=== PATIENT | male | born 2000 | race Caucasian/White ===

== ENCOUNTER 2024-02-28 15:11 | Emergency (ER) | payer MEDICAID, SELFPAY ==
[2024-02-28 15:30] VITALS: RESP 20; O2SAT 100
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
== END 2024-02-28 15:51 | disposition home or self-care (01) ==
PROVIDERS: Emergency Provider Emergency Medicine
DX: F42.9 Obsessive-compulsive disorder, unspecified (principal); F41.9 Anxiety disorder, unspecified
CPT/HCPCS: 99281

== ENCOUNTER 2024-03-02 01:56 | Emergency (ER) | payer MEDICAID, SELFPAY ==
[2024-03-02 02:00] VITALS: BP 136/89; PULSE 85; RESP 16; TEMP 36.4; O2SAT 100
--- NOTE | 2024-03-02 02:01 | ED.UPPEXIN ---
HPI - Extremity Injury (Upper) General Chief Complaint: Extremity Injury, Upper Stated Complaint: unspecified Time Seen by Provider: 03/02/24 02:01 Source: patient Mode of arrival: ambulatory Limitations: no limitations History of Present Illness HPI narrative: 24-year-old male with a history of anxiety done yesterday morning. Blood was drawn from right cubital fossa. He presents to the ED with a bruise on his right cubital fossa. Normal range of motion of the right elbow. Patient stated that he was asleep and was woken up with pain in the right cubital fossa. up-to-date on tetanus MD complaint: injury to: right Severity: mild Relieving factors: none Exacerbating factors: none Related Data Home Medications Medication Instructions Recorded Confirmed No Home Medications 03/02/24 03/02/24 Allergies Allergy/AdvReac Type Severity Reaction Status Date / Time No Known Allergies Allergy Verified 03/02/24 02:01 Review of Systems Review of Systems: All systems reviewed & are unremarkable except as noted in HPI and below Exam Narrative: Blood pressure is stable. Afebrile. Oxygen saturation of 100% on room Const: General: healthy appearing Nutritional Appearance: well nourished Orientation/consciousness: patient oriented x3 Limitations: no limitations HENMT: Head: normal to inspection Ears: external ears normal Face/Nose/Sinus: Normal external nose present Face and sinus: normal facial exam Mouth: Yes Normal oral and palatal mucosa present Throat: posterior oropharynx normal Eyes: Conjunctivae: conjunctivae normal Pupils: Equal, round and reactive pupils present EOM: EOMs intact bilaterally Direct Ophthalmoscopy: no photophobia Neck: Neck: normal visual inspection, no lymphadenopathy and no meningeal signs Chest: Chest palpation & inspection: normal inspection of the chest Resp: Effort & Inspection: normal respiratory effort Auscultation: clear to auscultation bilaterally Cardio: Rate: regular rate Rhythm: regular rhythm GI: GI Palp: Yes Soft to palpation Auscultation: normal bowel sounds Other: no tenderness /rigidity / rebound. : General: Yes no CVA tenderness Back/Spine/Pelvis: Back: no CVA tenderness Skin: General skin exam: normal color Rashes: no rashes Other: Right cubital fossa has the 3 cm linear bruise Neuro: General: patient oriented x3, moves all extremities, no meningeal signs and no focal motor deficits Cranial nerves: Yes Nystagmus not present Speech: normal speech Gait exam (Neuro): Normal gait present Extrem: General: normal to inspection and no clubbing, cyanosis or edema Psych: Mental Status: mental status grossly normal Affect: normal affect Attitude: cooperative Course Course Emergency Course: right arm bruising Vital Signs Vital signs: Vital Signs Temperature 36.4 C L 03/02/24 02:00 Pulse Rate 85 03/02/24 02:00 Respiratory Rate 16 03/02/24 02:00 Blood Pressure 136/89 03/02/24 02:00 Pulse Oximetry 100 03/02/24 02:00 Oxygen Delivery Room Air 03/02/24 02:00 Temperature 36.4 C L 03/02/24 02:00 Pulse Rate 85 03/02/24 02:00 Respiratory Rate 16 03/02/24 02:00 Blood Pressure 136/89 03/02/24 02:00 Pulse Oximetry 100 03/02/24 02:00 Oxygen Delivery Room Air 03/02/24 02:00 MDM - Extremity Injury (Upper) MDM Narrative Medical decision making narrative: right arm bruising Discharge Plan Discharge Clinical Impression: Bruise Patient Disposition: Home, Self-Care Condition: Stable Instructions: Antibiotic Form, Contusion in Adults (ED) Patient Language: Vietnamese Prescriptions: No Action No Home Medications Follow-up/Referrals: UNKNOWN,DOCTOR [Primary Care Provider] - Time of Disposition: 02:10
== END 2024-03-02 02:15 | disposition home or self-care (01) ==
PROVIDERS: Emergency Provider Internal Medicine Critical Care Medicine
DX: S50.01XA Contusion of right elbow, initial encounter (principal); X58.XXXA Exposure to other specified factors, initial encounter
CPT/HCPCS: 99281

== ENCOUNTER 2024-03-04 01:31 | Emergency (ER) | payer MEDICAID, SELFPAY ==
[2024-03-04 01:42] VITALS: BP 131/80; PULSE 92; RESP 18; TEMP 36.9; O2SAT 100
--- NOTE | 2024-03-04 02:08 | ED_ITS ---
HPI - Skin/Abscess/Foreign Bdy General Chief complaint: Extremity Injury, Upper Stated complaint: LEFT ARM PROBLEM Time Seen by Provider: 03/04/24 01:47 Source: patient Mode of arrival: ambulatory Limitations: no limitations History of Present Illness HPI narrative: patient is a 24-year-old male with a right upper extremity post IV insertion site for drawing blood pain. He has ecchymosis and pain of the site where IV insertion was done 4 days ago. He is having increasing pain of the AC curvature of the right upper extremity with some bruising. He is also having a cord-like sensation up the right inner arm. no fever or chills. tetanus up-to-date in the past year. MD complaint: other ( Right upper extremity pain at the AC fossa) Onset (ago): day(s) (4) Location: RUE Severity: moderate Severity scale (1-10): 4 Quality: sharp Pain Consistency: constant Relieving factors: cold therapy Exacerbating factors: palpation Context: other ( Patient had blood drawn 4 days ago) Associated symptoms: denies other symptoms Treatments prior to arrival: other ( cold compress and NSAIDs) Related Data Allergies Allergy/AdvReac Type Severity Reaction Status Date / Time No Known Allergies Allergy Verified 03/04/24 01:48 Review of Systems Review of Systems: All systems reviewed & are unremarkable except as noted in HPI and below Constitutional: Constitutional: Reports no additional constitutional complaints Eyes: Eyes: Reports no additional eye complaints ENT: Reports system reviewed and no additional complaints, except as documented Cardiovascular: Cardiovascular: Reports no additional cardiovascular complaints Respiratory: Respiratory: Reports no additional respiratory complaints Gastrointestinal: Gastrointestinal: Reports no additional gastrointestinal complaints Genitourinary: Genitourinary: Reports no additional male genitourinary complaints Musculoskeletal: Musculoskeletal: Reports no additional musculoskeletal complaints Integumentary/Breasts: Skin/Breast: Reports system reviewed and no additional complaints, except as docu Neurologic: Reports system reviewed and no additional complaints, except as documented Psychiatric: Psychiatric: Reports no additional psychiatric complaints Endocrine: Endocrine: Reports no additional endocrine complaints Hematologic/Lymphatic: Hematologic/Lymphatic: Reports no additional hematologic/lymphatic complaints Allergic/Immunologic: Allergic/Immunologic: Reports no additional allergic/immunologic complaints Exam Const: General: healthy appearing Nutritional Appearance: well nourished Orientation/consciousness: patient oriented x3 Limitations: no limitations HENMT: Head: normal to inspection Ears: external ears normal Face/Nose/Sinus: Normal external nose present Eyes: Conjunctivae: conjunctivae normal Pupils: Equal, round and reactive pupils present EOM: EOMs intact bilaterally Neck: Neck: normal visual inspection Chest: Chest palpation & inspection: normal inspection of the chest Resp: Effort & Inspection: normal respiratory effort and not labored Auscultation: clear to auscultation bilaterally and no crackles Cardio: Rate: regular rate Rhythm: regular rhythm Heart sounds: no murmurs GI: Inspection: non-distended GI Palp: Yes Soft to palpation and No Tenderness to palpation present (GI) Auscultation: normal bowel sounds : General: Yes bladder normal to palpation Back/Spine/Pelvis: Back: no CVA tenderness Skin: General skin exam: No normal color Rashes: no rashes Wounds: no wounds Other: right AC fossa has the area of insertion of the IV for blood draw and locally ecchymosis and tenderness; there appears to be a hardening of the vessel up the right upper arm; no definite signs of infection Neuro: General: patient oriented x3 Cranial nerves: Yes Nystagmus not present Speech: normal speech Gait exam (Neuro): Normal gait present Extrem: General: normal to inspection Psych: Mental Status: mental status grossly normal Affect: normal affect Attitude: cooperative Course Vital Signs Vital signs: Vital Signs Temperature 36.9 C 03/04/24 01:42 Pulse Rate 92 03/04/24 01:42 Respiratory Rate 18 03/04/24 01:42 Blood Pressure 131/80 03/04/24 01:42 Pulse Oximetry 100 03/04/24 01:42 Oxygen Delivery Room Air 03/04/24 01:42 Temperature 36.9 C 03/04/24 01:42 Pulse Rate 92 03/04/24 01:42 Respiratory Rate 18 03/04/24 01:42 Blood Pressure 131/80 03/04/24 01:42 Pulse Oximetry 100 03/04/24 01:42 Oxygen Delivery Room Air 03/04/24 01:42 MDM - Skin/Abscess/Foreign Bdy MDM Narrative Medical decision making narrative: patient is a 24-year-old male with right upper extremity post IV blood draw site of inflammation and phlebitis with questionable suppurative phlebitis. We will get an ultrasound of the right upper extremity tomorrow to rule out DVT. We will do Keflex for antibiotic treatment. We will continue NSAID treatment and ice compression. Discharge Plan Discharge Clinical Impression: Phlebitis Patient Disposition: Home, Self-Care Condition: Stable Instructions: Antibiotic Form, Phlebitis (ED) Additional Instructions: Please see the primary doctor in the next week. I have ordered ultrasound free to get done in the morning on Wednesday and if there is a positive finding you should proceed back to the emergency room. if it gets worse over the weekend please proceed to [facility] where you can get an ultrasound done on the weekends. please start using ibuprofen 600 mg at a time up to 3 times a day. Continue using cold compress. Prescriptions: New cephalexin 500 mg tablet 500 mg PO BID 10 Days Qty: 20 0RF Other Ambulatory Orders: US venous doppler UE RT (Routine) Timeframe: 3 Days Location: Determined by Patient Ordered By: Bandar Pyle Follow-up/Referrals: UNKNOWN,DOCTOR [Primary Care Provider] - Time of Disposition: 02:19
[2024-03-04] MEDS: IBUPROFEN 600 MG TABLET PO (02:30)
[2024-03-04] MEDS: CEPHALEXIN 500 MG CAPSULE PO (02:31)
--- NOTE | 2024-03-04 02:33 | PC.NURSE ---
patient medicated per order, see MAR. patient requesting to speak with ERP Dr. Broderick again, Dr. Broderick answered all patient inquiries at this time, including detailed information regarding follow up.
== END 2024-03-04 02:50 | disposition home or self-care (01) ==
LOC: CHSED 02:31
PROVIDERS: Emergency Provider Emergency Medicine
DX: T81.72XA Complication of vein following a procedure, not elsewhere classified, initial encounter (principal); I80.8 Phlebitis and thrombophlebitis of other sites
CPT/HCPCS: 99283; A9270

== ENCOUNTER 2024-03-06 13:21 | Outpatient (CLI) | payer MEDICAID, SELFPAY ==
--- NOTE | ~2024-03-06 | US_ITS ---
EXAMINATION: US venous doppler UE RT DATE: 03/06/2024 14:00 INDICATION: Phlebitis and thrombophlebitis of unspecified deep vein . TECHNIQUE: Grayscale ultrasound images without and with compression and Doppler ultrasound images of the right upper extremity veins were obtained. COMPARISON: None. FINDINGS: The visualized portions of the right internal jugular vein, subclavian vein, axillary vein, brachial veins, cephalic vein, radial vein, and ulnar vein are patent. There is wall thickening of the right b asilic vein. IMPRESSION: 1. No deep venous thrombosis. 2. Wall thickening of the right basilic vein, consistent with chronic superficial vein thrombosis. Reviewed, dictated and finalized at location A. ING INSTRUCTOR IMPRESSION: 1. No deep venous thrombosis. 2. Wall thickening of the right basilic vein, consistent with chronic superfici al vein thrombosis.
== END 2024-03-06 13:22 | disposition home or self-care (01) ==
LOC: CHSIMG 13:23
PROVIDERS: Visit Provider Emergency Medicine
DX: I80.9 Phlebitis and thrombophlebitis of unspecified site (principal)
CPT/HCPCS: 93971

== ENCOUNTER 2024-03-24 22:44 | Emergency (ER) | payer MEDICAID, SELFPAY ==
[2024-03-24 22:50] VITALS: BP 117/85; PULSE 99; RESP 16; TEMP 37.6; O2SAT 98
--- NOTE | 2024-03-24 22:56 | ED_ITS ---
HPI - Extremity Problem General Chief complaint: Extremity Problem,Nontraumatic Stated complaint: LEG PAIN Time Seen by Provider: 03/24/24 22:56 Source: patient Mode of arrival: ambulatory Limitations: no limitations History of Present Illness HPI Narrative: 24-year-old male a history anxiety presents to the ED with a 2 week history of -- right thigh pain. No history of trauma. No leg swelling. Patient is am bulatory without any difficulty. The patient has a family history of CVD and is concerned that this could be PVD. MD Complaint: extremity pain Onset (ago): week(s) ( Two weeks) Pain Consistency: intermittent Location: right and lower extremity Quality: aching Relieving factors: nothing Exacerbating factors: nothing Associated symptoms: denies other symptoms Related Data Home Medications ?Medication ?Instructions ?Recorded ?Confirmed ?Last Taken ?Type fluvoxamine 25 mg tablet mg 03/24/24 Unknown History Allergies Allergy/AdvReac Type Severity Reaction Status Date / Time No Known Allergies Allergy Verified 03/24/24 23:01 Review of Systems Review of Systems: All systems reviewed & are unremarkable except as noted in HPI and below Exam Narrative: patient is afebrile. Vitals stable. Const: General: healthy appearing Nutritional Appearance: thin Orientation/consciousness: patient oriented x3 Limitations: no limitations HENMT: Head: normal to inspection Ears: external ears normal Face/Nose/Sinus: Normal external nose present Face and sinus: normal facial exam Mouth: Yes Normal oral and palatal mucosa present Throat: posterior oropharynx normal Eyes: Conjunctivae: conjunctivae normal Pupils: Equal, round and reactive pupils present EOM: EOMs intact bilaterally Direct Ophthalmoscopy: no photophobia Neck: Neck: normal visual inspection, no lymphadenopathy and no meningeal signs Chest: Chest palpation & inspection: normal inspection of the chest Resp: Effort & Inspection: normal respiratory effort Auscultation: clear to auscultation bilaterally Cardio: Rate: regular rate Rhythm: regular rhythm GI: GI Palp: Yes Soft to palpation Other: No tenderness/ rigidity / rebound. : General: Yes no CVA tenderness Back/Spine/Pelvis: Back: no CVA tenderness Skin: General skin exam: normal color Rashes: no rashes Wounds: no wounds Neuro: General: patient oriented x3, moves all extremities, no meningeal signs, no focal motor deficits and CN's II-XI intact bilaterally Cranial nerves: Yes Nystagmus not present Speech: normal speech Gait exam (Neuro): Normal gait present Extrem: General: normal to inspection Other: Right thigh pain. No tenderness on palpation. Normal strength. Distal neurovascular bundle is intact. Palpable dorsalis pedis and posterior tibial pulses. No swelling of the right lower extremity compared to the left. Psych: Mental Status: mental status grossly normal Affect: normal affect Attitude: cooperative Course Course Emergency Course: Thigh pain anxiety Vital Signs Vital signs: Vital Signs Temperature 37.6 C 03/24/24 22:50 Pulse Rate 99 03/24/24 22:50 Respiratory Rate 16 03/24/24 22:50 Blood Pressure 117/85 03/24/24 22:50 Pulse Oximetry 98 03/24/24 22:50 Oxygen Delivery Room Air 03/24/24 22:50 Temperature 37.6 C 03/24/24 22:50 Pulse Rate 99 03/24/24 22:50 Respiratory Rate 16 03/24/24 22:50 Blood Pressure 117/85 03/24/24 22:50 Pulse Oximetry 98 03/24/24 22:50 Oxygen Delivery Room Air 03/24/24 22:50 MDM - Extremity (Nontraumatic) MDM Narrative Medical decision making narrative: myalgia anxiety Differential Diagnosis Differential diagnosis: Likely deep venous thrombosis of upper extremity Discharge Plan Discharge Clinical Impression: Myalgia, Anxiety Patient Disposition: Home, Self-Care Condition: Stable Instructions: Antibiotic Form, Musculoskeletal Pain (ED) Patient Language: Kinyarwanda Prescriptions: No Action fluvoxamine 25 mg tablet cephalexin 500 mg tablet 500 mg PO BID 10 Days Qty: 20 0RF Follow-up/Referrals: UNKNOWN,DOCTOR [Primary Care Provider] - Time of Disposition: 23:02
== END 2024-03-24 23:14 | disposition home or self-care (01) ==
PROVIDERS: Emergency Provider Internal Medicine Critical Care Medicine
DX: M79.10 Myalgia, unspecified site (principal); F41.9 Anxiety disorder, unspecified
CPT/HCPCS: 99281

== ENCOUNTER 2024-03-27 10:52 | Outpatient (CLI) | payer MEDICAID, SELFPAY ==
--- NOTE | ~2024-03-27 | XR_ITS ---
3 VIEWS LUMBAR SPINE Ordering provider: Jak Whaley, History: . right leg pain chronic pain in the rt hip NKI . Comparison: None. FINDINGS: VERTEBRAL BODIES: No visible fracture or subluxation. DISK SPACES: Normal. SOFT TISSUES: Normal. IMPRESSION: No acute osseous abnormality lumbar spine. Reviewed, dictated and finalized at location A. RITY DOOR INSTALLER
--- NOTE | ~2024-03-27 | XR_ITS ---
XR hip RT min 2V Ordering provider: Jak Whaley, History: . right leg pain chronic rt hip pain NKI . Comparison: None. FINDINGS: BONES: No acute fracture or dislocation. HIP JOINT SPACES: Normal. PUBIC SYMPHYSIS: Normal. SOFT TISSUES: Normal. IMPRESSION: No acute osseous abnormality pelvis and right hip. Reviewed, dictated and finalized at location A. AGE SMASHER
== END 2024-03-27 10:53 | disposition home or self-care (01) ==
LOC: CHSIMG 10:54
PROVIDERS: PCP Family Medicine; Visit Provider Family Medicine
DX: M79.604 Pain in right leg (principal)
CPT/HCPCS: 72100; 73502

== ENCOUNTER 2024-03-28 12:28 | Outpatient (CLI) | payer MEDICAID, SELFPAY ==
--- NOTE | ~2024-03-28 | US_ITS ---
EXAMINATION: US venous doppler LE RT DATE: 03/28/2024 12:58 INDICATION: Right lower limb pain. TECHNIQUE: Grayscale ultrasound images without and with compression and Doppler ultrasound images of the right lower extremity veins were obtained. COMPARISON: None. FINDINGS: The visualized portions of right common femoral vein, profunda (deep) femoral vein, femoral vein, pop liteal vein, peroneal veins, posterior tibial veins, and greater saphenous vein outflow are patent. IMPRESSION: 1. No deep venous thrombosis. Reviewed, dictated and finalized at location A. UCTION CLERKS SUPERVISOR
== END 2024-03-28 12:29 | disposition home or self-care (01) ==
PROVIDERS: PCP Family Medicine; Visit Provider Family Medicine
DX: M79.604 Pain in right leg (principal)
CPT/HCPCS: 93971

== ENCOUNTER 2024-03-31 14:50 | Emergency (ER) | payer MEDICAID, SELFPAY ==
[2024-03-31 14:52] VITALS: BP 118/69; PULSE 88; RESP 18; TEMP 36.8; O2SAT 99
--- NOTE | 2024-03-31 15:00 | ED.GENADULT ---
HPI - General Adult General Chief complaint: Wound/Laceration Stated complaint: ear pain Time Seen by Provider: 03/31/24 15:00 Source: patient Mode of arrival: ambulatory Limitations: no limitations History of Present Illness HPI narrative: 26-year-old white male complains of a cyst behind his right ear he is waiting for the last 2 weeks for his doctor to call him to make a rage was to have it removed. Last couple days is turned red and sore without any drainage. He is hearing fine denies any other complaints. He is eating drinking voiding and stooling fine walking talking seen hearing fine without any cough fever sore throat runny nose lumps or bumps other than what he has got behind his ear. Denies any dizziness or lightheadedness bleeding or bruising or any other complaints. Related Data Home Medications ?Medication ?Instructions ?Recorded ?Confirmed ?Last Taken ?Type fluvoxamine 25 mg tablet 25 mg PO DAILY 03/24/24 03/31/24 Unknown History Allergies Allergy/AdvReac Type Severity Reaction Status Date / Time No Known Allergies Allergy Verified 03/31/24 14:54 Review of Systems Review of Systems: All systems reviewed & are unremarkable except as noted in HPI and below Exam Const: General: healthy appearing and no acute distress Nutritional Appearance: well nourished Orientation/consciousness: patient oriented x3 Limitations: no limitations HENMT: Ears: external ears normal and TM's normal bilaterally Face/Nose/Sinus: Normal external nose present Face and sinus: normal facial exam Mouth: Yes Normal oral and palatal mucosa present Other: He has a 1 cm round cyst behind his right earlobe mildly tender with some mild erythema surrounding the area. There is no mastoid bone tenderness TMs normal Eyes: Conjunctivae: conjunctivae normal EOM: EOMs intact bilaterally Direct Ophthalmoscopy: no photophobia Neck: Neck: normal visual inspection and no lymphadenopathy Chest: Chest palpation & inspection: normal inspection of the chest Resp: Effort & Inspection: normal respiratory effort Auscultation: clear to auscultation bilaterally Cardio: Rate: regular rate Rhythm: regular rhythm Heart sounds: Murmur heart sound present Skin: General skin exam: normal color Rashes: no rashes Wounds: no wounds Neuro: General: patient oriented x3 and moves all extremities Speech: normal speech Gait exam (Neuro): Normal gait present Extrem: General: normal to inspection Psych: Attitude: cooperative Course Vital Signs Vital signs: Vital Signs Temperature 36.8 C 03/31/24 14:52 Pulse Rate 88 03/31/24 14:52 Respiratory Rate 18 03/31/24 14:52 Blood Pressure 118/69 03/31/24 14:52 Pulse Oximetry 99 03/31/24 14:52 Oxygen Delivery Room Air 03/31/24 14:52 Temperature 36.8 C 03/31/24 14:52 Pulse Rate 88 03/31/24 14:52 Respiratory Rate 18 03/31/24 14:52 Blood Pressure 118/69 03/31/24 14:52 Pulse Oximetry 99 03/31/24 14:52 Oxygen Delivery Room Air 03/31/24 14:52 Medical Decision Making MDM Narrative Medical decision making narrative: Patient placed in room: to ? History and physical was performed. Independent Historian: patient External Source Review: Differential Dx includes but not limited to: sebaceous cyst Medications were Reviewed: Medications given: 1% lidocaine I&D abscess /the sebaceous cyst: Area was prepped by his right ear with Betadine and 1% lidocaine was used his till in the lesion. #10. Blade stab incision was made and pus and cerumen was expelled and a culture was taken. The cyst was drained and a bandage was applied patient tolerated procedure well. Independently Interpreted by me: Shared decision Making: Evaluation is discussed with the patient all questions were asked and answered patient agreed with the plan. Social Situation Impacting Patients Care: Discussed with Dr. ARIAS DIAGNOSIS: Sebaceous cyst infected DISPOSITION : discharge home CONDITION AT DISCHARGE: stable Vital Signs Vital Signs: Vital Signs Temperature 36.8 C 03/31/24 14:52 Pulse Rate 88 03/31/24 14:52 Respiratory Rate 18 03/31/24 14:52 Blood Pressure 118/69 03/31/24 14:52 Pulse Oximetry 99 03/31/24 14:52 Oxygen Delivery Room Air 03/31/24 14:52 Temperature 36.8 C 03/31/24 14:52 Pulse Rate 88 03/31/24 14:52 Respiratory Rate 18 03/31/24 14:52 Blood Pressure 118/69 03/31/24 14:52 Pulse Oximetry 99 03/31/24 14:52 Oxygen Delivery Room Air 03/31/24 14:52 Discharge Plan Discharge Clinical Impression: Scalp cyst Patient Disposition: Home, Self-Care Condition: Stable Instructions: Antibiotic Form, Puncture Wound (ED), Cyst (ED) Additional Instructions: Augmentin 875 twice a day for 5 days. Tylenol and or ibuprofen as needed for pain. Probiotic over the counter Florastor once daily while on antibiotic. change dressing daily and as needed Patient Language: American Prescriptions: New amoxicillin-pot clavulanate 875-125 mg tablet 1 tablet PO BID 5 Days Qty: 10 0RF No Action fluvoxamine 25 mg tablet 25 mg PO DAILY Follow-up/Referrals: Judd,MD Jak [Primary Care Provider] - Time of Disposition: 15:27
[2024-03-31 15:37] VITALS: BP 118/59; PULSE 88; RESP 18; TEMP 36.8; O2SAT 99
--- NOTE | 2024-04-01 01:12 | ED_ITS ---
HPI - General Adult General Chief complaint: Wound/Laceration Stated complaint: allergic reaction Time Seen by Provider: 03/31/24 15:00 Source: patient Mode of arrival: ambulatory Limitations: no limitations Related Data Home Medications ?Medication ?Instructions ?Recorded ?Confirmed ?Last Taken ?Type fluvoxamine 25 mg tablet 25 mg PO DAILY 03/24/24 03/31/24 Unknown History Allergies Allergy/AdvReac Type Severity Reaction Status Date / Time amoxicillin (From Augmentin) Allergy Redness of Verified 04/01/24 00:59 Skin clavulanic acid (From Allergy Redness of Verified 04/01/24 00:59 Augmentin) Skin Course Vital Signs Vital signs: Vital Signs Temperature 36.8 C 03/31/24 14:52 Pulse Rate 88 03/31/24 14:52 Respiratory Rate 18 03/31/24 14:52 Blood Pressure 118/69 03/31/24 14:52 Pulse Oximetry 99 03/31/24 14:52 Oxygen Delivery Room Air 03/31/24 14:52 Temperature 36.8 C 03/31/24 15:37 Pulse Rate 88 03/31/24 15:37 Respiratory Rate 18 03/31/24 15:37 Blood Pressure 118/59 L 03/31/24 15:37 Pulse Oximetry 99 03/31/24 15:37 Oxygen Delivery Room Air 03/31/24 15:37 Medical Decision Making Vital Signs Vital Signs: Vital Signs Temperature 36.8 C 03/31/24 14:52 Pulse Rate 88 03/31/24 14:52 Respiratory Rate 18 03/31/24 14:52 Blood Pressure 118/69 03/31/24 14:52 Pulse Oximetry 99 03/31/24 14:52 Oxygen Delivery Room Air 03/31/24 14:52 Temperature 36.8 C 03/31/24 15:37 Pulse Rate 88 03/31/24 15:37 Respiratory Rate 18 03/31/24 15:37 Blood Pressure 118/59 L 03/31/24 15:37 Pulse Oximetry 99 03/31/24 15:37 Oxygen Delivery Room Air 03/31/24 15:37 Discharge Plan Discharge Clinical Impression: Scalp cyst Patient Disposition: Home, Self-Care Condition: Stable Instructions: Antibiotic Form, Puncture Wound (ED), Cyst (ED) Additional Instructions: Augmentin 875 twice a day for 5 days. Tylenol and or ibuprofen as needed for pain. Probiotic over the counter Florastor once daily while on antibiotic. change dressing daily and as needed Patient Language: Cambodian Prescriptions: New amoxicillin-pot clavulanate 875-125 mg tablet 1 tablet PO BID 5 Days Qty: 10 0RF No Action fluvoxamine 25 mg tablet 25 mg PO DAILY Follow-up/Referrals: Judd,MD Jak [Primary Care Provider] - Time of Disposition: 15:27
--- NOTE | 2024-04-01 01:14 | ED_ITS ---
<Statement entered by Thad Corral MD - 04/01/24 01:48> patient was seen twice in the emergency department early in the day on 03/31 2024 he had incision of sebaceous cyst behind his right ear and was given Augmentin. Patient was then seen again a 2nd time just after midnight on 04/01/2024 with acute allergic reaction to Augmentin discharge diagnosis on 04/01 was acute allergic reaction plan on 04/01/2024 was take it EpiPen as needed if he had another allergic reaction to return to the emergency room. That he was good to take prednisone 40 mg daily for 5 days. He is to return to emergency room if he has any allergic symptoms. His condition at discharge was stable disposition was discharged home HPI - General Adult General Chief complaint: Wound/Laceration Stated complaint: allergic reaction Time Seen by Provider: 03/31/24 15:00 Source: patient Mode of arrival: ambulatory Limitations: no limitations History of Present Illness HPI narrative: 24-year-old white male seen in the emergency room earlier today given prescription for Augmentin 875 he took around 10:00 p.m. about 2 hours later he started breaking on her diffuse rash red erythematous associated with itching without any shortness of breath swelling or decreased difficulty breathing. Did have nausea vomiting felt better after he vomited. He called EMS they gave him 50 mg IV Benadryl. He had to 100 cc of normal saline per EMS he was little tachycardic 110 others vital signs were normal. Denies any other symptoms he was much better but then got here his itching was markedly improved. Denies any other complaints Related Data Home Medications ?Medication ?Instructions ?Recorded ?Confirmed ?Last Taken ?Type fluvoxamine 25 mg tablet 25 mg PO DAILY 03/24/24 03/31/24 Unknown History Allergies Allergy/AdvReac Type Severity Reaction Status Date / Time amoxicillin (From Augmentin) Allergy Redness of Verified 04/01/24 00:59 Skin clavulanic acid (From Allergy Redness of Verified 04/01/24 00:59 Augmentin) Skin Review of Systems Review of Systems: All systems reviewed & are unremarkable except as noted in HPI and below PMFSH Comments incision and drainage of sebaceous cyst behind the right ear 03/31/2024. Exam Narrative: White male patient with Mild distress.? Head normocephalic, atraumatic.? Eyes conjunctiva pink sclera nonicteric.? Extraocular movements are intact.? Ears externally normal.? Oropharynx is clear with moist mucous membranes without exudates.? no tongue or oral swelling. Neck is supple nontender no lymphadenopathy.? Back is nontender.? Lungs are clear.? Heart is regular rate and rhythm without murmurs gallops or rubs.? Chest wall nontender. Abdomen is soft and nontender no hepatosplenomegaly or masses no CVA tenderness no abdominal bruits.? Extremities no cyanosis clubbing or edema.? Skin is warm and dry with diffuse erythema whose face trunk extremities blanchable.? Neurological patient is alert and oriented x4.? Motor and sensory grossly intact.? Gait is normal. Course Vital Signs Vital signs: Vital Signs Temperature 36.8 C 03/31/24 14:52 Pulse Rate 88 03/31/24 14:52 Respiratory Rate 18 03/31/24 14:52 Blood Pressure 118/69 03/31/24 14:52 Pulse Oximetry 99 03/31/24 14:52 Oxygen Delivery Room Air 03/31/24 14:52 Temperature 36.8 C 03/31/24 15:37 Pulse Rate 88 03/31/24 15:37 Respiratory Rate 18 03/31/24 15:37 Blood Pressure 118/59 L 03/31/24 15:37 Pulse Oximetry 99 03/31/24 15:37 Oxygen Delivery Room Air 03/31/24 15:37 Medical Decision Making MDM Narrative Medical decision making narrative: Patient placed in room: Room 2 by EMS ? History and physical was performed. Independent Historian: EMS External Source Review: Differential Dx includes but not limited to: acute allergic reaction to Augm entin Medications were Reviewed: Home meds reviewed Medications given: patient refused epinephrine was given Solu-Medrol 125 mg IV patient completed a L of normal saline. Independently Interpreted by me: Shared decision Making: evaluation was discussed and all questions were asked and answered patient agreed with plan. He would take Benadryl 25 mg every 4 hours as needed for allergic symptoms return if you get worse or develops any new symptoms. Patient was prescribed EpiPen. he was given instructions on how to use it. He is to return if you get worse or develops any new symptoms . At discharge is he had no nausea vomiting no swelling no difficulty breathing his itching was pretty much gone his rash and faded considerably. Social Situation Impacting Patients Care: Discussed with Dr. ARIAS DIAGNOSIS: acute allergic reaction to Augmentin DISPOSITION : discharge home CONDITION AT DISCHARGE: stable Vital Signs Vital Signs: Vital Signs Temperature 36.8 C 03/31/24 14:52 Pulse Rate 88 03/31/24 14:52 Respiratory Rate 18 03/31/24 14:52 Blood Pressure 118/69 03/31/24 14:52 Pulse Oximetry 99 03/31/24 14:52 Oxygen Delivery Room Air 03/31/24 14:52 Temperature 36.8 C 03/31/24 15:37 Pulse Rate 88 03/31/24 15:37 Respiratory Rate 18 03/31/24 15:37 Blood Pressure 118/59 L 03/31/24 15:37 Pulse Oximetry 99 03/31/24 15:37 Oxygen Delivery Room Air 03/31/24 15:37 Discharge Plan Discharge Clinical Impression: Scalp cyst Patient Disposition: Home, Self-Care Condition: Stable Instructions: Antibiotic Form, Puncture Wound (ED), Cyst (ED) Additional Instructions: Augmentin 875 twice a day for 5 days. Tylenol and or ibuprofen as needed for pain. Probiotic over the counter Florastor once daily while on antibiotic. change dressing daily and as needed Patient Language: Greenlandic Prescriptions: New amoxicillin-pot clavulanate 875-125 mg tablet 1 tablet PO BID 5 Days Qty: 10 0RF No Action fluvoxamine 25 mg tablet 25 mg PO DAILY Follow-up/Referrals: Judd,MD Jak [Primary Care Provider] - Time of Disposition: 15:27
--- NOTE | 2024-04-01 12:55 | PC.NURSE ---
preliminary right ear culture report reviewed. few wbc's seen, no organisms seen. awaiting final report
--- NOTE | 2024-04-02 13:43 | PC.NURSE ---
PRELIMINARY RIGHT EAR CULTURE. NO GROWTH
--- NOTE | 2024-04-03 13:57 | PC.NURSE ---
final right ear wound culture reviewed. no organisms seen
--- NOTE | 2024-04-07 15:29 | PC.NURSE ---
ATTEMPT TO CALL FOR CHECK IN REGARDING RIGHT EAR ABSCESS. NO ANSWER. UNABLE TO LEAVE MESSAGE.
--- NOTE | 2024-04-10 13:37 | PC.NURSE ---
spoke with aline , no signs of infection behind right ear. no need for antibiotics in regard to final right ear culture.
== END 2024-03-31 15:37 | disposition home or self-care (01) ==
PROVIDERS: Emergency Provider Emergency Medicine; PCP Family Medicine
DX: L72.3 Sebaceous cyst (principal); L08.9 Local infection of the skin and subcutaneous tissue, unspecified
CPT/HCPCS: 10060; 87070; 87075; 87205; 99283

== ENCOUNTER 2024-04-01 00:46 | Emergency (ER) | payer MEDICAID, SELFPAY ==
[2024-04-01 00:54] VITALS: BP 123/71; PULSE 124; RESP 17; TEMP 37.2; O2SAT 98
[2024-04-01] MEDS: methylPREDNISolone SOD SUCC 125 MG VIAL IV PUSH (01:23)
--- NOTE | 2024-04-01 01:27 | PC.NURSE ---
patient medicated per order, see MAR. patient awake and alert, red rash greatly improved since patient arrival. ERP Dr. Corral at bedside. call light within reach.
--- NOTE | 2024-04-01 01:58 | PC.NURSE ---
Dr. Corral at patient bedside. patient update provided and patient encouraged to stop taking the Augmentin as previously ordered.
[2024-04-01 02:22] VITALS: BP 113/69; PULSE 90; RESP 18; TEMP 36.9; O2SAT 97
--- OUTSIDE RECORDS SUMMARY | 2024-04-08 00:38 | XMS_ITS | Encounter Summary ---
Author Organization [facility] Address [address] [place] [address]. [place], [place] [address] [place] [address] Care Team Providers Care Plastic Frame Inserter Name Role Phone None, Provider MD Primary Care Provider Unavaila ble Reason for Visit * Reason Onset Date Comments Appointment Reminder 08/29/2020 Encounter Details Date Type Department Care Team (Late st Contact Info) Description 08/29/2020 Telephone [facility] Internal Medicine - [place] [address] [place] [address] Jose Yip MD [address] [place] [address] Appointment Reminder Social History Tobacco Use Types Packs/Day Years Used Date Smoking Tobacco: Every Day Cigarettes Smokeless Tobacco: Never Alcohol Use Standard Drinks/Week Comments Yes 0 (1 standard drink = 0.6 oz pur e alcohol) AUDIT-C Answer Date Recorded Q1: How often do you have a drink containing alc ohol? 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 * Lissa Hanson MA - 08/29/2020 8:12 AM CDT Please call patient and set up for annual in February - has been seen for accute issues but last wellness was 12/2019 documented in this encounter Plan of Treatment Not on file documented as of this encounter Visit Diagnoses Not on filedocumented in this encounter Care Teams Plastic Frame Inserter Relationship Specialty Start Date End Date None, Provider, PCP - General 08/29/20 documented as of this encounter
--- OUTSIDE RECORDS SUMMARY | 2024-04-08 00:38 | XMS_ITS | Encounter Summary ---
Author Organization [facility] Address [address] [place] [address]. 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 No / Unsure 03/06/2020 12:54 PM COVERING MACHINE OPERATOR documented as of this encounter Plan of Treatment Not on file documented as of this encounter Visit Diagnoses Not on filedocumented in this encounter Care Teams Automobile Mechanic Radiator Relationship Specialty Start Date End Date Jose Yip MD [facility] [place] [address] PCP - General INTERNAL MEDICINE 12/27/19 08/28/20 documented as of this encounter
--- OUTSIDE RECORDS SUMMARY | 2024-04-08 00:38 | XMS_ITS | Encounter Summary ---
Author Organization [facility] Address [address] [place] [address]. [place], [place] [address] [place] [address] Care Team Providers Care Laborer Driver Name Role Phone Jose Yip MD Primary Care Provider +1- [phone] Reason for Visit * Reason Onset Date Comments UTI 03/05/2020 Urinary frequenc y, urgency, pain, burning when voids, pain when seated. Thinks he is having a prostate problem. Encounter Details Date Type Department Care Team (Late st Contact Info) Description 03/05/2020 Telephone [facility] Internal Medicine - [address] [address] Jose Yip MD [address] [place] [address] UTI (Urinary frequency, urgency, pain, burning when voids, pain when seated. 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 No / Unsure 03/06/2020 12:54 PM GEOLOGY TECHNICIAN documented as of this encounter Progress Notes * Jacquelyn Rock MA - 03/05/2020 11:22 AM CST noted OGY TECHNICIAN * Carl Brooks RN - 03/05/2020 11:15 AM CST Urinary frequency, urgency, pain, burning when voids, pain when seated. Thinks he is having a prostate problem. Denies urine cloudiness or odor. Did go to a [employer] gathering, states wears a mask. Appt 03/06/20 Evonne Anglin 1:00 Instructed to arrive 10 minutes early and wear a mask to clinic and sanitize hands. OGY TECHNICIAN documented in this encounter Plan of Treatment Not on file documented as of this encounter Visit Diagnoses Not on filedocumented in this encounter Care Teams Laborer Driver Relationship Specialty Start Date End Date Jose Yip MD [address] [place] [address] PCP - General INTERNAL MEDICINE 12/27/19 08/28/20 documented as of this encounter
--- OUTSIDE RECORDS SUMMARY | 2024-04-08 00:38 | XMS_ITS | Encounter Summary ---
Author Organization [facility] Address [address] [place] [address]. [id number] [place] [address] Care Team Providers Care Boat Cleaner Name Role Phone Jose Yip MD Primary Care Provider +1- [phone] Reason for Visit * Reason Onset Date Comments Follow Up Call 02/12/2020 Encounter Details Date Type Department Care Team (Late st Contact Info) Description 02/12/2020 Telephone [facility] Internal Medicine - [address] [address] Jose Yip MD [address] [place] [address] Follow Up Call Social History Tobacco Use Types Packs/Day Years [...] on file Legal Sex Male 10:43 PM TECHNICAL CUSTOMER SUPPORT SPECIALIST Gender Identity Not on file Sexual Orientation Not on file COVID-19 Exposure Response Date Recorded In the last month, have you been in contact with someone who was confirmed or suspected to have Coronavirus / COVID-19? No / Unsure 02/12/2020 1:56 PM TECHNICAL CUSTOMER SUPPORT SPECIALIST documented as of this encounter Progress Notes * Charmaine Parry RN - 02/13/2020 12:26 PM CSTAddended by: CHARMAINE PARRY on: 02/13/2020 12:26 PM Modules accepted: Orders NICAL CUSTOMER SUPPORT SPECIALIST * Charmaine Parry RN - 02/13/2020 12:25 PM CST Message to pt agrees to picking machine operator helper NICAL CUSTOMER SUPPORT SPECIALIST * Jose Yip MD - 02/12/2020 8:12 PM CST I forgot to have yandel take a stool fit home. We discussed it. Due to intermittent abd pain, diarrhea NICAL CUSTOMER SUPPORT SPECIALIST documented in this encounter Plan of Treatment Not on file documented as of this encounter Visit Diagnoses Diagnosis Right upper quadrant abdominal pain- Primary Abdominal pain, right upper quadrant documented in this encounter Care Teams Boat Cleaner Relationship Specialty Start Date End Date Jose Yip MD [address] [place] [address] PCP - General INTERNAL MEDICINE 12/27/19 08/28/20 documented as of this encounter
--- OUTSIDE RECORDS SUMMARY | 2024-04-08 00:38 | XMS_ITS | Encounter Summary ---
Author Organization [facility] Address [address] [place] [address]. [place], [place] [id number] [place] [address] Care Team Providers Care Pastry Decorator Name Role Phone Jose Yip MD Primary Care Provider +1- [phone] Encounter Details Date Type Department Care Team (Latest Contact Info) Description 02/12/2020 Scan HEALTH INFO [facility] Scanned, Documents Social History Tobacco Use Types Packs/Day Years [...] on file Legal Sex Male 10:43 PM LAB MANAGER Gender Identity Not on file Sexual Orientation Not on file COVID-19 Exposure Response Date Recorded In the last month, have you been in contact with someone who was confirmed or suspected to have Coronavirus / COVID-19? No / Unsure 03/06/2020 12:54 PM LAB MANAGER documented as of this encounter Plan of Treatment Not on file documented as of this encounter Visit Diagnoses Not on filedocumented in this encounter Care Teams Pastry Decorator Relationship Specialty Start Date End Date Jose Yip MD [address] [place] [address] PCP - General INTERNAL MEDICINE 12/27/19 08/28/20 documented as of this encounter
--- OUTSIDE RECORDS SUMMARY | 2024-04-08 00:38 | XMS_ITS | Encounter Summary ---
Author Organization [facility] Address [address] [place] [address]. [place] [address] [place] [address] Care Team Providers Care Bar Helper Name Role Phone Jose Yip MD Primary Care Provider +1- [phone] Reason for Visit * Reason Comments Prostate Problem not feeling well Encounter Details Date Type Department Care Team (Late st Contact Info) Description 03/06/2020 1:00 PM JAVASCRIPT WEB DEVELOPER Office Visit [facility] Internal Medicine - [address] [address] Christina Pedro NP [address] [place] [address] Prostate Problem (not feeling well) Social History Tobacco Use Types Packs/Day Years [...] on file Legal Sex Male 10:43 PM JAVASCRIPT WEB DEVELOPER Gender Identity Not on file Sexual Orientation Not on file COVID-19 Exposure Response Date Recorded In the last month, have you been in contact with someone who was confirmed or suspected to have Coronavirus / COVID-19? No / Unsure 03/06/2020 12:54 PM JAVASCRIPT WEB DEVELOPER documented as of this encounter Last Filed Vital Signs Vital Sign Reading Time Taken Comments Blood Pressure 121/71 03/06/2020 1:02 PM JAVASCRIPT WEB DEVELOPER Pulse 80 03/06/2020 1:02 PM JAVASCRIPT WEB DEVELOPER Temperature 37.1 ??C (98.7 ??F) 03/06/2020 1:02 PM CS T Respiratory Rate 18 03/06/2020 1:02 PM JAVASCRIPT WEB DEVELOPER Oxygen Saturation 97% 03/06/2020 1:02 PM JAVASCRIPT WEB DEVELOPER Inhaled Oxygen Concentration - - Weight 55.1 kg (121 lb 6.4 oz) 03/06/2020 1:02 P M JAVASCRIPT WEB DEVELOPER Height 175.3 cm (5' 9 ) 03/06/2020 1:02 PM JAVASCRIPT WEB DEVELOPER Body Mass Index 17.93 03/06/2020 1:02 PM JAVASCRIPT WEB DEVELOPER documented in this encounter Progress Notes * Christina Pedro NP - 03/06/2020 1:00 PM CST Images from the original note were not included. Reason for Visit: Prostate Problem (not feeling well) History of Present Illness: Yandel Medina is a 20-year-old male who is being seen today for what he thinks is epidydimitis or a UTI. He has been diagnoses with spermatocele (6 of right) through extensive work up in probably June of this year . He had testicular exam ,Ultrasound and a STD work up more than once which was negative. He has not been sexually active for 18 months so is not concerned about a STD. He denies fever, abd pain, penile discharge but does admit to urinary pain starting and ending stream and perineal pain (especially sitting in a hard chair). ROS: Review of Systems Constitutional: Negative. Negative for chills, fever and malaise/fatigue. HENT: Negative for congestion, ear discharge, ear pain and sinus pain. Eyes: Negative. Respiratory: Negative for cough and shortness of breath. Cardiovascular: Negative. Negative for chest pain, palpitations, claudication and leg swelling. Gastrointestinal: Negative. Negative for abdominal pain, blood in stool, nausea and vomiting. Genitourinary: Positive for dysuria and frequency. Negative for flank pain ( I have fibro so back pain is an everyday thing .) and hematuria. Musculoskeletal: Positive for back pain. Negative for joint pain, myalgias and neck pain. Skin: Negative. Neurological: Negative. Negative for dizziness, focal weakness, weakness and headaches. Endo/Heme/Allergies: Negative. Does not bruise/bleed easily. Psychiatric/Behavioral: Negative. Negative for depression, hallucinations and suicidal ideas. The patient is not nervous/anxious and does not have insomnia. He states that he is taking depakote as ordered since written by Dr Yip. Medications: Current Outpatient Medications: ??? sulfamethoxazole-trimethoprim 400-80 MG tablet, Take 2 tablets by mouth 2 (two) times daily for14 days., Disp: 56 tablet, Rfl: 0 ??? divalproex EC 250 MG tablet, Take 1 tablet (250 mg total) by mouth 2 (two) times daily., Disp: 60 tablet, Rfl: 1 ??? omeprazole 40 MG capsule, Take 1 capsule (40 mg total) by mouth daily., Disp: 90 capsule, Rfl: 3 ??? ondansetron (ZOFRAN) 4 MG tablet, Take 1 tablet (4 mg total) by mouth every 8 (eight) hours as needed for Nausea., Disp: 20 tablet, Rfl: 0 ??? sertraline 50 MG tablet, Take 50 mg by mouth daily., Disp: , Rfl: Allergies Allergen Reactions ??? Amitriptyline Tachycardia Past Medical History: Diagnosis Date ??? Allergy ??? Depression ??? Migraine Past Surgical History: Procedure Laterality Date ??? CIRCUMCISION Social History Socioeconomic History ??? Marital status: Single Spouse name: Not on file ??? Number of children: Not on file ??? Years of education: Not on file ??? Highest education level: Not on file Occupational History ??? Not on file Social Needs ??? Financial resource strain: Not on file ??? Food insecurity Worry: Not on file Inability: Not on file ??? Transportation needs Medical: Not on file Non-medical: Not on file Tobacco Use ??? Smoking status: Current Every Day Smoker Types: Cigarettes ??? Smokeless tobacco: Never Used Substance and Sexual Activity ??? Alcohol use: Yes Frequency: 2-4 times a month ??? Drug use: Yes Types: Marijuana ??? Sexual activity: Not on file Lifestyle ??? Physical activity Days per week: Not on file Minutes per session: Not on file ??? Stress: Not on file Relationships ??? Social connections Talks on phone: Not on file Gets together: Not on file Attends synagogue service: Not on file Active member of club or organization: Not on file Attends meetings of clubs or organizations: Not on file Relationship status: Not on file ??? Intimate partner violence Fear of current or ex partner: Not on file Emotionally abused: Not on file Physically abused: Not on file Forced sexual activity: Not on file Other Topics Concern ??? Not on file Social History Narrative ??? Not on file Family History Problem Relation Name Age of Onset ??? Asthma Mother ??? Depression Mother ??? Hypertension Mother ??? Migraines/Headaches Mother ??? Other (MENNIERE'S DISEASE) Mother ??? Alcohol Abuse Father ??? Depression Father ??? Other (PCOS) Sister ??? Dementia Maternal Grandmother ??? Diabetes Maternal Grandfather ??? Other (ADHD) Sister ??? Other (TOURETTE'S) Maternal Uncle Family Status Relation Name Status ??? Mother (Not Specified) ??? Father (Not Specified) ??? Sister Alive ??? MGM ??? MGF ??? Sister Alive ??? MUncle (Not Specified) Physical Exam Vitals signs and nursing note reviewed. Sales & Service Associate present: he declined a nurse orthopedic mechanic for genital exam. Constitutional: General: He is not in acute distress. Appearance: Normal appearance. He is well-developed. He is not ill-appearing. HENT: Head: Normocephalic. Eyes: General: Right eye: No discharge. Left eye: No discharge. Extraocular Movements: Extraocular movements intact. Neck: Musculoskeletal: Normal range of motion and neck supple. Cardiovascular: Rate and Rhythm: Normal rate and regular rhythm. Heart sounds: Normal heart sounds. No murmur. Pulmonary: Effort: Pulmonary effort is normal. No respiratory distress. Breath sounds: Normal breath sounds. Abdominal: General: Abdomen is flat. Bowel sounds are normal. Palpations: Abdomen is soft. Tenderness: There is no abdominal tenderness. There is no right CVA tenderness, left CVA tendernessor guarding. Hernia: No hernia is present. There is no hernia in the left inguinal area. Genitourinary: Penis: Normal and circumcised. No erythema, tenderness, discharge or lesions. Scrotum/Testes: Right: Mass, tenderness or testicular hydrocele not present. Left: Tenderness (as indicated on back of testicle here. no tenderness on perineum but he indicatesthat he has pain there.) present. Mass, swelling or testicular hydrocele not present. Epididymis: Left: Not enlarged. Tenderness present. No mass. Musculoskeletal: Normal range of motion. Lymphadenopathy: Cervical: No cervical adenopathy. Skin: General: Skin is warm and dry. Capillary Refill: Capillary refill takes 2 to 3 seconds. Neurological: Mental Status: He is alert and oriented to person, place, and time. Psychiatric: Mood and Affect: Mood normal. Behavior: Behavior normal. Comments: He was friendly and mature. Good eye contact, good mood. Filed Vitals: 03/06/20 1302 BP: 121/71 Pulse: 80 Resp: 18 Temp: 98.7 ??F (37.1 ??C) TempSrc: Temporal SpO2: 97% Weight: 55.1 kg (121 lb 6.4 oz) Height: 5' 9 (1.753 m) @[facility] [place]@ Diagnoses/Impression: Encounter Diagnose(s) ICD-10-CM ICD-9-CM 1. Dysuria R30.0 788.1 sulfamethoxazole-trimethoprim 400-80 MG tablet 2. Epididymitis, left N45.1 604.90 Recommendations and Plan: He has not been sexually active in 18 months and states that he has had STD testing a few times since last encounter and they were negative. His exam is indicative of epididymitis but I explained that this is unusual in his age. In case he has a UTI, septra DS will cover it as well. If these symptoms aren't improving and if they are not totally resolved in 2 weeks, I want him to call us and we will get him into urology tucker. CHRISTINA PEDRO NP Cosigned by Jose Yip MD at 03/06/2020 7:17 PM JAVASCRIPT WEB DEVELOPER SCRIPT WEB DEVELOPER SCRIPT WEB DEVELOPER documented in this encounter Plan of Treatment Not on file documented as of this encounter Visit Diagnoses Diagnosis Dysuria- Primary Epididymitis, left Orchitis and epididymitis, unspecified documented in this encounter Care Teams Bar Helper Relationship Specialty Start Date End Date Jose Yip MD [address] [place] [address] PCP - General INTERNAL MEDICINE 12/27/19 08/28/20 documented as of this encounter
--- OUTSIDE RECORDS SUMMARY | 2024-04-08 00:38 | XMS_ITS | Encounter Summary ---
Author Organization [facility] Address [address] [place] [address]. [place], [place] [address] [place] [address] Care Team Providers Care Triple Drum Operator Name Role Phone Olivier Yip MD Primary Care Provider +1- [phone] Reason for Visit * Reason Comments Follow Up puncture wound left foot has healed Encounter Details Date Type Department Care Team (Late st Contact Info) Description 02/12/2020 2:00 PM ELECTRIC WELDER Office Visit [facility] Medical [facility] Internal Medicine - [address] [place] [address] Olivier Yip MD [address] [place] [address] Follow Up (puncture wound left foot has healed) Social History Tobacco Use Types Packs/Day Years Used Date Smoking Tobacco: Every Day Cigarettes Smokeless Tobacco: Never Tobacco Cessation:Counseling Given: Yes Alcohol Use Standard Drinks/Week Comments Yes 0 [...] on file Legal Sex Male 10:43 PM ELECTRIC WELDER Gender Identity Not on file Sexual Orientation Not on file COVID-19 Exposure Response Date Recorded In the last month, have you been in contact with someone who was confirmed or suspected to have Coronavirus / COVID-19? No / Unsure 02/12/2020 1:56 PM ELECTRIC WELDER documented as of this encounter Last Filed Vital Signs Vital Sign Reading Time Taken Comments Blood Pressure 116/60 02/12/2020 2:02 PM ELECTRIC WELDER Pulse 72 02/12/2020 2:02 PM ELECTRIC WELDER Temperature 36.6 ??C (97.8 ??F) 02/12/2020 2:02 PM CS T Respiratory Rate - - Oxygen Saturation 98% 02/12/2020 2:02 PM ELECTRIC WELDER Inhaled Oxygen Concentration - - Weight 52.6 kg (116 lb) 02/12/2020 2:02 PM ELECTRIC WELDER Height 175.3 cm (5' 9 ) 02/12/2020 2:02 PM ELECTRIC WELDER Body Mass Index 17.13 02/12/2020 2:02 PM ELECTRIC WELDER documented in this encounter Progress Notes * Olivier Yip MD - 02/12/2020 2:00 PM CST Reason for visit Follow Up (puncture wound left foot has healed) FIONA Medina is a 20-year-old male who is here today for follow up of his general health. He is having issues with his teeth. He finally got one pulled and now he has another one planned and he is using amoxicillin for that. He says that he took the Depakote for a couple of weeks and really felt good on it. He was sure it was helping but then he stopped it because he was afraid of taking so many medications at once since he is on 800 of ibuprofen up to 3 times a day plus the sertraline and thenomeprazole. He plans to restart it as soon as he gets the other 212 which apparently is scheduled within the next week. He stopped smoking cigarettes 3 weeks ago which is awesome but he is still using marijuana periodically for his anxiety. 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 I shared with him that I had obtained his old records from Dr. Cheek and there was a vitamin Dlevel that was really low at 15. They put him on 50,000 units weekly for a couple of months and he is supposed to be on [id number] vitamin D now but it sounds like he has been a little bit remiss with that. Past Medical History: Diagnosis Date ??? Allergy ??? Depression ??? Migraine Past Surgical History: Procedure Laterality Date ??? CIRCUMCISION Family History Problem Relation Name Age of Onset ??? Asthma Mother ??? Depression Mother ??? Hypertension Mother ??? Migraines/Headaches Mother ??? Other (MENNIERE'S DISEASE) Mother ??? Alcohol Abuse Father ??? Depression Father ??? Other (PCOS) Sister ??? Dementia Maternal Grandmother ??? Diabetes Maternal Grandfather ??? Other (ADHD) Sister ??? Other (TOURETTE'S) Maternal Uncle Social History Tobacco Use ??? Smoking status: Current Every Day Smoker Types: Cigarettes ??? Smokeless tobacco: Never Used Substance Use Topics ??? Alcohol use: Yes Frequency: 2-4 times a month ??? Drug use: Yes Types: Marijuana Current Outpatient Medications on File Prior to Visit Medication Sig ??? divalproex EC 250 MG tablet Take 1 tablet (250 mg total) by mouth 2 (two) times daily. ??? ketoconazole 2 % cream APPLY SPARINGLY TO AFFECTED AREA(S) TWICE DAILY ??? omeprazole 40 MG capsule Take 1 capsule (40 mg total) by mouth daily. ??? ondansetron (ZOFRAN) 4 MG tablet Take 1 tablet (4 mg total) by mouth every 8 (eight) hours as needed for Nausea. ??? sertraline 50 MG tablet Take 50 mg by mouth daily. No current facility-administered medications on file prior to visit. Allergies Allergen Reactions ??? Amitriptyline Tachycardia Review of Systems Constitutional: Negative for chills, fever and weight loss. Respiratory: Negative. Cardiovascular: Negative. Gastrointestinal: Positive for abdominal pain, diarrhea (he states this is intermittent and he sayshe knows he has IBS) and vomiting (occassionally). Neurological: Weakness: but doing better Psychiatric/Behavioral: Positive for depression. The patient is not nervous/anxious. Physical Exam Filed Vitals: 02/12/20 1402 BP: 116/60 Pulse: 72 Temp: 97.8 ??F (36.6 ??C) TempSrc: Temporal SpO2: 98% Weight: 52.6 kg (116 lb) Height: 5' 9 (1.753 m) Physical Exam Vitals signs and nursing note reviewed. Constitutional: Comments: Remains very thin but he has gained a few pounds. We really did not do a formal physical examination today as I did not feel today that it was necessary Psychiatric: Comments: He definitely seems more at ease today in talking with me and we were able to converse well. Eye contact was very good Assessment Diagnoses and all orders for this visit: Mood disorder (CMS/HCC) - COMPREHENSIVE METABOLIC PANEL; Future - VALPROIC ACID; Future Vitamin D deficiency - VITAMIN D, 25 OH; Future Marijuana smoker Need for immunization against influenza - [01616] FLU VACC QUAD 6 MONTHS+ 0.5 ML (SINGLE DOSE SYRINGE FLUZONE, FLUARIX, FLULAVAL OR SINGLE DOSE VIAL FLUZONE) Tobacco use - CBC W/DIFF AUTOMATED; Future Irritable bowel syndrome with diarrhea Plan 1. Mood disorder-I really am happy that he feels like the Depakote helped him. I would like him to get started on it again as soon as he feels comfortable doing so and then mid March we will checksome lab work. I have asked him to sit down with me again in about 3 to 4 months 2. Vitamin D deficiency he will start taking 2000 international units vitamin D daily we will checka level with the upcoming lab work 3. Intermittent diarrhea and abdominal pain-we will check stool FIT. He had a EGD less than a year ago. He is gaining some weight now. For right now I do not think a colonoscopy would be needed unless he loses more weight or if the FIT of course is positive. He would like to get a flu shot today I commended him on stopping the cigarettes and have encouraged him to try to curtail the marijuana use OLIVIER YIP MD TRIC WELDER documented in this encounter Plan of Treatment Not on file documented as of this encounter Visit Diagnoses Diagnosis Mood disorder (CMS/HCC)- Primary Unspecified episodic mood disorder Vitamin D deficiency Unspecified vitamin D deficiency Marijuana smoker Cannabis abuse, unspecified Need for immunization against influenza Need for prophylactic vaccination and inoculation against influenza Tobacco use Tobacco use disorder Irritable bowel syndrome with diarrhea Irritable bowel syndrome documented in this encounter Care Teams Triple Drum Operator Relationship Specialty Start Date End Date Olivier Yip MD [facility] [place] [address] PCP - General INTERNAL MEDICINE 12/27/19 08/28/20 documented as of this encounter
--- OUTSIDE RECORDS SUMMARY | 2024-04-08 00:38 | XMS_ITS | Encounter Summary ---
Author Organization [facility] Address [address] [place] [address]. [place], [place] [address] [place] [address] Care Team Providers Care Deposit Refund Clerk Name Role Phone Jose Yip MD Primary Care Provider +1- [phone] Reason for Visit * Reason Onset Date Comments Follow Up Call 02/05/2020 Encounter Details Date Type Department Care Team (Late st Contact Info) Description 02/05/2020 Telephone [facility] Medical Group Internal Medicine - [address] [address] Jose Yip MD [address] [place] [address] Follow Up Call Social History [...] on file Legal Sex Male 10:43 PM CONCRETE POLISHER Gender Identity Not on file Sexual Orientation Not on file COVID-19 Exposure Response Date Recorded In the last month, have you been in contact with someone who was confirmed or suspected to have Coronavirus / COVID-19? No / Unsure 01/23/2020 1:20 PM CDT documented as of this encounter Progress Notes * Charmaine Parry RN - 02/06/2020 9:55 AM CST Message to pt Pt voiced understanding. RETE POLISHER * Harrison Castellanos - 02/06/2020 9:51 AM CST Patient returning call tried nurse line but no answer please call back when available RETE POLISHER * Charmaine Parry RN - 02/06/2020 9:49 AM CST No answer or voicemail RETE POLISHER * Jose Yip MD - 02/06/2020 9:43 AM CST Should be ok, but sometimes diarrhea might develop, so let us know if it does. RETE POLISHER * Charmaine Parry RN - 02/06/2020 9:26 AM CST Pt reports started abx amoxicillin 875 01-25-20 pt had tooth pulled 02-01-20 pt another tooth extraction scheduled for 02-15-20 pt on amoxicillin 500mg now. Pt wants to make sure it is ok to be on abx this long RETE POLISHER * Carolyne Arambula - 02/05/2020 2:02 PM CST Patient has a question as his dentist is wanting him to be on antibiotic for about a month to get aTooth pulled Has a question for the nurse RETE POLISHER documented in this encounter Plan of Treatment Not on file documented as of this encounter Visit Diagnoses Not on filedocumented in this encounter Care Teams Deposit Refund Clerk Relationship Specialty Start Date End Date Jose Yip MD [address] [place] [id number] PCP - General INTERNAL MEDICINE 12/27/19 08/28/20 documented as of this encounter
--- OUTSIDE RECORDS SUMMARY | 2024-04-08 00:38 | XMS_ITS | Encounter Summary ---
Author Organization [facility] Address [address] [place] [address]. [place], [place] [address] [place] [address] Care Team Providers Care Automotive Internet Sales Consultant Name Role Phone Jose Yip MD Primary Care Provider +1- [phone] Encounter Details Date Type Department Care Team (Latest Contact Info) Description 02/12/2020 Travel Social History Tobacco Use Types Packs/Day [...] on file Legal Sex Male 10:43 PM BOTTOM TURNING LATHE TURNER Gender Identity Not on file Sexual Orientation Not on file COVID-19 Exposure Response Date Recorded In the last month, have you been in contact with someone who was confirmed or suspected to have Coronavirus / COVID-19? No / Unsure 02/12/2020 1:56 PM BOTTOM TURNING LATHE TURNER documented as of this encounter Plan of Treatment Not on file documented as of this encounter Visit Diagnoses Not on filedocumented in this encounter Care Teams Automotive Internet Sales Consultant Relationship Specialty Start Date End Date Jose Yip MD [facility] [place] [address] PCP - General INTERNAL MEDICINE 12/27/19 08/28/20 documented as of this encounter
--- OUTSIDE RECORDS SUMMARY | 2024-04-08 00:38 | XMS_ITS | Encounter Summary ---
Author Organization [facility] Address [address] [place] [address]. [place], [place] [address] [place] [address] Care Team Providers Care Health Science Specialist Name Role Phone Jose Yip MD Primary Care Provider +1- [phone] Encounter Details Date Type Department Care Team (Latest Contact Info) Description 02/13/2020 Scan HEALTH INFO SRVCS Scanned, Documents Social [...] on file Legal Sex Male 10:43 PM STOCK COUNTER Gender Identity Not on file Sexual Orientation Not on file COVID-19 Exposure Response Date Recorded In the last month, have you been in contact with someone who was confirmed or suspected to have Coronavirus / COVID-19? No / Unsure 03/06/2020 12:54 PM STOCK COUNTER documented as of this encounter Plan of Treatment Not on file documented as of this encounter Visit Diagnoses Not on filedocumented in this encounter Care Teams Health Science Specialist Relationship Specialty Start Date End Date Jose Yip MD [address] [place] [address] PCP - General INTERNAL MEDICINE 12/27/19 08/28/20 documented as of this encounter
--- OUTSIDE RECORDS SUMMARY | 2024-04-08 00:38 | XMS_ITS | Encounter Summary ---
Author Organization [facility] Address [address] [place] [address]. 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 No / Unsure 01/23/2020 1:20 PM CDT documented as of this encounter Progress Notes * Charmaine Parry RN - 01/24/2020 4:29 PM CDT Message to pt * Jose Yip MD - 01/24/2020 4:22 PM CDT It should calm down in next 24 hrs with the meds he is on. * Charmaine Parry RN - 01/24/2020 3:19 PM CDT Pt reports he had 3 doses of abx pt taking 1000mg of tylenol alternating 400mg ibuprofen * Jose Yip MD - 01/24/2020 2:09 PM CDT We gave him the abx , did he get started on it ?? Has to use ibuprofen for pain. I never do narcotics for something like this. * Charmaine Parry RN - 01/24/2020 2:06 PM CDT Pt called back swelling worse pt has pus coming out of tooth top of mouth very painful and swollen hurts like an sob * Lissa Hanson MA - 01/24/2020 11:38 AM CDT Spoke to patient, the dentist did not want to see him until he could get the infection calmed down so they made him an appointment for two weeks. He will be going . * Charmaine Parry RN - 01/24/2020 8:52 AM CDT No answer or voicemail * Jacki Rodas RN - 01/23/2020 4:48 PM CDT No answer or voicemail * Jose Yip MD - 01/23/2020 4:40 PM CDT We can order him some amoxicillin 875 mg twice daily for 10 days but that will only temporarily treat a dental abscess so he really has to get into a dentist soon. * Jacki Rodas RN - 01/23/2020 4:35 PM CDT Requests antibiotic for a rotten tooth , swollen gums and pain from wisdom tooth trying to come in. Has not had time to make dentist appointment documented in this encounter Plan of Treatment Not on file documented as of this encounter Visit Diagnoses Diagnosis Tooth abscess- Primary Periapical abscess without sinus documented in this encounter Care Teams Paper Machine Back Tender Relationship Specialty Start Date End Date Jose Yip MD [address] [place] [address] PCP - General INTERNAL MEDICINE 12/27/19 08/28/20 documented as of this encounter
--- OUTSIDE RECORDS SUMMARY | 2024-04-08 00:38 | XMS_ITS | Encounter Summary ---
Author Organization [facility] Address [address] [place] [address]. [place], [place] [address] [place] [address] Care Team Providers Care Transportation Engineer Name Role Phone None, Provider MD Primary Care Provider Unavaila ble Reason for Visit * Reason Onset Date Comments Documents 10/22/2021 Encounter Details Date Type Department Care Team (Late st Contact Info) Description 10/22/2021 Telephone [facility] Medical Group Internal Medicine - [address] [address] [place] [address] [place] [id number] Documents Social History Tobacco Use Types Packs/Day [...] on file Legal Sex Male 10:43 PM GROUP LEADER Gender Identity Not on file Sexual Orientation Not on file documented as of this encounter Progress Notes * Charmaine Parry RN - 10/22/2021 10:21 AM CDT Message to pt jan 2020 I will fax to dr shore * Agustina Alvarado CMA - 10/22/2021 9:52 AM CDT Patient calling in stating he use to be a patient of [facility] But will like to know if his vaccinations and dates of them be sent to the [facility] in [place] Patient will like a call from the nurse He states he needs a tetanus shot and was wondering when his last shot was Callback # [phone] Thanks documented in this encounter Plan of Treatment Not on file documented as of this encounter Visit Diagnoses Not on filedocumented in this encounter Care Teams Transportation Engineer Relationship Specialty Start Date End Date None, Provider, PCP - General 08/29/20 documented as of this encounter
--- OUTSIDE RECORDS SUMMARY | 2024-04-08 00:38 | XMS_ITS | Encounter Summary ---
Author Organization [facility] Address [address] [place] [address]. [place], [place] [address] [place] [address] Care Team Providers Care Outsole Compressor Name Role Phone Jose Yip MD Primary Care Provider +1- [phone] Encounter Details Date Type Department Care Team (Latest Contact Info) Description 02/21/2020 Scan HEALTH INFO SRVCS Scanned, Documents Social [...] on file Legal Sex Male 10:43 PM COATING MANAGER Gender Identity Not on file Sexual Orientation Not on file COVID-19 Exposure Response Date Recorded In the last month, have you been in contact with someone who was confirmed or suspected to have Coronavirus / COVID-19? No / Unsure 03/06/2020 12:54 PM COATING MANAGER documented as of this encounter Plan of Treatment Not on file documented as of this encounter Visit Diagnoses Not on filedocumented in this encounter Care Teams Outsole Compressor Relationship Specialty Start Date End Date Jose Yip MD [address] [place] [address] PCP - General INTERNAL MEDICINE 12/27/19 08/28/20 documented as of this encounter
--- OUTSIDE RECORDS SUMMARY | 2024-04-08 00:38 | XMS_ITS | Encounter Summary ---
Author Organization [facility] Address [address] [place] [address]. [place], [place] [address] [place] [address] Care Team Providers Care Supervisor Food Checkers And Cashiers Name Role Phone Jose Yip MD Primary Care Provider +1- [phone] Encounter Details Date Type Department Care Team (Latest Contact Info) Description 01/23/2020 Scan HEALTH INFO SRVCS Scanned, Documents Social [...] on file Legal Sex Male 10:43 PM PASTE MIXER LIQUID Gender Identity Not on file Sexual Orientation Not on file COVID-19 Exposure Response Date Recorded In the last month, have you been in contact with someone who was confirmed or suspected to have Coronavirus / COVID-19? No / Unsure 03/06/2020 12:54 PM PASTE MIXER LIQUID documented as of this encounter Plan of Treatment Not on file documented as of this encounter Visit Diagnoses Not on filedocumented in this encounter Care Teams Supervisor Food Checkers And Cashiers Relationship Specialty Start Date End Date Jose Yip MD [address] [place] [address] PCP - General INTERNAL MEDICINE 12/27/19 08/28/20 documented as of this encounter
--- OUTSIDE RECORDS SUMMARY | 2024-04-08 00:38 | XMS_ITS | Clinical Summary ---
Author Organization [facility] Address [facility]. [place], [place] [address] [place] [address] Care Team Providers Care Energy Technician Name Role Phone None, Provider MD Primary Care Provider Unavaila ble Allergies Active Allergy Reactions Criticality Noted Date Comments Amitriptyline Tachycardia 12/27/2019 Medications ondansetron (ZOFRAN) 4 MG tabletIndication s:Right upper quadrant abdominal pain Take 1 tablet (4 mg total) by mouth every 8 (eight) hours as needed for Nausea. 20 tablet 0 Active omeprazole 40 MG capsuleIndicatio ns:Gastroesophag eal reflux disease, esophagitis presence not specified Take 1 capsule (40 mg total) by mouth daily. 90 capsule 3 0 Active DIVALPROEX EC 250 MG tabletIndication s:Mood disorder (CMS/HCC) TAKE 1 TABLET BY MOUTH TWICE A DAY 60 tablet 1 0 Active sertraline 50 MG tabletIndication s:Other specified anxiety disorders Take 1 tablet (50 mg total) by mouth daily. Please call office to schedule appointment 90 tablet 1 Active Active Problems Problem Noted Date Diagnosed Date Vitamin D deficiency 02/12/2020 Mood disorder 02/12/2020 Irritable bowel syndrome with diarrhea 0 Sinus tachycardia 04/28/2019 Gastroesophageal reflux dise ase, esophagitis presence not specified 04/28/2019 Right upper quadrant abdominal pain 04/28/2019 Epigastric abdominal pain 04/28/2019 Primary insomnia 04/28/2019 Depression with anxiety 04/28/2019 Tobacco use 04/28/2019 Marijuana smoker 04/28/2019 Cyclic vomiting syndrome 04/28/2019 Resolved Problems Problem Noted Date Diagnosed Date Resolved Date Blood tests for routine gene ral physical examination 04/28/2019 12/15/2019 Need for Tdap vaccination 04/28/2019 Need for influenza vaccination 04/28/2019 12/15/2019 Immunizations Name Administration Dates Next Due Dtap (Generic) 01/04/2006, 3,02/13/2002,08/09,2001 Fluzone 6 Months+ Quad (0.5 mL Prefilled Syringe) 02/12/2020 HPV GARDASIL 9-VALENT 12/17/2016,04/02/2015 HPV4 (Gardasil) 04/02/2015 Hepatitis A (Generic) 04/21/2010,06/04/2009 Hepatitis B (Generic Peds) 02/13/2002,2001 ,2001 Hib (Generic) 01/04/2006, 2,2001,04/14 Influenza Adult (Generic) 01/18/2012 MMR (Generic) 01/04/2006,02/13/2002 Meningococcal (Menactra) 10/27/2018,05/02/2014 Pneumococcal (Prevnar 7) 11/27/2002,2001 Polio Ipv (Generic) 01/04/2006, 3,2001,04/14 Tdap (Generic) 01/18/2012 Tdap (Historical Only-select from magnify glass) 01/23/2020 Varicella (Generic) 01/04/2006,04/10/2002 Family History Medical History Relation Comments Alcohol Abuse Father Depression Father Diabetes Maternal Grandfather Dementia Maternal Grandmother TOURETTE'S Maternal Uncle Asthma Mother Depression Mother Hypertension Mother MENNIERE'S DISEASE Mother Migraines/Headaches Mother PCOS Sister 1 ADHD Sister 2 Relation Status Comments Father Maternal Grandfather Maternal Grandmother Maternal Uncle Mother Sister 1 Alive Sister 2 Alive Social History Tobacco Use Types Packs/Day Years [...] on file Legal Sex Male 10:43 PM RECREATIONAL VEHICLE RESORT MANAGER Gender Identity Not on file Sexual Orientation Not on file Last Filed Vital Signs Vital Sign Reading Time Taken Comments Blood Pressure 121/71 03/06/2020 1:02 PM RECREATIONAL VEHICLE RESORT MANAGER Pulse 80 03/06/2020 1:02 PM RECREATIONAL VEHICLE RESORT MANAGER Temperature 37.1 ??C (98.7 ??F) 03/06/2020 1:02 PM CS T Respiratory Rate 18 03/06/2020 1:02 PM RECREATIONAL VEHICLE RESORT MANAGER Oxygen Saturation 97% 03/06/2020 1:02 PM RECREATIONAL VEHICLE RESORT MANAGER Inhaled Oxygen Concentration - - Weight 55.1 kg (121 lb 6.4 oz) 03/06/2020 1:02 P M RECREATIONAL VEHICLE RESORT MANAGER Height 175.3 cm (5' 9 ) 03/06/2020 1:02 PM RECREATIONAL VEHICLE RESORT MANAGER Body Mass Index 17.93 03/06/2020 1:02 PM RECREATIONAL VEHICLE RESORT MANAGER Plan of Treatment Health Maintenance Due Date Last Done Comments Annual Physical 01/14/2004 Pneumococcal Vaccine: Pediatrics (0 to 5 Years) and At-Risk Patients (6 to 64 Years) (1 of 2 - PCV) 2007 11/27/2002, 2001 Hepatitis C 2019 COVID-19 Vaccine ( - season) 2023 Influenza Adult (#1) 2024 02/12/2020, 01/18/20 12 DTaP, Tdap and Td Vaccines (8 - Td or Tdap) 01/22/2030 01/23/2020, 01/18/2012, 01/04/2006, Additional history exists Hepatitis B Vaccines Completed 02/13/2002, 2001, 2001 HPV Vaccines Completed 12/17/2016, 03/06, 04/02/2015 Meningococcal Vaccine Completed 10/27/2018, 015 RSV Immunizations Under 20 Months Aged Out No longer eligible based on patient's age to complete this topic Care Teams Energy Technician Relationship Specialty Start Date End Date None, Provider, PCP - General 08/29/20
--- OUTSIDE RECORDS SUMMARY | 2024-04-08 00:39 | XMS_ITS | Encounter Summary ---
Author Organization [facility] Address [address] [place] [address]. 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 No / Unsure 03/06/2020 12:54 PM REPLENISHMENT ANALYST documented as of this encounter Plan of Treatment Not on file documented as of this encounter Visit Diagnoses Not on filedocumented in this encounter Care Teams Access Rn Relationship Specialty Start Date End Date Igor Castano DO PCP - General INTERNAL MEDICINE 04/28/19 12/26/19 Jose Yip MD [address] [id number] PCP - General INTERNAL MEDICINE 12/27/19 08/28/20 documented as of this encounter
--- OUTSIDE RECORDS SUMMARY | 2024-04-08 00:39 | XMS_ITS | Encounter Summary ---
Author Organization [facility] Address [address] [place] [address]. 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 No / Unsure 03/06/2020 12:54 PM DRAFTER AUTOMOTIVE DESIGN documented as of this encounter Plan of Treatment Not on file documented as of this encounter Visit Diagnoses Not on filedocumented in this encounter Care Teams Smocking Machine Operator Relationship Specialty Start Date End Date Igor Castano DO PCP - General INTERNAL MEDICINE 04/28/19 12/26/19 Jose Yip MD [address] [id number] PCP - General INTERNAL MEDICINE 12/27/19 08/28/20 documented as of this encounter
--- OUTSIDE RECORDS SUMMARY | 2024-04-08 00:39 | XMS_ITS | Encounter Summary ---
Author Organization [facility] Address [address] [place] [address]. 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 No / Unsure 03/06/2020 12:54 PM ART TRACER documented as of this encounter Plan of Treatment Not on file documented as of this encounter Procedures Procedure Name Priority Date/Time Associated Diagnosis Comments CT GENERIC 05/30/2019 OUTSIDE LAB (SCAN ORDER) 05/30/2019 documented in this encounter Results * OUTSIDE LAB (SCAN) (05/30/2019) 05/30/2019 Narrative 05/30/2019 Ordered by an unspecified provider. us Documents Scanned SCANNING Final Result * CT GENERIC (05/30/2019) Anatomical Region Laterality Modality Other 05/30/2019 Narrative 05/30/2019 Ordered by an unspecified provider. us Documents Scanned SCANNING Final Result documented in this encounter Visit Diagnoses Not on filedocumented in this encounter Care Teams Latin American Studies Professor Relationship Specialty Start Date End Date Igor Castano DO PCP - General INTERNAL MEDICINE 04/28/19 12/26/19 Jose Yip MD [address] [place] [address] PCP - General INTERNAL MEDICINE 12/27/19 08/28/20 documented as of this encounter
--- OUTSIDE RECORDS SUMMARY | 2024-04-08 00:39 | XMS_ITS | Encounter Summary ---
Author Organization [facility] Address [address] [place] [address]. 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 No / Unsure 12/27/2019 2:07 PM CDT documented as of this encounter Plan of Treatment Not on file documented as of this encounter Visit Diagnoses Not on filedocumented in this encounter Care Teams Header Setup Operator Relationship Specialty Start Date End Date Jose Yip MD [facility] [place] [address] PCP - General INTERNAL MEDICINE 12/27/19 08/28/20 documented as of this encounter
--- OUTSIDE RECORDS SUMMARY | 2024-04-08 00:39 | XMS_ITS | Encounter Summary ---
Author Organization [facility] Address [address] [place] [address]. [place], [place] [address] [place] [address] Care Team Providers Care Technical Illustrations Map Inker Name Role Phone Jose Yip MD Primary Care Provider +1- [phone] Reason for Visit * Reason Onset Date Comments Wound 01/23/2020 Pt reports that around 1am this morning he was latching a wooden gate and one of the screws were loose and cut him on the back of his foot. 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 No / Unsure 12/27/2019 2:07 PM CDT documented as of this encounter Progress Notes * Charmaine Parry RN - 01/23/2020 11:55 AM CDT appt given * Jose Yip MD - 01/23/2020 11:49 AM CDT I could see him this afternoon and then we can update tetanus here I think ? * Charmaine Parry RN - 01/23/2020 11:43 AM CDT Pt had 2012 do you want to offer walk in? * Lesvia Barry LPN - 01/23/2020 11:30 AM CDT Pt reports that around 1am this morning he was latching a wooden gate and one of the screws were loose and cut him on the back of his foot. States he cleaned the area with alcohol wipes, peroxide and applied neosporin and a bandage to it. States when he woke up this morning it still looked fresh and was still bleeding. States he cleaned it again and reapplied a bandage. Pt states he believes he needs a tetanus shot as he cannot remember when he had his last one. Please call the pt back at [phone]. documented in this encounter Plan of Treatment Not on file documented as of this encounter Visit Diagnoses Not on filedocumented in this encounter Care Teams Technical Illustrations Map Inker Relationship Specialty Start Date End Date Jose Yip MD [address] [place] [address] PCP - General INTERNAL MEDICINE 12/27/19 08/28/20 documented as of this encounter
--- OUTSIDE RECORDS SUMMARY | 2024-04-08 00:39 | XMS_ITS | Encounter Summary ---
Author Organization [facility] Address [address] [place] [address]. [place], [place] [address] [place] [address] Care Team Providers Care Cnc Service Engineer Name Role Phone Igor Castano DO Primary Care Provider Un available Reason for Visit * Reason Onset Date Comments Advice 05/05/2019 symptom Encounter Details Date Type Department Care Team (Late st Contact Info) Description 05/05/2019 Telephone [facility] Family & Internal Medicine - [address] [phone] Igor Castano DO Advice (symptom) Social History Tobacco Use Types Packs/Day Years Used Date Smoking Tobacco: Every Day Smokeless Tobacco: Never Alcohol Use Standard Drinks/Week Comments Yes 0 (1 standard drink = 0.6 oz pur e alcohol) PHQ-2 Answer Date Recorded PHQ-2 Score 4 04/28/2019 Sex and Gender Information Value Date Recorded Sex Assigned at Not on file 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 He has negative abdominal US. He has GI appt coming up which he will discuss issues. If symptoms worsen he is to go to ER CAR SALES MANAGER * Victorino Gastelum MA - 05/05/2019 1:22 PM CST Please advise CAR SALES MANAGER * Terra Tello - 05/05/2019 1:09 PM CST Patient called and said he has severe pain in right side abdomen. Said he did not want same day appt. N/A at nurse # Please call back to advise [phone] CAR SALES MANAGER documented in this encounter Plan of Treatment Not on file documented as of this encounter Visit Diagnoses Not on filedocumented in this encounter Care Teams Cnc Service Engineer Relationship Specialty Start Date End Date Igor Castano DO PCP - General INTERNAL MEDICINE 04/28/19 12/26/19 documented as of this encounter
--- OUTSIDE RECORDS SUMMARY | 2024-04-08 00:39 | XMS_ITS | Encounter Summary ---
Author Organization [facility] Address [facility]. [place], [place] [address] [place] [address] Care Team Providers Care Propulsion Systems Engineer Name Role Phone Rose Balderas MD Primary Care Provider +1- [phone] None, Provider Primary Care Provider Igor Wong DO Primary Care Provider Un available Jose Yip MD Primary Care Provider +1- [phone] Encounter Details Date Type Department Care Team (Latest Contact Info) Description 12/26/2018 Scan HEALTH INFO SRVCS Scanned, Documents Social History Tobacco Use Types Packs/Day Years Used Date Smoking Tobacco: Never Assessed AUDIT-C Answer Date Recorded Q1: How often do you have a drink containing alc ohol? 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 No / Unsure 03/06/2020 12:54 PM HEM MARKER documented as of this encounter Plan of Treatment Not on file documented as of this encounter Visit Diagnoses Not on filedocumented in this encounter Care Teams Propulsion Systems Engineer Relationship Specialty Start Date End Date Rose Balderas MD PCP - General FAMILY PRACTICE 10/21/18 04/25/19 None, Sarah, PCP - General 04/26/19 04/27/19 Igor Castano DO PCP - General INTERNAL MEDICINE 04/28/19 12/26/19 Jose Yip MD [address] [place], [place] [phone] PCP - General INTERNAL MEDICINE 12/27/19 08/28/20 documented as of this encounter
--- OUTSIDE RECORDS SUMMARY | 2024-04-08 00:39 | XMS_ITS | Encounter Summary ---
Author Organization [facility] Address [address] [place] [address]. 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
--- OUTSIDE RECORDS SUMMARY | 2024-04-08 00:39 | XMS_ITS | Encounter Summary ---
Author Organization [facility] Address [address] [place] [address]. 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 No / Unsure 03/06/2020 12:54 PM BEAUTY CONSULTANT documented as of this encounter Plan of Treatment Not on file documented as of this encounter Visit Diagnoses Not on filedocumented in this encounter Care Teams Project Development Director Relationship Specialty Start Date End Date Igor Castano DO PCP - General INTERNAL MEDICINE 04/28/19 12/26/19 Jose Yip MD [address] [id number] PCP - General INTERNAL MEDICINE 12/27/19 08/28/20 documented as of this encounter
--- OUTSIDE RECORDS SUMMARY | 2024-04-08 00:39 | XMS_ITS | Encounter Summary ---
Author Organization [facility] Address [address] [place] [address]. 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 No / Unsure 03/06/2020 12:54 PM BRIDAL SALES CONSULTANT documented as of this encounter Plan of Treatment Not on file documented as of this encounter Procedures Procedure Name Priority Date/Time Associated Diagnosis Comments OUTSIDE LAB (SCAN ORDER) 06/15/2019 documented in this encounter Results * OUTSIDE LAB (SCAN) (06/15/2019) 06/15/2019 Narrative 06/15/2019 Ordered by an unspecified provider. us Documents Scanned SCANNING Final Result documented in this encounter Visit Diagnoses Not on filedocumented in this encounter Care Teams Jewel Lathe Operator Relationship Specialty Start Date End Date Igor Castano DO PCP - General INTERNAL MEDICINE 04/28/19 12/26/19 Jose Yip MD [address] [place] [address] PCP - General INTERNAL MEDICINE 12/27/19 08/28/20 documented as of this encounter
--- OUTSIDE RECORDS SUMMARY | 2024-04-08 00:39 | XMS_ITS | Encounter Summary ---
Author Organization [facility] Address [address] [place] [address]. 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
--- OUTSIDE RECORDS SUMMARY | 2024-04-08 00:39 | XMS_ITS | Encounter Summary ---
Author Organization [facility] Address [address] [place] [address]. [place] [address] [place] [address] Care Team Providers Care Mineral Economist Name Role Phone Igor Castano DO Primary Care Provider Un available Reason for Visit * Reason Onset Date Comments Appointment Request 11/01/2019 Encounter Details Date Type Department Care Team (Late st Contact Info) Description 11/01/2019 Telephone [facility] Family & Internal Medicine - [address] [phone] Igor Castano DO Appointment Request Social History Tobacco Use Types Packs/Day Years Used Date Smoking Tobacco: Every Day Smokeless Tobacco: Never Alcohol Use Standard Drinks/Week Comments Yes 0 (1 standard drink = 0.6 oz pur e alcohol) PHQ-2 Answer Date Recorded PHQ-2 Score 4 04/28/2019 Sex and Gender Information Value Date Recorded Sex Assigned at Not on file 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 She voiced understanding. * Elizabeth Pena MA - 11/01/2019 4:20 PM CDT Dicussed with Charmaine Pt;s mother, Veronika notified of being unable to move up appt and to keep new pt appt scheduled 9-23-2020. * Elizabeth Pena MA - 11/01/2019 4:08 PM CDT Yandel's mother is calling to see if Yandel can be seen sooner. He has an appt scheduled as a new pt for 12-27-2019. She states he has a lot of pain from fibromyalgia. He is currently being treated by Dr. Cheek's LEAD APPLICATION ARCHITECT Cherie. documented in this encounter Plan of Treatment Not on file documented as of this encounter Visit Diagnoses Not on filedocumented in this encounter Care Teams Mineral Economist Relationship Specialty Start Date End Date Igor Castano DO PCP - General INTERNAL MEDICINE 04/28/19 12/26/19 documented as of this encounter
--- OUTSIDE RECORDS SUMMARY | 2024-04-08 00:39 | XMS_ITS | Encounter Summary ---
Author Organization [facility] Address [facility]. 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 No / Unsure 03/06/2020 12:54 PM CHIEF CREW SCHEDULER documented as of this encounter Plan of Treatment Not on file documented as of this encounter Visit Diagnoses Not on filedocumented in this encounter Care Teams Vp Product Management Relationship Specialty Start Date End Date Rose Balderas MD PCP - General FAMILY PRACTICE 10/21/18 04/25/19 None, Sarah, PCP - General 04/26/19 04/27/19 Igor Castano DO PCP - General INTERNAL MEDICINE 04/28/19 12/26/19 Jose Yip MD [address] [place], [place] [id number] PCP - General INTERNAL MEDICINE 12/27/19 08/28/20 documented as of this encounter
--- OUTSIDE RECORDS SUMMARY | 2024-04-08 00:39 | XMS_ITS | Encounter Summary ---
Author Organization [facility] Address [facility] 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 No / Unsure 03/06/2020 12:54 PM GAMB CUTTER documented as of this encounter Plan of Treatment Not on file documented as of this encounter Visit Diagnoses Not on filedocumented in this encounter Care Teams Manager Machine Relationship Specialty Start Date End Date Rose Balderas MD PCP - General FAMILY PRACTICE 10/21/18 04/25/19 None, Sarah, PCP - General 04/26/19 04/27/19 Igor Castano DO PCP - General INTERNAL MEDICINE 04/28/19 12/26/19 Jose Yip MD [address] [place], [place] [phone] PCP - General INTERNAL MEDICINE 12/27/19 08/28/20 documented as of this encounter
--- OUTSIDE RECORDS SUMMARY | 2024-04-08 00:39 | XMS_ITS | Encounter Summary ---
Author Organization [facility] Address [address] [place] [address]. [place], [place] [id number] [place] [id number] Care Team Providers Care Supervisor Poultry Processing Name Role Phone Igor Castano DO Primary Care Provider Un available Jose Yip MD Primary Care Provider [phone] Reason for Visit * Reason Comments Lab (SCAN) Encounter Details Date Type Department Care Team (Latest Contact Info) Description 05/15/2019 Scan HEALTH INFO [facility] Scanned, Documents Lab [...] on file Legal Sex Male 10:43 PM [employer] Gender Identity Not on file Sexual Orientation Not on file COVID-19 Exposure Response Date Recorded In the last month, have you been in contact with someone who was confirmed or suspected to have Coronavirus / COVID-19? No / Unsure 03/06/2020 12:54 PM [employer] documented as of this encounter Plan of Treatment Not on file documented as of this encounter Procedures Procedure Name Priority Date/Time Associated Diagnosis Comments OUTSIDE LAB (SCAN ORDER) 05/15/2019 documented in this encounter Results * OUTSIDE LAB (SCAN) (05/15/2019) 05/15/2019 Narrative 05/15/2019 Ordered by an unspecified provider. us Documents Scanned SCANNING Final Result documented in this encounter Visit Diagnoses Not on filedocumented in this encounter Care Teams Supervisor Poultry Processing Relationship Specialty Start Date End Date Igor Castano DO PCP - General INTERNAL MEDICINE 04/28/19 12/26/19 Jose Yip MD [address] [place] [address] PCP - General INTERNAL MEDICINE 12/27/19 08/28/20 documented as of this encounter
--- OUTSIDE RECORDS SUMMARY | 2024-04-08 00:39 | XMS_ITS | Encounter Summary ---
Author Organization [facility] Address [facility]. [place], [place] [id number] [place] [id number] Care Team Providers Care Top Distribution Executive Name Role Phone Stan Castano DO Primary Care Provider Un available Reason for Referral * Consultation/Treatment (Routine) - Closed Specialty Diagnoses / Procedures Referred By Magda flood Referred To Contact Psychiatry Diagnoses Depression with anxiety Stan Castano DO [address] [address] Phone: tel: Referral ID Status Reason Start Date Expiration Date V isits Requested Visits Authorized [id number] Closed Specialty Services 04/28/2019 05/29/2020 99 99 WAITER/WAITRESS BANQUET Reason for Visit * Reason Comments Meet and Greet Provider Patient in offic e with mother to establish care. Abdominal Pain Abdominal pain on ri ght side. Encounter Details Date Type Department Care Team (Late st Contact Info) Description 04/28/2019 11:00 AM HEAD WAITER/WAITRESS BANQUET Office Visit [facility] [place] [address] [place] [address] Stan Castano DO Meet and Greet Provider (Patient in office with mother to establish care.); Abdominal Pain (Abdominal pain on right side.) Social History Tobacco Use Types Packs/Day Years Used Date Smoking Tobacco: Every Day Smokeless Tobacco: Never Alcohol Use Standard Drinks/Week Comments Yes 0 (1 standard drink = 0.6 oz pur e alcohol) PHQ-2 Answer Date Recorded PHQ-2 Score 4 04/28/2019 Sex and Gender Information Value Date Recorded Sex Assigned at Not on file Legal Sex Male 10:43 PM HEAD WAITER/WAITRESS BANQUET Gender Identity Not on file Sexual Orientation Not on file documented as of this encounter Last Filed Vital Signs Vital Sign Reading Time Taken Comments Blood Pressure 118/82 04/28/2019 11:02 AM HEAD WAITER/WAITRESS BANQUET Pulse 126 04/28/2019 11:02 AM HEAD WAITER/WAITRESS BANQUET Temperature 36.7 ??C (98 ??F) 04/28/2019 11:02 AM HEAD WAITER/WAITRESS BANQUET Respiratory Rate 20 04/28/2019 11:02 AM HEAD WAITER/WAITRESS BANQUET Oxygen Saturation 98% 04/28/2019 11:02 AM HEAD WAITER/WAITRESS BANQUET Inhaled Oxygen Concentration - - Weight 49 kg (108 lb) 04/28/2019 11:02 AM HEAD WAITER/WAITRESS BANQUET Height - - Body Mass Index - - documented in this encounter Patient Instructions * Patient Instructions* Stan Castano DO - 04/28/2019 11:00 AM HEAD WAITER/WAITRESS BANQUET Patient Education Patient Education Marijuana Use and Addiction Discharge Instructions About this topic Marijuana is a plant and the leaves and krueger are used to make a drug. Some people smoke marijuana. Others mix it in food or brew it as a tea. Some people feel marijuana can do good things for their health. They may use it to help ease pain or signs of other health problems like cancer or multiple sclerosis. Some people use marijuana to relax and make them feel good. Others use it to help them feel calm. Marijuana use is illegal in many places. Marijuana can also cause bad things for your body. It can affect your: ?? Brain and thinking: ? Make it hard for you to think clearly ? Make it hard to remember things ? Raises your chances of making poor choices ?? Actions: ? Cause you to act slowly ? Make you tired ? Make it hard to keep your balance and to do things ?? Heart and lungs: ? Give you a fast heartbeat ? Make you breathe faster ? Raise your blood pressure ? Raise your chance of a heart attack ? Raise problems with your lungs ?? Emotions and feelings: ? Make you feel worried and afraid ? Make you hungry ? Cause you to become addicted ? Cause low mood when you are not using marijuana ? Cause psychotic thinking where you don't know what is real or other mental problems ?? Whole body: ? Cause sleep problems ? Lower sperm counts in men ? Cause a change in a woman's menstrual period ? Cause dry mouth and red eyes What care is needed at home? ?? Ask your doctor what you need to do when you go home. Make sure you ask questions if you do not understand what the doctor says. This way you will know what you need to do. ?? Tell family and friends about your health problem and how they can help. Try to ask other peoplefor help. It is important to have someone who will help you in your recovery. ?? Make a goal. Plan good things to do. Have something to look forward to. Do something new in yourown life, job, health, or other things that are important to you. ?? Learn how to live better with stress, anxiety, anger, and feeling alone in healthier ways. Your doctor, support group, and sponsor can help with this. ?? Get involved in your town. Join social activities. Try orthodoxy activities or do things with others. Be a volunteer. ?? Try exercising regularly. Exercise makes natural chemicals in your body that make you feel better. ?? Learn how to cope with stress without the use of drugs. Some people enjoy exercise and meditation. Others like to play with pets. Try listening to music or having a massage. Go for a walk or a drive. Find out what works best for you. ?? Avoid places, people, or times that would trigger your cravings. Do not spend time with people who are still abusing drugs. Instead, spend time with people who can help you in your recovery. ?? Find ways to lower cravings: ? Talk with family or friends. This often helps to lower the feeling of cravings. They may also help you do things to keep you from thinking about drugs. ? Keep yourself busy with some activities. Get yourself interested in something to make your urges go away. Read a book, watch a movie, ride a bike, or take a walk. ? Take time to relax. When you are relaxed you feel much better and are able to think about good things. It may also help you not go back to using drugs again. ? Work to change the way you think. When cravings happen, you may remember the good feelings only and forget the bad things about using drugs. Remember that you will not really feel good if you go back to using drugs. What follow-up care is needed? Your doctor may ask you to make visits to the office to check on your progress. Be sure to keep these visits. What drugs may be needed? The doctor may order drugs to: ?? Help ease signs of withdrawing ?? Keep you from going back to using drugs ?? Help stop cravings for the drug you were using Will physical activity be limited? You may be able to do all activities. Doing certain physical activities may help to keep you from going back to abusing drugs. What problems could happen? ?? Drug withdrawal. These are the signs that happen when you quickly stop taking drugs that you have used for a long time. Get the help of your doctor and counselor to check you and help with drug withdrawal. ?? Mood problems ?? Feeling worried ?? Upset stomach and throwing up ?? Sleep problems ?? Trouble with school or work ?? women may have baby early, baby may be small or have other problems if she uses marijuana while ?? Being hurt or dying because of making poor choices ?? Problems with things you do every day When do I need to call the doctor? ?? You feel you might hurt yourself or someone else. ?? You feel you are going to start using drugs again. Helpful tips Consider joining a support group to get to know other people who have coped with the condition. Youmay feel better being with others who have your same problems. You may also learn a lot from otherswho are going through the same thing as you. Teach Back: Helping You Understand The Teach Back Method helps you understand the information we are giving you. The idea is simple. After talking with the staff, tell them in your own words what you were just told. This helps to makesure the staff has covered each thing clearly. It also helps to explain things that may have been abit confusing. Before going home, make sure you are able to do these: ?? I can tell you about my condition. ?? I can tell you how to manage my cravings. ?? I can tell you what I would do if I felt like I was going to hurt myself or someone else or start using drugs again. Where can I learn more? National [employer] [place] on Drug Abuse http://www.drugabuse.gov/publications/drugfacts/marijuana National [employer] [place] on Drug Abuse https://www.drugabuse.gov/drugs-abuse/hsrfzsbh-fquxmx-qgenv-charts#marijuana-can nabis- Last Reviewed Date 2017-11-24 Consumer Information Use and Disclaimer This information is not specific medical advice and does not replace information you receive from your health care provider. This is only a brief summary of general information. It does NOT include all information about conditions, illnesses, injuries, tests, procedures, treatments, therapies, discharge instructions or life-style choices that may apply to you. You must talk with your health care provider for complete information about your health and treatment options. This information should not be used to decide whether or not to accept your health care provider???s advice, instructions or recommendations. Only your health care provider has the knowledge and training to provide advice that is right for you. Copyright Copyright ?? 2019 [employer]. and its affiliates and/or licensors. All rights reserved. WAITER/WAITRESS BANQUET documented in this encounter Progress Notes * Victorino Gastelum MA - 04/28/2019 11:00 AM CSTAddended by: VICTORINO GASTELUM on: 05/02/2019 07:52 AM Modules accepted: Orders WAITER/WAITRESS BANQUET * Stan Castano DO - 04/28/2019 11:00 AM CST Reason for Visit: Meet and Greet Provider (Patient in office with mother to establish care.) and Abdominal Pain (Abdominal pain on right side.) History of Present Illness: This is a 19-year-old male who comes in today to establish care as a new patient. Patient reports that for about 1-1/2 weeks he has been having a right upper quadrant/epigastric region abdominal pain. Describes the pain as feeling like something is swollen in that area. He describes the pain as constant with occasional waxing and waning of intensity. There is no radiation of the pain. Occasional association with nausea. He does not have vomiting associated with this abdominal pain however patient does have a history of cyclic vomiting syndrome associated with marijuana use. Patient states that he smokes marijuana pretty frequently however during the last week and a half he has cut down a lot. He also admits to having green color stool small in intensity in the last 3 days. He also has occasional constipation. He also admits associated feeling gassy-like symptoms. In addition to marijuana patient also during the last few months did tobacco use. However he has stopped doing this in the last 1 week or so. He also admits to ongoing anxiety for a long time however does not want any medication regarding anxiety because he states previous medication he used for anxiety caused multiple side effects. He is okay with having a psychiatric referral. Review of Systems Constitutional: Negative for current chills, fever HENT: Negative for ear discharge, ear pain and nosebleeds. Eyes: Negative for blurred vision and double vision. Respiratory: Negative for cough, hemoptysis and shortness of breath. Cardiovascular: Negative for chest pain, palpitations Gastrointestinal: Positive for abdominal pain, negative blood in stool, diarrhea, negative current nausea and vomiting. Others as HPI Genitourinary: Negative for dysuria and hematuria. Skin: Negative for itching. Neurological: Negative for seizures, loss of consciousness Psychiatric/Behavioral: Negative for hallucinations. The patient is anxious Other review of systems per HPI. Medications: Current Outpatient Medications Medication Sig ??? diphenhydrAMINE 25 MG capsule Take 25 mg by mouth every 6 (six) hours as needed for Itching. ??? ibuprofen 200 MG tablet Take 200 mg by mouth every 6 (six) hours as needed for Pain. ??? ketoconazole 2 % cream APPLY SPARINGLY TO AFFECTED AREA(S) TWICE DAILY ??? omeprazole 40 MG capsule Take 1 capsule (40 mg total) by mouth daily. ??? ondansetron (ZOFRAN) 4 MG tablet Take 1 tablet (4 mg total) by mouth every 8 (eight) hours as needed for Nausea. ??? trazodone 50 MG tablet Take 1 tablet (50 mg total) by mouth nightly at bedtime. No Known Allergies Past Medical History: Diagnosis Date ??? Allergy [...] resource strain: Not on file ??? Food insecurity: Worry: Not on file Inability: Not on file ??? Transportation needs: Medical: Not on file Non-medical: Not on file Tobacco Use ??? Smoking status: Current Every Day Smoker ??? Smokeless tobacco: Never Used Substance and Sexual Activity ??? Alcohol use: Yes ??? Drug use: Yes ??? Sexual activity: Not on file Lifestyle ??? Physical activity: Days per week: Not on file Minutes per session: Not on file ??? Stress: Not on file Relationships ??? Social connections: Talks on phone: Not on file Gets together: Not on file Attends restorationism service: Not on file Active member of club or organization: Not on file Attends meetings of clubs or organizations: Not on file Relationship status: Not on file ??? Intimate partner violence: Fear of current or ex partner: Not on file Emotionally abused: Not on file Physically abused: Not on file Forced sexual activity: Not on file Other Topics Concern ??? Not on file Social History Narrative ??? Not on file E-Cigarettes Questions Responses E-Cigarette Use Never User Family History Problem Relation Name Age of Onset ??? Asthma Mother ??? Depression Mother ??? Hypertension Mother ??? Migraines/Headaches Mother ??? Alcohol Abuse Father ??? Depression Father Family Status Relation Name Status ??? Mother (Not Specified) ??? Father (Not Specified) Physical Exam Constitutional: Oriented to person, place, and time. Head: Normocephalic and atraumatic. Eyes: EOM are normal. Pupils are equal, round, and reactive to light. Ears: No discharge, No erythema, Mild impacted cerumen right ear Nose: no mucosal edema, no rhinorrhea Neck: Neck supple. No JVD present. Cardiovascular: Sinus tachycardia, regular rhythm and intact distal pulses. Pulmonary: Effort normal and breath sounds normal. No wheezes. Abdominal: Soft. Bowel sounds are normal.Exhibits no distension . Tenderness to palpation in right upper quadrant and epigastric region.. There is no guarding. Musculoskeletal/extremities: Exhibits no edema. Neurology: Alert and oriented to person, place, and time. No cranial nerve deficits. Skin: Capillary refill takes less than 2 seconds. Psychiatric: Exhibits anxiety, denies any suicidal or homicidal thoughts. Filed Vitals: 04/28/19 1102 BP: 118/82 Pulse: 126 Resp: 20 Temp: 98 ??F (36.7 ??C) TempSrc: Oral SpO2: 98% Weight: 49 kg (108 lb) Impression/Plan: Yandel was seen today for meet and greet provider and abdominal pain. Diagnoses and all orders for this visit: Right upper quadrant abdominal pain - US ABD LIMITED; Future - CBC, AUTO, NO DIFF; Future - COMPREHENSIVE METABOLIC PANEL; Future - ondansetron (ZOFRAN) 4 MG tablet; Take 1 tablet (4 mg total) by mouth every 8 (eight) hours as needed for Nausea. Epigastric abdominal pain - LIPASE; Future Sinus tachycardia - EKG INTERPRET & REPORT PREVE - MAGNESIUM; Future - TSH W/REFLEX; Future - Patient has been advised to increase water hydration. The elevation of heart rate is likely from withdrawal from marijuana and also right upper quadrant pain and also from anxiety. Gastroesophageal reflux disease, esophagitis presence not specified - omeprazole 40 MG capsule; Take 1 capsule (40 mg total) by mouth daily. Primary insomnia - trazodone 50 MG tablet; Take 1 tablet (50 mg total) by mouth nightly at bedtime. Depression with anxiety - trazodone 50 MG tablet; Take 1 tablet (50 mg total) by mouth nightly at bedtime. - AMB REFERRAL TO PSYCHIATRY -- Apart from starting the trazodone for insomnia patient does not want to be started on any anxiety medications during this visit. He would like a referral to psychiatry. Marijuana smoker - PAIN MANAGEMENT 5 PROFILE WITHOUT CONFIRMATION, URINE; Future - PAIN MANAGEMENT 5 PROFILE WITHOUT CONFIRMATION, URINE -Strongly advised cessation of marijuana. Cyclic vomiting syndrome -When patient has nausea symptoms I did prescribe some Zofran PRN. Tobacco use -Strongly advised cessation. Offered different methods/options/guidance to help quit. Patient states that he has already started to quit, and will continue to quit by himself. We will see patient back in 1 month for reevaluation. STAN CASTANO DO WAITER/WAITRESS BANQUET * Stan Castano DO - 04/28/2019 11:00 AM CST TSH,mg,cbc,lipase with no significant abnormalities. Calcium slightly low. Increase dietary calcium intake.(please order check of vitamin D- diagnosis -hypocalcemia) Total bilirubin slightly elevated. We will continue to monitor. ( Order recheck on hepatic functionpanel in 3 months) WAITER/WAITRESS BANQUET * Victorino Gastelum MA - 04/28/2019 11:00 AM CST Mailed letter. WAITER/WAITRESS BANQUET * Stan Castano DO - 04/28/2019 11:00 AM CST Positive to marijuana which we are aware and already discussed during visit. WAITER/WAITRESS BANQUET documented in this encounter Plan of Treatment Pending Results Name Type Priority Associated Diagnoses Date /Time EKG INTERPRET & REPORT PREVE EKG-NonRad Routine Sinus tachycardia 04/28/2019 12:08 PM HEAD WAITER/WAITRESS BANQUET Scheduled Referrals Name Type Priority Associated Diagnoses Orde r Schedule Ambulatory Referral to Psychiatry Referral Routine Depression with anxiety Ordered: 04/28/2019 documented as of this encounter Procedures Procedure Name Priority Date/Time Associated Diagnosis Comments DRUG MONITORING, PANEL 5, SCREEN (U) Routine 04/28/2019 12:10 PM HEAD WAITER/WAITRESS BANQUET Marijuana smoker Tobacco use TSH W/REFLEX Routine 04/28/2019 12:10 PM HEAD WAITER/WAITRESS BANQUET Sinus tachycardia COMPREHENSIVE METABOLIC PANEL Routine 04/28/2019 12:10 PM HEAD WAITER/WAITRESS BANQUET Right upper quadrant abdominal pain CBC, AUTO, NO DIFF Routine 04/28/2019 12 :10 PM HEAD WAITER/WAITRESS BANQUET Right upper quadrant abdominal pain MAGNESIUM Routine 04/28/2019 12:10 PM HEAD WAITER/WAITRESS BANQUET Sinus tachycardia LIPASE Routine 04/28/2019 12:10 PM HEAD WAITER/WAITRESS BANQUET Epigastric abdominal pain COLLECTION VENOUS BLOOD VENIPUNCTURE Routine 04/28/2019 12:09 PM HEAD WAITER/WAITRESS BANQUET Epigastric abdominal pain Sinus tachycardia Gastroesophageal reflux disease, esophagitis presence not specified Primary insomnia Depression with anxiety Marijuana smoker EKG INTERPRET & REPORT PREVE Routine 04/28/2019 12:08 PM HEAD WAITER/WAITRESS BANQUET Sinus tachycardia documented in this encounter Results * (ABNORMAL) PAIN MANAGEMENT 5 PROFILE WITHOUT CONFIRMATION, URINE (04/28/2019 12:10 PM HEAD WAITER/WAITRESS BANQUET) CREATININE RANDOM URINE 218.4 > or = 20.0 mg/dL [facility] MA[facility]ONEYE pH PM (U) 6.0 4.5 - 9.0 [facility] WOOD AMADOR OXIDANT NEGATIVE <200 mcg/mL [facility] AMPHETAMINES PM NEGATIVE <500 ng/mL [facility] BARBITURATES PM (U) NEGATIVE <300 ng/mL [facility] WO[facility] [place] BENZODIAZEPINES PM (U) NEGATIVE <100 ng/mL [facility] AM[facility] MARIJUANA METABOLITE PM (U) POSITIVE(A) <20 ng/mL [facility] COCAINE METABOLITE PM (U) NEGATIVE <150 ng/mL [facility] METHADONE PM (U) NEGATIVE <100 ng/mL [facility] OPIATES PM (U) NEGATIVE <100 ng/mL [facility] OXYCODONE PM (U) NEGATIVE <100 ng/mL [facility] Comment: [facility] Comment: See Note 1 Note 1 This drug testing is for medical treatment only. ?? The results are presumptive; based only on screening methods, and they have not been confirmed by a definitive method. Analysis was performed as non-forensic testing and these results should be used only by healthcare providers to render diagnosis or treatment, or to monitor progress of medical conditions. For assistance with interpreting these drug results, please contact a [facility]ist: [phone] [phone] ( ), M-F, 8am-6pm EST. 04/28/2019 12:1 0 PM HEAD WAITER/WAITRESS BANQUET 05/02/2019 6:08 AM HEAD WAITER/WAITRESS BANQUET Narrative Resulting Agency Comment Performing Organization Information: ?Site ID: [id number] ?Name: [facility] ?Address: [address] [place] [id number] ?Director: Keaton Connor M.D. us Stan Castano DO LABORATORY Final Res ult [facility] [address] [place] [address] * TSH W/REFLEX (04/28/2019 12:10 PM HEAD WAITER/WAITRESS BANQUET) TSH 1.854 0.516 - 4.130 uIU/ML 04/28/2019 7:57 PM HEAD WAITER/WAITRESS BANQUET [facility] 04/28/2019 12:1 0 PM HEAD WAITER/WAITRESS BANQUET Stan Castano DO LABORATORY Final Res ult [facility] [address] [place] [address], * (ABNORMAL) COMPREHENSIVE METABOLIC PANEL (04/28/2019 12:10 PM HEAD WAITER/WAITRESS BANQUET) SODIUM S/P/B 141 136 - 145 MMOL/L 04/28/2019 7:57 PM HEAD WAITER/WAITRESS BANQUET [facility] POTASSIUM S/P/B 4.6 3.5 - 5.1 MMOL/L 04/28/2019 7:57 PM HEAD WAITER/WAITRESS BANQUET [facility] CHLORIDE S/P/B 103 98 - 107 MMOL/L 04/28/2019 7:57 PM HEAD WAITER/WAITRESS BANQUET [facility] CO2 21.9 21 - 32 MMOL/L 04/28/2019 7:57 PM HEAD WAITER/WAITRESS BANQUET [facility] GLUCOSE 84 70 - 99 MG/DL 04/28/2019 7:57 PM HEAD WAITER/WAITRESS BANQUET [facility] BUN 21 6 - 24 MG/DL 04/28/2019 7:57 PM HEAD WAITER/WAITRESS BANQUET [facility] CREATININE S/P/B 0.94 0.70 - 1.30 MG/DL 04/28/2019 7:57 PM HEAD WAITER/WAITRESS BANQUET [facility] CALCIUM S/P/B 9.3(L) 9.5 - 10.4 MG/DL 04/28/2019 7:57 PM HEAD WAITER/WAITRESS BANQUET [facility] BILIRUBIN TOTAL S/P/B 1.2(H) 0.2 - 1.0 MG/DL 04/28/2019 7:57 PM [facility] ALKALINE PHOSPHATASE S/P/B 105 52 - 222 U/L 04/28/2019 7:57 PM [facility] AST 10(L) 15 - 37 U/L 04/28/2019 7:57 PM [facility] ALT 12(L) 16 - 63 U/L 04/28/2019 7:57 PM [facility] TOTAL PROTEIN S/P/B 7.7 6.4 - 8.2 G/DL 04/28/2019 7:57 PM [facility] ALBUMIN S/P/B 4.9 3.4 - 5.0 G/DL 04/28/2019 7:57 PM [facility] ANION GAP 16.1(H) 5 - 15 MMOL/L 04/28/2019 7:57 PM [facility] Comment:REFERENCE RANGE NOT ESTABLISHED OSMOLALITY (CALC) 294 MOSM/KG 04/28/2019 7:57 PM [facility] Comment:REFERENCE RANGE NOT ESTABLISHED EGFR NON-AFR. AMER. >90 >90 ML/MIN/1 .73 M2 04/28/2019 7:57 PM [facility] EGFR AFR. AMER. >90 >90 ML/MIN/1 .73 M2 04/28/2019 7:57 PM [facility] GFR NOTES THE ESTIMATED GFR IS CALCULATED USING THE 2009 CKD-EPI EQUATION. THE FOLLOWING CATEGORIES FOR GRADING RENAL FUNCTION ARE RECOMMENDED BY THE INTERNATIONAL SOCIETY OF NEPHROLOGY (KDIGO 2012 CLINICAL PRACTICE GUIDELINE). 04/28/2019 7:57 PM [facility] Comment: G1,NORMAL OR HIGH: >89 ml/min/1.73 m2 G2,MILDLY DECREASED: 60-89 ml/min/1.73 m2 G3A,MILDLY TO MODERATELY DECREASED: 45-59 ml/min/1.73 m2 G3B,MODERATELY TO SEVERELY DECREASED: 30-44 ml/min/1.73 m2 G4,SEVERELY DECREASED: 15-29 ml/min/1.73 m2 G5,KIDNEY FAILURE: <15 ml/min/1.73 m2 04/28/2019 12:1 0 PM HEAD WAITER/WAITRESS BANQUET [facility] LABORATORY Final Res ult Performing Organization Address City/[facility]/ZIP Co de Phone Number [facility] [address] [place] [address], [place] [phone] * MAGNESIUM (04/28/2019 12:10 PM HEAD WAITER/WAITRESS BANQUET) MAGNESIUM 1.9 1.8 - 2.4 MG/DL 04/28/2019 7:57 PM HEAD WAITER/WAITRESS BANQUET [facility] 04/28/2019 12:1 0 PM HEAD WAITER/WAITRESS BANQUET [facility] LABORATORY Final Res ult Performing Organization Address City/[facility]/ZIP Co de Phone Number [place] [phone] [place], [place] [id number], [place] [phone] * (ABNORMAL) CBC, AUTO, NO DIFF (04/28/2019 12:10 PM HEAD WAITER/WAITRESS BANQUET) WBC 6.8 4.50 - 10.80 x10'3/uL 04/28/2019 7:03 PM [facility] RBC 4.63 4.50 - 6.10 x10'6/uL 04/28/2019 7:03 PM HEAD WAITER/WAITRESS BANQUET [facility] HGB 15.0 13.0 - 18.0 G/DL 04/28/2019 7:03 PM HEAD WAITER/WAITRESS BANQUET [facility] HCT 43.3 37.0 - 52.0 % 04/28/2019 7:03 PM HEAD WAITER/WAITRESS BANQUET [facility] MCV 93.5 78.0 - 100.0 FL 04/28/2019 7:03 PM [facility] MCH 32.4 25.0 - 35.0 PG 04/28/2019 7:03 PM HEAD WAITER/WAITRESS BANQUET [facility] MCHC 34.6 31.0 - 36.0 G/DL 04/28/2019 7:03 PM HEAD WAITER/WAITRESS BANQUET [facility] RDW 11.5 11.5 - 14.5 % 04/28/2019 7:03 PM HEAD WAITER/WAITRESS BANQUET [facility] PLT 342 150 - 350 x10'3/uL 04/28/2019 7:03 PM HEAD WAITER/WAITRESS BANQUET [facility] MPV 11.0(H) 7.4 - 10.4 FL 04/28/2019 7:03 PM HEAD WAITER/WAITRESS BANQUET [facility] 04/28/2019 12:1 0 PM HEAD WAITER/WAITRESS BANQUET [facility] Final Res ult Performing Organization Address City/[facility]/ZIP Co de Phone Number [facility] [place] [address] [place] [address], [place] [phone] * LIPASE (04/28/2019 12:10 PM HEAD WAITER/WAITRESS BANQUET) LIPASE 78 73 - 393 UNITS/L 04/28/2019 7:57 PM HEAD WAITER/WAITRESS BANQUET [facility] Comment:NEW INSTRUMENTATION. PLEASE NOTE NEW NORMAL RANGE. 04/28/2019 12:1 0 PM HEAD WAITER/WAITRESS BANQUET [facility] Final Res ult [facility] [place] [address] [place] [address], [place] [phone] documented in this encounter Visit Diagnoses Diagnosis Right upper quadrant abdominal pain- Primary Abdominal pain, right upper quadrant Epigastric abdominal pain Abdominal pain, epigastric Sinus tachycardia Other specified cardiac dysrhythmias Gastroesophageal reflux disease, esophagitis presence not specified Primary insomnia Persistent disorder of initiating or maintaining sleep Depression with anxiety Dysthymic disorder Marijuana smoker Cannabis abuse, unspecified Cyclic vomiting syndrome Persistent vomiting Tobacco use Tobacco use disorder Impacted cerumen of right ear Impacted cerumen Elevated liver enzymes Nonspecific elevation of levels of transaminase or lactic acid dehydrogenase (LDH) Vitamin D deficiency Unspecified vitamin D deficiency documented in this encounter Care Teams Top Distribution Executive Relationship Specialty Start Date End Date Stan Castano DO PCP - General INTERNAL MEDICINE 04/28/19 12/26/19 documented as of this encounter
--- OUTSIDE RECORDS SUMMARY | 2024-04-08 00:39 | XMS_ITS | Encounter Summary ---
Author Organization [facility] Address [address] [place] [address]. 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 No / Unsure 03/06/2020 12:54 PM APRON OPERATOR documented as of this encounter Plan of Treatment Not on file documented as of this encounter Visit Diagnoses Not on filedocumented in this encounter Care Teams Physical Laboratory Assistant Relationship Specialty Start Date End Date Igor Castano DO PCP - General INTERNAL MEDICINE 04/28/19 12/26/19 Jose Yip MD [address] [id number] PCP - General INTERNAL MEDICINE 12/27/19 08/28/20 documented as of this encounter
--- OUTSIDE RECORDS SUMMARY | 2024-04-08 00:39 | XMS_ITS | Encounter Summary ---
Author Organization [facility] Address [address] [place] [address]. 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 [place] [address] PCP - General INTERNAL MEDICINE 12/27/19 08/28/20 documented as of this encounter
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
--- OUTSIDE RECORDS SUMMARY | 2024-04-08 00:39 | XMS_ITS | Encounter Summary ---
Author Organization [facility] Address Critical access hospital[facility]. 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 No / Unsure 03/06/2020 12:54 PM FLAT MACHINE CUTTER documented as of this encounter Plan of Treatment Not on file documented as of this encounter Visit Diagnoses Not on filedocumented in this encounter Care Teams Vice President Consulting Services Relationship Specialty Start Date End Date Rose Balderas MD PCP - General FAMILY PRACTICE 10/21/18 04/25/19 None, Sarah, PCP - General 04/26/19 04/27/19 Igor Castano DO PCP - General INTERNAL MEDICINE 04/28/19 12/26/19 Jose Yip MD [address] [place], [place] [id number] PCP - General INTERNAL MEDICINE 12/27/19 08/28/20 documented as of this encounter
--- OUTSIDE RECORDS SUMMARY | 2024-04-08 00:39 | XMS_ITS | Encounter Summary ---
Author Organization [facility] Address [address] [place] [address]. [place], [place] [address] [place] [address] Care Team Providers Care Educational Therapy Teacher Name Role Phone Olivier Yip MD Primary Care Provider +1- [phone] Reason for Visit * Reason Comments Puncture Wound states cut left foot on a screw last night Encounter Details Date Type Department Care Team (Late st Contact Info) Description 01/23/2020 1:20 PM CDT Office Visit [facility] Internal Medicine - [place] [address] [place] [address] Olivier Yip MD [address] [place] [address] Puncture Wound (states cut left foot on a screw last night) Social History Tobacco Use Types Packs/Day Years [...] on file 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 No / Unsure 01/23/2020 1:20 PM CDT documented as of this encounter Last Filed Vital Signs Vital Sign Reading Time Taken Comments Blood Pressure 110/60 01/23/2020 1:25 PM CDT Pulse 114 01/23/2020 1:25 PM CDT Temperature 36.9 ??C (98.5 ??F) 01/23/2020 1:25 PM CD T Respiratory Rate 18 01/23/2020 1:25 PM CDT Oxygen Saturation 99% 01/23/2020 1:25 PM CDT Inhaled Oxygen Concentration - - Weight 52.2 kg (115 lb) 01/23/2020 1:25 PM CDT Height 175.3 cm (5' 9 ) 01/23/2020 1:25 PM CDT Body Mass Index 16.98 01/23/2020 1:25 PM CDT documented in this encounter Progress Notes * Olivier Yip MD - 01/23/2020 1:20 PM CDT Reason for visit Puncture Wound (states cut left foot on a screw last night) FIONA Medina is a 20-year-old male who is here today by request about a wound on the inner aspect of his left heel. There is a little gait that they have in the house to keep the small dogs out of a certain room but then Martha bigger dog hit the gate and a screw on the gait came around and hit bradycardia really hard on the inner aspect that he will and kind of just tore the skin open. It bled qu ite a bit. He put Neosporin and covered it but wanted us to take a look at it and see if he needs atetanus shot. Problem is he does not know when his last tetanus shot was and he was homeschooled a lot so we can before certain that one was given like at age 15 or 16 when the school usually mandates it. We briefly talked about his meds and he just started the Depakote about a week ago because I forgot about it but then he started and so far he is tolerating it okay Past Medical History: Diagnosis Date ??? Allergy [...] Tachycardia Review of Systems Constitutional: Negative for chills and fever. Physical Exam Filed Vitals: 01/23/20 1325 BP: 110/60 Pulse: 114 Resp: 18 Temp: 98.5 ??F (36.9 ??C) TempSrc: Temporal SpO2: 99% Weight: 52.2 kg (115 lb) Height: 5' 9 (1.753 m) Physical Exam Vitals signs and nursing note reviewed. Constitutional: Comments: Thin small framed gentleman. Pulmonary: Effort: Pulmonary effort is normal. No respiratory distress. Musculoskeletal: Comments: On the inner aspect of the left heel there is a triangular puncture wound with no surrounding erythema. It is full-thickness and we see a little bit of subcutaneous tissue at the base. I replaced a nonstick Telfa dressing. He has good pulses in the feet and there is no sign of infection Neurological: Mental Status: He is alert. Psychiatric: Mood and Affect: Mood normal. Behavior: Behavior normal. Assessment Diagnoses and all orders for this visit: Puncture wound Need for ebugjekqfa-pjnpvzi-hklzmsarp (Tdap) vaccine - TETANUS, DIPHTHERIA TOXOIDS AND ACELLULAR PERTUSIS VACCINE (TDAP), > 7 YEARS, IM USE Plan 1. Puncture wound-it is a pretty clean wound and so I do not think we need any antibiotics. Since were not certain when his last Tdap was we will give 1 today. He has a regular appointment with us in February and we still are awaiting some of his old records so we need to get those in. I am glad he decided to start trying the Depakote for we feel like mightbe a mood disorder. This was a work in visit so we really did not discuss a lot of other issues today OLIVIER YIP MD documented in this encounter Plan of Treatment Not on file documented as of this encounter Visit Diagnoses Diagnosis Puncture wound- Primary Open wound(s) (multiple) of unspecified site(s), without mention of complication Need for axfttojouk-cqbohyk-cfksckxyd (Tdap) vaccine Need for prophylactic vaccination with combined zwhmazdsdk-qzwnzmh-wzgjrfazz (DTP) vaccine documented in this encounter Care Teams Educational Therapy Teacher Relationship Specialty Start Date End Date Olivier Yip MD [address] [place], [place] [id number] PCP - General INTERNAL MEDICINE 12/27/19 08/28/20 documented as of this encounter
--- OUTSIDE RECORDS SUMMARY | 2024-04-08 00:39 | XMS_ITS | Encounter Summary ---
Author Organization [facility] Address [address] [place] [address]. 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 No / Unsure 03/06/2020 12:54 PM MANAGER ACCOUNT MANAGEMENT documented as of this encounter Plan of Treatment Not on file documented as of this encounter Procedures Procedure Name Priority Date/Time Associated Diagnosis Comments IMAGE GENERIC 09/28/2019 documented in this encounter Results * IMAGE GENERIC (09/28/2019) Anatomical Region Laterality Modality Other 09/28/2019 Narrative 09/28/2019 Ordered by an unspecified provider. us Documents Scanned SCANNING Final Result documented in this encounter Visit Diagnoses Not on filedocumented in this encounter Care Teams Clinical Rn Relationship Specialty Start Date End Date Igor Castano DO PCP - General INTERNAL MEDICINE 04/28/19 12/26/19 Jose Yip MD [address] [place] [address] PCP - General INTERNAL MEDICINE 12/27/19 08/28/20 documented as of this encounter
--- OUTSIDE RECORDS SUMMARY | 2024-04-08 00:39 | XMS_ITS | Encounter Summary ---
Author Organization [facility] Address [address] [place] [address]. 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 No / Unsure 03/06/2020 12:54 PM MACHINE MADE SHOE UNIT WORKER documented as of this encounter Plan of Treatment Not on file documented as of this encounter Visit Diagnoses Not on filedocumented in this encounter Care Teams Sword Swallower Relationship Specialty Start Date End Date Igor Castano DO PCP - General INTERNAL MEDICINE 04/28/19 12/26/19 Jose Yip MD [address] [id number] PCP - General INTERNAL MEDICINE 12/27/19 08/28/20 documented as of this encounter
--- OUTSIDE RECORDS SUMMARY | 2024-04-08 00:39 | XMS_ITS | Encounter Summary ---
Author Organization [facility] Address [facility]. 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 No / Unsure 03/06/2020 12:54 PM WAGE AND HOUR INVESTIGATOR documented as of this encounter Plan of Treatment Not on file documented as of this encounter Procedures Procedure Name Priority Date/Time Associated Diagnosis Comments OUTSIDE LAB (SCAN ORDER) 04/24/2019 documented in this encounter Results * OUTSIDE LAB (SCAN) (04/24/2019) 04/24/2019 Narrative 04/24/2019 Ordered by an unspecified provider. us Documents Scanned SCANNING Final Result documented in this encounter Visit Diagnoses Not on filedocumented in this encounter Care Teams Rug Backing Stenciler Relationship Specialty Start Date End Date Rose Balderas MD PCP - General FAMILY PRACTICE 10/21/18 04/25/19 None, MD Sarah PCP - General 04/26/19 04/27/19 Igor Castano DO PCP - General INTERNAL MEDICINE 04/28/19 12/26/19 Jose Yip MD [address] [place] [address] PCP - General INTERNAL MEDICINE 12/27/19 08/28/20 documented as of this encounter
--- OUTSIDE RECORDS SUMMARY | 2024-04-08 00:39 | XMS_ITS | Encounter Summary ---
Author Organization [facility] Address [address] [place] [address]. 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 No / Unsure 03/06/2020 12:54 PM ANGLE SHEAR SET UP OPERATOR documented as of this encounter Plan of Treatment Not on file documented as of this encounter Procedures Procedure Name Priority Date/Time Associated Diagnosis Comments OUTSIDE LAB (SCAN ORDER) Routine 05/23/2019 documented in this encounter Results * OUTSIDE LAB (05/23/2019) 05/23/2019 us Documents Scanned SCANNING Final Result [facility] documented in this encounter Visit Diagnoses Not on filedocumented in this encounter Care Teams Surgical Supplies Sterilizer Relationship Specialty Start Date End Date Igor Castano DO PCP - General INTERNAL MEDICINE 04/28/19 12/26/19 Jose Yip MD [address] [place], [place] [id number] PCP - General INTERNAL MEDICINE 12/27/19 08/28/20 documented as of this encounter
--- OUTSIDE RECORDS SUMMARY | 2024-04-08 00:39 | XMS_ITS | Encounter Summary ---
Author Organization [facility] Address [address] [place] [address]. 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 us Documents Scanned SCANNING Final Result * ENDOSCOPY (05/09/2019) 05/09/2019 Narrative 05/09/2019 Ordered by an unspecified provider. us Documents Scanned SCANNING Final Result documented in this encounter Visit Diagnoses Not on filedocumented in this encounter Care Teams Commissioner Public Works Relationship Specialty Start Date End Date Igor Castano DO PCP - General INTERNAL MEDICINE 04/28/19 12/26/19 Jose Yip MD [address] [place] [id number] PCP - General INTERNAL MEDICINE 12/27/19 08/28/20 documented as of this encounter
--- OUTSIDE RECORDS SUMMARY | 2024-04-08 00:39 | XMS_ITS | Encounter Summary ---
Author Organization [facility] Address [address] [place] [address]. [place], [place] [id number] [place] [id number] Care Team Providers Care Direct Marketing Analyst Name Role Phone Igor Castano DO Primary Care Provider Un available Reason for Referral * Imaging (Emergency) - Closed Specialty Diagnoses / Procedures Referred By Magda flood Referred To Contact RADIOLOGY Procedures US ABD LIMITED Erica Wright NP Phone: tel: fax: Referral ID Status Reason Start Date Expiration Date Visits Re quested Visits Authorized [id number] Closed 05/01/2019 06/01/2020 1 1 [facility] Reason for Visit * Reason Comments Abdominal Pain Nausea Encounter Details Date Type Department Care Team (Late st Contact Info) Description 05/01/2019 12:43 PM [facility] - 05/01/2019 2:50 PM [facility] Emergency [facility] Emergency [address] [place] [address] Erica Wright NP [address] [place], [place] [id number] Abdominal Pain; Nausea Discharge Disposition: Home or Self Care (Routine Discharge) Social History Tobacco Use Types Packs/Day Years Used Date Smoking Tobacco: Every Day Smokeless Tobacco: Never Alcohol Use Standard Drinks/Week Comments Yes 0 (1 standard drink = 0.6 oz pur e alcohol) PHQ-2 Answer Date Recorded PHQ-2 Score 4 04/28/2019 Sex and Gender Information Value Date Recorded Sex Assigned at Not on file Legal Sex Male 10:43 PM [facility] Gender Identity Not on file Sexual Orientation Not on file documented as of this encounter Last Filed Vital Signs Vital Sign Reading Time Taken Comments Blood Pressure 132/68 05/01/2019 11:36 AM [facility] Pulse 91 05/01/2019 11:36 AM [facility] [employer] [facility] Temperature 36.2 ??C (97.2 ??F) 05/01/2019 1 1:36 AM [facility] Respiratory Rate 16 05/01/2019 11:3 6 AM [facility] Oxygen Saturation 99% 05/01/2019 11: 36 AM [facility] [employer] Inhaled Oxygen Concentration - - Weight 47.3 kg (104 lb 4.4 oz) 05/01/19 20 11:36 AM [facility] [employer] [facility] Height 175.3 cm (5' 9 ) 05/01/2019 11:3 6 AM [facility] [employer] [facility] Body Mass Index 15.4 05/01/2019 11:36 AM [facility] Body Mass Index Percentile 0.01% 05/01 11:36 AM [facility] [employer] [facility] Growth Chart: [facility] (Boys, 2-2 0 Years) documented in this encounter Discharge Instructions * Discharge Instructions* Erica Willett NP - 05/01/2019 2:43 PM [facility] [employer] 1. Avoid foods such as chocolate, tomatoes, citrus fruits, onions, fatty foods, spicy foods, alcohol, and caffeinated beverages. 2. Avoid eating large meals, rather small frequent meals throughout the day. 3. Avoid eating 4 hours or less before bedtime. 4.Take medications as directed. 5. Follow up with your doctor or doctor referral. Call next business day to schedule an appointmentfor ED follow up in 7-10 days. Follow up with your doctor in 3 days if no improvement. 6. Return to the Emergency Department for new or worsening symptoms. Please read and follow additional written instructions provided. [facility] * Attachments The following attachments cannot be sent through Care Everywhere. * Nausea and Vomiting Discharge Instructions, Adult (Belarusian) * Severe Abdominal Pain Discharge Instructions, Adult (Belarusian) documented in this encounter Medications at Time of Discharge omeprazole 40 MG capsuleIndication s:Gastroesophagea l reflux disease, esophagitis presence not specified Take 1 capsule (40 mg total) by mouth daily. 90 capsule 3 04/28/2019 ondansetron (ZOFRAN) 4 MG tabletIndications :Right upper quadrant abdominal pain Take 1 tablet (4 mg total) by mouth every 8 (eight) hours as needed for Nausea. 20 tablet 04/28/2019 carbamide peroxide (DEBROX) 6.5 % otic solutionIndicatio ns:Impacted cerumen of right ear Place 4 drops into the right ear 2 (two) times daily for 4 days. 15 mL 04/28/2019 0 diphenhydrAMINE 25 MG capsule Take 25 mg by mouth every 6 (six) hours as needed for Itching. 0 ibuprofen 200 MG tablet Take 200 mg by mouth every 6 (six) hours as needed for Pain. 0 ketoconazole 2 % cream APPLY SPARINGLY TO AFFECTED AREA(S) TWICE DAILY 04/13/2019 0 trazodone 50 MG tabletIndications :Primary insomnia,Depressi on with anxiety Take 1 tablet (50 mg total) by mouth nightly at bedtime. 90 tablet 04/28/2019 0 documented as of this encounter ED Notes * Cristian Christensen RN - 05/01/2019 1:43 PM CST Attempted to call micro regarding flu swab sent, no answer. [facility] [employer] [facility] * Erica Willett NP - 05/01/2019 12:46 PM CST ED NOTE I, klaus Munoz, am personally taking down the notes in the presence of Erica Willett APRN.?Take no action on this note until reviewed and authenticated??by the physician. Chief Complaint Chief Complaint Patient presents with ??? Abdominal Pain ??? Nausea History of Present Illness History provided by: Patient Yandel Medina is a 19-year-old male presenting to the ED for evaluation of abdominal pain x 2 weeks. Patient reports that he has been nauseous, gassy, with alternating diarrhea and constipation,fever with chills, and he denies dysuria, PSH, or PMH aside from asthma. Patient notes that he has recently quit smoking. No other positive complaints were reported upon review of systems. Medical History ALLERGIES: No Known Allergies MEDICATIONS: Prior to Admission medications Medication Sig Start Date End Date Taking? Authorizing Provider carbamide peroxide (DEBROX) 6.5 % otic solution Place 4 drops into the right ear 2 (two) times daily for 4 days. 04/28/19 05/02/19 Igor Castano, DO diphenhydrAMINE 25 MG capsule Take 25 mg by mouth every 6 (six) hours as needed for Itching. Doc Abstract ibuprofen 200 MG tablet Take 200 mg by mouth every 6 (six) hours as needed for Pain. Doc Abstract ketoconazole 2 % cream APPLY SPARINGLY TO AFFECTED AREA(S) TWICE DAILY 04/13/19 Doc Abstract omeprazole 40 MG capsule Take 1 capsule (40 mg total) by mouth daily. 04/28/19 Igor Castano, DO ondansetron (ZOFRAN) 4 MG tablet Take 1 tablet (4 mg total) by mouth every 8 (eight) hours as needed for Nausea. 04/28/19 Igor Castano, DO trazodone 50 MG tablet Take 1 tablet (50 mg total) by mouth nightly at bedtime. 04/28/19 Igor Castano, DO PAST MEDICAL HISTORY: Past Medical History: Diagnosis Date ??? Allergy ??? Depression ??? Migraine PAST SURGICAL HISTORY: Past Surgical History: Procedure Laterality Date ??? CIRCUMCISION FAMILY HISTORY: Family History Problem Relation Name Age of Onset ??? Asthma Mother ??? Depression Mother ??? Hypertension Mother ??? Migraines/Headaches Mother ??? Alcohol Abuse Father ??? Depression Father SOCIAL HISTORY: Social History Tobacco Use ??? Smoking status: Current Every Day Smoker ??? Smokeless tobacco: Never Used Substance Use Topics ??? Alcohol use: Yes ??? Drug use: Yes Review of Systems Review of Systems Constitutional: Positive for chills and fever. HENT: Negative. Eyes: Negative. Respiratory: Negative. Cardiovascular: Negative. Gastrointestinal: Positive for abdominal pain, constipation, diarrhea and nausea. Negative for vomiting. Endocrine: Negative. Genitourinary: Negative. Negative for dysuria. Musculoskeletal: Negative. Skin: Negative. Allergic/Immunologic: Negative. Neurological: Negative. Hematological: Negative. Psychiatric/Behavioral: Negative. Physical Exam Filed Vitals: 05/01/19 1136 BP: 132/68 Pulse: 91 Resp: 16 Temp: 97.2 ??F (36.2 ??C) TempSrc: Oral SpO2: 99% Weight: 47.3 kg (104 lb 4.4 oz) Height: 5' 9 (1.753 m) Physical Exam Nursing note and vitals reviewed. Generalized Appearance: No apparent distress. Well developed. Well nourished. Skin: Warm and dry. No rash. Head: Normocephalic and atraumatic Eyes: Conjunctiva clear with no scleral icterus or jaundice. PERRL/EOMI ENT: TM's are clear. Oral mucosa is moist. Uvula is midline and nonedematous. Tonsils are normal size and symmetric with no erythema present. Oropharynx is clear. Neck: Non-tender. Supple. Back: Non-tender. Normal ROM. Chest and Respiratory: Airway patent. Breath sounds equal. Lungs clear with auscultation. No stridor, wheezes, rales, or rhonchi. No accessory muscle use. No respiratory distress. Cardiovascular: Regular rate and rhythm. No murmur, rubs, or gallops. Abdominal: RUQ tenderness to palpation. Bowel sounds present. Soft and flat. Non-distended. No obvious masses or hernias. No rebound, guarding, or rigidity. Musculoskeletal: Normal ROM. No deformity. Neurologic: Alert and oriented x 3. No gross motor deficits. Mental Status: Normal affect. Genital-Rectal: male deferred Diagnostic Studies / Procedures ELECTROCARDIOGRAMS: No results found for this visit on 05/01/19. LABORATORY STUDIES: Results for orders placed or performed during the hospital encounter of 05/01/19 CBC W/DIFF AUTOMATED Result Value Ref Range WBC 5.7 4.0 - 10.8 x10'3/uL RBC 4.61 4.50 - 6.10 x10'6/uL HGB 14.9 13.0 - 18.0 G/DL HCT 43.0 37.0 - 52.0 % MCV 93.3 78.0 - 100.0 FL MCH 32.3 (H) 27.0 - 31.0 PG MCHC 34.7 33.0 - 36.0 G/DL RDW 11.6 11.5 - 14.5 % PLT 288 150 - 350 x10'3/uL MPV 10.5 (H) 7.4 - 10.4 FL ABS. NEUTROPHILS TOTAL 2.66 1.60 - 8.30 x10'3/uL ABS. LYMPHOCYTES 2.29 0.80 - 4.70 x10'3/uL ABS. MONOCYTES 0.40 0.00 - 1.50 x10'3/uL ABS. EOSINOPHILS 0.29 0.00 - 0.40 x10'3/uL ABS. BASOPHILS 0.01 0.00 - 0.20 x10'3/uL ABS. IMMATURE GRANULOCYTES 0.01 0.00 - 0.03 x10'3/uL ABS. NUCLEATED RBC'S 0.00 0.0 x10'3/uL BASIC METABOLIC PANEL Result Value Ref Range SODIUM 135 (L) 136 - 145 MMOL/L POTASSIUM 3.8 3.5 - 5.1 MMOL/L CHLORIDE 104 98 - 107 MMOL/L CO2 23.1 21.0 - 32.0 MMOL/L GLUCOSE 88 74 - 106 MG/DL BUN 17 7 - 18 MG/DL CREATININE 0.95 0.70 - 1.30 MG/DL CALCIUM 9.2 8.5 - 10.1 MG/DL ANION GAP 7.9 5.0 - 15.0 MMOL/L OSMOLALITY (CALC) 281 MOSM/KG eGFR Non-Afr. Amer. >90 >90 ML/MIN/1.73 M2 eGFR Afr. Amer. >90 >90 ML/MIN/1.73 M2 GFR NOTES GFR REFERENCES: HEPATIC FUNCTION PANEL Result Value Ref Range TOTAL BILIRUBIN 1.0 0.2 - 1.0 MG/DL DIRECT BILIRUBIN 0.3 (H) 0.0 - 0.2 MG/DL ALK PHOS 111 52 - 222 U/L AST 10 (L) 15 - 37 U/L ALT 14 (L) 16 - 61 U/L TOTAL PROTEIN 7.8 6.4 - 8.2 G/DL ALBUMIN 4.7 3.4 - 5.0 G/DL LIPASE Result Value Ref Range LIPASE 80 73 - 393 UNITS/L URINALYSIS Result Value Ref Range COLOR LIGHT YELLOW TRANSPARENCY CLEAR Specific Una (U) 1.010 1.002 - 1.035 U PH 7.0 5 - 8 PROTEIN, URINE NEGATIVE NEGATIVE URINE GLUCOSE NEGATIVE NEGATIVE MG/DL U KETONES 20 (A) NEGATIVE Urine Bilirubin NEGATIVE NEGATIVE BLOOD NEGATIVE NEGATIVE NITRITES NEGATIVE NEGATIVE UROBILINOGEN NORMAL 0 - 1 EU/DL LEUKOCYTE ESTERASE NEGATIVE NEGATIVE RBC/HPF NONE 0 - 3 /HPF WBC/HPF NONE 0 - 6 /HPF BACTERIA (URINE) NONE /HPF HETEROPHILE ANTIBODIES,SCREEN Result Value Ref Range MONO TEST NEGATIVE NEGATIVE INFLUENZA A & B Result Value Ref Range Spec. Description NASAL Special Requests: NO SPECIAL REQUEST Result NEGATIVE FOR INFLUENZA A & B VIRUS ANTIGEN IMAGING STUDIES US ABD LIMITED Final Result by User, [id number] (05/01 1423) Examination: Abdominal ultrasound, limited. Clinical Information: Right upper quadrant pain. Comparison: None. Technique: Grayscale, color Doppler and spectral waveform sonographic images were obtained. Findings: LIVER: Normal in size and echogenicity without focal lesion. Main portal vein: Patent with antegrade flow. Hepatic veins: Patent with normal phasicity. Intrahepatic bile ducts: Normal. Not dilated. Common bile duct: 2 mm. GALLBLADDER: Normal. No gallstones, wall thickening, or pericholecystic fluid. PANCREAS: The pancreatic head and proximal body are imaged and are normal in size and texture. The distal pancreatic body and tail are obscured by overlying bowel gas. INFERIOR VENA CAVA: Imaged portions are normal. ASCITES: None. Impression: Normal examination. Interpreted By: Thad Ramon MD, 05/01/2019 2:21 PM ED Course / Medical Decision Making MDM Number of Diagnoses or Management Options Nausea: new, needed workup RUQ pain: new, needed workup Amount and/or Complexity of Data Reviewed Clinical lab tests: ordered and reviewed Tests in the radiology section of CPT??: ordered and reviewed Patient Progress Patient progress: stable ED Course as of May 01 1506 Mon May 01, 2019 1255 Presents to the ED with complaints of RUQ x 2 weeks that denny progressively gotten worse. DeniesCP, SOB, fever, or vomiting. RUQ tenderness on exam. [TYRA] 1318 WBC: 5.7 [TYRA] 1408 Result: NEGATIVE FOR INFLUENZA A & B VIRUS ANTIGEN [TYRA] 1408 MONO TEST: NEGATIVE [TYRA] 1427 LIVER: Normal in size and echogenicity without focal lesion. Main portal vein: Patent with antegrade flow. Hepatic veins: Patent with normal phasicity. Intrahepatic bile ducts: Normal. Not dilated. Common bile duct: 2 mm. GALLBLADDER: Normal. No gallstones, wall thickening, or pericholecystic fluid. PANCREAS: The pancreatic head and proximal body are imaged and are normal in size and texture. The distal pancreatic body and tail are obscured by overlying bowel gas. INFERIOR VENA CAVA: Imaged portions are normal. ASCITES: None. US ABD LIMITED [TYRA] 1445 Updated regarding findings and discharged home to follow-up with his primary care doctor. I provided definitive care for this patient.Discussed all results and incidental findings with patient. Supportive measures discussed. Signs and symptoms to monitor for, reasons to return to the Emergency Department, discharge, and follow-up instructions given to patient. Patient verbalized understanding, denies further questions, and agrees with plan. VS normal at discharge. Cosigner will be: Dr. Murillo [TYRA] ED Course User Index [TYRA] Erica Willett APRN Medications ondansetron (ZOFRAN) injection 4 mg (4 mg Intravenous Not Given 05/01/19 1336) ketorolac (TORADOL) injection 15 mg (15 mg Intravenous Given 05/01/19 1309) sodium chloride 0.9% bolus infusion SOLN 1,000 mL (0 mLs Intravenous Infusion Stop Time 05/01/19 1404) Clinical Impression RUQ pain (Primary) Nausea Disposition: Discharge Discharge Medication List as of 05/01/2019 2:45 PM Lucy Villatoro, 05/01/19, 13:21. Follow-up: Igor Castano DO [address] [facility] [id number] Go on 05/02/2019 As needed, If symptoms worsen Provider Attestation: I, Erica Willett NP, personally performed the services described in this documentation. All medical record entries made by the scribe were at my direction and in my presence. I have reviewed the chart and discharge instructions (if applicable) and agree that the record reflects my personal performance and is accurate and complete. ERICA WILLETT APRN 05/01/2019 Erica Willett APRN 05/01/19 1506 Cosigned by Theresa Murillo MD at 05/01/2019 4:16 PM [facility] [employer] [facility]DER [facility] * Angela Le RN - 05/01/2019 11:33 AM CST Pt presents to ED per pov. Pt complains of upper mid abd pain x2 weeks. States he gets 'attacks' and the pain increases. Reports feeling nauseated w/o vomiting. [facility] [facility] documented in this encounter Plan of Treatment Not on file documented as of this encounter Procedures Procedure Name Priority Date/Time Associated Diagnosis Comments US ABD LIMITED STAT 05/01/2019 2:07 PM [facility] [employer] [facility] HC URINALYSIS AUTO W/MICRO Nurse Collected Priority 05/01/2019 1:27 PM [facility] [employer] [facility] URINE BACTERIA CULTURE Nurse Collected Priority 05/01/2019 1:19 PM [facility] [employer] [facility] INFLUENZA A & B Nurse Collected Priority 05/01/2019 1:08 PM [facility] [employer] [facility] BASIC METABOLIC PANEL STAT 05/01/2019 1:06 PM [facility] [employer] [facility] HETEROPHILE ANTIBODIES,SCREEN STAT 05/01/2019 1:06 PM [facility] [employer] [facility] HEPATIC FUNCTION PANEL STAT 05/01/2019 1:06 PM [facility] [employer] [facility] CBC W/DIFF AUTOMATED STAT 05/01/2019 1:06 PM [facility] [employer] [facility] LIPASE STAT 05/01/2019 1:06 PM [facility] [employer] [facility] documented in this encounter Results * US ABD LIMITED (05/01/2019 2:07 PM [facility] [employer] [facility]) Anatomical Region Laterality Modality Abdomen Ultrasound 05/01/2019 2:21 PM [facility] [employer] [facility] Impressions 05/01/2019 2:23 PM [facility] [employer] [facility] Impression: Normal examination. Interpreted By: Thad Ramon MD, 05/01/2019 2:21 PM Narrative 05/01/2019 2:23 PM [facility] [employer] [facility] Examination: Abdominal ultrasound, limited. Clinical Information: Right upper quadrant pain. Comparison: None. Technique: Grayscale, color Doppler and spectral waveform sonographic images were obtained. Findings: LIVER: Normal in size and echogenicity without focal lesion. Main portal vein: Patent with antegrade flow. Hepatic veins: Patent with normal phasicity. Intrahepatic bile ducts: Normal. Not dilated. Common bile duct: 2 mm. GALLBLADDER: Normal. No gallstones, wall thickening, or pericholecystic fluid. PANCREAS: The pancreatic head and proximal body are imaged and are normal in size and texture. The distal pancreatic body and tail are obscured by overlying bowel gas. INFERIOR VENA CAVA: Imaged portions are normal. ASCITES: None. Procedure Note Thad Ramon MD - 05/01/2019 Examination: Abdominal ultrasound, limited. Clinical Information: Right upper quadrant pain. Comparison: None. Technique: Grayscale, color Doppler and spectral waveform sonographic images were obtained. Findings: LIVER: Normal in size and echogenicity without focal lesion. Main portal vein: Patent with antegrade flow. Hepatic veins: Patent with normal phasicity. Intrahepatic bile ducts: Normal. Not dilated. Common bile duct: 2 mm. GALLBLADDER: Normal. No gallstones, wall thickening, or pericholecystic fluid. PANCREAS: The pancreatic head and proximal body are imaged and are normal in sizeand texture. The distal pancreatic body and tail are obscured by overlying bowel gas. INFERIOR VENA CAVA: Imaged portions are normal. ASCITES: None. Impression: Normal examination. Interpreted By: Thad Ramon MD, 05/01/2019 2:21 PM Erica Malhotra NP ULTRASOUND Final R esult * (ABNORMAL) URINALYSIS (05/01/2019 1:27 PM [facility] [employer] [facility]) COLOR (U) LIGHT YELLOW 05/01/2019 1:34 PM [facility] [employer] [facility]DER [facility] TRANSPARENCY CLEAR 05/01/2019 1:34 PM [facility] [employer] [facility] SPECIFIC GRAVITY (U) 1.010 1.002 - 1.035 05/01/2019 1:34 PM [facility] [employer] [facility] U PH 7.0 5 - 8 05/01/2019 1:34 PM [facility] [employer] [facility] PROTEIN (U) NEGATIVE NEGATIVE 05/01/2019 1:34 PM [facility] [employer] [facility] URINE GLUCOSE NEGATIVE NEGATIVE MG/DL 05/01/2019 1:34 PM [facility] [employer] [facility] KETONES MG/DL (U) 20(A) NEGATIVE 05/01/2019 1:34 PM [facility] [employer] [facility] BILIRUBIN (U) NEGATIVE NEGATIVE 05/01/2019 1:34 PM [facility] [employer] [facility] BLOOD (U) NEGATIVE NEGATIVE 05/01/2019 1:34 PM [facility] [employer] [facility] NITRITES NEGATIVE NEGATIVE 05/01/2019 1:34 PM [facility] UROBILINOGEN NORMAL 0 - 1 EU/DL 05/01/2019 1:34 PM [facility] [employer] [facility] LEUKOCYTES (U) NEGATIVE NEGATIVE 05/01/2019 1:34 PM [facility] [employer] [facility] RBC/HPF NONE 0 - 3 /HPF 05/01/2019 1:34 PM [facility] WBC/HPF NONE 0 - 6 /HPF 05/01/2019 1:34 PM [facility] BACTERIA (U) NONE /HPF 05/01/2019 1:34 PM [facility] URINE SPECIMEN OBTAINED BY CLEAN CATCH PROCEDURE / Unknown 05/01/2019 1:27 PM [facility] [employer] [facility] Erica Malhotra NP URINE ORDERABLES Final Result [facility] [address] [place] [address], [id number] * CULTURE URINE (05/01/2019 1:19 PM [facility] [employer] [facility]) SPEC DESCRIPTION URINE CLEAN CATCH 05/01/2019 1:19 PM [facility] [employer] [facility] SPECIAL REQUESTS NO SPECIAL REQUEST 05/01/2019 1:19 PM [facility] [employer] [facility] CULTURE RESULT NO GROWTH (< OR = 1,000 CFU/ML) 05/02/2019 3:51 AM [facility] [employer] [facility] URINE SPECIMEN OBTAINED BY CLEAN CATCH PROCEDURE / Unknown 05/01/2019 1:19 PM [facility] [employer] [facility] 05/01/2019 1:43 PM [facility] [employer] [facility] us Erica Malhotra NP MICROBIOLOGY - GENERAL ORDERABLES Final Result Performing Organization Address [facility] de Phone Number [facility] [address] [place] [address], [place] [phone] [id number] * INFLUENZA A & B (05/01/2019 1:08 PM [facility] [employer] [facility]) SPEC DESCRIPTION NASAL 05/01/2019 1:08 PM [facility] [employer] [facility] SPECIAL REQUESTS NO SPECIAL REQUEST 05/01/2019 1:08 PM [facility] [employer] RESULT NEGATIVE FOR INFLUENZA A & B VIRUS ANTIGEN 05/01/2019 2:07 PM [facility] [employer] SPECIMEN FROM INTERNAL NOSE / Unknown 05/01/2019 1:08 PM [facility] [employer] [facility] 05/01/2019 1:45 PM [facility] [employer] [facility] us Erica Malhotra NP MICROBIOLOGY - GENERAL ORDERABLES Final Result Performing Organization Address [facility] de Phone Number [facility] [address] [place] [address], [place] [phone] [id number] * HETEROPHILE ANTIBODIES,SCREEN (05/01/2019 1:06 PM [facility] [employer] [facility]ILDER) MONO TEST NEGATIVE NEGATIVE 05/01/2019 1:49 PM [facility] [employer] 05/01/2019 1:06 PM [facility] [employer] [facility] us Erica Malhotra NP LABORATORY Final R esult Performing Organization Address [facility] Co de Phone Number [facility] [address] [place] [address], [place] [phone] [id number] * LIPASE (05/01/2019 1:06 PM [facility] [employer] [facility]ILDER) [facility] LIPASE 80 73 - 393 UNITS/L 05/01/2019 1:47 PM [facility] [employer] 05/01/2019 1:06 PM [facility] [employer] Erica Malhotra NP LABORATORY Final R esult [facility] [address] [place] [address], [id number] * (ABNORMAL) HEPATIC FUNCTION PANEL (05/01/2019 1:06 PM [facility] [employer] [facility]DER) [facility] BILIRUBIN TOTAL S/P/B 1.0 0.2 - 1.0 MG/DL 05/01/2019 1:47 PM [facility] BILIRUBIN DIRECT S/P/B 0.3(H) 0.0 - 0.2 MG/DL 05/01/2019 1:47 PM [facility] [facility] [employer] ALKALINE PHOSPHATASE S/P/B 111 52 - 222 U/L 05/01/2019 1:47 PM [facility] [facility] [employer] [facility] AST 10(L) 15 - 37 U/L 05/01/2019 1:47 PM [facility] ALT 14(L) 16 - 61 U/L 05/01/2019 1:47 PM [facility] [facility] TOTAL PROTEIN S/P/B 7.8 6.4 - 8.2 G/DL 05/01/2019 1:47 PM [facility] [facility] [employer] [facility] ALBUMIN S/P/B 4.7 3.4 - 5.0 G/DL 05/01/2019 1:47 PM [facility] [facility] [employer] [facility] 05/01/2019 1:06 PM [facility] [facility] [employer]DER Erica Travis Voig[employer] DIRECTOR LABORATORY Final R esult [facility] [address] [place] [address], [id number] * (ABNORMAL) BASIC METABOLIC PANEL (05/01/2019 1:06 PM [facility] [facility] [employer]ILDER) SODIUM S/P/B 135(L) 136 - 145 MMOL/L 05/01/2019 1:47 PM [facility] POTASSIUM S/P/B 3.8 3.5 - 5.1 MMOL/L 05/01/2019 1:47 PM [facility] CHLORIDE S/P/B 104 98 - 107 MMOL/L 05/01/2019 1:47 PM [facility] CO2 23.1 21.0 - 32.0 MMOL/L 05/01/2019 1:47 PM [facility] GLUCOSE 88 74 - 106 MG/DL 05/01/2019 1:47 PM [facility] BUN 17 7 - 18 MG/DL 05/01/2019 1:47 PM [facility] CREATININE S/P/B 0.95 0.70 - 1.30 MG/DL 05/01/2019 1:47 PM [facility] CALCIUM S/P/B 9.2 8.5 - 10.1 MG/DL 05/01/2019 1:47 PM [facility] ANION GAP 7.9 5.0 - 15.0 MMOL/L 05/01/2019 1:47 PM [facility] Comment:REFERENCE RANGE NOT ESTABLISHED OSMOLALITY (CALC) 281 MOSM/KG 020 1:47 PM [facility] Comment:REFERENCE RANGE NOT ESTABLISHED EGFR NON-AFR. AMER. >90 >90 ML/MIN/1. 73 M2 05/01/2019 1:47 PM [facility] EGFR AFR. AMER. >90 >90 ML/MIN/1. 73 M2 05/01/2019 1:47 PM [facility] GFR NOTES GFR REFERENCE S: 05/01/2019 1:47 PM SCIENCE CENTER DISPLAY BUILDER [facility] Comment: THE ESTIMATED GFR IS CALCULATED USING THE 2009 CKD-EPI EQUATION. THE FOLLOWING CATEGORIES FOR GRADING RENAL FUNCTION ARE RECOMMENDED BY THE INTERNATIONAL SOCIETY OF NEPHROLOGY (KDIGO 2012 CLINICAL PRACTICE GUIDELINE). G1,NORMAL OR HIGH: >89 ml/min/1.73 m2 G2,MILDLY DECREASED: 60-89 ml/min/1.73 m2 G3A,MILDLY TO MODERATELY DECREASED: 45-59 ml/min/1.73 m2 G3B,MODERATELY TO SEVERELY DECREASED: 30-44 ml/min/1.73 m2 G4,SEVERELY DECREASED: 15-29 ml/min/1.73 m2 G5,KIDNEY FAILURE: <15 ml/min/1.73 m2 05/01/2019 1:06 PM [employer] DISPLAY BUILDER Erica Malhotra NP LABORATORY Final R esult [facility] [address] [place] [address], [id number] * (ABNORMAL) CBC W/DIFF AUTOMATED (05/01/2019 1:06 PM [employer] DISPLAY BUILDER) WBC 5.7 4.0 - 10.8 x10'3/uL 05/01/2019 1:17 PM SCI[employer] CENTER DISPLAY BUILDER [facility] RBC 4.61 4.50 - 6.10 x10'6/uL 05/01/2019 1:17 PM [employer]ENTER DISPLAY BUILDER [facility] HGB 14.9 13.0 - 18.0 G/DL 05/01/2019 1:17 PM [employer]ENTER DISPLAY BUILDER [facility] HCT 43.0 37.0 - 52.0 % 05/01/2019 1:17 PM [employer]ENTER DISPLAY BUILDER [facility] MCV 93.3 78.0 - 100.0 FL 05/01/2019 1:17 PM SCI[employer] CENTER DISPLAY BUILDER [facility] MCH 32.3(H) 27.0 - 31.0 PG 05/01/2019 1:17 PM SCI[employer] CENTER DISPLAY BUILDER [facility] MCHC 34.7 33.0 - 36.0 G/DL 05/01/2019 1:17 PM [facility] RDW 11.6 11.5 - 14.5 % 05/01/2019 1:17 PM [facility] PLT 288 150 - 350 x10'3/uL 05/01/2019 1:17 PM [facility] MPV 10.5(H) 7.4 - 10.4 FL 05/01/2019 1:17 PM [employer]ENTER DISPLAY BUILDER [facility] ABS. NEUTROPHILS TOTAL 2.66 1.60 - 8.30 x10'3/uL 05/01/2019 1:17 PM SCI[employer] CENTER DISPLAY BUILDER [facility] ABS. LYMPHOCYTES 2.29 0.80 - 4.70 x10'3/uL 05/01/2019 1:17 PM [facility] ABS. MONOCYTES 0.40 0.00 - 1.50 x10'3/uL 05/01/2019 1:17 PM SCI[employer] CENTER DISPLAY BUILDER [facility] ABS. EOSINOPHILS 0.29 0.00 - 0.40 x10'3/uL 05/01/2019 1:17 PM SCI[employer] CENTER DISPLAY BUILDER [facility] ABS. BASOPHILS 0.01 0.00 - 0.20 x10'3/uL 05/01/2019 1:17 PM [facility] ABS. IMMATURE GRANULOCYTES 0.01 0.00 - 0.03 x10'3/uL 05/01/2019 1:17 PM SCI[employer] CENTER DISPLAY BUILDER [facility] ABS. NUCLEATED RBC'S 0.00 0.0 x10'3/uL 05/01/2019 1:17 PM [facility] 05/01/2019 1:06 PM SCI[employer] CENTER DISPLAY BUILDER Erica Malhotra NP LABORATORY Final R esult [facility] [address] [place] [address], [id number] documented in this encounter Visit Diagnoses Diagnosis RUQ pain- Primary Abdominal pain, right upper quadrant Nausea Nausea alone documented in this encounter Administered Medications Inactive Administered Medications - up to 3 most recent administrations Medication Order MAR Action Action Date Dose Rate Site ketorolac (TORADOL) injection 15 mg 15 mg, Intravenous, Once, 1 dose, On Wed05/01/19 at 1300, For IV administration, give over 15 seconds. Given 05/01/2019 1:09 PM SCI[employer] CENTER DISPLAY BUILDER 15 mg sodium chloride 0.9% bolus infusion SOLN 1,000 mL 1,000 mL, Intravenous, Administer over 60 Minutes, Once, 1 dose, On Wed05/01/19 at 1300 New Bag 05/01/2019 1:09 PM SCIENCE CENTER DISPLAY BUILDER 1,000 mLs documented in this encounter Active and Recently Administered Medications Times are shown in [employer]ENTER DISPLAY BUILDER. Scheduled Medication Order 04/29/2019 04/30/2019 05/01/2019 ketorolac (TORADOL) injection 15 mg (COMPLETED) 15 mg, Intravenous, Once, 1 dose, On Wed05/01/19 at 1300, For IV administration, give over 15 seconds. 1309 (Given - Provid er: Cristian Christensen RN) ondansetron (ZOFRAN) injection 4 mg 4 mg, Intravenous, Once, 1 dose, On Wed05/01/19 at 1300, IV push over 2-5 minutes. 1336 (Not Given - Pr ovider: Cristian Christensen RN - Reason: Patient/family declined) sodium chloride 0.9% bolus infusion SOLN 1,000 mL (COMPLETED) 1,000 mL, Intravenous, Administer over 60 Minutes, Once, 1 dose, On Wed05/01/19 at 1300 1309 (New Bag - Prov ider: Cristian Christensen RN)1404 (Infusion Stop Time - Provider: Cristian Christensen RN) documented in this encounter Care Teams Direct Marketing Analyst Relationship Specialty Start Date End Date Igor Castano DO PCP - General INTERNAL MEDICINE 04/28/19 12/26/19 documented as of this encounter
--- OUTSIDE RECORDS SUMMARY | 2024-04-08 00:40 | XMS_ITS | Encounter Summary ---
Author Organization [facility] Address [address] [place] [address]. [place], [place] [address] [place] [address] Care Team Providers Care Building Supplies Salesperson Retail Name Role Phone Rose Balderas MD Primary Care Provider +1- [phone] Reason for Visit * Reason Onset Date Comments Appointment Request 10/20/2018 Encounter Details Date Type Department Care Team (Late st Contact Info) Description 10/20/2018 Telephone [facility] Internal Medicine - [address] [address] Jose Yip MD [address] [place] [address] Appointment Request Social History Tobacco Use Types Packs/Day Years Used Date Smoking Tobacco: Never Assessed Sex and Gender Information Value Date Recorded Sex Assigned at Not on file Legal Sex 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 Yip in December 2019. Because patients need in sooner, I went ahead and also scheduled with Dr. Balderas out of [facility] for November 2018. * Nora Scott RN - 10/20/2018 5:09 PM CDT Put on Faustina's desk. No pending appt. Unable to work new pt in soon. * Kita Bentley - 10/20/2018 3:55 PM CDT Mom calling, says pt and his sister have been accepted and wanted to make them appts for anxiety and GERD.. Also pt is having neck pian. Pls call documented in this encounter Plan of Treatment Not on file documented as of this encounter Visit Diagnoses Not on filedocumented in this encounter Care Teams Building Supplies Salesperson Retail Relationship Specialty Start Date End Date Rose Balderas MD PCP - General FAMILY PRACTICE 10/21/18 04/25/19 documented as of this encounter
--- OUTSIDE RECORDS SUMMARY | 2024-04-08 00:40 | XMS_ITS | Encounter Summary ---
Author Organization [facility] Address [facility]. 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 No / Unsure 03/06/2020 12:54 PM RUBY ON RAILS DEVELOPER documented as of this encounter Plan of Treatment Not on file documented as of this encounter Procedures Procedure Name Priority Date/Time Associated Diagnosis Comments IMAGE GENERIC 04/15/2018 documented in this encounter Results * IMAGE GENERIC (04/15/2018) Anatomical Region Laterality Modality Other 04/15/2018 Narrative 04/15/2018 Ordered by an unspecified provider. us Documents Scanned SCANNING Final Result documented in this encounter Visit Diagnoses Not on filedocumented in this encounter Care Teams Drapery Worker Relationship Specialty Start Date End Date Rose Balderas MD PCP - General FAMILY PRACTICE 10/21/18 04/25/19 None, MD Sarah PCP - General 04/26/19 04/27/19 Igor Castano DO PCP - General INTERNAL MEDICINE 04/28/19 12/26/19 Jose Yip MD [address] [place] [address] PCP - General INTERNAL MEDICINE 12/27/19 08/28/20 documented as of this encounter
--- OUTSIDE RECORDS SUMMARY | 2024-04-08 00:40 | XMS_ITS | Encounter Summary ---
Author Organization [facility] Address [facility] 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 No / Unsure 03/06/2020 12:54 PM BRAZER CONTROLLED ATMOSPHERIC FURNACE documented as of this encounter Plan of Treatment Not on file documented as of this encounter Visit Diagnoses Not on filedocumented in this encounter Care Teams Centrifugal Screen Tender Relationship Specialty Start Date End Date Rose Balderas MD PCP - General FAMILY PRACTICE 10/21/18 04/25/19 None, Sarah, PCP - General 04/26/19 04/27/19 Igor Castano DO PCP - General INTERNAL MEDICINE 04/28/19 12/26/19 Jose Yip MD [address] [place], [place] [id number] PCP - General INTERNAL MEDICINE 12/27/19 08/28/20 documented as of this encounter
--- OUTSIDE RECORDS SUMMARY | 2024-04-08 00:40 | XMS_ITS | Encounter Summary ---
Author Organization [facility] Address [facility]. [address] [place] [address] Care Team Providers Care Pigskin Trimmer Name Role Phone Rose Balderas MD Primary Care Provider +1- [phone] None, Provider Primary Care Provider Igor Wong DO Primary Care Provider Un available Jose Yip MD Primary Care Provider +1- [phone] Encounter Details Date Type Department Care Team (Latest Contact Info) Description 03/25/2018 Scan HEALTH INFO SRVCS Scanned, Documents Social [...] on file Legal Sex Male 10:43 PM COUNSELING AIDE Gender Identity Not on file Sexual Orientation Not on file COVID-19 Exposure Response Date Recorded In the last month, have you been in contact with someone who was confirmed or suspected to have Coronavirus / COVID-19? No / Unsure 03/06/2020 12:54 PM COUNSELING AIDE documented as of this encounter Plan of Treatment Not on file documented as of this encounter Visit Diagnoses Not on filedocumented in this encounter Care Teams Pigskin Trimmer Relationship Specialty Start Date End Date Rose Balderas MD PCP - General FAMILY PRACTICE 10/21/18 04/25/19 None, Sarah, PCP - General 04/26/19 04/27/19 Igor Castano DO PCP - General INTERNAL MEDICINE 04/28/19 12/26/19 Jose Yip MD [address] [place], [place] [id number] PCP - General INTERNAL MEDICINE 12/27/19 08/28/20 documented as of this encounter
--- OUTSIDE RECORDS SUMMARY | 2024-04-08 00:40 | XMS_ITS | Encounter Summary ---
Author Organization [facility] Address [facility]. 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 No / Unsure 03/06/2020 12:54 PM MAILROOM MESSENGER documented as of this encounter Plan of Treatment Not on file documented as of this encounter Procedures Procedure Name Priority Date/Time Associated Diagnosis Comments IMAGE GENERIC 09/08/2018 documented in this encounter Results * IMAGE GENERIC (09/08/2018) Anatomical Region Laterality Modality Other 09/08/2018 Narrative 09/08/2018 Ordered by an unspecified provider. us Documents Scanned SCANNING Final Result documented in this encounter Visit Diagnoses Not on filedocumented in this encounter Care Teams Manager Of Selection And Assessment Relationship Specialty Start Date End Date Rose Balderas MD PCP - General FAMILY PRACTICE 10/21/18 04/25/19 None, MD Sarah PCP - General 04/26/19 04/27/19 Igor Castano DO PCP - General INTERNAL MEDICINE 04/28/19 12/26/19 Jose Yip MD [address] [place] [address] PCP - General INTERNAL MEDICINE 12/27/19 08/28/20 documented as of this encounter
--- OUTSIDE RECORDS SUMMARY | 2024-04-08 00:40 | XMS_ITS | Encounter Summary ---
Author Organization [facility] Address [facility]. 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 No / Unsure 03/06/2020 12:54 PM PASTE PLANT SUPERVISOR documented as of this encounter Plan of Treatment Not on file documented as of this encounter Procedures Procedure Name Priority Date/Time Associated Diagnosis Comments IMAGE GENERIC 06/02/2016 documented in this encounter Results * IMAGE GENERIC (06/02/2016) Anatomical Region Laterality Modality Other 06/02/2016 Narrative 06/02/2016 Ordered by an unspecified provider. us Documents Scanned SCANNING Final Result documented in this encounter Visit Diagnoses Not on filedocumented in this encounter Care Teams Ornament Stapler Relationship Specialty Start Date End Date Rose Balderas MD PCP - General FAMILY PRACTICE 10/21/18 04/25/19 None, MD Sarah PCP - General 04/26/19 04/27/19 Igor Castano DO PCP - General INTERNAL MEDICINE 04/28/19 12/26/19 Jose Yip MD [address] [place] [address] PCP - General INTERNAL MEDICINE 12/27/19 08/28/20 documented as of this encounter
--- OUTSIDE RECORDS SUMMARY | 2024-04-08 00:40 | XMS_ITS | Encounter Summary ---
Author Organization [facility] Address [facility]6 [facility]. 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 No / Unsure 03/06/2020 12:54 PM ARCHIVIST POLITICAL HISTORY documented as of this encounter Plan of Treatment Not on file documented as of this encounter Visit Diagnoses Not on filedocumented in this encounter Care Teams Dye Range Operator Relationship Specialty Start Date End Date Rose Balderas MD PCP - General FAMILY PRACTICE 10/21/18 04/25/19 None, Sarah, PCP - General 04/26/19 04/27/19 Igor Castano DO PCP - General INTERNAL MEDICINE 04/28/19 12/26/19 Jose Yip MD [address] [place], [place] [id number] PCP - General INTERNAL MEDICINE 12/27/19 08/28/20 documented as of this encounter
--- OUTSIDE RECORDS SUMMARY | 2024-04-08 00:40 | XMS_ITS | Encounter Summary ---
Author Organization [facility] Address [facility]6 [facility]. [place], [place] [address] [place] [address] Care Team Providers Care Printing Estimator Name Role Phone Rose Balderas MD Primary Care Provider +1- [phone] None, Provider Primary Care Provider Igor Wong DO Primary Care Provider Un available Jose Yip MD Primary Care Provider +1- [phone] Encounter Details Date Type Department Care Team (Latest Contact Info) Description 12/17/2016 Scan HEALTH INFO SRVCS Scanned, Documents Social [...] on file Legal Sex Male 10:43 PM DIRECTOR MOBILE Gender Identity Not on file Sexual Orientation Not on file COVID-19 Exposure Response Date Recorded In the last month, have you been in contact with someone who was confirmed or suspected to have Coronavirus / COVID-19? No / Unsure 03/06/2020 12:54 PM DIRECTOR MOBILE documented as of this encounter Plan of Treatment Not on file documented as of this encounter Visit Diagnoses Not on filedocumented in this encounter Care Teams Printing Estimator Relationship Specialty Start Date End Date Rose Balderas MD PCP - General FAMILY PRACTICE 10/21/18 04/25/19 None, Sarah, PCP - General 04/26/19 04/27/19 Igor Castano DO PCP - General INTERNAL MEDICINE 04/28/19 12/26/19 Jose Yip MD [address] [place], [place] [id number] PCP - General INTERNAL MEDICINE 12/27/19 08/28/20 documented as of this encounter
--- OUTSIDE RECORDS SUMMARY | 2024-04-08 00:40 | XMS_ITS | Encounter Summary ---
Author Organization [facility] Address [facility] [place], [place] [address] [place] [address] Care Team Providers Care Long Line Teamster Name Role Phone Rose Balderas MD Primary Care Provider +1- [phone] None, Provider Primary Care Provider Igor Wong DO Primary Care Provider Un available Jose Yip MD Primary Care Provider +1- [phone] Reason for Visit * Reason Comments Image (SCAN) Encounter Details Date Type Department Care Team (Latest Contact Info) Description 08/02/2017 Scan HEALTH INFO SRVCS Scanned, Documents Image [...] on file Legal Sex Male 10:43 PM CONFERENCE ASSISTANT Gender Identity Not on file Sexual Orientation Not on file COVID-19 Exposure Response Date Recorded In the last month, have you been in contact with someone who was confirmed or suspected to have Coronavirus / COVID-19? No / Unsure 03/06/2020 12:54 PM CONFERENCE ASSISTANT documented as of this encounter Plan of Treatment Not on file documented as of this encounter Procedures Procedure Name Priority Date/Time Associated Diagnosis Comments IMAGE GENERIC 08/02/2017 documented in this encounter Results * IMAGE GENERIC (08/02/2017) Anatomical Region Laterality Modality Other 08/02/2017 Narrative 08/02/2017 Ordered by an unspecified provider. us Documents Scanned SCANNING Final Result documented in this encounter Visit Diagnoses Not on filedocumented in this encounter Care Teams Long Line Teamster Relationship Specialty Start Date End Date Rose Balderas MD PCP - General FAMILY PRACTICE 10/21/18 04/25/19 None, MD Sarah PCP - General 04/26/19 04/27/19 Igor Castano DO PCP - General INTERNAL MEDICINE 04/28/19 12/26/19 Jose Yip MD [address] [place] [address] PCP - General INTERNAL MEDICINE 12/27/19 08/28/20 documented as of this encounter
--- OUTSIDE RECORDS SUMMARY | 2024-04-08 00:40 | XMS_ITS | Encounter Summary ---
Author Organization [facility] Address [facility]. [place], [place] [address] [place] [address] Care Team Providers Care Forepart Reducer Name Role Phone Rose Balderas MD Primary Care Provider +1- [phone] None, Provider Primary Care Provider Igor Wong DO Primary Care Provider Un available Jose Yip MD Primary Care Provider +1- [phone] Encounter Details Date Type Department Care Team (Latest Contact Info) Description 08/11/2018 Scan HEALTH INFO SRVCS Scanned, Documents Social [...] on file Legal Sex Male 10:43 PM SHOOK SPLICER Gender Identity Not on file Sexual Orientation Not on file COVID-19 Exposure Response Date Recorded In the last month, have you been in contact with someone who was confirmed or suspected to have Coronavirus / COVID-19? No / Unsure 03/06/2020 12:54 PM SHOOK SPLICER documented as of this encounter Plan of Treatment Not on file documented as of this encounter Visit Diagnoses Not on filedocumented in this encounter Care Teams Forepart Reducer Relationship Specialty Start Date End Date Rose Balderas MD PCP - General FAMILY PRACTICE 10/21/18 04/25/19 None, Sarah, PCP - General 04/26/19 04/27/19 Igor Castano DO PCP - General INTERNAL MEDICINE 04/28/19 12/26/19 Jose Yip MD [address] [place], [place] [id number] PCP - General INTERNAL MEDICINE 12/27/19 08/28/20 documented as of this encounter
--- OUTSIDE RECORDS SUMMARY | 2024-04-08 00:40 | XMS_ITS | Encounter Summary ---
Author Organization [facility] Address [facility]. [place], [place] [address] [place] [address] Care Team Providers Care Casing Wringer Operator Name Role Phone Rose Balderas MD Primary Care Provider +1- [phone] None, Provider Primary Care Provider Igor Wong DO Primary Care Provider Un available Jose Yip MD Primary Care Provider +1- [phone] Encounter Details Date Type Department Care Team (Latest Contact Info) Description 12/30/2017 Scan HEALTH INFO SRVCS Scanned, Documents Social [...] on file Legal Sex Male 10:43 PM SURGICAL MANAGER Gender Identity Not on file Sexual Orientation Not on file COVID-19 Exposure Response Date Recorded In the last month, have you been in contact with someone who was confirmed or suspected to have Coronavirus / COVID-19? No / Unsure 03/06/2020 12:54 PM SURGICAL MANAGER documented as of this encounter Plan of Treatment Not on file documented as of this encounter Visit Diagnoses Not on filedocumented in this encounter Care Teams Casing Wringer Operator Relationship Specialty Start Date End Date Rose Balderas MD PCP - General FAMILY PRACTICE 10/21/18 04/25/19 None, Sarah, PCP - General 04/26/19 04/27/19 Igor Castano DO PCP - General INTERNAL MEDICINE 04/28/19 12/26/19 Jose Yip MD [address] [place], [place] [id number] PCP - General INTERNAL MEDICINE 12/27/19 08/28/20 documented as of this encounter
--- OUTSIDE RECORDS SUMMARY | 2024-04-08 00:40 | XMS_ITS | Encounter Summary ---
Author Organization [facility] Address [address] [place] [address]. 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
--- OUTSIDE RECORDS SUMMARY | 2024-04-08 00:40 | XMS_ITS | Encounter Summary ---
Author Organization [facility] Address [facility]. [place], [place] [address] [place] [address] Care Team Providers Care Waste And Batting Waste Chopper Name Role Phone Rose Balderas MD Primary Care Provider [phone]- [phone] None, Provider Primary Care Provider Igor Wong DO Primary Care Provider Un available Jose Yip MD Primary Care Provider +1- [phone] Encounter Details Date Type Department Care Team (Latest Contact Info) Description 02/04/2017 Scan HEALTH INFO SRVCS Scanned, Documents Social [...] on file Legal Sex Male 10:43 PM OIL LEASE OPERATOR Gender Identity Not on file Sexual Orientation Not on file COVID-19 Exposure Response Date Recorded In the last month, have you been in contact with someone who was confirmed or suspected to have Coronavirus / COVID-19? No / Unsure 03/06/2020 12:54 PM OIL LEASE OPERATOR documented as of this encounter Plan of Treatment Not on file documented as of this encounter Visit Diagnoses Not on filedocumented in this encounter Care Teams Waste And Batting Waste Chopper Relationship Specialty Start Date End Date Rose Balderas MD PCP - General FAMILY PRACTICE 10/21/18 04/25/19 None, Sarah, PCP - General 04/26/19 04/27/19 Igor Castano DO PCP - General INTERNAL MEDICINE 04/28/19 12/26/19 Jose Yip MD [address] [place], [place] [id number] PCP - General INTERNAL MEDICINE 12/27/19 08/28/20 documented as of this encounter
--- OUTSIDE RECORDS SUMMARY | 2024-04-08 00:40 | XMS_ITS | Encounter Summary ---
Author Organization [facility] Address [address] [place] [address]. [place], [place] [address] [place] [address] Care Team Providers Care Shipfitter Name Role Phone Rose Balderas MD Primary Care Provider [phone]- [phone] None, Provider Primary Care Provider Igor Wong DO Primary Care Provider Un available Encounter Details Date Type Department Care Team (Latest Contact Info) Description 04/02/2015 Scan HEALTH INFO SRVCS Scanned, Documents Social History Tobacco Use Types Packs/Day Years Used Date Smoking Tobacco: Never Assessed PHQ-2 Answer Date Recorded PHQ-2 Score 4 04/28/2019 Sex and Gender Information Value Date Recorded Sex Assigned at Not on file 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
--- OUTSIDE RECORDS SUMMARY | 2024-04-08 00:40 | XMS_ITS | Encounter Summary ---
Author Organization [facility] Address [address] [place] [address]. [place], [place] [address] [place] [address] Care Team Providers Care Precision Lens Grinder Apprentice Name Role Phone Rose Balderas MD Primary Care Provider [phone]- [phone] None, Provider Primary Care Provider UnavailIgor Aguero DO Primary Care Provider Un available Jose Yip MD Primary Care Provider +1- [phone] Reason for Visit * Reason Comments Ultrasound (SCAN) Encounter Details Date Type Department Care Team (Late st Contact Info) Description 02/10/2017 Scan HEALTH INFO SRVCS Scanned, Documents Ultrasound (SCAN) Social History Tobacco Use Types Packs/Day [...] on file 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 No / Unsure 03/06/2020 12:54 PM CAD PROGRAMMER documented as of this encounter Plan of Treatment Not on file documented as of this encounter Procedures Procedure Name Priority Date/Time Associated Diagnosis Comments ULTRASOUND GENERIC (SCAN ORDER) 02/10/2017 documented in this encounter Results * ULTRASOUND GENERIC (02/10/2017) Anatomical Region Laterality Modality Other 02/10/2017 Narrative 02/10/2017 Ordered by an unspecified provider. us Documents Scanned SCANNING Final Result documented in this encounter Visit Diagnoses Not on filedocumented in this encounter Care Teams Precision Lens Grinder Apprentice Relationship Specialty Start Date End Date Rose Balderas MD PCP - General FAMILY PRACTICE 10/21/18 04/25/19 None, Sarah, PCP - General 04/26/19 04/27/19 Igor Castano DO PCP - General INTERNAL MEDICINE 04/28/19 12/26/19 Jose Yip MD [address] [place] [address] PCP - General INTERNAL MEDICINE 12/27/19 08/28/20 documented as of this encounter
--- OUTSIDE RECORDS SUMMARY | 2024-04-08 01:00 | XMS_ITS | Continuity of Care Document ---
Author Organization [facility] Address [address] [place] [address] Phone Care Team Providers Care Ski Lift Operator Name Role Phone Sunil Avalos MD Unavailable Unavailable Allergies, Adverse Reactions, Alerts Substance Reaction Status Criticality Sulfa (Sulfonamide Antibiotics) (unknown) Active No Information Advance Directives Directive Yes / No Effective Date File Name No Information Encounters Encounter Description Practice Location Reason(s) For Visit Diagnoses Date Provider Providers Copied on Encounter [facility] [address], [place], [place], [id number], [place] tel:[phone] [facility] [place] No Information Robbie Barber. [facility], [address] [place], [address], [place]. tel:[phone] Family History Family Member Type Diagnosis Age At Onset Maternal Aunt Problem (finding) Maternal history of di abetes mellitus Problem (finding) Cardiovascular Disease Mother Problem (finding) malignant neoplasm of c ervix uteri Mother Problem (finding) No History Of Macular D egeneration Payers Payer name Insurance type Covered democrat ID Authoriza tion(s) No Information Social History Type Description Quantity Date Captured Comments Sex Male Smoking Status No Information Chief Complaint And Reason For Visit No Information Reason For Referral Reason For Referral No Information History Of Present Illness Encounter Date Complaint History Of Prese nt Illness No Information Functional Status Date Functional Assessmen t No Information Instructions Date Instruction Additional Infor mation No Information Assessments Type Assessment Date No Information Patient Care Teams Name Effective Dates (start - stop) Status Members No Information
--- OUTSIDE RECORDS SUMMARY | 2024-04-08 01:00 | XMS_ITS | Continuity of Care Document ---
Author Organization [facility] Address [address] [place] [address] Phone Care Team Providers Care Professor Of Forestry Name Role Phone Unavailable Unavailable Unavailable Allergies, Adverse Reactions, Alerts Substance Reaction Status Criticality sulfamethoxazole Active No Informat ion trimethoprim Active No Information Problems Condition Type Effective Dates (start - stop) Clini yanna Status Comments No Known Problems Procedures Procedure Date Telemedicine Encounter LIMITED VISIT- NEW PATIENT PULSE OXIMETRY TESTING INTERMEDIATE VISIT EST PATIENT 16 INTERMEDIATE VISIT EST PATIENT 15 IMMUNIZATION ADMINISTRATION, ONE VACCINE VFC HEP A VACC, PED/ADOL, 2 DOSE 2014 IMMUNIZATION ADMIN INTRANASAL/ORAL EA VA CCINE INF VACCINE NASAL FLUMIST (2-49 YRS) Jan INTERMEDIATE VISIT EST PATIENT 15 IMMUNIZATION ADMINISTRATION, ONE VACCINE VFCHPV VACCINE 4 VALENT, IM IMMUNIZATION ADMINISTRATION, EACH ADDITI ONAL VACCI VFC HEP A VACC, PED/ADOL, 2 DOSE 2014 IMMUNIZATION ADMIN INTRANASAL/ORAL EA VA CCINE INF VACCINE NASAL FLUMIST (2-49 YRS) Apr WELL EXAM/03-21 EST. PATIENT HUMAN PAPILLOMA VIRUS (HPV) VACCINE INTR AMUSCU IMMUNIZATION ADMINISTRATION, ONE VACCINE INTERMEDIATE VISIT EST PATIENT 13 HUMAN PAPILLOMA VIRUS (HPV) VACCINE INTR AMUSCU IMMUNIZATION ADMINISTRATION, ONE VACCINE MENINGOCOCCAL VACCINE INTRAMUSCULAR TDAP VACCINE INTRAMUSCULAR IMMUNIZATION ADMINISTRATION, EACH ADDITI ONAL VACCI Advance Directives Directive Yes / No Effective Date File Name No Information Encounters Encounter Description Practice Location Reason(s) For Visit Diagnoses Date Provider Providers Copied on Encounter Mirna Lee, [address], [id number] , tel: [phone] [facility] No Information 0 No Information LIMITED VISIT- NEW PATIENT Mirna Lee, [address], [id number] , tel: [phone] [facility] Fever (chief complaint) Fever, unspecified fever causeContact with and (suspected) exposure to other viral communicable diseases 0 No Information INTERMEDIATE VISIT EST PATIENT Mirna Lee, [address] [place], [place], [id number] , tel: [phone] [facility] Cough (PEDS) (chief complaint) Bronchitis 6 Linda Sarah. [address] [place], [address], [place]. tel:[phone] INTERMEDIATE VISIT EST PATIENT Mirna Lee, [address], [place], [id number] , tel: [phone] [facility] Sore throat (chief complaint) SorethroatAcu te sinusitis, recurrence not specified, unspecified location 5 No Information Mirna Lee, [address] [place], [place], [address] , tel: [phone] [facility] Sore throat 5 No Information INTERMEDIATE VISIT EST PATIENT Mirna Lee, [address], [address] , tel: [phone] [facility] Sore throat (chief complaint) Sore throatAcute bronchitis, unspecified organismEncou nter for immunization 5 No Information WELL EXAM/03-21 EST. PATIENT Mirna [facility], [address] [place], [id number] , [place] tel: [phone] [facility] (chief complaint) ROUTINE CHILD HEALTH EXAMScreening for hyperlipidemi aNeed for prophylactic vaccination and inoculation against viralhepatiti s 5 No Information [facility], [address], [place], [id number] , [place] tel: [phone] [facility] No Information 3 No Information Referring Provider: Jing Jacobson, [address] [place], [address]. tel: [phone] Provider: Express Nurse. INTERMEDIATE VISIT EST PATIENT Mirna [facility], [address], [place], [address] , [place] tel: [phone] [facility] sore throat (chief complaint) PharyngitisNE ED FOR PROPHYLACTIC VACCINATION AND INOCULATION, OTHER VIRAL DISEASESNeed for prophylactic vaccination and inoculation against other specified single bacterial diseaseNEED FOR PROPHYLACTIC VACCINATION WITH COMBINED DIPHTHERIA-TE TANUS-PERTUSS IS (DTP) (DTAP) VACCINE 3 Rey Zayas. [address] [place], [address], [place]. [phone] Referring Provider: Chana Le, [address] [place], [address]. tel:[phone] [facility], [address], [place], [id number] , [place] tel: [phone] Historic Immunization Location No Information 2 No Information [facility], [address], [place], [id number] , [place] tel: [phone] [facility] INJURY HAND 2 No Information [facility], [address], [place], [id number] , [place] tel: [phone] [facility] INJURY KNEE LEG FOOT ANKLE 2 Kavon Ch. [address] [place], [address], [place]. tel:[phone] Mirna Lee, [address] [place], [place], [address] , [place] tel: [phone] [facility] RHINITIS ALLERGIC UNSPECIFIED 7 No Information Mirna Lee, [address] [place], [id number] , [place] tel: [phone] [facility] No Information 6 No Information Family History Family Member Type Diagnosis Age At Onset No Information Immunizations Vaccine Date Status Comments Influenza, live, intranasal, quadrivalent administered Source: New Immuniza tion Record Hep A (ped/adol, 2 dose) administered Giselle rce: New Immunization Record HPV administered Note: vis5/17/ 3 ; Source: New Immunization Record Hep A (ped/adol, 2 dose) administered Not e: vis10// ; Source: New Immunization Record Influenza, live, intranasal, quadrivalent Flumist Quad administered Note: vis8//14 ; S ource: New Immunization Record HPV (quadrivalent) administered Source: N ew Immunization Record HPV (quadrivalent) administered Source: N ew Immunization Record Tdap (Adacel r) administered Source: New Immunization Record MCV4 (9 mo thru 55 years) administered So urce: New Immunization Record Influenza Vaccine administered Source: Ne w Immunization Record Influenza Vaccine administered Source: Ne w Immunization Record Influenza Vaccine administered Source: Ne w Immunization Record Influenza Vaccine administered Source: Ne w Immunization Record Influenza Vaccine administered Source: Ne w Immunization Record Varicella (Chicken Pox) administered Sour ce: New Immunization Record Influenza Vaccine administered Source: Ne w Immunization Record Influenza Vaccine administered Source: Ne w Immunization Record Influenza Vaccine administered Source: Ne w Immunization Record Diphtheria, Tetanus Toxoids, acellular Pertussis administered Source: New Immuniza tion Record Inactivated Poliovirus Vaccine administer ed Source: New Immunization Record Measles, Mumps, Rubella administered Sour ce: New Immunization Record Diphtheria, Tetanus Toxoids, acellular Pertussis administered Source: New Immuniza tion Record Hib (Haemophilus Influenzae b) Conjugate Vaccine administered Source: New Immuniza tion Record Varicella (Chicken Pox) administered Sour ce: New Immunization Record Measles, Mumps, Rubella administered Sour ce: New Immunization Record Hepatitis B administered Source: New Imm unization Record Hepatitis B administered Source: New Imm unization Record Diphtheria, Tetanus Toxoids, acellular Pertussis administered Source: New Immuniza tion Record Hib (Haemophilus Influenzae b) Conjugate Vaccine administered Source: New Immuniza tion Record Inactivated Poliovirus Vaccine administer ed Source: New Immunization Record Pneumococcal Conjugate Vaccine administer ed Source: New Immunization Record Inactivated Poliovirus Vaccine administer ed Source: New Immunization Record Hib (Haemophilus Influenzae b) Conjugate Vaccine administered Source: New Immuniza tion Record Diphtheria, Tetanus Toxoids, acellular Pertussis administered Source: New Immuniza tion Record Diphtheria, Tetanus Toxoids, acellular Pertussis administered Source: New Immuniza tion Record Hib (Haemophilus Influenzae b) Conjugate Vaccine administered Source: New Immuniza tion Record Inactivated Poliovirus Vaccine administer ed Source: New Immunization Record Pneumococcal Conjugate Vaccine administer ed Source: New Immunization Record Hepatitis B administered Source: New Imm unization Record Payers Payer name Insurance type Covered democrat ID Authoriza tion(s) Medicaid [id number] Medicaid [place] [id number] Social History Type Description Quantity Date Captured Comments Alcohol Use Details Unknown Caffeine Use Details Unknown Tobacco Use Status No Information Smoking Status No Information Sex Male Chief Complaint And Reason For Visit No Information Reason For Referral Reason For Referral No Information Plan Of Treatment Date Type Action Status Goal HPV (2nd) due Goal HPV (3rd) due Goal Height Measurement. Due on O due Goal HIV screen. Due on due Goal Depression screening. Due on due Goal Lipid panel 18-21yrs. Due on due Goal HPV (1st) due Goal HPV (3rd) due Goal Height Measurement. Due on O due Goal Lipid panel 18-21yrs. Due on due Goal HPV (1st) due Goal HPV (2nd) due Goal Depression screening. Due on due Goal HIV screen. Due on due Future Order: Lab Order LIPID PA CARMEL ([id number]), Sent on: Sent History Of Present Illness Encounter Date Complaint History Of Prese nt Illness Fever Onset: on 2019. Maximum temperature = 102 deg. F. The status is resolved. Pertinent negatives include cough and difficulty breathing. Additional information: fever was only sx -which has resolved, but needs neg test before can RTW. Cough (PEDS) (comments) States m ay have improved over the last day or so but has had cough for about a week. Cough (PEDS) Onset: gradual. Severity: mild-moderate. The patient's mother describes the cough as productive (of clear sputum). It occurs occasionally. The problem has not changed. Context: smoke exposure. Associated symptoms include cough. Pertinent negatives include chills, dyspnea, dyspnea on exertion, fatigue, fever and nasal congestion. Sore throat Onset: 2 Weeks a go. Symptoms are not associated with exposure to strep or history of allergies. Associated symptoms include cough. Pertinent negatives include dyspnea and fever. Sore throat Onset: 2 Weeks a go. Symptoms are associated with history of allergies. Associated symptoms include chills/rigors, cough, dyspnea, headache, pharyngitis and rhinitis. Pertinent negatives include fever and otalgia. [facility] Feels well. [employer] minor in school forms for school physical, plans to join wrestling team. Has history of appendectomy, and sulfa allergy. Functional Status Date Functional Assessmen t No Information Instructions Date Instruction Additional Infor shannandaria follow COVID precaut ions, will notify of test results Related to Fever, unspecified fever cause Start the antibiotic as prescribed. You can use the inhaler as needed. If you do not improve please call the office. Related to Bronchitis Rapid Strep negative; Culture pe nding Related to Sorethroat Maintain adequate re st. Maintain adequate clear fluid intake. Take Tylenol OTC as directed for bodyaches, pain or fever. Complete course of antibiotic- azithromycin. Call if symptoms do not improve, or resolove within 7-10 days. Related to Acute sinusitis, recurrence not specified, unspecified location Maintain adequate re st. Maintain adequate clear fluid intake. Take Tylenol OTC as directed for bodyaches, pain or fever. Take azithromycin as directed. Call if symptoms do not improve, or resolve within 7-10 days. Related to Acute bronchitis, unspecified organism School forms complet ed. F/U 1 year [facility]. Related to ROUTINE CHILD HEALTH EXAM Age appropriate anti cipatory guidance discussed (11-14 years) Related to ROUTINE CHILD HEALTH EXAM Age appropriate diet discussed (11-14 years) Related to ROUTINE CHILD HEALTH EXAM Age appropriate safe ty discussed (11-14 years) Related to ROUTINE CHILD HEALTH EXAM Oral Health Discussed (-14 yea rs) Related to ROUTINE CHILD HEALTH EXAM Assessments Type Assessment Date No Information Patient Care Teams Name Effective Dates (start - stop) Status Members No Information
--- OUTSIDE RECORDS SUMMARY | 2024-04-08 01:16 | XMS_ITS | Clinical Summary ---
Author Organization [facility] Address [facility] [place]. [place], [place] [address] [place] [address] Care Team Providers Care Employee Counselor Name Role Phone None, Provider MD Primary [...] on file Legal Sex Male 10:[address]YER Gender Identity Not on file Sexual Orientation Not on file Last Filed Vital Signs Vital Sign Reading Time Taken Comments Blood Pressure 121/71 03/06/2020 1:[address]ER Pulse 80 03/06/2020 1:[address]ER Temperature 37.1 ??C (98.7 ??F) 03/06/2020 1:02 PM CS T Respiratory Rate 18 03/06/2020 1:[address]YER Oxygen Saturation 97% 03/06/2020 1:[address]YER Inhaled Oxygen Concentration - - Weight 55.1 kg (121 lb 6.4 oz) 03/06/2020 1:[address] BUYER Height 175.3 cm (5' 9 ) 03/06/2020 1:[address] BUYER Body Mass Index 17.93 03/06/2020 1:[address] BUYER Plan of Treatment Health Maintenance Due Date [...] age to complete this topic Care Teams Employee Counselor Relationship Specialty Start Date End Date None, Provider, PCP - General 08/29/20
--- OUTSIDE RECORDS SUMMARY | 2024-04-08 01:16 | XMS_ITS | Encounter Summary ---
Author Organization [facility] Address [address] [place] [address]. 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
--- OUTSIDE RECORDS SUMMARY | 2024-04-08 01:17 | XMS_ITS | Encounter Summary ---
Author Organization [facility] Address [address] [place] [address]. 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
--- OUTSIDE RECORDS SUMMARY | 2024-04-08 01:17 | XMS_ITS | Encounter Summary ---
Author Organization [facility] Address [address] [place] [address]. 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 Gender Identity Not on file Sexual Orientation [...] for this visit: Puncture wound Need for xuumcwsokm-ejnkljp-yinuuimxe (Tdap) vaccine - TETANUS, DIPHTHERIA TOXOIDS AND [...] site(s), without mention of complication Need for vaxisanuho-aeiofhc-dzgoexudn (Tdap) vaccine Need for prophylactic vaccination with combined tnwhfrepvg-oddfonc-ewykgwofc (DTP) vaccine documented in this encounter Care Teams Regulatory Specialist Relationship Specialty Start Date End Date Olivier Yip MD [address] [place], [place] [id number] PCP - General INTERNAL MEDICINE 12/27/19 08/28/20 documented as of this encounter
--- OUTSIDE RECORDS SUMMARY | 2024-04-08 01:17 | XMS_ITS | Encounter Summary ---
Author Organization [facility] Address [address] [place] [address]. 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 No / Unsure 03/06/2020 12:54 PM CLINICAL SOCIAL WORKER documented as of this encounter Plan of Treatment Not on file documented as of this encounter Visit Diagnoses Not on filedocumented in this encounter Care Teams Calender Inspector Relationship Specialty Start Date End Date Jose Yip MD [address] [place] [address] PCP - General INTERNAL MEDICINE 12/27/19 08/28/20 documented as of this encounter
--- OUTSIDE RECORDS SUMMARY | 2024-04-08 01:17 | XMS_ITS | Encounter Summary ---
Author Organization [facility] Address [address] [place] [address]. 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 No / Unsure 03/06/2020 12:54 PM AIR BRAKES INSPECTOR documented as of this encounter Plan of [...] on filedocumented in this encounter Care Teams Gate Mortiser Operator Relationship Specialty Start Date End Date Igor Castano DO PCP - General INTERNAL MEDICINE 04/28/19 12/26/19 Jose Yip MD [address] [place] [address] PCP - General INTERNAL MEDICINE 12/27/19 08/28/20 documented as of this encounter
--- OUTSIDE RECORDS SUMMARY | 2024-04-08 01:17 | XMS_ITS | Encounter Summary ---
Author Organization [facility] Address [facility]. [place], [place] [address] [place] [address] Care Team Providers Care Machine Room Engineer Name Role Phone Rose Balderas MD Primary Care Provider +1- [phone] None, Provider Primary Care Provider Igor Wong DO Primary Care Provider Un available Jose Yip MD Primary Care Provider +1- [phone] Encounter Details Date Type Department Care Team [...] on file Legal Sex Male 10:43 PM MED CARE MANAGER Gender Identity Not on file Sexual Orientation Not on file COVID-19 Exposure Response Date Recorded In the last month, have you been in contact with someone who was confirmed or suspected to have Coronavirus / COVID-19? No / Unsure 03/06/2020 12:54 PM MED CARE MANAGER documented as of this encounter Plan of Treatment Not on file documented as of this encounter Visit Diagnoses Not on filedocumented in this encounter Care Teams Machine Room Engineer Relationship Specialty Start Date End Date Rose Balderas MD PCP - General FAMILY PRACTICE 10/21/18 04/25/19 None, Sarah, PCP - General 04/26/19 04/27/19 Igor Castano DO PCP - General INTERNAL MEDICINE 04/28/19 12/26/19 Jose Yip MD [address] [place], [place] [id number] PCP - General INTERNAL MEDICINE 12/27/19 08/28/20 documented as of this encounter
--- OUTSIDE RECORDS SUMMARY | 2024-04-08 01:17 | XMS_ITS | Encounter Summary ---
Author Organization [facility] Address [facility]. 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 No / Unsure 03/06/2020 12:54 PM CRIMINAL JUSTICE TEACHER documented as of this encounter Plan of [...] on filedocumented in this encounter Care Teams Hydroelectric Mechanic Relationship Specialty Start Date End Date Rose Balderas MD PCP - General FAMILY PRACTICE 10/21/18 04/25/19 None, MD Sarah PCP - General 04/26/19 04/27/19 Igor Castano DO PCP - General INTERNAL MEDICINE 04/28/19 12/26/19 Jose Yip MD [address] [place] [address] PCP - General INTERNAL MEDICINE 12/27/19 08/28/20 documented as of this encounter
--- OUTSIDE RECORDS SUMMARY | 2024-04-08 01:17 | XMS_ITS | Encounter Summary ---
Author Organization [facility] Address [address] [place] [address]. 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 No / Unsure 03/06/2020 12:54 PM SALES AND SERVICE CONSULTANT documented as of this encounter Plan [...] on filedocumented in this encounter Care Teams Airline Reservationist Relationship Specialty Start Date End Date Igor Castano DO PCP - General INTERNAL MEDICINE 04/28/19 12/26/19 Jose Yip MD [address] [place] [address] PCP - General INTERNAL MEDICINE 12/27/19 08/28/20 documented as of this encounter
--- OUTSIDE RECORDS SUMMARY | 2024-04-08 01:17 | XMS_ITS | Encounter Summary ---
Author Organization [facility] Address [address] [place] [address]. [place], [place] [address] [place] [address] Care Team Providers Care Poultry Farmer Egg Name Role Phone Igor Castano DO Primary Care Provider Un available Jose Yip MD Primary Care Provider +1- [phone] Encounter Details Date Type Department Care Team [...] on file 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 CLERKS MANAGER Gender Identity Not on file Sexual Orientation Not on file COVID-19 Exposure Response Date Recorded In the last month, have you been in contact with someone who was confirmed or suspected to have Coronavirus / COVID-19? No / Unsure 03/06/2020 12:54 PM STATEMENT CLERKS MANAGER documented as of this encounter Plan of Treatment Not on file documented as of this encounter Visit Diagnoses Not on filedocumented in this encounter Care Teams Poultry Farmer Egg Relationship Specialty Start Date End Date Igor Castano DO PCP - General INTERNAL MEDICINE 04/28/19 12/26/19 Jose Yip MD [address] [id number] PCP - General INTERNAL MEDICINE 12/27/19 08/28/20 documented as of this encounter
--- OUTSIDE RECORDS SUMMARY | 2024-04-08 01:17 | XMS_ITS | Encounter Summary ---
Author Organization [facility] Address [address] [place] [address]. [place] [address] [place] [address] Care Team Providers Care Distance Education Director Name Role Phone Jose Yip MD Primary Care Provider +1- [phone] Reason for Visit * Reason Comments Prostate Problem not feeling well Encounter Details Date Type Department Care Team (Late st Contact Info) Description 03/06/2020 1:00 PM FRAMING MANAGER Office Visit [facility] Internal Medicine - [address] [address] Christina Pedro NP [address] [place] [address] Prostate Problem (not feeling well) Social History [...] on file Legal Sex Male 10:43 PM FRAMING MANAGER Gender Identity Not on file Sexual Orientation Not on file COVID-19 Exposure Response Date Recorded In the last month, have you been in contact with someone who was confirmed or suspected to have Coronavirus / COVID-19? No / Unsure 03/06/2020 12:54 PM FRAMING MANAGER documented as of this encounter Last Filed Vital Signs Vital Sign Reading Time Taken Comments Blood Pressure 121/71 03/06/2020 1:02 PM FRAMING MANAGER Pulse 80 03/06/2020 1:02 PM FRAMING MANAGER Temperature 37.1 ??C (98.7 ??F) 03/06/2020 1:02 PM CS T Respiratory Rate 18 03/06/2020 1:02 PM FRAMING MANAGER Oxygen Saturation 97% 03/06/2020 1:02 PM FRAMING MANAGER Inhaled Oxygen Concentration - - Weight 55.1 kg (121 lb 6.4 oz) 03/06/2020 1:02 P M FRAMING MANAGER Height 175.3 cm (5' 9 ) 03/06/2020 1:02 PM FRAMING MANAGER Body Mass Index 17.93 03/06/2020 1:02 PM FRAMING MANAGER documented in this encounter Progress Notes * [...] file Gets together: Not on file Attends taoism service: Not on file Active member of [...] Exam Vitals signs and nursing note reviewed. Damper Fitter present: he declined a nurse customer resolution specialist for genital exam. Constitutional: General: He is [...] 6.4 oz) Height: 5' 9 (1.753 m) @[facility] Diagnoses/Impression: Encounter Diagnose(s) ICD-10-CM ICD-9-CM 1. Dysuria [...] Jose Yip MD at 03/06/2020 7:17 PM FRAMING MANAGER ING MANAGER ING MANAGER documented in this encounter Plan of Treatment Not on file documented as of this encounter Visit Diagnoses Diagnosis Dysuria- Primary Epididymitis, left Orchitis and epididymitis, unspecified documented in this encounter Care Teams Distance Education Director Relationship Specialty Start Date End Date Jose Yip MD [address] [place] [address] PCP - General INTERNAL MEDICINE 12/27/19 08/28/20 documented as of this encounter
--- OUTSIDE RECORDS SUMMARY | 2024-04-08 01:17 | XMS_ITS | Encounter Summary ---
Author Organization [facility] Address [facility]. [place], [place] [address] [place] [address] Care Team Providers Care Child Caregiver Private Home Name Role Phone Rose Balderas MD Primary Care Provider +1- [phone] None, Provider Primary Care Provider Igor Wong DO Primary Care Provider Un available Jose Yip MD Primary Care Provider +1- [phone] Encounter Details Date Type Department Care Team [...] on file Legal Sex Male 10:43 PM REPAIR MILLER Gender Identity Not on file Sexual Orientation Not on file COVID-19 Exposure Response Date Recorded In the last month, have you been in contact with someone who was confirmed or suspected to have Coronavirus / COVID-19? No / Unsure 03/06/2020 12:54 PM REPAIR MILLER documented as of this encounter Plan of Treatment Not on file documented as of this encounter Visit Diagnoses Not on filedocumented in this encounter Care Teams Child Caregiver Private Home Relationship Specialty Start Date End Date Rose Balderas MD PCP - General FAMILY PRACTICE 10/21/18 04/25/19 None, Sarah, PCP - General 04/26/19 04/27/19 Igor Castano DO PCP - General INTERNAL MEDICINE 04/28/19 12/26/19 Jose Yip MD [address] [place], [place] [id number] PCP - General INTERNAL MEDICINE 12/27/19 08/28/20 documented as of this encounter
--- OUTSIDE RECORDS SUMMARY | 2024-04-08 01:17 | XMS_ITS | Encounter Summary ---
Author Organization [facility] Address [address] [place] [address]. [place], [place] [address] [place] [address] Care Team Providers Care Project Manager Process Development Name Role Phone Jose Yip MD Primary Care Provider +1- [phone] Reason for Visit * Reason Onset Date Comments UTI 03/05/2020 Urinary frequenc y, urgency, pain, burning when voids, pain when seated. Thinks he is having a prostate problem. Encounter Details Date Type Department Care Team (Late st Contact Info) Description 03/05/2020 Telephone [facility] Internal Medicine - [address] [address] Jose Yip MD [address] [place] [address] UTI (Urinary frequency, urgency, pain, burning [...] on file Legal Sex Male 10:43 PM PARAOPTOMETRIC Gender Identity Not on file Sexual Orientation Not on file COVID-19 Exposure Response Date Recorded In the last month, have you been in contact with someone who was confirmed or suspected to have Coronavirus / COVID-19? No / Unsure 03/06/2020 12:54 PM PARAOPTOMETRIC documented as of this encounter Progress Notes * Jacquelyn Rock MA - 03/05/2020 11:22 AM CST noted OPTOMETRIC * Carl Brooks RN - 03/05/2020 11:15 AM CST Urinary frequency, urgency, pain, burning when voids, pain when seated. Thinks he is having a prostate problem. Denies urine cloudiness or odor. Did go to a [employer] gathering, states wears a mask. Appt 03/06/20 Evonne Anglin 1:00 Instructed to arrive 10 minutes early and wear a mask to clinic and sanitize hands. OPTOMETRIC documented in this encounter Plan of Treatment Not on file documented as of this encounter Visit Diagnoses Not on filedocumented in this encounter Care Teams Project Manager Process Development Relationship Specialty Start Date End Date Jose Yip MD [address] [place] [address] PCP - General INTERNAL MEDICINE 12/27/19 08/28/20 documented as of this encounter
--- OUTSIDE RECORDS SUMMARY | 2024-04-08 01:17 | XMS_ITS | Encounter Summary ---
Author Organization [facility] Address [address] [place] [address]. [place], [place] [address] [place] [address] Care Team Providers Care Machine Tool Technician Instructor Name Role Phone Jose Yip MD Primary Care Provider +1- [phone] Reason for Visit * Reason Onset Date Comments Wound 01/23/2020 Pt reports that around 1am this morning he was latching a wooden gate and one of the screws were loose and cut him on the back of his foot. 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 Please call the pt back at [phone]. documented in this encounter Plan of Treatment Not on file documented as of this encounter Visit Diagnoses Not on filedocumented in this encounter Care Teams Machine Tool Technician Instructor Relationship Specialty Start Date End Date Jose Yip MD [address] [place] [address] PCP - General INTERNAL MEDICINE 12/27/19 08/28/20 documented as of this encounter
--- OUTSIDE RECORDS SUMMARY | 2024-04-08 01:17 | XMS_ITS | Encounter Summary ---
Author Organization [facility] Address [address] [place] [address]. [place], [place] [address] [place] [address] Care Team Providers Care Hotel Reservationist Name Role Phone Igor Castano DO Primary Care Provider Un available Jose Yip MD Primary Care Provider +1- [phone] Encounter Details Date Type Department Care Team [...] on file Legal Sex Male 10:43 PM CENTRAL OFFICE TROUBLE SHOOTER Gender Identity Not on file Sexual Orientation Not on file COVID-19 Exposure Response Date Recorded In the last month, have you been in contact with someone who was confirmed or suspected to have Coronavirus / COVID-19? No / Unsure 03/06/2020 12:54 PM CENTRAL OFFICE TROUBLE SHOOTER documented as of this encounter Plan of Treatment Not on file documented as of this encounter Visit Diagnoses Not on filedocumented in this encounter Care Teams Hotel Reservationist Relationship Specialty Start Date End Date Igor Castano DO PCP - General INTERNAL MEDICINE 04/28/19 12/26/19 Jose Yip MD [address] [id number] PCP - General INTERNAL MEDICINE 12/27/19 08/28/20 documented as of this encounter
--- OUTSIDE RECORDS SUMMARY | 2024-04-08 01:17 | XMS_ITS | Encounter Summary ---
Author Organization [facility] Address [address] [place] [address]. [place], [place] [address] [place] [address] Care Team Providers Care Biofuels Plant Manager Name Role Phone Jose Yip MD Primary Care Provider +1- [phone] Encounter Details Date Type Department Care Team [...] on file Legal Sex Male 10:43 PM ELECTRICAL SYSTEM SPECIALIST Gender Identity Not on file Sexual [...] on filedocumented in this encounter Care Teams Biofuels Plant Manager Relationship Specialty Start Date End Date Jose Yip MD [facility] [place] [address] PCP - General INTERNAL MEDICINE 12/27/19 08/28/20 documented as of this encounter
--- OUTSIDE RECORDS SUMMARY | 2024-04-08 01:17 | XMS_ITS | Encounter Summary ---
Author Organization [facility] Address [address] [place] [address]. [place], [place] [address] [place] [address] Care Team Providers Care Switchboard Wire Worker Helper Name Role Phone Jose Yip MD Primary Care Provider +1- [phone] Encounter Details Date Type Department Care Team [...] on file Legal Sex Male 10:43 PM DRILL SERGEANT Gender Identity Not on file Sexual Orientation Not on file COVID-19 Exposure Response Date Recorded In the last month, have you been in contact with someone who was confirmed or suspected to have Coronavirus / COVID-19? No / Unsure 03/06/2020 12:54 PM DRILL SERGEANT documented as of this encounter Plan of Treatment Not on file documented as of this encounter Visit Diagnoses Not on filedocumented in this encounter Care Teams Switchboard Wire Worker Helper Relationship Specialty Start Date End Date Jose Yip MD [address] [place] [address] PCP - General INTERNAL MEDICINE 12/27/19 08/28/20 documented as of this encounter
--- OUTSIDE RECORDS SUMMARY | 2024-04-08 01:17 | XMS_ITS | Encounter Summary ---
Author Organization [facility] Address [address] [place] [address]. [place], [place] [address] [place] [address] Care Team Providers Care Director It Name Role Phone Igor Castano DO Primary [...] on file Legal Sex Male 10:43 PM BRASS CLEANER Gender Identity Not on file Sexual Orientation Not on file documented as of this encounter Plan of Treatment Not on file documented as of this encounter Visit Diagnoses Not on filedocumented in this encounter Care Teams Director It Relationship Specialty Start Date End Date Igor Castano DO PCP - General INTERNAL MEDICINE 04/28/19 12/26/19 documented as of this encounter
--- OUTSIDE RECORDS SUMMARY | 2024-04-08 01:17 | XMS_ITS | Encounter Summary ---
Author Organization [facility] Address [address] [place] [address]. [place], [place] [address] [place] [address] Care Team Providers Care Hemp Fiber Taker Off Name Role Phone Igor Castano DO Primary Care Provider Un available Jose Yip MD Primary Care Provider +1- [phone] Encounter Details Date Type Department Care Team [...] on file Legal Sex Male 10:43 PM DINKEY PRESS OPERATOR Gender Identity Not on file Sexual Orientation Not on file COVID-19 Exposure Response Date Recorded In the last month, have you been in contact with someone who was confirmed or suspected to have Coronavirus / COVID-19? No / Unsure 03/06/2020 12:54 PM DINKEY PRESS OPERATOR documented as of this encounter Plan of Treatment Not on file documented as of this encounter Visit Diagnoses Not on filedocumented in this encounter Care Teams Hemp Fiber Taker Off Relationship Specialty Start Date End Date Igor Castano DO PCP - General INTERNAL MEDICINE 04/28/19 12/26/19 Jose Yip MD [address] [id number] PCP - General INTERNAL MEDICINE 12/27/19 08/28/20 documented as of this encounter
--- OUTSIDE RECORDS SUMMARY | 2024-04-08 01:17 | XMS_ITS | Encounter Summary ---
Author Organization [facility] Address [address] [place] [address]. [place], [place] [address] [place] [address] Care Team Providers Care [place] Actor Name Role Phone Igor Castano DO Primary Care Provider Un available Reason for Visit * Reason Onset Date Comments Advice 05/05/2019 symptom Encounter Details Date Type Department Care Team (Late st Contact Info) Description 05/05/2019 Telephone [facility] Family & Internal Medicine - [address] [address] Igor Castano DO Advice (symptom) Social History Tobacco Use Types Packs/Day Years Used Date Smoking Tobacco: Every Day Smokeless Tobacco: Never Alcohol Use Standard Drinks/Week Comments Yes 0 (1 standard drink = 0.6 oz pur e alcohol) PHQ-2 Answer Date Recorded PHQ-2 Score 4 04/28/2019 Sex and Gender Information Value Date Recorded Sex Assigned at Not on file Legal Sex Male 10:43 PM LUMBER LOADER Gender Identity Not on file Sexual Orientation [...] worsen he is to go to ER ER LOADER * Victorino Gastelum MA - 05/05/2019 1:22 PM CST Please advise ER LOADER * Terra Tello - 05/05/2019 1:09 PM CST Patient called and said he has severe pain in right side abdomen. Said he did not want same day appt. N/A at nurse # Please call back to advise [phone] ER LOADER documented in this encounter Plan of Treatment Not on file documented as of this encounter Visit Diagnoses Not on filedocumented in this encounter Care Teams [place] Actor Relationship Specialty Start Date End Date Igor Castano DO PCP - General INTERNAL MEDICINE 04/28/19 12/26/19 documented as of this encounter
--- OUTSIDE RECORDS SUMMARY | 2024-04-08 01:17 | XMS_ITS | Encounter Summary ---
Author Organization [facility] Address [address] [place] [address]. [place], [place] [address] [place] [address] Care Team Providers Care Senior Javascript Engineer Name Role Phone Jose Yip MD Primary Care Provider +1- [phone] Encounter Details Date Type Department Care Team [...] on file Legal Sex Male 10:43 PM TRUST MANAGER ASSISTANT Gender Identity Not on file Sexual [...] on filedocumented in this encounter Care Teams Senior Javascript Engineer Relationship Specialty Start Date End Date Jose Yip MD [facility] [place] [address] PCP - General INTERNAL MEDICINE 12/27/19 08/28/20 documented as of this encounter
--- OUTSIDE RECORDS SUMMARY | 2024-04-08 01:17 | XMS_ITS | Encounter Summary ---
Author Organization [facility] Address [address] [place] [address]. [place], [place] [address] [place] [address] Care Team Providers Care Ceo Ziff Davis Name Role Phone Jose Yip MD Primary Care Provider +1- [phone] Encounter Details Date Type Department Care Team [...] on file Legal Sex Male 10:43 PM MOTOR EXPERT Gender Identity Not on file Sexual Orientation Not on file COVID-19 Exposure Response Date Recorded In the last month, have you been in contact with someone who was confirmed or suspected to have Coronavirus / COVID-19? No / Unsure 03/06/2020 12:54 PM MOTOR EXPERT documented as of this encounter Plan of Treatment Not on file documented as of this encounter Visit Diagnoses Not on filedocumented in this encounter Care Teams Ceo Ziff Davis Relationship Specialty Start Date End Date Jose Yip MD [address] [place] [address] PCP - General INTERNAL MEDICINE 12/27/19 08/28/20 documented as of this encounter
--- OUTSIDE RECORDS SUMMARY | 2024-04-08 01:17 | XMS_ITS | Encounter Summary ---
Author Organization [facility] Address [address] [place] [address]. [place], [place] [address] [place] [address] Care Team Providers Care Rail Manager Name Role Phone Olivier Yip MD Primary Care Provider +1- [phone] Reason for Visit * Reason Comments New Patient here to establish , mother in room Encounter Details Date Type Department Care Team (Late st Contact Info) Description 12/27/2019 2:20 PM CDT Office Visit [facility] Internal Medicine - [address] [address] Olivier Yip MD [address] [place] [address] New Patient (here to establish , mother [...] on file Legal Sex Male 10:43 PM LITIGATION SERVICES MANAGER Gender Identity Not on file Sexual [...] 12/27/2019 2:2 7 PM CDT Growth Chart: [facility] (Boys, 2-2 0 Years) documented in this [...] few things on finding [facility] Mother states [...] all orders for this visit: Mood disorder ([facility]) - divalproex EC 250 MG tablet; Take [...] this encounter Visit Diagnoses Diagnosis Mood disorder ([facility])- Primary Unspecified episodic mood disorder Marijuana smoker Cannabis abuse, unspecified Depression with anxiety Dysthymic disorder documented in this encounter Care Teams Rail Manager Relationship Specialty Start Date End Date Olivier Yip MD [address] [place] [address] PCP - General INTERNAL MEDICINE 12/27/19 08/28/20 documented as of this encounter
--- OUTSIDE RECORDS SUMMARY | 2024-04-08 01:17 | XMS_ITS | Encounter Summary ---
Author Organization [facility] Address [address] [place] [address]. [place], [place] [address] [place] [address] Care Team Providers Care Damage Appraiser Name Role Phone Jose Yip MD Primary Care Provider +1- [phone] Encounter Details Date Type Department Care Team [...] on file Legal Sex Male 10:43 PM APPRAISER OIL AND WATER Gender Identity Not on file Sexual Orientation Not on file COVID-19 Exposure Response Date Recorded In the last month, have you been in contact with someone who was confirmed or suspected to have Coronavirus / COVID-19? No / Unsure 02/12/2020 1:56 PM APPRAISER OIL AND WATER documented as of this encounter Plan of Treatment Not on file documented as of this encounter Visit Diagnoses Not on filedocumented in this encounter Care Teams Damage Appraiser Relationship Specialty Start Date End Date Jose Yip MD [facility] [place] [address] PCP - General INTERNAL MEDICINE 12/27/19 08/28/20 documented as of this encounter
--- OUTSIDE RECORDS SUMMARY | 2024-04-08 01:17 | XMS_ITS | Encounter Summary ---
Author Organization [facility] Address [address] [place] [address]. [place], [place] [address] [place] [address] Care Team Providers Care Hand Sizer Name Role Phone Olivier Yip MD Primary Care Provider +1- [phone] Reason for Visit * Reason Comments Follow Up puncture wound left foot has healed Encounter Details Date Type Department Care Team (Late st Contact Info) Description 02/12/2020 2:00 PM BIOINFORMATICIAN Office Visit [facility] Internal Medicine - [place] [address] [place] [address] Olivier Yip MD [address] [place] [address] Follow Up (puncture wound left [...] on file Legal Sex Male 10:43 PM BIOINFORMATICIAN Gender Identity Not on file Sexual Orientation Not on file COVID-19 Exposure Response Date Recorded In the last month, have you been in contact with someone who was confirmed or suspected to have Coronavirus / COVID-19? No / Unsure 02/12/2020 1:56 PM BIOINFORMATICIAN documented as of this encounter Last Filed Vital Signs Vital Sign Reading Time Taken Comments Blood Pressure 116/60 02/12/2020 2:02 PM BIOINFORMATICIAN Pulse 72 02/12/2020 2:02 PM BIOINFORMATICIAN Temperature 36.6 ??C (97.8 ??F) 02/12/2020 2:02 PM CS T Respiratory Rate - - Oxygen Saturation 98% 02/12/2020 2:02 PM BIOINFORMATICIAN Inhaled Oxygen Concentration - - Weight 52.6 kg (116 lb) 02/12/2020 2:02 PM BIOINFORMATICIAN Height 175.3 cm (5' 9 ) 02/12/2020 2:02 PM BIOINFORMATICIAN Body Mass Index 17.13 02/12/2020 2:02 PM BIOINFORMATICIAN documented in this encounter Progress Notes * [...] and he is supposed to be on wasw-kps-izskajd vitamin D now but it sounds like [...] smoker Need for immunization against influenza - [16291] FLU VACC QUAD 6 MONTHS+ 0.5 ML [...] curtail the marijuana use OLIVIER YIP MD NFORMATICIAN documented in this encounter Plan of Treatment [...] syndrome documented in this encounter Care Teams Hand Sizer Relationship Specialty Start Date End Date Olivier Yip MD [facility] [place] [address] PCP - General INTERNAL MEDICINE 12/27/19 08/28/20 documented as of this encounter
--- OUTSIDE RECORDS SUMMARY | 2024-04-08 01:17 | XMS_ITS | Encounter Summary ---
Author Organization [facility] Address [address] [place] [address]. 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 No / Unsure 03/06/2020 12:54 PM SCHOOL TREASURER documented as of this encounter Plan of Treatment Not on file documented as of this encounter Procedures Procedure Name Priority Date/Time Associated Diagnosis Comments OUTSIDE LAB (SCAN ORDER) Routine 05/23/2019 documented in this encounter Results * OUTSIDE LAB (05/23/2019) 05/23/2019 us Documents Scanned SCANNING Final Result [facility] documented in this encounter Visit Diagnoses Not on filedocumented in this encounter Care Teams Leather Worker Relationship Specialty Start Date End Date Igor Castano DO PCP - General INTERNAL MEDICINE 04/28/19 12/26/19 Jose Yip MD [address] [place], [place] [id number] PCP - General INTERNAL MEDICINE 12/27/19 08/28/20 documented as of this encounter
--- OUTSIDE RECORDS SUMMARY | 2024-04-08 01:17 | XMS_ITS | Encounter Summary ---
Author Organization [facility] Address [address] [place] [address]. [place], [place] [address] [place] [address] Care Team Providers Care Ignition Expert Name Role Phone Rose Balderas MD Primary Care Provider +1- [phone] Reason for Visit * Reason Onset Date Comments Appointment Request 10/20/2018 Encounter Details Date Type Department Care Team (Late st Contact Info) Description 10/20/2018 Telephone [facility] Internal Medicine - [address] [address] Jose Yip MD [address] [place] [address] Appointment Request Social History Tobacco Use Types Packs/Day Years Used Date Smoking Tobacco: Never Assessed Sex and Gender Information Value Date Recorded Sex Assigned at Not on file 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 Yip in December 2019. Because patients need in sooner, I went ahead and also scheduled with Dr. Balderas out of [facility] for November 2018. * Nora Scott [...] on filedocumented in this encounter Care Teams Ignition Expert Relationship Specialty Start Date End Date Rose Balderas MD PCP - General FAMILY PRACTICE 10/21/18 04/25/19 documented as of this encounter
--- OUTSIDE RECORDS SUMMARY | 2024-04-08 01:17 | XMS_ITS | Encounter Summary ---
Author Organization [facility] Address [address] [place] [address]. [place], [place] [address] [place] [address] Care Team Providers Care Payroll Consultant Name Role Phone Igor Castano DO Primary Care Provider Un available Reason for Referral * Imaging (Emergency) - Closed Specialty Diagnoses / Procedures Referred By Magda flood Referred To Contact RADIOLOGY Procedures US ABD LIMITED Erica Wright NP Phone: tel: fax: Referral ID Status Reason Start Date Expiration Date Visits Re quested Visits Authorized [id number] Closed 05/01/2019 06/01/2020 1 1 HICS EDIT TECHNICIAN Reason for Visit * Reason Comments Abdominal Pain Nausea Encounter Details Date Type Department Care Team (Late st Contact Info) Description 05/01/2019 12:43 PM GRAPHICS EDIT TECHNICIAN - 05/01/2019 2:50 PM GRAPHICS EDIT TECHNICIAN Emergency [facility] Emergency [address] [place] [address] Erica Wright NP [address] [place], [place] [address] Abdominal Pain; Nausea Discharge Disposition: Home or [...] on file Legal Sex Male 10:43 PM GRAPHICS EDIT TECHNICIAN Gender Identity Not on file Sexual Orientation Not on file documented as of this encounter Last Filed Vital Signs Vital Sign Reading Time Taken Comments Blood Pressure 132/68 05/01/2019 11:36 AM GRAPHICS EDIT TECHNICIAN Pulse 91 05/01/2019 11:36 AM GRAPHICS EDIT TECHNICIAN Temperature 36.2 ??C (97.2 ??F) 05/01/2019 1 1:36 AM GRAPHICS EDIT TECHNICIAN Respiratory Rate 16 05/01/2019 11:3 6 AM GRAPHICS EDIT TECHNICIAN Oxygen Saturation 99% 05/01/2019 11: 36 AM GRAPHICS EDIT TECHNICIAN Inhaled Oxygen Concentration - - Weight 47.3 kg (104 lb 4.4 oz) 05/01/19 20 11:36 AM GRAPHICS EDIT TECHNICIAN Height 175.3 cm (5' 9 ) 05/01/2019 11:3 6 AM GRAPHICS EDIT TECHNICIAN Body Mass Index 15.4 05/01/2019 11:36 AM GRAPHICS EDIT TECHNICIAN Body Mass Index Percentile 0.01% 05/01 11:36 AM GRAPHICS EDIT TECHNICIAN Growth Chart: [facility] (Boys, 2-2 0 Years) documented in this encounter Discharge Instructions * Discharge Instructions* Erica Willett NP - 05/01/2019 2:43 PM GRAPHICS EDIT TECHNICIAN 1. Avoid foods such as chocolate, tomatoes, [...] read and follow additional written instructions provided. HICS EDIT TECHNICIAN * Attachments The following attachments cannot be sent through Care Everywhere. * Nausea and Vomiting Discharge Instructions, Adult (Senegalese) * Severe Abdominal Pain Discharge Instructions, Adult (Senegalese) documented in this encounter Medications at Time [...] micro regarding flu swab sent, no answer. HICS EDIT TECHNICIAN * Erica Willett NP - 05/01/2019 12:46 [...] Range COLOR LIGHT YELLOW TRANSPARENCY CLEAR Specific [place] (U) 1.010 1.002 - 1.035 U PH [...] US ABD LIMITED Final Result by User, [id number] (05/01 1423) Examination: Abdominal ultrasound, limited. Clinical [...] 05/01/19, 13:21. Follow-up: Igor Castano DO [address] [facility] [id number] Go on 05/02/2019 As needed, If symptoms [...] Theresa Murillo MD at 05/01/2019 4:16 PM GRAPHICS EDIT TECHNICIAN HICS EDIT TECHNICIAN HICS EDIT TECHNICIAN * Angela Le RN - 05/01/2019 11:33 AM CST Pt presents to ED per pov. Pt complains of upper mid abd pain x2 weeks. States he gets 'attacks' and the pain increases. Reports feeling nauseated w/o vomiting. HICS EDIT TECHNICIAN documented in this encounter Plan of Treatment Not on file documented as of this encounter Procedures Procedure Name Priority Date/Time Associated Diagnosis Comments US ABD LIMITED STAT 05/01/2019 2:07 PM GRAPHICS EDIT TECHNICIAN HC URINALYSIS AUTO W/MICRO Nurse Collected Priority 05/01/2019 1:27 PM GRAPHICS EDIT TECHNICIAN URINE BACTERIA CULTURE Nurse Collected Priority 05/01/2019 1:19 PM GRAPHICS EDIT TECHNICIAN INFLUENZA A & B Nurse Collected Priority 05/01/2019 1:08 PM GRAPHICS EDIT TECHNICIAN BASIC METABOLIC PANEL STAT 05/01/2019 1:06 PM GRAPHICS EDIT TECHNICIAN HETEROPHILE ANTIBODIES,SCREEN STAT 05/01/2019 1:06 PM GRAPHICS EDIT TECHNICIAN HEPATIC FUNCTION PANEL STAT 05/01/2019 1:06 PM GRAPHICS EDIT TECHNICIAN CBC W/DIFF AUTOMATED STAT 05/01/2019 1:06 PM GRAPHICS EDIT TECHNICIAN LIPASE STAT 05/01/2019 1:06 PM GRAPHICS EDIT TECHNICIAN documented in this encounter Results * US ABD LIMITED (05/01/2019 2:07 PM GRAPHICS EDIT TECHNICIAN) Anatomical Region Laterality Modality Abdomen Ultrasound 05/01/2019 2:21 PM GRAPHICS EDIT TECHNICIAN Impressions 05/01/2019 2:23 PM GRAPHICS EDIT TECHNICIAN Impression: Normal examination. Interpreted By: Thad Ramon MD, 05/01/2019 2:21 PM Narrative 05/01/2019 2:23 PM GRAPHICS EDIT TECHNICIAN Examination: Abdominal ultrasound, limited. Clinical Information: Right [...] esult * (ABNORMAL) URINALYSIS (05/01/2019 1:27 PM GRAPHICS EDIT TECHNICIAN) COLOR (U) LIGHT YELLOW 05/01/2019 1:34 PM GRAPHICS EDIT TECHNICIAN [facility] TRANSPARENCY CLEAR 05/01/2019 1:34 PM GRAPHICS EDIT TECHNICIAN [facility] SPECIFIC GRAVITY (U) 1.010 1.002 - 1.035 05/01/2019 1:34 PM GRAPHICS EDIT TECHNICIAN [facility] U PH 7.0 5 - 8 05/01/2019 1:34 PM GRAPHICS EDIT TECHNICIAN [facility] PROTEIN (U) NEGATIVE NEGATIVE 05/01/2019 1:34 PM GRAPHICS EDIT TECHNICIAN [facility] URINE GLUCOSE NEGATIVE NEGATIVE MG/DL 05/01/2019 1:34 PM GRAPHICS EDIT TECHNICIAN [facility] KETONES MG/DL (U) 20(A) NEGATIVE 05/01/2019 1:34 PM GRAPHICS EDIT TECHNICIAN [facility] BILIRUBIN (U) NEGATIVE NEGATIVE 05/01/2019 1:34 PM GRAPHICS EDIT TECHNICIAN [facility] BLOOD (U) NEGATIVE NEGATIVE 05/01/2019 1:34 PM GRAPHICS EDIT TECHNICIAN [facility] NITRITES NEGATIVE NEGATIVE 05/01/2019 1:34 PM [facility] UROBILINOGEN NORMAL 0 - 1 EU/DL 05/01/2019 1:34 PM GRAPHICS EDIT TECHNICIAN [facility] LEUKOCYTES (U) NEGATIVE NEGATIVE 05/01/2019 1:34 PM GRAPHICS EDIT TECHNICIAN [facility] RBC/HPF NONE 0 - 3 /HPF 05/01/2019 1:34 PM [facility] WBC/HPF NONE 0 - 6 /HPF 05/01/2019 1:34 PM [facility] BACTERIA (U) NONE /HPF 05/01/2019 1:34 PM [facility] URINE SPECIMEN OBTAINED BY CLEAN CATCH PROCEDURE / Unknown 05/01/2019 1:27 PM GRAPHICS EDIT TECHNICIAN Erica Malhotra NP URINE ORDERABLES Final Result [facility] [address] [place] [address], [id number] * CULTURE URINE (05/01/2019 1:19 PM GRAPHICS EDIT TECHNICIAN) SPEC DESCRIPTION URINE CLEAN CATCH 05/01/2019 1:19 PM GRAPHICS EDIT TECHNICIAN [facility] SPECIAL REQUESTS NO SPECIAL REQUEST 05/01/2019 1:19 PM GRAPHICS EDIT TECHNICIAN [facility] CULTURE RESULT NO GROWTH (< OR = 1,000 CFU/ML) 05/02/2019 3:51 AM GRAPHICS EDIT TECHNICIAN [facility] URINE SPECIMEN OBTAINED BY CLEAN CATCH PROCEDURE / Unknown 05/01/2019 1:19 PM GRAPHICS EDIT TECHNICIAN 05/01/2019 1:43 PM GRAPHICS EDIT TECHNICIAN us Erica Malhotra NP MICROBIOLOGY - GENERAL ORDERABLES Final Result Performing Organization Address [facility] de Phone Number [facility] [address] [place] [address], [place] [phone] [id number] * INFLUENZA A & B (05/01/2019 1:08 PM GRAPHICS EDIT TECHNICIAN) SPEC DESCRIPTION NASAL 05/01/2019 1:08 PM GRAPHICS EDIT TECHNICIAN [facility] SPECIAL REQUESTS NO SPECIAL REQUEST 05/01/2019 1:08 PM GRAPHICS EDIT TECHNICIAN [facility] RESULT NEGATIVE FOR INFLUENZA A & B VIRUS ANTIGEN 05/01/2019 2:07 PM GRAPHICS EDIT TECHNICIAN [facility] SPECIMEN FROM INTERNAL NOSE / Unknown 05/01/2019 1:08 PM GRAPHICS EDIT TECHNICIAN 05/01/2019 1:45 PM GRAPHICS EDIT TECHNICIAN us Erica Malhotra NP MICROBIOLOGY - GENERAL ORDERABLES Final Result Performing Organization Address [facility] de Phone Number [facility] [address] [place] [address], [place] [phone] * HETEROPHILE ANTIBODIES,SCREEN (05/01/2019 1:06 PM GRAPHICS EDIT TECHNICIAN) MONO TEST NEGATIVE NEGATIVE 05/01/2019 1:49 PM GRAPHICS EDIT TECHNICIAN [facility] 05/01/2019 1:06 PM GRAPHICS EDIT TECHNICIAN us Erica Malhotra NP LABORATORY Final R esult Performing Organization Address [facility] Co de Phone Number [facility] [address] [place] [address], [place] [phone] * LIPASE (05/01/2019 1:06 PM GRAPHICS EDIT TECHNICIAN) [facility] LIPASE 80 73 - 393 UNITS/L 05/01/2019 1:47 PM GRAPHICS EDIT TECHNICIAN [facility] 05/01/2019 1:06 PM GRAPHICS EDIT TECHNICIAN Erica Malhotra NP LABORATORY Final R esult [facility] [address] [place] [address], [id number] * (ABNORMAL) HEPATIC FUNCTION PANEL (05/01/2019 1:06 PM GRAPHICS EDIT TECHNICIAN) [facility] BILIRUBIN TOTAL S/P/B 1.0 0.2 - 1.0 MG/DL 05/01/2019 1:47 PM [facility] BILIRUBIN DIRECT S/P/B 0.3(H) 0.0 - 0.2 MG/DL 05/01/2019 1:47 PM GRAPHICS EDIT TECHNICIAN [facility] ALKALINE PHOSPHATASE S/P/B 111 52 - 222 U/L 05/01/2019 1:47 PM GRAPHICS EDIT TECHNICIAN [facility] AST 10(L) 15 - 37 U/L 05/01/2019 1:47 PM [facility] ALT 14(L) 16 - 61 U/L 05/01/2019 1:47 PM GRAPHICS EDIT TECHNICIAN [facility] TOTAL PROTEIN S/P/B 7.8 6.4 - 8.2 G/DL 05/01/2019 1:47 PM GRAPHICS EDIT TECHNICIAN [facility] ALBUMIN S/P/B 4.7 3.4 - 5.0 G/DL 05/01/2019 1:47 PM GRAPHICS EDIT TECHNICIAN [facility] 05/01/2019 1:06 PM GRAPHICS EDIT TECHNICIAN Erica Travis Voigts HEAD OF HISTORY LABORATORY Final R esult [facility] [address] [place] [address], [id number] * (ABNORMAL) BASIC METABOLIC PANEL (05/01/2019 1:06 PM GRAPHICS EDIT TECHNICIAN) SODIUM S/P/B 135(L) 136 - 145 MMOL/L 05/01/2019 1:47 PM [facility] POTASSIUM S/P/B 3.8 3.5 - 5.1 MMOL/L 05/01/2019 1:47 PM [facility] CHLORIDE S/P/B 104 98 - 107 MMOL/L 05/01/2019 1:47 PM [facility] CO2 23.1 21.0 - 32.0 MMOL/L 05/01/2019 1:47 PM [facility] GLUCOSE 88 74 - 106 MG/DL 05/01/2019 1:47 PM [facility] BUN 17 7 - 18 MG/DL 05/01/2019 1:47 PM [facility] CREATININE S/P/B 0.95 0.70 - 1.30 MG/DL 05/01/2019 1:47 PM [facility] CALCIUM S/P/B 9.2 8.5 - 10.1 MG/DL 05/01/2019 1:47 PM [facility] ANION GAP 7.9 5.0 - 15.0 MMOL/L 05/01/2019 1:47 PM [facility] Comment:REFERENCE RANGE NOT ESTABLISHED OSMOLALITY (CALC) 281 MOSM/KG 020 1:47 PM [facility] Comment:REFERENCE RANGE NOT ESTABLISHED EGFR NON-AFR. AMER. >90 >90 ML/MIN/1. 73 M2 05/01/2019 1:47 PM [facility] EGFR AFR. AMER. >90 >90 ML/MIN/1. 73 M2 05/01/2019 1:47 PM [facility] GFR NOTES GFR REFERENCE S: 05/01/2019 1:47 PM GRAPHICS EDIT TECHNICIAN [facility] Comment: THE ESTIMATED GFR IS CALCULATED [...] FAILURE: <15 ml/min/1.73 m2 05/01/2019 1:06 PM GRAPHICS EDIT TECHNICIAN Erica Malhotra NP LABORATORY Final R esult [facility] [address] [place] [address], [id number] * (ABNORMAL) CBC W/DIFF AUTOMATED (05/01/2019 1:06 PM GRAPHICS EDIT TECHNICIAN) WBC 5.7 4.0 - 10.8 x10'3/uL 05/01/2019 1:17 PM GRAPHICS EDIT TECHNICIAN [facility] RBC 4.61 4.50 - 6.10 x10'6/uL 05/01/2019 1:17 PM GRAPHICS EDIT TECHNICIAN [facility] HGB 14.9 13.0 - 18.0 G/DL 05/01/2019 1:17 PM GRAPHICS EDIT TECHNICIAN [facility] HCT 43.0 37.0 - 52.0 % 05/01/2019 1:17 PM GRAPHICS EDIT TECHNICIAN [facility] MCV 93.3 78.0 - 100.0 FL 05/01/2019 1:17 PM GRAPHICS EDIT TECHNICIAN [facility] MCH 32.3(H) 27.0 - 31.0 PG 05/01/2019 1:17 PM GRAPHICS EDIT TECHNICIAN [facility] MCHC 34.7 33.0 - 36.0 G/DL 05/01/2019 1:17 PM [facility] RDW 11.6 11.5 - 14.5 % 05/01/2019 1:17 PM [facility] PLT 288 150 - 350 x10'3/uL 05/01/2019 1:17 PM [facility] MPV 10.5(H) 7.4 - 10.4 FL 05/01/2019 1:17 PM GRAPHICS EDIT TECHNICIAN [facility] ABS. NEUTROPHILS TOTAL 2.66 1.60 - 8.30 x10'3/uL 05/01/2019 1:17 PM GRAPHICS EDIT TECHNICIAN [facility] ABS. LYMPHOCYTES 2.29 0.80 - 4.70 x10'3/uL 05/01/2019 1:17 PM [facility] ABS. MONOCYTES 0.40 0.00 - 1.50 x10'3/uL 05/01/2019 1:17 PM GRAPHICS EDIT TECHNICIAN [facility] ABS. EOSINOPHILS 0.29 0.00 - 0.40 x10'3/uL 05/01/2019 1:17 PM GRAPHICS EDIT TECHNICIAN [facility] ABS. BASOPHILS 0.01 0.00 - 0.20 x10'3/uL 05/01/2019 1:17 PM [facility] ABS. IMMATURE GRANULOCYTES 0.01 0.00 - 0.03 x10'3/uL 05/01/2019 1:17 PM GRAPHICS EDIT TECHNICIAN [facility] ABS. NUCLEATED RBC'S 0.00 0.0 x10'3/uL 05/01/2019 1:17 PM [facility] 05/01/2019 1:06 PM GRAPHICS EDIT TECHNICIAN Erica Malhotra NP LABORATORY Final R esult [facility] [address] [place] [address], [id number] documented in this encounter Visit Diagnoses Diagnosis [...] over 15 seconds. Given 05/01/2019 1:09 PM GRAPHICS EDIT TECHNICIAN 15 mg sodium chloride 0.9% bolus infusion SOLN 1,000 mL 1,000 mL, Intravenous, Administer over 60 Minutes, Once, 1 dose, On Wed05/01/19 at 1300 New Bag 05/01/2019 1:09 PM GRAPHICS EDIT TECHNICIAN 1,000 mLs documented in this encounter Active and Recently Administered Medications Times are shown in GRAPHICS EDIT TECHNICIAN. Scheduled Medication Order 04/29/2019 04/30/2019 05/01/2019 ketorolac [...] RN) documented in this encounter Care Teams Payroll Consultant Relationship Specialty Start Date End Date Igor Castano DO PCP - General INTERNAL MEDICINE 04/28/19 12/26/19 documented as of this encounter
--- OUTSIDE RECORDS SUMMARY | 2024-04-08 01:17 | XMS_ITS | Encounter Summary ---
Author Organization [facility] Address [address] [place] [address]. 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
--- OUTSIDE RECORDS SUMMARY | 2024-04-08 01:17 | XMS_ITS | Encounter Summary ---
Author Organization [facility] Address [address] [place] [address]. [place] [address] [place] [address] Care Team Providers Care Pricer Bagger Name Role Phone Igor Castano DO Primary Care Provider Un available Reason for Visit * Reason Onset Date Comments Appointment Request 11/01/2019 Encounter Details Date Type Department Care Team (Late st Contact Info) Description 11/01/2019 Telephone [facility] Medical [facility] Family & Internal Medicine - [address] [address] Igor Castano DO Appointment Request Social History Tobacco Use Types Packs/Day Years Used Date Smoking Tobacco: Every Day Smokeless Tobacco: Never Alcohol Use Standard Drinks/Week Comments Yes 0 (1 standard drink = 0.6 oz pur e alcohol) PHQ-2 Answer Date Recorded PHQ-2 Score 4 04/28/2019 Sex and Gender Information Value Date Recorded Sex Assigned at Not on file 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 Cheek's STAMP PRESS OPERATOR Cherie. documented in this encounter Plan of Treatment Not on file documented as of this encounter Visit Diagnoses Not on filedocumented in this encounter Care Teams Pricer Bagger Relationship Specialty Start Date End Date Igor Castano DO PCP - General INTERNAL MEDICINE 04/28/19 12/26/19 documented as of this encounter
--- OUTSIDE RECORDS SUMMARY | 2024-04-08 01:17 | XMS_ITS | Encounter Summary ---
Author Organization [facility] Address [facility]. 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 No / Unsure 03/06/2020 12:54 PM CONTROL OFFICER documented as of this encounter Plan of Treatment Not on file documented as of this encounter Visit Diagnoses Not on filedocumented in this encounter Care Teams Internship Coordinator Relationship Specialty Start Date End Date Rose Balderas MD PCP - General FAMILY PRACTICE 10/21/18 04/25/19 None, Sarah, PCP - General 04/26/19 04/27/19 Igor Castano DO PCP - General INTERNAL MEDICINE 04/28/19 12/26/19 Jose Yip MD [address] [place], [place] [id number] PCP - General INTERNAL MEDICINE 12/27/19 08/28/20 documented as of this encounter
--- OUTSIDE RECORDS SUMMARY | 2024-04-08 01:17 | XMS_ITS | Encounter Summary ---
Author Organization [facility] Address [address] [place] [address]. 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 TAL IMAGER * Harrison Castellanos - 02/06/2020 9:51 AM CST Patient returning call tried nurse line but no answer please call back when available TAL IMAGER * Charmaine Parry RN - 02/06/2020 9:49 AM CST No answer or voicemail TAL IMAGER * Jose Yip MD - 02/06/2020 9:43 AM CST Should be ok, but sometimes diarrhea might develop, so let us know if it does. TAL IMAGER * Charmaine Parry RN - 02/06/2020 9:26 AM CST Pt reports started abx amoxicillin 875 01-25-20 pt had tooth pulled 02-01-20 pt another tooth extraction scheduled for 02-15-20 pt on amoxicillin 500mg now. Pt wants to make sure it is ok to be on abx this long TAL IMAGER * Carolyne Arambula - 02/05/2020 2:02 PM CST Patient has a question as his dentist is wanting him to be on antibiotic for about a month to get aTooth pulled Has a question for the nurse TAL IMAGER documented in this encounter Plan of Treatment Not on file documented as of this encounter Visit Diagnoses Not on filedocumented in this encounter Care Teams Bi Specialist Relationship Specialty Start Date End Date Jose Yip MD [address] [id number] PCP - General INTERNAL MEDICINE 12/27/19 08/28/20 documented as of this encounter
--- OUTSIDE RECORDS SUMMARY | 2024-04-08 01:17 | XMS_ITS | Encounter Summary ---
Author Organization [facility] Address [facility]. 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 No / Unsure 03/06/2020 12:54 PM DEPUTY PROSECUTING ATTORNEY documented as of this encounter Plan of [...] on filedocumented in this encounter Care Teams Stablehand Relationship Specialty Start Date End Date Rose Balderas MD PCP - General FAMILY PRACTICE 10/21/18 04/25/19 None, MD Sarah PCP - General 04/26/19 04/27/19 Igor Castano DO PCP - General INTERNAL MEDICINE 04/28/19 12/26/19 Jose Yip MD [address] [place] [address] PCP - General INTERNAL MEDICINE 12/27/19 08/28/20 documented as of this encounter
--- OUTSIDE RECORDS SUMMARY | 2024-04-08 01:17 | XMS_ITS | Encounter Summary ---
Author Organization [facility] Address [facility]. 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 No / Unsure 03/06/2020 12:54 PM MACHINE BENDER documented as of this encounter Plan of Treatment Not on file documented as of this encounter Visit Diagnoses Not on filedocumented in this encounter Care Teams Railroad Auditor Relationship Specialty Start Date End Date Rose Balderas MD PCP - General FAMILY PRACTICE 10/21/18 04/25/19 None, Sarah, PCP - General 04/26/19 04/27/19 Igor Castano DO PCP - General INTERNAL MEDICINE 04/28/19 12/26/19 Jose Yip MD [address] [place], [place] [id number] PCP - General INTERNAL MEDICINE 12/27/19 08/28/20 documented as of this encounter
--- OUTSIDE RECORDS SUMMARY | 2024-04-08 01:17 | XMS_ITS | Encounter Summary ---
Author Organization [facility] Address [address] [place] [address]. 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
--- OUTSIDE RECORDS SUMMARY | 2024-04-08 01:17 | XMS_ITS | Encounter Summary ---
Author Organization [facility] Address [address] [place] [address]. 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 No / Unsure 03/06/2020 12:54 PM OFFICE EQUIPMENT MECHANIC documented as of this encounter Plan of [...] on filedocumented in this encounter Care Teams Fish Worm Grower Relationship Specialty Start Date End Date Igor Castano DO PCP - General INTERNAL MEDICINE 04/28/19 12/26/19 Jose Yip MD [address] [place] [address] PCP - General INTERNAL MEDICINE 12/27/19 08/28/20 documented as of this encounter
--- OUTSIDE RECORDS SUMMARY | 2024-04-08 01:17 | XMS_ITS | Encounter Summary ---
Author Organization [facility] Address [address] [place] [address]. 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 No / Unsure 03/06/2020 12:54 PM VENEER DRIER FEEDER documented as of this encounter Plan of Treatment Not on file documented as of this encounter Visit Diagnoses Not on filedocumented in this encounter Care Teams Tunnel Miner Relationship Specialty Start Date End Date Jose Yip MD [facility] [place] [address] PCP - General INTERNAL MEDICINE 12/27/19 08/28/20 documented as of this encounter
--- OUTSIDE RECORDS SUMMARY | 2024-04-08 01:17 | XMS_ITS | Encounter Summary ---
Author Organization [facility] Address [address] [place] [address]. 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 No / Unsure 03/06/2020 12:54 PM COOLING PAN TENDER documented as of this encounter Plan of Treatment Not on file documented as of this encounter Visit Diagnoses Not on filedocumented in this encounter Care Teams Hospital Corpsman Relationship Specialty Start Date End Date Jose Yip MD [address] [place] [address] PCP - General INTERNAL MEDICINE 12/27/19 08/28/20 documented as of this encounter
--- OUTSIDE RECORDS SUMMARY | 2024-04-08 01:17 | XMS_ITS | Encounter Summary ---
Author Organization [facility] Address [facility]6 [facility]. 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 No / Unsure 03/06/2020 12:54 PM NARCOTICS AGENT documented as of this encounter Plan of [...] on filedocumented in this encounter Care Teams Cream Hauler Relationship Specialty Start Date End Date Rose Balderas MD PCP - General FAMILY PRACTICE 10/21/18 04/25/19 None, MD Sarah PCP - General 04/26/19 04/27/19 Igor Castano DO PCP - General INTERNAL MEDICINE 04/28/19 12/26/19 Jose Yip MD [address] [place] [address] PCP - General INTERNAL MEDICINE 12/27/19 08/28/20 documented as of this encounter
--- OUTSIDE RECORDS SUMMARY | 2024-04-08 01:17 | XMS_ITS | Encounter Summary ---
Author Organization [facility] Address [address] [place] [address]. 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 No / Unsure 03/06/2020 12:54 PM WHARF TALLY CLERK documented as of this encounter Plan of Treatment Not on file documented as of this encounter Visit Diagnoses Not on filedocumented in this encounter Care Teams Supervisor Sheet Manufacturing Relationship Specialty Start Date End Date Igor Castano DO PCP - General INTERNAL MEDICINE 04/28/19 12/26/19 Jose Yip MD [address] [id number] PCP - General INTERNAL MEDICINE 12/27/19 08/28/20 documented as of this encounter
--- OUTSIDE RECORDS SUMMARY | 2024-04-08 01:17 | XMS_ITS | Encounter Summary ---
Author Organization [facility] Address [address] [place] [address]. 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 No / Unsure 03/06/2020 12:54 PM ENTERTAINMENT DIRECTOR documented as of this encounter Plan of Treatment Not on file documented as of this encounter Visit Diagnoses Not on filedocumented in this encounter Care Teams Gum Rolling Machine Operator Relationship Specialty Start Date End Date Igor Castano DO PCP - General INTERNAL MEDICINE 04/28/19 12/26/19 Jose Yip MD [address] [id number] PCP - General INTERNAL MEDICINE 12/27/19 08/28/20 documented as of this encounter
--- OUTSIDE RECORDS SUMMARY | 2024-04-08 01:17 | XMS_ITS | Encounter Summary ---
Author Organization [facility] Address [address] [place] [address]. 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 No / Unsure 03/06/2020 12:54 PM LEGAL EXECUTIVE ASSISTANT documented as of this encounter Plan [...] filedocumented in this encounter Care Teams Director Of Managed Services Relationship Specialty Start Date End Date Igor Castano DO PCP - General INTERNAL MEDICINE 04/28/19 12/26/19 Jose Yip MD [address] [place] [address] PCP - General INTERNAL MEDICINE 12/27/19 08/28/20 documented as of this encounter
--- OUTSIDE RECORDS SUMMARY | 2024-04-08 01:17 | XMS_ITS | Encounter Summary ---
Author Organization [facility] Address [address] [place] [address]. [place], [place] [address] [place] [address] Care Team Providers Care Revenue Specialist Name Role Phone Jose Yip MD Primary Care Provider +1- [phone] Reason for Visit * Reason Onset Date Comments Follow Up Call 02/12/2020 Encounter Details Date Type Department Care Team (Late st Contact Info) Description 02/12/2020 Telephone [facility] Medical Group Internal Medicine - [address] [address] Jose Yip MD [address] [place] [address] Follow Up Call Social History [...] on file Legal Sex Male 10:43 PM CONTINUOUS IMPROVEMENT INTERN Gender Identity Not on file Sexual Orientation Not on file COVID-19 Exposure Response Date Recorded In the last month, have you been in contact with someone who was confirmed or suspected to have Coronavirus / COVID-19? No / Unsure 02/12/2020 1:56 PM CONTINUOUS IMPROVEMENT INTERN documented as of this encounter Progress Notes * Charmaine Parry RN - 02/13/2020 12:26 PM CSTAddended by: CHARMAINE PARRY on: 02/13/2020 12:26 PM Modules accepted: Orders INUOUS IMPROVEMENT INTERN * Charmaine Parry RN - 02/13/2020 12:25 PM CST Message to pt agrees to fiber picker INUOUS IMPROVEMENT INTERN * Jose Yip MD - 02/12/2020 8:12 PM CST I forgot to have yandel take a stool fit home. We discussed it. Due to intermittent abd pain, diarrhea INUOUS IMPROVEMENT INTERN documented in this encounter Plan of Treatment Not on file documented as of this encounter Visit Diagnoses Diagnosis Right upper quadrant abdominal pain- Primary Abdominal pain, right upper quadrant documented in this encounter Care Teams Revenue Specialist Relationship Specialty Start Date End Date Jose Yip MD [address] [place] [address] PCP - General INTERNAL MEDICINE 12/27/19 08/28/20 documented as of this encounter
--- OUTSIDE RECORDS SUMMARY | 2024-04-08 01:17 | XMS_ITS | Encounter Summary ---
Author Organization [facility] Address [address] [place] [address]. [place], [place] [address] [place] [address] Care Team Providers Care Electric Shaver Mechanic Name Role Phone Igor Castano DO Primary Care Provider Un available Jose Yip MD Primary Care Provider +1- [phone] Reason for Visit * Reason Comments Lab (SCAN) CT (SCAN) Encounter Details Date Type Department Care Team ([facility] Contact Info) Description 05/30/2019 Scan HEALTH [...] on file Legal Sex Male 10:43 PM HEALTH ECONOMIST Gender Identity Not on file Sexual Orientation Not on file COVID-19 Exposure Response Date Recorded In the last month, have you been in contact with someone who was confirmed or suspected to have Coronavirus / COVID-19? No / Unsure 03/06/2020 12:54 PM HEALTH ECONOMIST documented as of this encounter Plan of [...] on filedocumented in this encounter Care Teams Electric Shaver Mechanic Relationship Specialty Start Date End Date Igor Castano DO PCP - General INTERNAL MEDICINE 04/28/19 12/26/19 Jose Yip MD [address] [place] [address] PCP - General INTERNAL MEDICINE 12/27/19 08/28/20 documented as of this encounter
--- OUTSIDE RECORDS SUMMARY | 2024-04-08 01:17 | XMS_ITS | Encounter Summary ---
Author Organization [facility] Address Replaced by [facility]. [place], [place] [address] [place] [address] Care Team Providers Care Sales Representative Leather Goods Name Role Phone Rose Balderas MD Primary Care Provider +1- [phone] None, Provider Primary Care Provider Igor Wong DO Primary Care Provider Un available Jose Yip MD Primary Care Provider +1- [phone] Encounter Details Date Type Department Care Team [...] on file Legal Sex Male 10:43 PM UNLOADING CHECKER Gender Identity Not on file Sexual Orientation Not on file COVID-19 Exposure Response Date Recorded In the last month, have you been in contact with someone who was confirmed or suspected to have Coronavirus / COVID-19? No / Unsure 03/06/2020 12:54 PM UNLOADING CHECKER documented as of this encounter Plan of Treatment Not on file documented as of this encounter Visit Diagnoses Not on filedocumented in this encounter Care Teams Sales Representative Leather Goods Relationship Specialty Start Date End Date Rose Balderas MD PCP - General FAMILY PRACTICE 10/21/18 04/25/19 None, Sarah, PCP - General 04/26/19 04/27/19 Igor Castano DO PCP - General INTERNAL MEDICINE 04/28/19 12/26/19 Jose Yip MD [address] [place], [place] [id number] PCP - General INTERNAL MEDICINE 12/27/19 08/28/20 documented as of this encounter
--- OUTSIDE RECORDS SUMMARY | 2024-04-08 01:17 | XMS_ITS | Encounter Summary ---
Author Organization [facility] Address Critical access hospital6 [facility]. [place], [place] [address] [place] [address] Care Team Providers Care Temperature Control Inspector Name Role Phone Stan Castano DO Primary Care Provider Un available Reason for Referral * Consultation/Treatment (Routine) - Closed Specialty Diagnoses / Procedures Referred By Magda flood Referred To Contact Psychiatry Diagnoses Depression with anxiety Stan Castano DO [address] [address] Phone: tel: Referral ID Status Reason Start Date Expiration Date V isits Requested Visits Authorized [id number] Closed Specialty Services 04/28/2019 05/29/2020 99 99 NERY OPERATOR REFORMING UNIT Reason for Visit * Reason Comments Meet and Greet Provider Patient in offic e with mother to establish care. Abdominal Pain Abdominal pain on ri ght side. Encounter Details Date Type Department Care Team (Late st Contact Info) Description 04/28/2019 11:00 AM REFINERY OPERATOR REFORMING UNIT Office Visit [facility] Internal Medicine - [place] [address] [place] [address] Stan Castano DO Meet and Greet Provider [...] on file Legal Sex Male 10:43 PM REFINERY OPERATOR REFORMING UNIT Gender Identity Not on file Sexual Orientation Not on file documented as of this encounter Last Filed Vital Signs Vital Sign Reading Time Taken Comments Blood Pressure 118/82 04/28/2019 11:02 AM REFINERY OPERATOR REFORMING UNIT Pulse 126 04/28/2019 11:02 AM REFINERY OPERATOR REFORMING UNIT Temperature 36.7 ??C (98 ??F) 04/28/2019 11:02 AM REFINERY OPERATOR REFORMING UNIT Respiratory Rate 20 04/28/2019 11:02 AM REFINERY OPERATOR REFORMING UNIT Oxygen Saturation 98% 04/28/2019 11:02 AM REFINERY OPERATOR REFORMING UNIT Inhaled Oxygen Concentration - - Weight 49 kg (108 lb) 04/28/2019 11:02 AM REFINERY OPERATOR REFORMING UNIT Height - - Body Mass Index - - documented in this encounter Patient Instructions * Patient Instructions* Stan Castano DO - 04/28/2019 11:00 AM REFINERY OPERATOR REFORMING UNIT Patient Education Patient Education Marijuana Use and [...] in your town. Join social activities. Try holiness activities or do things with others. Be [...] again. Where can I learn more? National [place] on Drug Abuse http://www.drugabuse.gov/publications/drugfacts/marijuana National [place] on Drug Abuse https://www.drugabuse.gov/drugs-abuse/wrpejtss-ctsosl-xtbdv-charts#marijuana-can nabis- Last Reviewed Date 2017-11-24 Consumer Information [...] right for you. Copyright Copyright ?? 2019 [employer]. and its affiliates and/or licensors. All rights reserved. NERY OPERATOR REFORMING UNIT documented in this encounter Progress Notes * Victorino Gastelum MA - 04/28/2019 11:00 AM CSTAddended by: VICTORINO GASTELUM on: 05/02/2019 07:52 AM Modules accepted: Orders NERY OPERATOR REFORMING UNIT * Stan Castano DO - 04/28/2019 11:00 [...] 1 month for reevaluation. STAN CASTANO DO NERY OPERATOR REFORMING UNIT * Stan Castano DO - 04/28/2019 11:00 AM CST TSH,mg,cbc,lipase with no significant abnormalities. Calcium slightly low. Increase dietary calcium intake.(please order check of vitamin D- diagnosis -hypocalcemia) Total bilirubin slightly elevated. We will continue to monitor. ( Order recheck on hepatic functionpanel in 3 months) NERY OPERATOR REFORMING UNIT * Victorino Gastelum MA - 04/28/2019 11:00 AM CST Mailed letter. NERY OPERATOR REFORMING UNIT * Stan Castano DO - 04/28/2019 11:00 AM CST Positive to marijuana which we are aware and already discussed during visit. NERY OPERATOR REFORMING UNIT documented in this encounter Plan of Treatment Pending Results Name Type Priority Associated Diagnoses Date /Time EKG INTERPRET & REPORT PREVE EKG-NonRad Routine Sinus tachycardia 04/28/2019 12:08 PM REFINERY OPERATOR REFORMING UNIT Scheduled Referrals Name Type Priority Associated Diagnoses Orde r Schedule Ambulatory Referral to Psychiatry Referral Routine Depression with anxiety Ordered: 04/28/2019 documented as of this encounter Procedures Procedure Name Priority Date/Time Associated Diagnosis Comments DRUG MONITORING, PANEL 5, SCREEN (U) Routine 04/28/2019 12:10 PM REFINERY OPERATOR REFORMING UNIT Marijuana smoker Tobacco use TSH W/REFLEX Routine 04/28/2019 12:10 PM REFINERY OPERATOR REFORMING UNIT Sinus tachycardia COMPREHENSIVE METABOLIC PANEL Routine 04/28/2019 12:10 PM REFINERY OPERATOR REFORMING UNIT Right upper quadrant abdominal pain CBC, AUTO, NO DIFF Routine 04/28/2019 12 :10 PM REFINERY OPERATOR REFORMING UNIT Right upper quadrant abdominal pain MAGNESIUM Routine 04/28/2019 12:10 PM REFINERY OPERATOR REFORMING UNIT Sinus tachycardia LIPASE Routine 04/28/2019 12:10 PM REFINERY OPERATOR REFORMING UNIT Epigastric abdominal pain COLLECTION VENOUS BLOOD VENIPUNCTURE Routine 04/28/2019 12:09 PM REFINERY OPERATOR REFORMING UNIT Epigastric abdominal pain Sinus tachycardia Gastroesophageal reflux disease, esophagitis presence not specified Primary insomnia Depression with anxiety Marijuana smoker EKG INTERPRET & REPORT PREVE Routine 04/28/2019 12:08 PM REFINERY OPERATOR REFORMING UNIT Sinus tachycardia documented in this encounter Results * (ABNORMAL) PAIN MANAGEMENT 5 PROFILE WITHOUT CONFIRMATION, URINE (04/28/2019 12:10 PM REFINERY OPERATOR REFORMING UNIT) CREATININE RANDOM URINE 218.4 > or = [...] <100 ng/mL [facility] MA[facility]ONEYE Comment: [facility] ENGLISH Comment: See Note 1 Note [...] interpreting these drug results, please contact a [facility] Toxicology Specialist: [phone] ( ), M-F, 8am-6pm EST. 04/28/2019 12:1 0 PM REFINERY OPERATOR REFORMING UNIT 05/02/2019 6:08 AM REFINERY OPERATOR REFORMING UNIT Narrative Resulting Agency Comment Performing Organization Information: ?Site ID: CB ?Name: [email or web address] ?Address: [address] [place] [id number] ?Director: Keaton Connor M.D. us Stan Castano DO LABORATORY Final Res ult [facility] DESTINI LOKESH [facility] ENGL[facility] [address] [place] [address] * TSH W/REFLEX (04/28/2019 12:10 PM REFINERY OPERATOR REFORMING UNIT) TSH 1.854 0.516 - 4.130 uIU/ML 04/28/2019 7:57 PM REFINERY OPERATOR REFORMING UNIT [facility] 04/28/2019 12:1 0 PM REFINERY OPERATOR REFORMING UNIT Stan Castano DO LABORATORY Final Res ult [facility] [address] [place] [address], * (ABNORMAL) COMPREHENSIVE METABOLIC PANEL (04/28/2019 12:10 PM REFINERY OPERATOR REFORMING UNIT) SODIUM S/P/B 141 136 - 145 MMOL/L 04/28/2019 7:57 PM REFINERY OPERATOR REFORMING UNIT [facility] POTASSIUM S/P/B 4.6 3.5 - 5.1 MMOL/L 04/28/2019 7:57 PM REFINERY OPERATOR REFORMING UNIT [facility] CHLORIDE S/P/B 103 98 - 107 MMOL/L 04/28/2019 7:57 PM REFINERY OPERATOR REFORMING UNIT [facility] CO2 21.9 21 - 32 MMOL/L 04/28/2019 7:57 PM REFINERY OPERATOR REFORMING UNIT [facility] GLUCOSE 84 70 - 99 MG/DL 04/28/2019 7:57 PM REFINERY OPERATOR REFORMING UNIT [facility] BUN 21 6 - 24 MG/DL 04/28/2019 7:57 PM REFINERY OPERATOR REFORMING UNIT [facility] CREATININE S/P/B 0.94 0.70 - 1.30 MG/DL 04/28/2019 7:57 PM REFINERY OPERATOR REFORMING UNIT [facility] CALCIUM S/P/B 9.3(L) 9.5 - 10.4 MG/DL 04/28/2019 7:57 PM REFINERY OPERATOR REFORMING UNIT [facility] BILIRUBIN TOTAL S/P/B 1.2(H) 0.2 - 1.0 MG/DL 04/28/2019 7:57 PM [facility] ALKALINE PHOSPHATASE S/P/B 105 52 - 222 U/L 04/28/2019 7:57 PM [facility] AST 10(L) 15 - 37 U/L 04/28/2019 7:57 PM [facility] ALT 12(L) 16 - 63 U/L 04/28/2019 7:57 PM [facility] TOTAL PROTEIN S/P/B 7.7 6.4 - 8.2 G/DL 04/28/2019 7:57 PM [facility] ALBUMIN S/P/B 4.9 3.4 - 5.0 G/DL 04/28/2019 7:57 PM [facility] ANION GAP 16.1(H) 5 - 15 MMOL/L 04/28/2019 7:57 PM [facility] Comment:REFERENCE RANGE NOT ESTABLISHED OSMOLALITY (CALC) 294 MOSM/KG 04/28/2019 7:57 PM [facility] Comment:REFERENCE RANGE NOT ESTABLISHED EGFR NON-AFR. AMER. >90 >90 ML/MIN/1 .73 M2 04/28/2019 7:57 PM [facility] EGFR AFR. AMER. >90 >90 ML/MIN/1 .73 M2 04/28/2019 7:57 PM [facility] GFR NOTES THE ESTIMATED GFR IS CALCULATED USING THE 2009 CKD-EPI EQUATION. THE FOLLOWING CATEGORIES FOR GRADING RENAL FUNCTION ARE RECOMMENDED BY THE INTERNATIONAL SOCIETY OF NEPHROLOGY (KDIGO 2012 CLINICAL PRACTICE GUIDELINE). 04/28/2019 7:57 PM [facility] Comment: G1,NORMAL OR HIGH: >89 ml/min/1.73 m2 G2,MILDLY DECREASED: 60-89 ml/min/1.73 m2 G3A,MILDLY TO MODERATELY DECREASED: 45-59 ml/min/1.73 m2 G3B,MODERATELY TO SEVERELY DECREASED: 30-44 ml/min/1.73 m2 G4,SEVERELY DECREASED: 15-29 ml/min/1.73 m2 G5,KIDNEY FAILURE: <15 ml/min/1.73 m2 04/28/2019 12:1 0 PM REFINERY OPERATOR REFORMING UNIT [facility] LABORATORY Final Res ult Performing Organization Address City/[facility]/ZIP Co de Phone Number [facility] [address] [place] [address], [place] [phone] * MAGNESIUM (04/28/2019 12:10 PM REFINERY OPERATOR REFORMING UNIT) MAGNESIUM 1.9 1.8 - 2.4 MG/DL 04/28/2019 7:57 PM REFINERY OPERATOR REFORMING UNIT [facility] 04/28/2019 12:1 0 PM REFINERY OPERATOR REFORMING UNIT [facility] LABORATORY Final Res ult Performing Organization Address City/[facility]/ZIP Co de Phone Number [place] [address] [place] [address], [place] [phone] * (ABNORMAL) CBC, AUTO, NO DIFF (04/28/2019 12:10 PM REFINERY OPERATOR REFORMING UNIT) WBC 6.8 4.50 - 10.80 x10'3/uL 04/28/2019 7:03 PM [facility] RBC 4.63 4.50 - 6.10 x10'6/uL 04/28/2019 7:03 PM REFINERY OPERATOR REFORMING UNIT [facility] HGB 15.0 13.0 - 18.0 G/DL 04/28/2019 7:03 PM REFINERY OPERATOR REFORMING UNIT [facility] HCT 43.3 37.0 - 52.0 % 04/28/2019 7:03 PM REFINERY OPERATOR REFORMING UNIT [facility] MCV 93.5 78.0 - 100.0 FL 04/28/2019 7:03 PM [facility] MCH 32.4 25.0 - 35.0 PG 04/28/2019 7:03 PM REFINERY OPERATOR REFORMING UNIT [facility] MCHC 34.6 31.0 - 36.0 G/DL 04/28/2019 7:03 PM REFINERY OPERATOR REFORMING UNIT [facility] RDW 11.5 11.5 - 14.5 % 04/28/2019 7:03 PM REFINERY OPERATOR REFORMING UNIT [facility] PLT 342 150 - 350 x10'3/uL 04/28/2019 7:03 PM REFINERY OPERATOR REFORMING UNIT [facility] MPV 11.0(H) 7.4 - 10.4 FL 04/28/2019 7:03 PM REFINERY OPERATOR REFORMING UNIT [facility] 04/28/2019 12:1 0 PM REFINERY OPERATOR REFORMING UNIT [facility] LABORATORY Final Res ult Performing Organization Address City/[facility]/ZIP Co de Phone Number [facility] [place] [address] [place] [address], [place] [phone] * LIPASE (04/28/2019 12:10 PM REFINERY OPERATOR REFORMING UNIT) LIPASE 78 73 - 393 UNITS/L 04/28/2019 7:57 PM REFINERY OPERATOR REFORMING UNIT [facility] Comment:NEW INSTRUMENTATION. PLEASE NOTE NEW NORMAL RANGE. 04/28/2019 12:1 0 PM REFINERY OPERATOR REFORMING UNIT [facility] LABORATORY Final Res ult [facility] [place] [address] [place] [address], [place] [phone] documented in this encounter Visit Diagnoses Diagnosis [...] deficiency documented in this encounter Care Teams Temperature Control Inspector Relationship Specialty Start Date End Date Stan Castano DO PCP - General INTERNAL MEDICINE 04/28/19 12/26/19 documented as of this encounter
--- OUTSIDE RECORDS SUMMARY | 2024-04-08 01:18 | XMS_ITS | Encounter Summary ---
Author Organization [facility] Address [facility]ly [facility]. [place], [place] [address] [place] [address] Care Team Providers Care Social Media Director Name Role Phone Rose Balderas MD Primary Care Provider +1- [phone] None, Provider Primary Care Provider Igor Wong DO Primary Care Provider Un available Jose Yip MD Primary Care Provider +1- [phone] Reason for Visit * Reason Comments Image [...] on file Legal Sex Male 10:43 PM BURIAL VAULT MAKER Gender Identity Not on file Sexual Orientation Not on file COVID-19 Exposure Response Date Recorded In the last month, have you been in contact with someone who was confirmed or suspected to have Coronavirus / COVID-19? No / Unsure 03/06/2020 12:54 PM BURIAL VAULT MAKER documented as of this encounter Plan of [...] on filedocumented in this encounter Care Teams Social Media Director Relationship Specialty Start Date End Date Rose Balderas MD PCP - General FAMILY PRACTICE 10/21/18 04/25/19 None, MD Sarah PCP - General 04/26/19 04/27/19 Igor Castano DO PCP - General INTERNAL MEDICINE 04/28/19 12/26/19 Jose Yip MD [address] [place] [address] PCP - General INTERNAL MEDICINE 12/27/19 08/28/20 documented as of this encounter
--- OUTSIDE RECORDS SUMMARY | 2024-04-08 01:18 | XMS_ITS | Encounter Summary ---
Author Organization [facility] Address [facility]6 [facility]. [place], [place] [address] [place] [address] Care Team Providers Care Gin Feeder Name Role Phone Rose Balderas MD Primary Care Provider +1- [phone] None, Provider Primary Care Provider Igor Wong DO Primary Care Provider Un available Jose Yip MD Primary Care Provider +1- [phone] Encounter Details Date Type Department Care Team [...] file Legal Sex Male 10:43 PM MANAGER PRODUCT SUPPORT Gender Identity Not on file Sexual Orientation Not on file COVID-19 Exposure Response Date Recorded In the last month, have you been in contact with someone who was confirmed or suspected to have Coronavirus / COVID-19? No / Unsure 03/06/2020 12:54 PM MANAGER PRODUCT SUPPORT documented as of this encounter Plan of Treatment Not on file documented as of this encounter Visit Diagnoses Not on filedocumented in this encounter Care Teams Gin Feeder Relationship Specialty Start Date End Date Rose Balderas MD PCP - General FAMILY PRACTICE 10/21/18 04/25/19 None, Sarah, PCP - General 04/26/19 04/27/19 Igor Castano DO PCP - General INTERNAL MEDICINE 04/28/19 12/26/19 Jose Yip MD [address] [place], [place] [id number] PCP - General INTERNAL MEDICINE 12/27/19 08/28/20 documented as of this encounter
--- OUTSIDE RECORDS SUMMARY | 2024-04-08 01:18 | XMS_ITS | Encounter Summary ---
Author Organization [facility] Address Formerly [facility]6 [facility]. [place], [place] [address] [place] [address] Care Team Providers Care Classification Control Clerk Name Role Phone Rose Balderas MD Primary Care Provider +1- [phone] None, Provider Primary Care Provider Igor Wong DO Primary Care Provider Un available Jose Yip MD Primary Care Provider +1- [phone] Encounter Details Date Type Department Care Team [...] on file Legal Sex Male 10:43 PM UNIT SECRETARY Gender Identity Not on file Sexual Orientation Not on file COVID-19 Exposure Response Date Recorded In the last month, have you been in contact with someone who was confirmed or suspected to have Coronavirus / COVID-19? No / Unsure 03/06/2020 12:54 PM UNIT SECRETARY documented as of this encounter Plan of Treatment Not on file documented as of this encounter Visit Diagnoses Not on filedocumented in this encounter Care Teams Classification Control Clerk Relationship Specialty Start Date End Date Rose Balderas MD PCP - General FAMILY PRACTICE 10/21/18 04/25/19 None, Sarah, PCP - General 04/26/19 04/27/19 Igor Castano DO PCP - General INTERNAL MEDICINE 04/28/19 12/26/19 Jose Yip MD [address] [place], [place] [id number] PCP - General INTERNAL MEDICINE 12/27/19 08/28/20 documented as of this encounter
--- OUTSIDE RECORDS SUMMARY | 2024-04-08 01:18 | XMS_ITS | Encounter Summary ---
Author Organization [facility] Address [facility]. [place], [place] [address] [place] [address] Care Team Providers Care Chore Worker Name Role Phone Rose Balderas MD Primary Care Provider +1- [phone] None, Provider Primary Care Provider UnavailIgor Aguero DO Primary Care Provider Un available Jose Yip MD Primary Care Provider +1- [phone] Reason for Visit * Reason Comments Image [...] on file Legal Sex Male 10:43 PM SEAFOOD MANAGER Gender Identity Not on file Sexual Orientation Not on file COVID-19 Exposure Response Date Recorded In the last month, have you been in contact with someone who was confirmed or suspected to have Coronavirus / COVID-19? No / Unsure 03/06/2020 12:54 PM SEAFOOD MANAGER documented as of this encounter Plan [...] on filedocumented in this encounter Care Teams Chore Worker Relationship Specialty Start Date End Date Rose Balderas MD PCP - General FAMILY PRACTICE 10/21/18 04/25/19 None, MD Sarah PCP - General 04/26/19 04/27/19 Igor Castano DO PCP - General INTERNAL MEDICINE 04/28/19 12/26/19 Jose Yip MD [address] [place] [address] PCP - General INTERNAL MEDICINE 12/27/19 08/28/20 documented as of this encounter
--- OUTSIDE RECORDS SUMMARY | 2024-04-08 01:18 | XMS_ITS | Encounter Summary ---
Author Organization [facility] Address [address] [place] [address]. [place], [place] [address] [place] [address] Care Team Providers Care Projector Operator Name Role Phone Rose Balderas MD Primary Care Provider +1- [phone] None, Provider Primary Care Provider UnavailIgor Aguero DO Primary Care Provider Un available Jose Yip MD Primary Care Provider +1- [phone] Reason for Visit * Reason Comments Ultrasound [...] on file Legal Sex Male 10:43 PM TETRYL NITRATOR OPERATOR Gender Identity Not on file Sexual Orientation Not on file COVID-19 Exposure Response Date Recorded In the last month, have you been in contact with someone who was confirmed or suspected to have Coronavirus / COVID-19? No / Unsure 03/06/2020 12:54 PM TETRYL NITRATOR OPERATOR documented as of this encounter Plan [...] on filedocumented in this encounter Care Teams Projector Operator Relationship Specialty Start Date End Date Rose Balderas MD PCP - General FAMILY PRACTICE 10/21/18 04/25/19 None, Sarah, PCP - General 04/26/19 04/27/19 Igor Castano DO PCP - General INTERNAL MEDICINE 04/28/19 12/26/19 Jose Yip MD [address] [place] [address] PCP - General INTERNAL MEDICINE 12/27/19 08/28/20 documented as of this encounter
--- OUTSIDE RECORDS SUMMARY | 2024-04-08 01:18 | XMS_ITS | Encounter Summary ---
Author Organization [facility] Address [facility]6 [facility]. [place], [place] [address] [place] [address] Care Team Providers Care Block Making Machine Operator Name Role Phone Rose Balderas MD Primary Care Provider +1- [phone] None, Provider Primary Care Provider Igor Wong DO Primary Care Provider Un available Jose Yip MD Primary Care Provider +1- [phone] Encounter Details Date Type Department Care Team [...] on file Legal Sex Male 10:43 PM OBSERVATION ASSISTANT Gender Identity Not on file Sexual Orientation Not on file COVID-19 Exposure Response Date Recorded In the last month, have you been in contact with someone who was confirmed or suspected to have Coronavirus / COVID-19? No / Unsure 03/06/2020 12:54 PM OBSERVATION ASSISTANT documented as of this encounter Plan of Treatment Not on file documented as of this encounter Visit Diagnoses Not on filedocumented in this encounter Care Teams Block Making Machine Operator Relationship Specialty Start Date End Date Rose Balderas MD PCP - General FAMILY PRACTICE 10/21/18 04/25/19 None, Sarah, PCP - General 04/26/19 04/27/19 Igor Castano DO PCP - General INTERNAL MEDICINE 04/28/19 12/26/19 Jose Yip MD [address] [place], [place] [id number] PCP - General INTERNAL MEDICINE 12/27/19 08/28/20 documented as of this encounter
--- OUTSIDE RECORDS SUMMARY | 2024-04-08 01:18 | XMS_ITS | Encounter Summary ---
Author Organization [facility] Address [facility]. [place], [place] [address] [place] [address] Care Team Providers Care Director Life Name Role Phone Rose Balderas MD Primary Care Provider +1- [phone] None, Provider Primary Care Provider Igor Wong DO Primary Care Provider Un available Jose Yip MD Primary Care Provider +1- [phone] Encounter Details Date Type Department Care Team [...] on file Legal Sex Male 10:43 PM TRESTLE BUILDER Gender Identity Not on file Sexual Orientation Not on file COVID-19 Exposure Response Date Recorded In the last month, have you been in contact with someone who was confirmed or suspected to have Coronavirus / COVID-19? No / Unsure 03/06/2020 12:54 PM TRESTLE BUILDER documented as of this encounter Plan of Treatment Not on file documented as of this encounter Visit Diagnoses Not on filedocumented in this encounter Care Teams Director Life Relationship Specialty Start Date End Date Rose Balderas MD PCP - General FAMILY PRACTICE 10/21/18 04/25/19 None, Sarah, PCP - General 04/26/19 04/27/19 Igor Castano DO PCP - General INTERNAL MEDICINE 04/28/19 12/26/19 Jose Yip MD [address] [place], [place] [id number] PCP - General INTERNAL MEDICINE 12/27/19 08/28/20 documented as of this encounter
--- OUTSIDE RECORDS SUMMARY | 2024-04-08 01:18 | XMS_ITS | Encounter Summary ---
Author Organization [facility] Address [facility]. 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 No / Unsure 03/06/2020 12:54 PM SHOT CORE DRILL OPERATOR documented as of this encounter Plan of Treatment Not on file documented as of this encounter Visit Diagnoses Not on filedocumented in this encounter Care Teams Manager Math Relationship Specialty Start Date End Date Rose Balderas MD PCP - General FAMILY PRACTICE 10/21/18 04/25/19 None, Sarah, PCP - General 04/26/19 04/27/19 Igor Castano DO PCP - General INTERNAL MEDICINE 04/28/19 12/26/19 Jose Yip MD [address] [place], [place] [id number] PCP - General INTERNAL MEDICINE 12/27/19 08/28/20 documented as of this encounter
--- OUTSIDE RECORDS SUMMARY | 2024-04-08 01:18 | XMS_ITS | Encounter Summary ---
Author Organization [facility] Address [facility]. 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 No / Unsure 03/06/2020 12:54 PM FINANCE CLERK documented as of this encounter Plan of Treatment Not on file documented as of this encounter Visit Diagnoses Not on filedocumented in this encounter Care Teams Photographic Restorer Relationship Specialty Start Date End Date Rose Balderas MD PCP - General FAMILY PRACTICE 10/21/18 04/25/19 None, Sarah, PCP - General 04/26/19 04/27/19 Igor Castano DO PCP - General INTERNAL MEDICINE 04/28/19 12/26/19 Jose Yip MD [address] [place], [place] [id number] PCP - General INTERNAL MEDICINE 12/27/19 08/28/20 documented as of this encounter
--- OUTSIDE RECORDS SUMMARY | 2024-04-08 01:18 | XMS_ITS | Encounter Summary ---
Author Organization [facility] Address [address] [place] [address]. [place], [place] [address] [place] [address] Care Team Providers Care Supervisor Dry Paste Name Role Phone Rose Balderas MD Primary Care Provider +1- [phone] None, Provider Primary Care Provider Igor Wong [...] on file Legal Sex Male 10:43 PM ABSENCE MANAGEMENT CONSULTANT Gender Identity Not on file Sexual Orientation Not on file documented as of this encounter Plan of Treatment Not on file documented as of this encounter Visit Diagnoses Not on filedocumented in this encounter Care Teams Supervisor Dry Paste Relationship Specialty Start Date End Date Rose Balderas MD PCP - General FAMILY PRACTICE 10/21/18 04/25/19 None, ProviderMD PCP - General 04/26/19 04/27/19 Igor Castano DO PCP - General INTERNAL MEDICINE 04/28/19 12/26/19 documented as of this encounter
--- OUTSIDE RECORDS SUMMARY | 2024-04-08 01:18 | XMS_ITS | Encounter Summary ---
Author Organization [facility] Address [address] [place] [address]. 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
--- OUTSIDE RECORDS SUMMARY | 2024-04-08 01:24 | XMS_ITS | Continuity of Care Document ---
Author Organization [facility] Address [address] [place] [address] Phone Care Team Providers Care Mold Maker Helper Name Role Phone Unavailable Unavailable Unavailable Allergies, [...] on Encounter Mirna Lee, [address], [id number] , tel: [phone] [facility] No Information 0 No Information LIMITED VISIT- NEW PATIENT Mirna Lee, [address] [place], [id number] , tel: [phone] [facility] Fever (chief complaint) Fever, unspecified fever causeContact with and (suspected) exposure to other viral communicable diseases 0 No Information INTERMEDIATE VISIT EST PATIENT Mirna Lee, [address] [place], [place], [id number] , tel: [phone] [facility] Cough (PEDS) (chief complaint) Bronchitis 6 Linda Sarah. [address] [place], [address], [place]. tel:[phone] INTERMEDIATE VISIT EST PATIENT Mirna Lee, [address], [id number] , tel: [phone] [facility] Sore throat (chief complaint) SorethroatAcu te sinusitis, recurrence not specified, unspecified location 5 No Information Mirna Lee, [address] [place], [place], [id number] , tel: [phone] [facility] Sore throat 5 No Information INTERMEDIATE VISIT EST PATIENT Mirna Lee, [address] [place], [id number] , tel: [phone] [facility] Sore throat (chief complaint) Sore throatAcute bronchitis, unspecified organismEncou nter for immunization 5 No Information WELL EXAM/03-21 EST. PATIENT Mirna [facility], [address] [place], [id number] , [place] tel: [phone] [facility] (chief complaint) ROUTINE CHILD HEALTH EXAMScreening for hyperlipidemi aNeed for prophylactic vaccination and inoculation against viralhepatiti s 5 No Information [facility], [address], [place], [id number] , [place] tel: [phone] [facility] No Information 3 No Information Referring Provider: Jing Jacobson, [address] [place], [address]. tel: [phone] Provider: Express Nurse. INTERMEDIATE VISIT EST PATIENT Mirna [facility], [address], [place], [id number] , [place] tel: [phone] [facility] sore throat (chief complaint) PharyngitisNE ED FOR PROPHYLACTIC VACCINATION AND INOCULATION, OTHER VIRAL DISEASESNeed for prophylactic vaccination and inoculation against other specified single bacterial diseaseNEED FOR PROPHYLACTIC VACCINATION WITH COMBINED DIPHTHERIA-TE TANUS-PERTUSS IS (DTP) (DTAP) VACCINE 3 Rey Zayas. [address] [place], [address], [place]. tel:[phone] Referring Provider: Chana Le, [address] [place], [address]. tel:[phone] [facility], [address], [place], [id number] , [place] tel: [phone] Historic Immunization Location No Information 2 No Information [facility], [address], [place], [id number] , [place] tel: [phone] [facility] INJURY HAND 2 No Information [facility], [address], [place], [id number] , [place] tel: [phone] [facility] INJURY KNEE LEG FOOT ANKLE 2 Kavon Ch. [address] [place], [address], [place]. tel:[phone] Mirna Lee, [address] [place], [place], [id number] , [place] tel: [phone] [facility] RHINITIS ALLERGIC UNSPECIFIED 7 No Information Mirna Lee, [address] [place], [id number] , [place] tel: [phone] [facility] No Information 6 No Information Family History Family Member Type Diagnosis Age At Onset No Information Immunizations Vaccine Date Status Comments Hep A (ped/adol, 2 dose) administered Giselle rce: New Immunization Record Influenza, live, intranasal, quadrivalent administered Source: New Immuniza tion Record HPV administered Note: vis5/17/ 3 ; [...] Record Payers Payer name Insurance type Covered libertarian ID Authoriza tion(s) Medicaid [id number] Medicaid [place] [id number] Social History Type Description Quantity Date Captured [...] Future Order: Lab Order LIPID PA CARMEL ([id number]), Sent on: Sent History Of Present Illness Encounter Date Complaint History Of Prese nt Illness Fever Onset: on 2019. Maximum temperature = 102 deg. F. The status is resolved. Pertinent negatives include cough and difficulty breathing. Additional information: fever was only sx -which has resolved, but needs neg test before can RTW. Cough (PEDS) Onset: gradual. Severity: mild-moderate. The patient's mother describes the cough as productive (of clear sputum). It occurs occasionally. The problem has not changed. Context: smoke exposure. Associated symptoms include cough. Pertinent negatives include chills, dyspnea, dyspnea on exertion, fatigue, fever and nasal congestion. Cough (PEDS) (comments) States m ay have improved over the last day or so but has had cough for about a week. Sore throat Onset: 2 Weeks a go. Symptoms are not associated with exposure to strep or history of allergies. Associated symptoms include cough. Pertinent negatives include dyspnea and fever. Sore throat Onset: 2 Weeks a go. Symptoms are associated with history of allergies. Associated symptoms include chills/rigors, cough, dyspnea, headache, pharyngitis and rhinitis. Pertinent negatives include fever and otalgia. [facility] Feels well. [employer] minor in school forms [...] School forms complet ed. F/U 1 year [facility]. Related to ROUTINE CHILD HEALTH [...]
--- OUTSIDE RECORDS SUMMARY | 2024-04-08 01:24 | XMS_ITS | Continuity of Care Document ---
Author Organization [facility] Address [address] [place] [address] Phone Care Team Providers Care Business Development Recruiter Name Role Phone Sunil Avalos MD Unavailable Unavailable Allergies, Adverse Reactions, Alerts Substance Reaction Status Criticality Sulfa (Sulfonamide Antibiotics) (unknown) Active No Information Advance Directives Directive Yes / No Effective Date File Name No Information Encounters Encounter Description Practice Location Reason(s) For Visit Diagnoses Date Provider Providers Copied on Encounter [facility] [address], [place], [place], [id number], [place] tel:[phone] [facility] No Information Robbie Barber. [facility], [address] [place], [address], [place]. tel:[phone] Family History Family Member Type Diagnosis Age At Onset Maternal Aunt Problem (finding) Maternal history of di abetes mellitus Problem (finding) Cardiovascular Disease Mother Problem (finding) malignant neoplasm of c ervix uteri Mother Problem (finding) No History Of Macular D egeneration Payers Payer name Insurance type Covered green party ID Authoriza tion(s) No Information Social History [...]
== END 2024-04-01 02:24 | disposition home or self-care (01) ==
PROVIDERS: Emergency Provider Emergency Medicine; PCP Family Medicine
DX: L27.0 Generalized skin eruption due to drugs and medicaments taken internally (principal); R11.2 Nausea with vomiting, unspecified; T36.0X5A Adverse effect of penicillins, initial encounter; T36.1X5A Adverse effect of cephalosporins and other beta-lactam antibiotics, initial encounter; Z98.890 Other specified postprocedural states
CPT/HCPCS: 96372; 96374; 99284; J2919

== ENCOUNTER 2024-04-02 09:56 | Emergency (ER) | payer MEDICAID, SELFPAY ==
[2024-04-02 09:56] VITALS: BP 124/79; PULSE 94; RESP 18; TEMP 37.2; O2SAT 99
--- NOTE | 2024-04-02 10:09 | ED_ITS ---
HPI - General Adult General Chief complaint: Nausea/Vomiting/Diarrhea Stated complaint: vomiting Time Seen by Provider: 04/02/24 10:09 Source: patient Limitations: no limitations History of Present Illness HPI narrative: 24 years old white male started on prednisone yesterday because of anaphylactic shock, vomited once last night, and vomited once this morning with stomach burning sensation. Patient lives alone, been seen in our emergency room at least 7 times over the last 7 weeks for different symptoms History of obsessive-compulsive disorder Patient denies any fever, chills, diarrhea, constipation, chest pain, shortness of breath or skin rash or itching Related Data Allergies Allergy/AdvReac Type Severity Reaction Status Date / Time amoxicillin (From Augmentin) Allergy Redness of Verified 04/02/24 10:11 Skin clavulanic acid (From Allergy Redness of Verified 04/02/24 10:11 Augmentin) Skin Review of Systems Review of Systems: All systems reviewed & are unremarkable except as noted in HPI and below Exam Narrative: General appearance: Well-developed, well-nourished Skin: Normal color Head: Normocephalic, nontraumatic Eyes: Clear conjunctiva ENT: Oropharynx normal, ears normal, nose normal Neck: Supple, nontender Chest and respiratory: Airway patent, no respiratory distress, no accessory muscle use Heart: Regular rate/rhythm Abdomen: Soft, nontender, no organomegaly, quiet bowel sounds Vascular: Normal peripheral pulses, normal capillary refill. Musculoskeletal: Normal range of motion, nontender back Neurologic: Alert and oriented ?3, CARDIAC SPECIALIST is normal as tested, no gross motor d eficit Medical Decision Making [facility] Narrative Medical decision making narrative: anxiety like symptoms, gastritis, duodenitis, esophagitis is my concern secondary to anxiety, stress and prednisone Critical Care Time Critical Care Time Critical Care Time: No Discharge Plan Discharge Clinical Impression: Gastritis, Anxiety Patient Disposition: Home, Self-Care Condition: Stable Instructions: Gastritis (ED), Anxiety (ED) Additional Instructions: Return if symptoms are worsening , call your family physician for appointment, take Tylenol as as needed for aches and pain, continue home medications. Stop taking prednisone Patient Language: Burmese Prescriptions: New ondansetron 4 mg tablet,disintegrating 4 mg PO Q4H 0 Days Qty: 10 0RF Rx Instructions: give 1st dose 30min before emetogenic chemo famotidine [Pepcid AC] 20 mg tablet 40 mg PO DAILY Qty: 30 0RF No Action epinephrine [EpiPen 2-Krunal] 0.3 mg/0.3 mL auto-injector 0.3 mg IM ONCE PRN (Reason: hypersensitivity reaction) Qty: 2 0RF Rx Instructions: injected in the lateral anterior thigh at the site of an allergic reaction as a single dose; may repeat once Follow-up/Referrals: UNKNOWN,DOCTOR [Non-Staff] -
[2024-04-02] MEDS: MAG HYDROX/ALUMINUM HYD/SIMETH 30 ML, PHENobarb/HYOSCY/ATROPINE/SCOP 32.4 MG, LIDOCAINE... PO (10:29)
--- OUTSIDE RECORDS SUMMARY | 2024-04-09 06:19 | XMS_ITS | Encounter Summary ---
Author Organization [facility] Address [address] [place] [address]. [place] [address] [place] [address] Care Team Providers Care Gyroscopic Engineering Technician Name Role Phone Jose Yip MD Primary Care Provider +1- [phone] Reason for Visit * Reason Comments Prostate Problem not feeling well Encounter Details Date Type Department Care Team (Late st Contact Info) Description 03/06/2020 1:00 PM EVENT PROMOTER Office Visit [facility] Internal Medicine - [address] [address] Christina Pedro NP [address] [place] [address] Prostate Problem (not feeling well) Social History [...] on file Legal Sex Male 10:43 PM EVENT PROMOTER Gender Identity Not on file Sexual Orientation Not on file COVID-19 Exposure Response Date Recorded In the last month, have you been in contact with someone who was confirmed or suspected to have Coronavirus / COVID-19? No / Unsure 03/06/2020 12:54 PM EVENT PROMOTER documented as of this encounter Last Filed Vital Signs Vital Sign Reading Time Taken Comments Blood Pressure 121/71 03/06/2020 1:02 PM EVENT PROMOTER Pulse 80 03/06/2020 1:02 PM EVENT PROMOTER Temperature 37.1 ??C (98.7 ??F) 03/06/2020 1:02 PM CS T Respiratory Rate 18 03/06/2020 1:02 PM EVENT PROMOTER Oxygen Saturation 97% 03/06/2020 1:02 PM EVENT PROMOTER Inhaled Oxygen Concentration - - Weight 55.1 kg (121 lb 6.4 oz) 03/06/2020 1:02 P M EVENT PROMOTER Height 175.3 cm (5' 9 ) 03/06/2020 1:02 PM EVENT PROMOTER Body Mass Index 17.93 03/06/2020 1:02 PM EVENT PROMOTER documented in this encounter Progress Notes * [...] file Gets together: Not on file Attends jew service: Not on file Active member of [...] Exam Vitals signs and nursing note reviewed. Gun Fertilizer present: he declined a nurse management liaison for genital exam. Constitutional: General: He is [...] 6.4 oz) Height: 5' 9 (1.753 m) @[facility] Diagnoses/Impression: Encounter Diagnose(s) ICD-10-CM ICD-9-CM 1. Dysuria [...] Jose Yip MD at 03/06/2020 7:17 PM EVENT PROMOTER T PROMOTER T PROMOTER documented in this encounter Plan of Treatment Not on file documented as of this encounter Visit Diagnoses Diagnosis Dysuria- Primary Epididymitis, left Orchitis and epididymitis, unspecified documented in this encounter Care Teams Gyroscopic Engineering Technician Relationship Specialty Start Date End Date Jose Yip MD [address] [place] [address] PCP - General INTERNAL MEDICINE 12/27/19 08/28/20 documented as of this encounter
--- OUTSIDE RECORDS SUMMARY | 2024-04-09 06:19 | XMS_ITS | Encounter Summary ---
Author Organization [facility] Address [address] [place] [address]. [place], [place] [address] [place] [address] Care Team Providers Care Net Fisher Name Role Phone Igor Castano DO Primary Care Provider Un available Jose Yip MD Primary Care Provider +1- [phone] Encounter Details Date Type Department Care Team [...] on file Legal Sex Male 10:43 PM VICE PRESIDENT PROCESS Gender Identity Not on file Sexual Orientation Not on file COVID-19 Exposure Response Date Recorded In the last month, have you been in contact with someone who was confirmed or suspected to have Coronavirus / COVID-19? No / Unsure 03/06/2020 12:54 PM VICE PRESIDENT PROCESS documented as of this encounter Plan of Treatment Not on file documented as of this encounter Visit Diagnoses Not on filedocumented in this encounter Care Teams Net Fisher Relationship Specialty Start Date End Date Igor Castano DO PCP - General INTERNAL MEDICINE 04/28/19 12/26/19 Jose Yip MD [address] [place] [id number] PCP - General INTERNAL MEDICINE 12/27/19 08/28/20 documented as of this encounter
--- OUTSIDE RECORDS SUMMARY | 2024-04-09 06:19 | XMS_ITS | Encounter Summary ---
Author Organization [facility] Address [facility]. [place], [place] [address] [place] [address] Care Team Providers Care Hotel Service Supervisor Name Role Phone Rose Balderas MD Primary Care Provider +1- [phone] None, Provider Primary Care Provider Igor Wong DO Primary Care Provider Un available Jose Yip MD Primary Care Provider +1- [phone] Encounter Details Date Type Department Care Team [...] on file Legal Sex Male 10:43 PM STONEHAND Gender Identity Not on file Sexual Orientation Not on file COVID-19 Exposure Response Date Recorded In the last month, have you been in contact with someone who was confirmed or suspected to have Coronavirus / COVID-19? No / Unsure 03/06/2020 12:54 PM STONEHAND documented as of this encounter Plan of Treatment Not on file documented as of this encounter Visit Diagnoses Not on filedocumented in this encounter Care Teams Hotel Service Supervisor Relationship Specialty Start Date End Date Rose Balderas MD PCP - General FAMILY PRACTICE 10/21/18 04/25/19 None, Sarah, PCP - General 04/26/19 04/27/19 Igor Castano DO PCP - General INTERNAL MEDICINE 04/28/19 12/26/19 Jose Yip MD [address] [place], [place] [id number] PCP - General INTERNAL MEDICINE 12/27/19 08/28/20 documented as of this encounter
--- OUTSIDE RECORDS SUMMARY | 2024-04-09 06:19 | XMS_ITS | Encounter Summary ---
Author Organization [facility] Address [address] [place] [address]. [place], [place] [address] [place] [address] Care Team Providers Care Senior Construction Estimator Name Role Phone Igor Castano DO Primary Care Provider Un available Jose Yip MD Primary Care Provider +1- [phone] Reason for Visit * Reason Comments Lab [...] on file Legal Sex Male 10:43 PM THERAPY TECHNICIAN Gender Identity Not on file Sexual Orientation Not on file COVID-19 Exposure Response Date Recorded In the last month, have you been in contact with someone who was confirmed or suspected to have Coronavirus / COVID-19? No / Unsure 03/06/2020 12:54 PM THERAPY TECHNICIAN documented as of this encounter Plan of Treatment Not on file documented as of this encounter Procedures Procedure Name Priority Date/Time Associated Diagnosis Comments OUTSIDE LAB (SCAN ORDER) Routine 05/23/2019 documented in this encounter Results * OUTSIDE LAB (05/23/2019) 05/23/2019 us Documents Scanned SCANNING Final Result [facility] ONBASE documented in this encounter Visit Diagnoses Not on filedocumented in this encounter Care Teams Senior Construction Estimator Relationship Specialty Start Date End Date Igor Castano DO PCP - General INTERNAL MEDICINE 04/28/19 12/26/19 Jose Yip MD [address] [place], [place] [id number] PCP - General INTERNAL MEDICINE 12/27/19 08/28/20 documented as of this encounter
--- OUTSIDE RECORDS SUMMARY | 2024-04-09 06:19 | XMS_ITS | Encounter Summary ---
Author Organization [facility] Address [facility]6 [facility]. [place], [place] [address] [place] [address] Care Team Providers Care Engineering Group Manager Name Role Phone Rose Balderas MD Primary Care Provider +1- [phone] None, Provider Primary Care Provider Igor Wong DO Primary Care Provider Un available Jose Yip MD Primary Care Provider +1- [phone] Encounter Details Date Type Department Care Team [...] on file Legal Sex Male 10:43 PM THERMOCOUPLE TESTER Gender Identity Not on file Sexual Orientation Not on file COVID-19 Exposure Response Date Recorded In the last month, have you been in contact with someone who was confirmed or suspected to have Coronavirus / COVID-19? No / Unsure 03/06/2020 12:54 PM THERMOCOUPLE TESTER documented as of this encounter Plan of Treatment Not on file documented as of this encounter Visit Diagnoses Not on filedocumented in this encounter Care Teams Engineering Group Manager Relationship Specialty Start Date End Date Rose Balderas MD PCP - General FAMILY PRACTICE 10/21/18 04/25/19 None, Sarah, PCP - General 04/26/19 04/27/19 Igor Castano DO PCP - General INTERNAL MEDICINE 04/28/19 12/26/19 Jose Yip MD [address] [place], [place] [id number] PCP - General INTERNAL MEDICINE 12/27/19 08/28/20 documented as of this encounter
--- OUTSIDE RECORDS SUMMARY | 2024-04-09 06:19 | XMS_ITS | Encounter Summary ---
Author Organization [facility] Address [facility]6 [facility]. [place], [place] [address] [place] [address] Care Team Providers Care Wire Products Inspector Name Role Phone Rose Balderas MD Primary Care Provider +1- [phone] None, Provider Primary Care Provider Igor Wong DO Primary Care Provider Un available Jose Yip MD Primary Care Provider +1- [phone] Encounter Details Date Type Department Care Team [...] on file Legal Sex Male 10:43 PM WILDLIFE AND GAME PROTECTOR Gender Identity Not on file Sexual Orientation Not on file COVID-19 Exposure Response Date Recorded In the last month, have you been in contact with someone who was confirmed or suspected to have Coronavirus / COVID-19? No / Unsure 03/06/2020 12:54 PM WILDLIFE AND GAME PROTECTOR documented as of this encounter Plan of Treatment Not on file documented as of this encounter Visit Diagnoses Not on filedocumented in this encounter Care Teams Wire Products Inspector Relationship Specialty Start Date End Date Rose Balderas MD PCP - General FAMILY PRACTICE 10/21/18 04/25/19 None, Sarah, PCP - General 04/26/19 04/27/19 Igor Castano DO PCP - General INTERNAL MEDICINE 04/28/19 12/26/19 Jose Yip MD [address] [place], [place] [id number] PCP - General INTERNAL MEDICINE 12/27/19 08/28/20 documented as of this encounter
--- OUTSIDE RECORDS SUMMARY | 2024-04-09 06:19 | XMS_ITS | Encounter Summary ---
Author Organization [facility] Address [address] [place] [address]. [place], [place] [address] [place] [address] Care Team Providers Care Welding Machine Operator/Tender Name Role Phone Rose Balderas MD Primary Care Provider +1- [phone] None, Provider Primary Care Provider UnavailIgor Aguero DO Primary Care Provider Un available Jose Yip MD Primary Care Provider +1- [phone] Reason for Visit * Reason Comments Ultrasound [...] on file Legal Sex Male 10:43 PM MILK DRIER Gender Identity Not on file Sexual Orientation Not on file COVID-19 Exposure Response Date Recorded In the last month, have you been in contact with someone who was confirmed or suspected to have Coronavirus / COVID-19? No / Unsure 03/06/2020 12:54 PM MILK DRIER documented as of this encounter Plan of [...] on filedocumented in this encounter Care Teams Welding Machine Operator/Tender Relationship Specialty Start Date End Date Rose Balderas MD PCP - General FAMILY PRACTICE 10/21/18 04/25/19 None, Sarah, PCP - General 04/26/19 04/27/19 Igor Castano DO PCP - General INTERNAL MEDICINE 04/28/19 12/26/19 Jose Yip MD [address] [place] [address] PCP - General INTERNAL MEDICINE 12/27/19 08/28/20 documented as of this encounter
--- OUTSIDE RECORDS SUMMARY | 2024-04-09 06:19 | XMS_ITS | Encounter Summary ---
Author Organization [facility] Address [facility], [facility]6 [facility]. 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 No / Unsure 03/06/2020 12:54 PM PACKAGE LINER documented as of this encounter Plan of Treatment Not on file documented as of this encounter Visit Diagnoses Not on filedocumented in this encounter Care Teams Counselor At Law Relationship Specialty Start Date End Date Rose Balderas MD PCP - General FAMILY PRACTICE 10/21/18 04/25/19 None, Sarah, PCP - General 04/26/19 04/27/19 Igor Castano DO PCP - General INTERNAL MEDICINE 04/28/19 12/26/19 Jose Yip MD [address] [place] [address] [place], [place] [id number] PCP - General INTERNAL MEDICINE 12/27/19 08/28/20 documented as of this encounter
--- OUTSIDE RECORDS SUMMARY | 2024-04-09 06:19 | XMS_ITS | Encounter Summary ---
Author Organization [facility] Address [address] [place] [address]. 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 [place] [address] PCP - General INTERNAL MEDICINE 12/27/19 08/28/20 documented as of this encounter
--- OUTSIDE RECORDS SUMMARY | 2024-04-09 06:19 | XMS_ITS | Encounter Summary ---
Author Organization [facility] Address [address] [place] [address]. 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 No / Unsure 03/06/2020 12:54 PM EDUCATIONAL SPECIALIST documented as of this encounter Plan of Treatment Not on file documented as of this encounter Visit Diagnoses Not on filedocumented in this encounter Care Teams Processing Supervisor Relationship Specialty Start Date End Date Igor Castano DO PCP - General INTERNAL MEDICINE 04/28/19 12/26/19 Jose Yip MD [address] [id number] PCP - General INTERNAL MEDICINE 12/27/19 08/28/20 documented as of this encounter
--- OUTSIDE RECORDS SUMMARY | 2024-04-09 06:19 | XMS_ITS | Encounter Summary ---
Author Organization [facility] Address [facility]6 [facility]. 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 No / Unsure 03/06/2020 12:54 PM PHYSICAL THERAPY AIDES TEACHER documented as of this encounter Plan [...] on filedocumented in this encounter Care Teams Coating And Embossing Unit Operator Relationship Specialty Start Date End Date Rose Balderas MD PCP - General FAMILY PRACTICE 10/21/18 04/25/19 None, MD Sarah PCP - General 04/26/19 04/27/19 Igor Castano DO PCP - General INTERNAL MEDICINE 04/28/19 12/26/19 Jose Yip MD [address] [place] [address] PCP - General INTERNAL MEDICINE 12/27/19 08/28/20 documented as of this encounter
--- OUTSIDE RECORDS SUMMARY | 2024-04-09 06:19 | XMS_ITS | Encounter Summary ---
Author Organization [facility] Address [facility]6 [facility]. 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 No / Unsure 03/06/2020 12:54 PM SENIOR SERVICE AIDE documented as of this encounter Plan of Treatment Not on file documented as of this encounter Visit Diagnoses Not on filedocumented in this encounter Care Teams Engine Lathe Set Up Operator Tool Relationship Specialty Start Date End Date Rose Balderas MD PCP - General FAMILY PRACTICE 10/21/18 04/25/19 None, Sarah, PCP - General 04/26/19 04/27/19 Igor Castano DO PCP - General INTERNAL MEDICINE 04/28/19 12/26/19 Jose Yip MD [address] [place], [place] [id number] PCP - General INTERNAL MEDICINE 12/27/19 08/28/20 documented as of this encounter
--- OUTSIDE RECORDS SUMMARY | 2024-04-09 06:19 | XMS_ITS | Encounter Summary ---
Author Organization [facility] Address [facility]6 [facility]. 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 No / Unsure 03/06/2020 12:54 PM SANDFILL OPERATOR SURFACE documented as of this encounter Plan of Treatment Not on file documented as of this encounter Visit Diagnoses Not on filedocumented in this encounter Care Teams Lacquer Dipping Machine Operator Relationship Specialty Start Date End Date Rose Balderas MD PCP - General FAMILY PRACTICE 10/21/18 04/25/19 None, Sarah, PCP - General 04/26/19 04/27/19 Igor Castano DO PCP - General INTERNAL MEDICINE 04/28/19 12/26/19 Jose Yip MD [address] [place], [place] [id number] PCP - General INTERNAL MEDICINE 12/27/19 08/28/20 documented as of this encounter
--- OUTSIDE RECORDS SUMMARY | 2024-04-09 06:19 | XMS_ITS | Encounter Summary ---
Author Organization [facility] Address [address] [place] [address]. [place], [place] [address] [place] [address] Care Team Providers Care Collection Technician Name Role Phone Igor Castano DO Primary Care Provider Un available Reason for Referral * Imaging (Emergency) - Closed Specialty Diagnoses / Procedures Referred By Magda flood Referred To Contact RADIOLOGY Procedures US ABD LIMITED Erica Wright NP Phone: tel: fax: Referral ID Status Reason Start Date Expiration Date Visits Re quested Visits Authorized [id number] Closed 05/01/2019 06/01/2020 1 1 INSPECTOR Reason for Visit * Reason Comments Abdominal Pain Nausea Encounter Details Date Type Department Care Team (Late st Contact Info) Description 05/01/2019 12:43 PM WOOD INSPECTOR - 05/01/2019 2:50 PM WOOD INSPECTOR Emergency [facility] Emergency [address] [place] [address] Erica Wright NP [address] [place], [place] [address] Abdominal Pain; Nausea Discharge Disposition: Home or [...] on file Legal Sex Male 10:43 PM WOOD INSPECTOR Gender Identity Not on file Sexual Orientation Not on file documented as of this encounter Last Filed Vital Signs Vital Sign Reading Time Taken Comments Blood Pressure 132/68 05/01/2019 11:36 AM WOOD INSPECTOR Pulse 91 05/01/2019 11:36 AM WOOD INSPECTOR Temperature 36.2 ??C (97.2 ??F) 05/01/2019 1 1:36 AM WOOD INSPECTOR Respiratory Rate 16 05/01/2019 11:3 6 AM WOOD INSPECTOR Oxygen Saturation 99% 05/01/2019 11: 36 AM WOOD INSPECTOR Inhaled Oxygen Concentration - - Weight 47.3 kg (104 lb 4.4 oz) 05/01/19 20 11:36 AM WOOD INSPECTOR Height 175.3 cm (5' 9 ) 05/01/2019 11:3 6 AM WOOD INSPECTOR Body Mass Index 15.4 05/01/2019 11:36 AM WOOD INSPECTOR Body Mass Index Percentile 0.01% 05/01 11:36 AM WOOD INSPECTOR Growth Chart: [facility] (Boys, 2-2 0 Years) documented in this encounter Discharge Instructions * Discharge Instructions* Erica Willett NP - 05/01/2019 2:43 PM WOOD INSPECTOR 1. Avoid foods such as chocolate, tomatoes, [...] read and follow additional written instructions provided. INSPECTOR * Attachments The following attachments cannot be sent through Care Everywhere. * Nausea and Vomiting Discharge Instructions, Adult (Kyrgyz) * Severe Abdominal Pain Discharge Instructions, Adult (Kyrgyz) documented in this encounter Medications at Time [...] micro regarding flu swab sent, no answer. INSPECTOR * Erica Willett NP - 05/01/2019 12:46 [...] Range COLOR LIGHT YELLOW TRANSPARENCY CLEAR Specific [place] (U) 1.010 1.002 - 1.035 U PH [...] US ABD LIMITED Final Result by User, [id number] (05/01 1423) Examination: Abdominal ultrasound, limited. Clinical [...] are normal. ASCITES: None. US ABD LIMITED [TYAR] 1445 Updated regarding findings and discharged home [...] 05/01/19, 13:21. Follow-up: Igor Castano DO [address] [facility] [id number] Go on 05/02/2019 As needed, If symptoms [...] Theresa Murillo MD at 05/01/2019 4:16 PM WOOD INSPECTOR INSPECTOR INSPECTOR * Angela Le RN - 05/01/2019 11:33 AM CST Pt presents to ED per pov. Pt complains of upper mid abd pain x2 weeks. States he gets 'attacks' and the pain increases. Reports feeling nauseated w/o vomiting. INSPECTOR documented in this encounter Plan of Treatment Not on file documented as of this encounter Procedures Procedure Name Priority Date/Time Associated Diagnosis Comments US ABD LIMITED STAT 05/01/2019 2:07 PM WOOD INSPECTOR HC URINALYSIS AUTO W/MICRO Nurse Collected Priority 05/01/2019 1:27 PM WOOD INSPECTOR URINE BACTERIA CULTURE Nurse Collected Priority 05/01/2019 1:19 PM WOOD INSPECTOR INFLUENZA A & B Nurse Collected Priority 05/01/2019 1:08 PM WOOD INSPECTOR BASIC METABOLIC PANEL STAT 05/01/2019 1:06 PM WOOD INSPECTOR HETEROPHILE ANTIBODIES,SCREEN STAT 05/01/2019 1:06 PM WOOD INSPECTOR HEPATIC FUNCTION PANEL STAT 05/01/2019 1:06 PM WOOD INSPECTOR CBC W/DIFF AUTOMATED STAT 05/01/2019 1:06 PM WOOD INSPECTOR LIPASE STAT 05/01/2019 1:06 PM WOOD INSPECTOR documented in this encounter Results * US ABD LIMITED (05/01/2019 2:07 PM WOOD INSPECTOR) Anatomical Region Laterality Modality Abdomen Ultrasound 05/01/2019 2:21 PM WOOD INSPECTOR Impressions 05/01/2019 2:23 PM WOOD INSPECTOR Impression: Normal examination. Interpreted By: Thad Ramon MD, 05/01/2019 2:21 PM Narrative 05/01/2019 2:23 PM WOOD INSPECTOR Examination: Abdominal ultrasound, limited. Clinical Information: Right [...] esult * (ABNORMAL) URINALYSIS (05/01/2019 1:27 PM WOOD INSPECTOR) COLOR (U) LIGHT YELLOW 05/01/2019 1:34 PM WOOD INSPECTOR [facility] TRANSPARENCY CLEAR 05/01/2019 1:34 PM WOOD INSPECTOR [facility] SPECIFIC GRAVITY (U) 1.010 1.002 - 1.035 05/01/2019 1:34 PM WOOD INSPECTOR [facility] U PH 7.0 5 - 8 05/01/2019 1:34 PM WOOD INSPECTOR [facility] PROTEIN (U) NEGATIVE NEGATIVE 05/01/2019 1:34 PM WOOD INSPECTOR [facility] URINE GLUCOSE NEGATIVE NEGATIVE MG/DL 05/01/2019 1:34 PM WOOD INSPECTOR [facility] KETONES MG/DL (U) 20(A) NEGATIVE 05/01/2019 1:34 PM WOOD INSPECTOR [facility] BILIRUBIN (U) NEGATIVE NEGATIVE 05/01/2019 1:34 PM WOOD INSPECTOR [facility] BLOOD (U) NEGATIVE NEGATIVE 05/01/2019 1:34 PM WOOD INSPECTOR [facility] NITRITES NEGATIVE NEGATIVE 05/01/2019 1:34 PM [facility] UROBILINOGEN NORMAL 0 - 1 EU/DL 05/01/2019 1:34 PM WOOD INSPECTOR [facility] LEUKOCYTES (U) NEGATIVE NEGATIVE 05/01/2019 1:34 PM WOOD INSPECTOR [facility] RBC/HPF NONE 0 - 3 /HPF 05/01/2019 1:34 PM [facility] WBC/HPF NONE 0 - 6 /HPF 05/01/2019 1:34 PM [facility] BACTERIA (U) NONE /HPF 05/01/2019 1:34 PM [facility] URINE SPECIMEN OBTAINED BY CLEAN CATCH PROCEDURE / Unknown 05/01/2019 1:27 PM WOOD INSPECTOR Erica Malhotra NP URINE ORDERABLES Final Result [facility] [address] [place] [address], [id number] * CULTURE URINE (05/01/2019 1:19 PM WOOD INSPECTOR) SPEC DESCRIPTION URINE CLEAN CATCH 05/01/2019 1:19 PM WOOD INSPECTOR [facility] SPECIAL REQUESTS NO SPECIAL REQUEST 05/01/2019 1:19 PM WOOD INSPECTOR [facility] CULTURE RESULT NO GROWTH (< OR = 1,000 CFU/ML) 05/02/2019 3:51 AM WOOD INSPECTOR [facility] URINE SPECIMEN OBTAINED BY CLEAN CATCH PROCEDURE / Unknown 05/01/2019 1:19 PM WOOD INSPECTOR 05/01/2019 1:43 PM WOOD INSPECTOR us Erica Malhotra NP MICROBIOLOGY - GENERAL ORDERABLES Final Result Performing Organization Address [facility] de Phone Number [facility] [address] [place] [address], [place] [phone] * INFLUENZA A & B (05/01/2019 1:08 PM WOOD INSPECTOR) SPEC DESCRIPTION NASAL 05/01/2019 1:08 PM WOOD INSPECTOR [facility] SPECIAL REQUESTS NO SPECIAL REQUEST 05/01/2019 1:08 PM WOOD INSPECTOR [facility] RESULT NEGATIVE FOR INFLUENZA A & B VIRUS ANTIGEN 05/01/2019 2:07 PM WOOD INSPECTOR [facility] SPECIMEN FROM INTERNAL NOSE / Unknown 05/01/2019 1:08 PM WOOD INSPECTOR 05/01/2019 1:45 PM WOOD INSPECTOR us Erica Malhotra NP MICROBIOLOGY - GENERAL ORDERABLES Final Result Performing Organization Address [facility] de Phone Number [facility] [address] [place] [address], [place] [phone] * HETEROPHILE ANTIBODIES,SCREEN (05/01/2019 1:06 PM WOOD INSPECTOR) MONO TEST NEGATIVE NEGATIVE 05/01/2019 1:49 PM WOOD INSPECTOR [facility] 05/01/2019 1:06 PM WOOD INSPECTOR us Erica Malhotra NP LABORATORY Final R esult Performing Organization Address [facility] Co de Phone Number [facility] [address] [place] [address], [place] [phone] * LIPASE (05/01/2019 1:06 PM WOOD INSPECTOR) [facility] LIPASE 80 73 - 393 UNITS/L 05/01/2019 1:47 PM WOOD INSPECTOR [facility] 05/01/2019 1:06 PM WOOD INSPECTOR Erica Malhotra NP LABORATORY Final R esult [facility] [address] [place] [address], [id number] * (ABNORMAL) HEPATIC FUNCTION PANEL (05/01/2019 1:06 PM WOOD INSPECTOR) [facility] BILIRUBIN TOTAL S/P/B 1.0 0.2 - 1.0 MG/DL 05/01/2019 1:47 PM [facility] BILIRUBIN DIRECT S/P/B 0.3(H) 0.0 - 0.2 MG/DL 05/01/2019 1:47 PM WOOD INSPECTOR [facility] ALKALINE PHOSPHATASE S/P/B 111 52 - 222 U/L 05/01/2019 1:47 PM WOOD INSPECTOR [facility] AST 10(L) 15 - 37 U/L 05/01/2019 1:47 PM [facility] ALT 14(L) 16 - 61 U/L 05/01/2019 1:47 PM WOOD INSPECTOR [facility] TOTAL PROTEIN S/P/B 7.8 6.4 - 8.2 G/DL 05/01/2019 1:47 PM WOOD INSPECTOR [facility] ALBUMIN S/P/B 4.7 3.4 - 5.0 G/DL 05/01/2019 1:47 PM WOOD INSPECTOR [facility] 05/01/2019 1:06 PM WOOD INSPECTOR Erica Travis Voigts EXPLOSIVES DETONATOR LABORATORY Final R esult [facility] [address] [place] [address], [id number] * (ABNORMAL) BASIC METABOLIC PANEL (05/01/2019 1:06 PM WOOD INSPECTOR) SODIUM S/P/B 135(L) 136 - 145 MMOL/L 05/01/2019 1:47 PM [facility] POTASSIUM S/P/B 3.8 3.5 - 5.1 MMOL/L 05/01/2019 1:47 PM [facility] CHLORIDE S/P/B 104 98 - 107 MMOL/L 05/01/2019 1:47 PM [facility] CO2 23.1 21.0 - 32.0 MMOL/L 05/01/2019 1:47 PM [facility] GLUCOSE 88 74 - 106 MG/DL 05/01/2019 1:47 PM [facility] BUN 17 7 - 18 MG/DL 05/01/2019 1:47 PM [facility] CREATININE S/P/B 0.95 0.70 - 1.30 MG/DL 05/01/2019 1:47 PM [facility] CALCIUM S/P/B 9.2 8.5 - 10.1 MG/DL 05/01/2019 1:47 PM [facility] ANION GAP 7.9 5.0 - 15.0 MMOL/L 05/01/2019 1:47 PM [facility] Comment:REFERENCE RANGE NOT ESTABLISHED OSMOLALITY (CALC) 281 MOSM/KG 020 1:47 PM [facility] Comment:REFERENCE RANGE NOT ESTABLISHED EGFR NON-AFR. AMER. >90 >90 ML/MIN/1. 73 M2 05/01/2019 1:47 PM [facility] EGFR AFR. AMER. >90 >90 ML/MIN/1. 73 M2 05/01/2019 1:47 PM [facility] GFR NOTES GFR REFERENCE S: 05/01/2019 1:47 PM WOOD INSPECTOR [facility] Comment: THE ESTIMATED GFR IS CALCULATED [...] FAILURE: <15 ml/min/1.73 m2 05/01/2019 1:06 PM WOOD INSPECTOR Erica Malhotra NP LABORATORY Final R esult [facility] [address] [place] [address], [id number] * (ABNORMAL) CBC W/DIFF AUTOMATED (05/01/2019 1:06 PM WOOD INSPECTOR) WBC 5.7 4.0 - 10.8 x10'3/uL 05/01/2019 1:17 PM WOOD INSPECTOR [facility] RBC 4.61 4.50 - 6.10 x10'6/uL 05/01/2019 1:17 PM WOOD INSPECTOR [facility] HGB 14.9 13.0 - 18.0 G/DL 05/01/2019 1:17 PM WOOD INSPECTOR [facility] HCT 43.0 37.0 - 52.0 % 05/01/2019 1:17 PM WOOD INSPECTOR [facility] MCV 93.3 78.0 - 100.0 FL 05/01/2019 1:17 PM WOOD INSPECTOR [facility] MCH 32.3(H) 27.0 - 31.0 PG 05/01/2019 1:17 PM WOOD INSPECTOR [facility] MCHC 34.7 33.0 - 36.0 G/DL 05/01/2019 1:17 PM [facility] RDW 11.6 11.5 - 14.5 % 05/01/2019 1:17 PM [facility] PLT 288 150 - 350 x10'3/uL 05/01/2019 1:17 PM [facility] MPV 10.5(H) 7.4 - 10.4 FL 05/01/2019 1:17 PM WOOD INSPECTOR [facility] ABS. NEUTROPHILS TOTAL 2.66 1.60 - 8.30 x10'3/uL 05/01/2019 1:17 PM WOOD INSPECTOR [facility] ABS. LYMPHOCYTES 2.29 0.80 - 4.70 x10'3/uL 05/01/2019 1:17 PM [facility] ABS. MONOCYTES 0.40 0.00 - 1.50 x10'3/uL 05/01/2019 1:17 PM WOOD INSPECTOR [facility] ABS. EOSINOPHILS 0.29 0.00 - 0.40 x10'3/uL 05/01/2019 1:17 PM WOOD INSPECTOR [facility] ABS. BASOPHILS 0.01 0.00 - 0.20 x10'3/uL 05/01/2019 1:17 PM [facility] ABS. IMMATURE GRANULOCYTES 0.01 0.00 - 0.03 x10'3/uL 05/01/2019 1:17 PM WOOD INSPECTOR [facility] ABS. NUCLEATED RBC'S 0.00 0.0 x10'3/uL 05/01/2019 1:17 PM [facility] 05/01/2019 1:06 PM WOOD INSPECTOR Erica Malhotra NP LABORATORY Final R esult [facility] [address] [place] [address], [id number] documented in this encounter Visit Diagnoses Diagnosis [...] over 15 seconds. Given 05/01/2019 1:09 PM WOOD INSPECTOR 15 mg sodium chloride 0.9% bolus infusion SOLN 1,000 mL 1,000 mL, Intravenous, Administer over 60 Minutes, Once, 1 dose, On Wed05/01/19 at 1300 New Bag 05/01/2019 1:09 PM WOOD INSPECTOR 1,000 mLs documented in this encounter Active and Recently Administered Medications Times are shown in WOOD INSPECTOR. Scheduled Medication Order 04/29/2019 04/30/2019 05/01/2019 ketorolac [...] RN) documented in this encounter Care Teams Collection Technician Relationship Specialty Start Date End Date Igor Castano DO PCP - General INTERNAL MEDICINE 04/28/19 12/26/19 documented as of this encounter
--- OUTSIDE RECORDS SUMMARY | 2024-04-09 06:19 | XMS_ITS | Encounter Summary ---
Author Organization [facility] Address [address] [place] [address]. 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 No / Unsure 03/06/2020 12:54 PM ORNAMENTAL METAL WORKER documented as of this encounter Plan [...] on filedocumented in this encounter Care Teams Therapeutic Specialist Relationship Specialty Start Date End Date Igor Castano DO PCP - General INTERNAL MEDICINE 04/28/19 12/26/19 Jose Yip MD [address] [place] [address] PCP - General INTERNAL MEDICINE 12/27/19 08/28/20 documented as of this encounter
--- OUTSIDE RECORDS SUMMARY | 2024-04-09 06:19 | XMS_ITS | Encounter Summary ---
Author Organization [facility] Address [address] [place] [address]. [place] [address] [place] [address] Care Team Providers Care Photonics Engineer Name Role Phone Igor Castano DO Primary Care Provider Un available Reason for Visit * Reason Onset Date Comments Appointment Request 11/01/2019 Encounter Details Date Type Department Care Team (Late st Contact Info) Description 11/01/2019 Telephone [facility] Family & Internal Medicine - [address] [phone] Igor Castano DO Appointment Request Social History Tobacco Use Types Packs/Day Years Used Date Smoking Tobacco: Every Day Smokeless Tobacco: Never Alcohol Use Standard Drinks/Week Comments Yes 0 (1 standard drink = 0.6 oz pur e alcohol) PHQ-2 Answer Date Recorded PHQ-2 Score 4 04/28/2019 Sex and Gender Information Value Date Recorded Sex Assigned at Not on file 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 Cheek's FLOWER POT PRESS OPERATOR Cherie. documented in this encounter Plan of Treatment Not on file documented as of this encounter Visit Diagnoses Not on filedocumented in this encounter Care Teams Photonics Engineer Relationship Specialty Start Date End Date Igor Castano DO PCP - General INTERNAL MEDICINE 04/28/19 12/26/19 documented as of this encounter
--- OUTSIDE RECORDS SUMMARY | 2024-04-09 06:19 | XMS_ITS | Clinical Summary ---
Author Organization [facility] Address [facility]. [place], [place] [address] [place] [address] Care Team Providers Care Portfolio Administrator Name Role Phone None, Provider MD Primary [...] on file Legal Sex Male 10:43 PM TOP AND SEAT COVER FITTER Gender Identity Not on file Sexual Orientation Not on file Last Filed Vital Signs Vital Sign Reading Time Taken Comments Blood Pressure 121/71 03/06/2020 1:02 PM TOP AND SEAT COVER FITTER Pulse 80 03/06/2020 1:02 PM TOP AND SEAT COVER FITTER Temperature 37.1 ??C (98.7 ??F) 03/06/2020 1:02 PM CS T Respiratory Rate 18 03/06/2020 1:02 PM TOP AND SEAT COVER FITTER Oxygen Saturation 97% 03/06/2020 1:02 PM TOP AND SEAT COVER FITTER Inhaled Oxygen Concentration - - Weight 55.1 kg (121 lb 6.4 oz) 03/06/2020 1:02 P M TOP AND SEAT COVER FITTER Height 175.3 cm (5' 9 ) 03/06/2020 1:02 PM TOP AND SEAT COVER FITTER Body Mass Index 17.93 03/06/2020 1:02 PM TOP AND SEAT COVER FITTER Plan of Treatment Health Maintenance Due Date [...] age to complete this topic Care Teams Portfolio Administrator Relationship Specialty Start Date End Date None, Provider, PCP - General 08/29/20
--- OUTSIDE RECORDS SUMMARY | 2024-04-09 06:19 | XMS_ITS | Encounter Summary ---
Author Organization [facility] Address [address] [place] [address]. 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 No / Unsure 02/12/2020 1:56 PM SKIN CARE TECHNICIAN documented as of this encounter Progress Notes * Charmaine Parry RN - 02/13/2020 12:26 PM CSTAddended by: CHARMAINE PARRY on: 02/13/2020 12:26 PM Modules accepted: Orders CARE TECHNICIAN * Charmaine Parry RN - 02/13/2020 12:25 PM CST Message to pt agrees to car pick up driver CARE TECHNICIAN * Jose Yip MD - 02/12/2020 8:12 PM CST I forgot to have yandel take a stool fit home. We discussed it. Due to intermittent abd pain, diarrhea CARE TECHNICIAN documented in this encounter Plan of Treatment Not on file documented as of this encounter Visit Diagnoses Diagnosis Right upper quadrant abdominal pain- Primary Abdominal pain, right upper quadrant documented in this encounter Care Teams Community Cultural Development Officer Relationship Specialty Start Date End Date Jose Yip MD [address] [place] [address] PCP - General INTERNAL MEDICINE 12/27/19 08/28/20 documented as of this encounter
--- OUTSIDE RECORDS SUMMARY | 2024-04-09 06:19 | XMS_ITS | Encounter Summary ---
Author Organization [facility] Address [facility]. 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 No / Unsure 03/06/2020 12:54 PM APPAREL SALES ASSOCIATE documented as of this encounter Plan of Treatment Not on file documented as of this encounter Visit Diagnoses Not on filedocumented in this encounter Care Teams Hydroelectric Plant Maintainer Relationship Specialty Start Date End Date Rose Balderas MD PCP - General FAMILY PRACTICE 10/21/18 04/25/19 None, Sarah, PCP - General 04/26/19 04/27/19 Igor Castano DO PCP - General INTERNAL MEDICINE 04/28/19 12/26/19 Jose Yip MD [address] [place], [place] [id number] PCP - General INTERNAL MEDICINE 12/27/19 08/28/20 documented as of this encounter
--- OUTSIDE RECORDS SUMMARY | 2024-04-09 06:19 | XMS_ITS | Encounter Summary ---
Author Organization [facility] Address [address] [place] [address]. 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 No / Unsure 03/06/2020 12:54 PM MEDICAL RECORDS DIRECTOR documented as of this encounter Plan of Treatment Not on file documented as of this encounter Visit Diagnoses Not on filedocumented in this encounter Care Teams Supervisor Sheet Manufacturing Relationship Specialty Start Date End Date Jose Yip MD [address] [place] [address] PCP - General INTERNAL MEDICINE 12/27/19 08/28/20 documented as of this encounter
--- OUTSIDE RECORDS SUMMARY | 2024-04-09 06:19 | XMS_ITS | Encounter Summary ---
Author Organization [facility] Address [address] [place] [address]. 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
--- OUTSIDE RECORDS SUMMARY | 2024-04-09 06:19 | XMS_ITS | Encounter Summary ---
Author Organization [facility] Address [address] [place] [address]. 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 No / Unsure 03/06/2020 12:54 PM ASSISTANT PROFESSOR OF LIFE SCIENCES documented as of this encounter Plan of [...] on filedocumented in this encounter Care Teams Retail Salesworker Relationship Specialty Start Date End Date Igor Castano DO PCP - General INTERNAL MEDICINE 04/28/19 12/26/19 Jose Yip MD [address] [place] [address] PCP - General INTERNAL MEDICINE 12/27/19 08/28/20 documented as of this encounter
--- OUTSIDE RECORDS SUMMARY | 2024-04-09 06:19 | XMS_ITS | Encounter Summary ---
Author Organization [facility] Address [address] [place] [address]. 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
--- OUTSIDE RECORDS SUMMARY | 2024-04-09 06:19 | XMS_ITS | Encounter Summary ---
Author Organization [facility] Address [address] [place] [address]. [place], [place] [address] [place] [address] Care Team Providers Care Emissions Testing Technician Name Role Phone Igor Castano DO Primary Care Provider Un available Jose Yip MD Primary Care Provider +1- [phone] Encounter Details Date Type Department Care Team [...] on file Legal Sex Male 10:43 PM QUARANTINE OFFICER Gender Identity Not on file Sexual Orientation Not on file COVID-19 Exposure Response Date Recorded In the last month, have you been in contact with someone who was confirmed or suspected to have Coronavirus / COVID-19? No / Unsure 03/06/2020 12:54 PM QUARANTINE OFFICER documented as of this encounter Plan of Treatment Not on file documented as of this encounter Visit Diagnoses Not on filedocumented in this encounter Care Teams Emissions Testing Technician Relationship Specialty Start Date End Date Igor Castano DO PCP - General INTERNAL MEDICINE 04/28/19 12/26/19 Jose Yip MD [address] [id number] PCP - General INTERNAL MEDICINE 12/27/19 08/28/20 documented as of this encounter
--- OUTSIDE RECORDS SUMMARY | 2024-04-09 06:19 | XMS_ITS | Encounter Summary ---
Author Organization [facility] Address Formerly [facility]6 [facility]. [place], [place] [address] [place] [address] Care Team Providers Care Health And Safety Inspector Name Role Phone Rose Balderas MD Primary Care Provider +1- [phone] None, Provider Primary Care Provider Igor Wong DO Primary Care Provider Un available Jose Yip MD Primary Care Provider +1- [phone] Reason for Visit * Reason Comments Lab [...] on file Legal Sex Male 10:43 PM ROPE RIDER Gender Identity Not on file Sexual Orientation Not on file COVID-19 Exposure Response Date Recorded In the last month, have you been in contact with someone who was confirmed or suspected to have Coronavirus / COVID-19? No / Unsure 03/06/2020 12:54 PM ROPE RIDER documented as of this encounter Plan of [...] filedocumented in this encounter Care Teams Health And Safety Inspector Relationship Specialty Start Date End Date Rose Balderas MD PCP - General FAMILY PRACTICE 10/21/18 04/25/19 None, MD Sarah PCP - General 04/26/19 04/27/19 Igor Castano DO PCP - General INTERNAL MEDICINE 04/28/19 12/26/19 Jose Yip MD [address] [place] [address] PCP - General INTERNAL MEDICINE 12/27/19 08/28/20 documented as of this encounter
--- OUTSIDE RECORDS SUMMARY | 2024-04-09 06:19 | XMS_ITS | Encounter Summary ---
Author Organization [facility] Address [address] [place] [address]. 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 No / Unsure 03/06/2020 12:54 PM MEDICAL FIELD REPRESENTATIVE documented as of this encounter Plan of [...] on filedocumented in this encounter Care Teams Paint Supervisor Relationship Specialty Start Date End Date Igor Castano DO PCP - General INTERNAL MEDICINE 04/28/19 12/26/19 Jose Yip MD [address] [place] [address] PCP - General INTERNAL MEDICINE 12/27/19 08/28/20 documented as of this encounter
--- OUTSIDE RECORDS SUMMARY | 2024-04-09 06:19 | XMS_ITS | Encounter Summary ---
Author Organization [facility] Address [address] [place] [address]. [place], [place] [address] [place] [address] Care Team Providers Care Marine Animal Trainer Name Role Phone Olivier Yip MD Primary Care Provider +1- [phone] Reason for Visit * Reason Comments Follow Up puncture wound left foot has healed Encounter Details Date Type Department Care Team (Late st Contact Info) Description 02/12/2020 2:00 PM EPIC WILLOW ANALYST Office Visit [facility] Internal Medicine - [place] [address] [place] [address] Olivier Yip MD [address] [place] [address] Follow Up (puncture wound left [...] on file Legal Sex Male 10:43 PM EPIC WILLOW ANALYST Gender Identity Not on file Sexual Orientation Not on file COVID-19 Exposure Response Date Recorded In the last month, have you been in contact with someone who was confirmed or suspected to have Coronavirus / COVID-19? No / Unsure 02/12/2020 1:56 PM EPIC WILLOW ANALYST documented as of this encounter Last Filed Vital Signs Vital Sign Reading Time Taken Comments Blood Pressure 116/60 02/12/2020 2:02 PM EPIC WILLOW ANALYST Pulse 72 02/12/2020 2:02 PM EPIC WILLOW ANALYST Temperature 36.6 ??C (97.8 ??F) 02/12/2020 2:02 PM CS T Respiratory Rate - - Oxygen Saturation 98% 02/12/2020 2:02 PM EPIC WILLOW ANALYST Inhaled Oxygen Concentration - - Weight 52.6 kg (116 lb) 02/12/2020 2:02 PM EPIC WILLOW ANALYST Height 175.3 cm (5' 9 ) 02/12/2020 2:02 PM EPIC WILLOW ANALYST Body Mass Index 17.13 02/12/2020 2:02 PM EPIC WILLOW ANALYST documented in this encounter Progress Notes * [...] and he is supposed to be on brqv-pqw-yaxtzbe vitamin D now but it sounds like [...] smoker Need for immunization against influenza - [90474] FLU VACC QUAD 6 MONTHS+ 0.5 ML [...] curtail the marijuana use OLIVIER YIP MD WILLOW ANALYST documented in this encounter Plan of Treatment [...] syndrome documented in this encounter Care Teams Marine Animal Trainer Relationship Specialty Start Date End Date Olivier Yip MD [facility] [place] [address] PCP - General INTERNAL MEDICINE 12/27/19 08/28/20 documented as of this encounter
--- OUTSIDE RECORDS SUMMARY | 2024-04-09 06:19 | XMS_ITS | Encounter Summary ---
Author Organization [facility] Address [address] [place] [address]. 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
--- OUTSIDE RECORDS SUMMARY | 2024-04-09 06:19 | XMS_ITS | Encounter Summary ---
Author Organization [facility] Address [address] [place] [address]. 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 No / Unsure 03/06/2020 12:54 PM SENIOR PRODUCT DESIGNER documented as of this encounter Plan of Treatment Not on file documented as of this encounter Visit Diagnoses Not on filedocumented in this encounter Care Teams Production Control Coordinator Relationship Specialty Start Date End Date Jose Yip MD [address] [place] [address] PCP - General INTERNAL MEDICINE 12/27/19 08/28/20 documented as of this encounter
--- OUTSIDE RECORDS SUMMARY | 2024-04-09 06:19 | XMS_ITS | Encounter Summary ---
Author Organization [facility] Address [address] [place] [address]. [place], [place] [address] [place] [address] Care Team Providers Care Automatic Profile Shaper Operator Name Role Phone Jose Yip MD Primary Care Provider +1- [phone] Encounter Details Date Type Department Care Team [...] file Legal Sex Male 10:43 PM MANAGER R D Gender Identity Not on file Sexual Orientation Not on file COVID-19 Exposure Response Date Recorded In the last month, have you been in contact with someone who was confirmed or suspected to have Coronavirus / COVID-19? No / Unsure 03/06/2020 12:54 PM MANAGER R D documented as of this encounter Plan of Treatment Not on file documented as of this encounter Visit Diagnoses Not on filedocumented in this encounter Care Teams Automatic Profile Shaper Operator Relationship Specialty Start Date End Date Jose Yip MD [address] [place] [address] PCP - General INTERNAL MEDICINE 12/27/19 08/28/20 documented as of this encounter
--- OUTSIDE RECORDS SUMMARY | 2024-04-09 06:19 | XMS_ITS | Encounter Summary ---
Author Organization [facility] Address [address] [place] [address]. [place], [place] [address] [place] [address] Care Team Providers Care Drywall Sprayer Name Role Phone Jose Yip MD Primary Care Provider +1- [phone] Reason for Visit * Reason Onset Date Comments UTI 03/05/2020 Urinary frequenc y, urgency, pain, burning when voids, pain when seated. Thinks he is having a prostate problem. 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 No / Unsure 03/06/2020 12:54 PM GROUP EXERCISE CLASS INSTRUCTOR documented as of this encounter Progress Notes * Jacquelyn Rock MA - 03/05/2020 11:22 AM CST noted P EXERCISE CLASS INSTRUCTOR * Carl Brooks RN - 03/05/2020 11:15 AM CST Urinary frequency, urgency, pain, burning when voids, pain when seated. Thinks he is having a prostate problem. Denies urine cloudiness or odor. Did go to a [employer] gathering, states wears a mask. Appt 03/06/20 Evonne Anglin 1:00 Instructed to arrive 10 minutes early and wear a mask to clinic and sanitize hands. P EXERCISE CLASS INSTRUCTOR documented in this encounter Plan of Treatment Not on file documented as of this encounter Visit Diagnoses Not on filedocumented in this encounter Care Teams Drywall Sprayer Relationship Specialty Start Date End Date Jose Yip MD [address] [place] [address] PCP - General INTERNAL MEDICINE 12/27/19 08/28/20 documented as of this encounter
--- OUTSIDE RECORDS SUMMARY | 2024-04-09 06:19 | XMS_ITS | Encounter Summary ---
Author Organization [facility] Address [address] [place] [address]. 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 No / Unsure 03/06/2020 12:54 PM PLUMBER AND TINNER documented as of this encounter Plan of Treatment Not on file documented as of this encounter Visit Diagnoses Not on filedocumented in this encounter Care Teams Steward/Stewardess Third Relationship Specialty Start Date End Date Jose Yip MD [address] [place] [address] PCP - General INTERNAL MEDICINE 12/27/19 08/28/20 documented as of this encounter
--- OUTSIDE RECORDS SUMMARY | 2024-04-09 06:19 | XMS_ITS | Encounter Summary ---
Author Organization [facility] Address [facility]. [place], [place] [address] [place] [address] Care Team Providers Care Business Improvement Manager Name Role Phone Rose Balderas MD Primary Care Provider +1- [phone] None, Provider Primary Care Provider Igor Wong DO Primary Care Provider Un available Jose Yip MD Primary Care Provider +1- [phone] Encounter Details Date Type Department Care Team [...] on file Legal Sex Male 10:43 PM FINGER WAVER Gender Identity Not on file Sexual Orientation Not on file COVID-19 Exposure Response Date Recorded In the last month, have you been in contact with someone who was confirmed or suspected to have Coronavirus / COVID-19? No / Unsure 03/06/2020 12:54 PM FINGER WAVER documented as of this encounter Plan of Treatment Not on file documented as of this encounter Visit Diagnoses Not on filedocumented in this encounter Care Teams Business Improvement Manager Relationship Specialty Start Date End Date Rose Balderas MD PCP - General FAMILY PRACTICE 10/21/18 04/25/19 None, Sarah, PCP - General 04/26/19 04/27/19 Igor Castano DO PCP - General INTERNAL MEDICINE 04/28/19 12/26/19 Jose Yip MD [address] [place], [place] [id number] PCP - General INTERNAL MEDICINE 12/27/19 08/28/20 documented as of this encounter
--- OUTSIDE RECORDS SUMMARY | 2024-04-09 06:19 | XMS_ITS | Encounter Summary ---
Author Organization [facility] Address [address] [place] [address]. [place], [place] [address] [place] [address] Care Team Providers Care Project Management Director Name Role Phone Olivier Yip MD Primary Care Provider +1- [phone] Reason for Visit * Reason Comments Puncture Wound states cut left foot on a screw last night Encounter Details Date Type Department Care Team (Late st Contact Info) Description 01/23/2020 1:20 PM CDT Office Visit [facility] Internal Medicine - [place] [address] [place] [address] Olivier Yip MD [address] [place] [address] Puncture Wound (states cut left foot [...] file 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
--- OUTSIDE RECORDS SUMMARY | 2024-04-09 06:19 | XMS_ITS | Encounter Summary ---
Author Organization [facility] Address [address] [place] [address]. [place], [place] [address] [place] [address] Care Team Providers Care Electrical Design Technician Name Role Phone Igor Castano DO Primary Care Provider Un available Jose Yip MD Primary Care Provider +1- [phone] Encounter Details Date Type Department Care Team [...] on file Legal Sex Male 10:43 PM OVERHEAD LINE WORKER Gender Identity Not on file Sexual Orientation Not on file COVID-19 Exposure Response Date Recorded In the last month, have you been in contact with someone who was confirmed or suspected to have Coronavirus / COVID-19? No / Unsure 03/06/2020 12:54 PM OVERHEAD LINE WORKER documented as of this encounter Plan of Treatment Not on file documented as of this encounter Visit Diagnoses Not on filedocumented in this encounter Care Teams Electrical Design Technician Relationship Specialty Start Date End Date Igor Castano DO PCP - General INTERNAL MEDICINE 04/28/19 12/26/19 Jose Yip MD [address] [id number] PCP - General INTERNAL MEDICINE 12/27/19 08/28/20 documented as of this encounter
--- OUTSIDE RECORDS SUMMARY | 2024-04-09 06:19 | XMS_ITS | Encounter Summary ---
Author Organization [facility] Address [address] [place] [address]. 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 No / Unsure 03/06/2020 12:54 PM JAWBONE BREAKER documented as of this encounter Plan of Treatment Not on file documented as of this encounter Visit Diagnoses Not on filedocumented in this encounter Care Teams Podiatric Medicine Doctor Relationship Specialty Start Date End Date Igor Castano DO PCP - General INTERNAL MEDICINE 04/28/19 12/26/19 Jose Yip MD [address] [id number] PCP - General INTERNAL MEDICINE 12/27/19 08/28/20 documented as of this encounter
--- OUTSIDE RECORDS SUMMARY | 2024-04-09 06:19 | XMS_ITS | Encounter Summary ---
Author Organization [facility] Address Replaced by [facility]. 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 No / Unsure 03/06/2020 12:54 PM HEALTH THERAPIST documented as of this encounter Plan of Treatment Not on file documented as of this encounter Visit Diagnoses Not on filedocumented in this encounter Care Teams Spraying Machine Operator Relationship Specialty Start Date End Date Rose Balderas MD PCP - General FAMILY PRACTICE 10/21/18 04/25/19 None, Sarah, PCP - General 04/26/19 04/27/19 Igor Castano DO PCP - General INTERNAL MEDICINE 04/28/19 12/26/19 Jose Yip MD [address] [place], [place] [phone] PCP - General INTERNAL MEDICINE 12/27/19 08/28/20 documented as of this encounter
--- OUTSIDE RECORDS SUMMARY | 2024-04-09 06:19 | XMS_ITS | Encounter Summary ---
Author Organization [facility] Address [address] [place] [address]. 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
--- OUTSIDE RECORDS SUMMARY | 2024-04-09 06:19 | XMS_ITS | Encounter Summary ---
Author Organization [facility] Address [address] [place] [address]. 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 Said he did not want same day appt. N/A at nurse # Please call back to advise [phone] GER STORAGE documented in this encounter Plan of Treatment Not on file documented as of this encounter Visit Diagnoses Not on filedocumented in this encounter Care Teams Training Director Relationship Specialty Start Date End Date Igor Castano DO PCP - General INTERNAL MEDICINE 04/28/19 12/26/19 documented as of this encounter
--- OUTSIDE RECORDS SUMMARY | 2024-04-09 06:19 | XMS_ITS | Encounter Summary ---
Author Organization [facility] Address [address] [place] [address]. [place], [place] [address] [place] [address] Care Team Providers Care Net Trainer Name Role Phone Jose Yip MD Primary Care Provider +1- [phone] Reason for Visit * Reason Onset Date Comments Wound 01/23/2020 Pt reports that around 1am this morning he was latching a wooden gate and one of the screws were loose and cut him on the back of his foot. 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 Please call the pt back at [phone]. documented in this encounter Plan of Treatment Not on file documented as of this encounter Visit Diagnoses Not on filedocumented in this encounter Care Teams Net Trainer Relationship Specialty Start Date End Date Jose Yip MD [address] [place] [address] PCP - General INTERNAL MEDICINE 12/27/19 08/28/20 documented as of this encounter
--- OUTSIDE RECORDS SUMMARY | 2024-04-09 06:19 | XMS_ITS | Encounter Summary ---
Author Organization [facility] Address [facility]. [place], [place] [address] [place] [address] Care Team Providers Care National Sales Director Name Role Phone Stan Castano DO Primary Care Provider Un available Reason for Referral * Consultation/Treatment (Routine) - Closed Specialty Diagnoses / Procedures Referred By Magda flood Referred To Contact Psychiatry Diagnoses Depression with anxiety Stan Castano DO [address] [address] Phone: tel: Referral ID Status Reason Start Date Expiration Date V isits Requested Visits Authorized [id number] Closed Specialty Services 04/28/2019 05/29/2020 99 99 FENCE INSTALLER Reason for Visit * Reason Comments Meet and Greet Provider Patient in offic e with mother to establish care. Abdominal Pain Abdominal pain on ri ght side. Encounter Details Date Type Department Care Team (Late st Contact Info) Description 04/28/2019 11:00 AM WOOD FENCE INSTALLER Office Visit [facility] Family & Internal Medicine - [place] [address] [place] [address] Stan Castano DO Meet and Greet Provider [...] file Legal Sex Male 10:43 PM WOOD FENCE INSTALLER Gender Identity Not on file Sexual Orientation Not on file documented as of this encounter Last Filed Vital Signs Vital Sign Reading Time Taken Comments Blood Pressure 118/82 04/28/2019 11:02 AM WOOD FENCE INSTALLER Pulse 126 04/28/2019 11:02 AM WOOD FENCE INSTALLER Temperature 36.7 ??C (98 ??F) 04/28/2019 11:02 AM WOOD FENCE INSTALLER Respiratory Rate 20 04/28/2019 11:02 AM WOOD FENCE INSTALLER Oxygen Saturation 98% 04/28/2019 11:02 AM WOOD FENCE INSTALLER Inhaled Oxygen Concentration - - Weight 49 kg (108 lb) 04/28/2019 11:02 AM WOOD FENCE INSTALLER Height - - Body Mass Index - - documented in this encounter Patient Instructions * Patient Instructions* Stan Castano DO - 04/28/2019 11:00 AM WOOD FENCE INSTALLER Patient Education Patient Education Marijuana Use and [...] in your town. Join social activities. Try jain activities or do things with others. Be [...] again. Where can I learn more? National [place] on Drug Abuse http://www.drugabuse.gov/publications/drugfacts/marijuana National [place] on Drug Abuse https://www.drugabuse.gov/drugs-abuse/pmizjlih-vjrxku-jaqkh-charts#marijuana-can nabis- Last Reviewed Date 2017-11-24 Consumer Information [...] right for you. Copyright Copyright ?? 2019 [employer] and its affiliates and/or licensors. All rights reserved. FENCE INSTALLER documented in this encounter Progress Notes * Victorino Gastelum MA - 04/28/2019 11:00 AM CSTAddended by: VICTORINO GASTELUM on: 05/02/2019 07:52 AM Modules accepted: Orders FENCE INSTALLER * Stan Castano DO - 04/28/2019 11:00 [...] file Gets together: Not on file Attends jewish service: Not on file Active member of [...] 1 month for reevaluation. STAN CASTANO DO FENCE INSTALLER * Stan Castano DO - 04/28/2019 11:00 AM CST TSH,mg,cbc,lipase with no significant abnormalities. Calcium slightly low. Increase dietary calcium intake.(please order check of vitamin D- diagnosis -hypocalcemia) Total bilirubin slightly elevated. We will continue to monitor. ( Order recheck on hepatic functionpanel in 3 months) FENCE INSTALLER * Victorino Gastelum MA - 04/28/2019 11:00 AM CST Mailed letter. FENCE INSTALLER * Stan Castano DO - 04/28/2019 11:00 AM CST Positive to marijuana which we are aware and already discussed during visit. FENCE INSTALLER documented in this encounter Plan of Treatment Pending Results Name Type Priority Associated Diagnoses Date /Time EKG INTERPRET & REPORT PREVE EKG-NonRad Routine Sinus tachycardia 04/28/2019 12:08 PM WOOD FENCE INSTALLER Scheduled Referrals Name Type Priority Associated Diagnoses Orde r Schedule Ambulatory Referral to Psychiatry Referral Routine Depression with anxiety Ordered: 04/28/2019 documented as of this encounter Procedures Procedure Name Priority Date/Time Associated Diagnosis Comments DRUG MONITORING, PANEL 5, SCREEN (U) Routine 04/28/2019 12:10 PM WOOD FENCE INSTALLER Marijuana smoker Tobacco use TSH W/REFLEX Routine 04/28/2019 12:10 PM WOOD FENCE INSTALLER Sinus tachycardia COMPREHENSIVE METABOLIC PANEL Routine 04/28/2019 12:10 PM WOOD FENCE INSTALLER Right upper quadrant abdominal pain CBC, AUTO, NO DIFF Routine 04/28/2019 12 :10 PM WOOD FENCE INSTALLER Right upper quadrant abdominal pain MAGNESIUM Routine 04/28/2019 12:10 PM WOOD FENCE INSTALLER Sinus tachycardia LIPASE Routine 04/28/2019 12:10 PM WOOD FENCE INSTALLER Epigastric abdominal pain COLLECTION VENOUS BLOOD VENIPUNCTURE Routine 04/28/2019 12:09 PM WOOD FENCE INSTALLER Epigastric abdominal pain Sinus tachycardia Gastroesophageal reflux disease, esophagitis presence not specified Primary insomnia Depression with anxiety Marijuana smoker EKG INTERPRET & REPORT PREVE Routine 04/28/2019 12:08 PM WOOD FENCE INSTALLER Sinus tachycardia documented in this encounter Results * (ABNORMAL) PAIN MANAGEMENT 5 PROFILE WITHOUT CONFIRMATION, URINE (04/28/2019 12:10 PM WOOD FENCE INSTALLER) CREATININE RANDOM URINE 218.4 > or = [...] <100 ng/mL [facility]ONEYE Comment: [facility] ENGILSH Comment: See Note 1 Note 1 This [...] interpreting these drug results, please contact a [facility] Toxicology Specialist: [phone] ( ), M-F, 8am-6pm EST. 04/28/2019 12:1 0 PM WOOD FENCE INSTALLER 05/02/2019 6:08 AM WOOD FENCE INSTALLER Narrative Resulting Agency Comment Performing Organization Information: ?Site ID: [id number] ?Name: [facility] ?Address: [address] [place] [id number] ?Director: Keaton Connor M.D. us Stan Castano DO LABORATORY Final Res ult [facility] DESTINI LOKESH [facility] [address] [place] [address] * TSH W/REFLEX (04/28/2019 12:10 PM WOOD FENCE INSTALLER) TSH 1.854 0.516 - 4.130 uIU/ML 04/28/2019 7:57 PM WOOD FENCE INSTALLER [facility] 04/28/2019 12:1 0 PM WOOD FENCE INSTALLER Stan Castano DO LABORATORY Final Res ult [facility] [address] [place] [address], * (ABNORMAL) COMPREHENSIVE METABOLIC PANEL (04/28/2019 12:10 PM WOOD FENCE INSTALLER) SODIUM S/P/B 141 136 - 145 MMOL/L 04/28/2019 7:57 PM WOOD FENCE INSTALLER [facility] POTASSIUM S/P/B 4.6 3.5 - 5.1 MMOL/L 04/28/2019 7:57 PM WOOD FENCE INSTALLER [facility] CHLORIDE S/P/B 103 98 - 107 MMOL/L 04/28/2019 7:57 PM WOOD FENCE INSTALLER [facility] CO2 21.9 21 - 32 MMOL/L 04/28/2019 7:57 PM WOOD FENCE INSTALLER [facility] GLUCOSE 84 70 - 99 MG/DL 04/28/2019 7:57 PM WOOD FENCE INSTALLER [facility] BUN 21 6 - 24 MG/DL 04/28/2019 7:57 PM WOOD FENCE INSTALLER [facility] CREATININE S/P/B 0.94 0.70 - 1.30 MG/DL 04/28/2019 7:57 PM WOOD FENCE INSTALLER [facility] CALCIUM S/P/B 9.3(L) 9.5 - 10.4 MG/DL 04/28/2019 7:57 PM WOOD FENCE INSTALLER [facility] BILIRUBIN TOTAL S/P/B 1.2(H) 0.2 - 1.0 MG/DL 04/28/2019 7:57 PM [facility] ALKALINE PHOSPHATASE S/P/B 105 52 - 222 U/L 04/28/2019 7:57 PM [facility] AST 10(L) 15 - 37 U/L 04/28/2019 7:57 PM [facility] ALT 12(L) 16 - 63 U/L 04/28/2019 7:57 PM [facility] TOTAL PROTEIN S/P/B 7.7 6.4 - 8.2 G/DL 04/28/2019 7:57 PM [facility] ALBUMIN S/P/B 4.9 3.4 - 5.0 G/DL 04/28/2019 7:57 PM [facility] ANION GAP 16.1(H) 5 - 15 MMOL/L 04/28/2019 7:57 PM [facility] Comment:REFERENCE RANGE NOT ESTABLISHED OSMOLALITY (CALC) 294 MOSM/KG 04/28/2019 7:57 PM [facility] Comment:REFERENCE RANGE NOT ESTABLISHED EGFR NON-AFR. AMER. >90 >90 ML/MIN/1 .73 M2 04/28/2019 7:57 PM [facility] EGFR AFR. AMER. >90 >90 ML/MIN/1 .73 M2 04/28/2019 7:57 PM [facility] GFR NOTES THE ESTIMATED GFR IS CALCULATED USING THE 2009 CKD-EPI EQUATION. THE FOLLOWING CATEGORIES FOR GRADING RENAL FUNCTION ARE RECOMMENDED BY THE INTERNATIONAL SOCIETY OF NEPHROLOGY (KDIGO 2012 CLINICAL PRACTICE GUIDELINE). 04/28/2019 7:57 PM [facility] Comment: G1,NORMAL OR HIGH: >89 ml/min/1.73 m2 G2,MILDLY DECREASED: 60-89 ml/min/1.73 m2 G3A,MILDLY TO MODERATELY DECREASED: 45-59 ml/min/1.73 m2 G3B,MODERATELY TO SEVERELY DECREASED: 30-44 ml/min/1.73 m2 G4,SEVERELY DECREASED: 15-29 ml/min/1.73 m2 G5,KIDNEY FAILURE: <15 ml/min/1.73 m2 04/28/2019 12:1 0 PM WOOD FENCE INSTALLER [facility] LABORATORY Final Res ult Performing Organization Address City/[facility]/ZIP Co de Phone Number [facility] [address] [place] [address], [place] [phone] * MAGNESIUM (04/28/2019 12:10 PM WOOD FENCE INSTALLER) MAGNESIUM 1.9 1.8 - 2.4 MG/DL 04/28/2019 7:57 PM WOOD FENCE INSTALLER [facility] 04/28/2019 12:1 0 PM WOOD FENCE INSTALLER [facility] LABORATORY Final Res ult Performing Organization Address [facility]/ZIP Co de Phone Number [place] [address] [place] [address], [place] [phone] * (ABNORMAL) CBC, AUTO, NO DIFF (04/28/2019 12:10 PM WOOD FENCE INSTALLER) WBC 6.8 4.50 - 10.80 x10'3/uL 04/28/2019 7:03 PM [facility] RBC 4.63 4.50 - 6.10 x10'6/uL 04/28/2019 7:03 PM WOOD FENCE INSTALLER [facility] HGB 15.0 13.0 - 18.0 G/DL 04/28/2019 7:03 PM WOOD FENCE INSTALLER [facility] HCT 43.3 37.0 - 52.0 % 04/28/2019 7:03 PM WOOD FENCE INSTALLER [facility] MCV 93.5 78.0 - 100.0 FL 04/28/2019 7:03 PM [facility] MCH 32.4 25.0 - 35.0 PG 04/28/2019 7:03 PM WOOD FENCE INSTALLER [facility] MCHC 34.6 31.0 - 36.0 G/DL 04/28/2019 7:03 PM WOOD FENCE INSTALLER [facility] RDW 11.5 11.5 - 14.5 % 04/28/2019 7:03 PM WOOD FENCE INSTALLER [facility] PLT 342 150 - 350 x10'3/uL 04/28/2019 7:03 PM WOOD FENCE INSTALLER [facility] MPV 11.0(H) 7.4 - 10.4 FL 04/28/2019 7:03 PM WOOD FENCE INSTALLER [facility] 04/28/2019 12:1 0 PM WOOD FENCE INSTALLER [facility] Final Res ult Performing Organization Address City/[facility]/ZIP Co de Phone Number [facility] [address] [place] [address], [place] [phone] * LIPASE (04/28/2019 12:10 PM WOOD FENCE INSTALLER) LIPASE 78 73 - 393 UNITS/L 04/28/2019 7:57 PM WOOD FENCE INSTALLER [facility] Comment:NEW INSTRUMENTATION. PLEASE NOTE NEW NORMAL RANGE. 04/28/2019 12:1 0 PM WOOD FENCE INSTALLER [facility] Final Res ult [facility] [address] [place] [address], [place] [phone] documented in this encounter Visit Diagnoses Diagnosis [...] deficiency documented in this encounter Care Teams National Sales Director Relationship Specialty Start Date End Date Stan Castano DO PCP - General INTERNAL MEDICINE 04/28/19 12/26/19 documented as of this encounter
--- OUTSIDE RECORDS SUMMARY | 2024-04-09 06:19 | XMS_ITS | Encounter Summary ---
Author Organization [facility] Address [facility]. 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 No / Unsure 03/06/2020 12:54 PM FARMER CASH GRAIN documented as of this encounter Plan of Treatment Not on file documented as of this encounter Visit Diagnoses Not on filedocumented in this encounter Care Teams Commercial Roofing Estimator Relationship Specialty Start Date End Date Rose Balderas MD PCP - General FAMILY PRACTICE 10/21/18 04/25/19 None, Sarah, PCP - General 04/26/19 04/27/19 Igor Castano DO PCP - General INTERNAL MEDICINE 04/28/19 12/26/19 Jose Yip MD [address] [place], [place] [id number] PCP - General INTERNAL MEDICINE 12/27/19 08/28/20 documented as of this encounter
--- OUTSIDE RECORDS SUMMARY | 2024-04-09 06:19 | XMS_ITS | Encounter Summary ---
Author Organization [facility] Address [facility]. 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 No / Unsure 03/06/2020 12:54 PM PULLER THROUGH documented as of this encounter Plan of [...] on filedocumented in this encounter Care Teams Chicken Picker Relationship Specialty Start Date End Date Rose Balderas MD PCP - General FAMILY PRACTICE 10/21/18 04/25/19 None, MD Sarah PCP - General 04/26/19 04/27/19 Igor Castano DO PCP - General INTERNAL MEDICINE 04/28/19 12/26/19 Jose Yip MD [address] [place] [address] PCP - General INTERNAL MEDICINE 12/27/19 08/28/20 documented as of this encounter
--- OUTSIDE RECORDS SUMMARY | 2024-04-09 06:19 | XMS_ITS | Encounter Summary ---
Author Organization [facility] Address [address] [place] [address]. 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 No / Unsure 03/06/2020 12:54 PM PLANT MECHANIC documented as of this encounter Plan [...] on filedocumented in this encounter Care Teams Bdr Relationship Specialty Start Date End Date Igor Castano DO PCP - General INTERNAL MEDICINE 04/28/19 12/26/19 Jose Yip MD [address] [place] [address] PCP - General INTERNAL MEDICINE 12/27/19 08/28/20 documented as of this encounter
--- OUTSIDE RECORDS SUMMARY | 2024-04-09 06:19 | XMS_ITS | Encounter Summary ---
Author Organization [facility] Address [address] [place] [address]. 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 No / Unsure 03/06/2020 12:54 PM FIRE SAFETY MANAGER documented as of this encounter Plan [...] on filedocumented in this encounter Care Teams Process Engineering Intern Relationship Specialty Start Date End Date Igor Castano DO PCP - General INTERNAL MEDICINE 04/28/19 12/26/19 Jose Yip MD [address] [place] [address] PCP - General INTERNAL MEDICINE 12/27/19 08/28/20 documented as of this encounter
--- OUTSIDE RECORDS SUMMARY | 2024-04-09 06:19 | XMS_ITS | Encounter Summary ---
Author Organization [facility] Address [address] [place] [address]. 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
--- OUTSIDE RECORDS SUMMARY | 2024-04-09 06:19 | XMS_ITS | Encounter Summary ---
Author Organization [facility] Address [address] [place] [address]. 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 BINDING FOLDER * Harrison Castellanos - 02/06/2020 9:51 AM CST Patient returning call tried nurse line but no answer please call back when available BINDING FOLDER * Charmaien Parry RN - 02/06/2020 9:49 AM CST No answer or voicemail BINDING FOLDER * Jose Yip MD - 02/06/2020 9:43 AM CST Should be ok, but sometimes diarrhea might develop, so let us know if it does. BINDING FOLDER * Charmaine Parry RN - 02/06/2020 9:26 AM CST Pt reports started abx amoxicillin 875 01-25-20 pt had tooth pulled 02-01-20 pt another tooth extraction scheduled for 02-15-20 pt on amoxicillin 500mg now. Pt wants to make sure it is ok to be on abx this long BINDING FOLDER * Carolyne Arambula - 02/05/2020 2:02 PM CST Patient has a question as his dentist is wanting him to be on antibiotic for about a month to get aTooth pulled Has a question for the nurse BINDING FOLDER documented in this encounter Plan of Treatment Not on file documented as of this encounter Visit Diagnoses Not on filedocumented in this encounter Care Teams Kit Assembler Relationship Specialty Start Date End Date Jose Yip MD [address] [id number] PCP - General INTERNAL MEDICINE 12/27/19 08/28/20 documented as of this encounter
--- OUTSIDE RECORDS SUMMARY | 2024-04-09 06:19 | XMS_ITS | Encounter Summary ---
Author Organization [facility] Address [facility]. [place], [place] [address] [place] [address] Care Team Providers Care Washhouse Worker Name Role Phone Rose Balderas MD Primary Care Provider +1- [phone] None, Provider Primary Care Provider Igor Wong DO Primary Care Provider Un available Jose Yip MD Primary Care Provider +1- [phone] Encounter Details Date Type Department Care Team [...] on file Legal Sex Male 10:43 PM C DEVELOPER Gender Identity Not on file Sexual Orientation Not on file COVID-19 Exposure Response Date Recorded In the last month, have you been in contact with someone who was confirmed or suspected to have Coronavirus / COVID-19? No / Unsure 03/06/2020 12:54 PM C DEVELOPER documented as of this encounter Plan of Treatment Not on file documented as of this encounter Visit Diagnoses Not on filedocumented in this encounter Care Teams Washhouse Worker Relationship Specialty Start Date End Date Rose Balderas MD PCP - General FAMILY PRACTICE 10/21/18 04/25/19 None, Sarah, PCP - General 04/26/19 04/27/19 Igor Castano DO PCP - General INTERNAL MEDICINE 04/28/19 12/26/19 Jose Yip MD [address] [place], [place] [id number] PCP - General INTERNAL MEDICINE 12/27/19 08/28/20 documented as of this encounter
--- OUTSIDE RECORDS SUMMARY | 2024-04-09 06:19 | XMS_ITS | Encounter Summary ---
Author Organization [facility] Address [address] [place] [address]. [place], [place] [address] [place] [address] Care Team Providers Care Testing Consultant Name Role Phone Jose Yip MD Primary Care Provider +1- [phone] Encounter Details Date Type Department Care Team [...] on file Legal Sex Male 10:43 PM INTERNATIONAL ORGANIZER Gender Identity Not on file Sexual Orientation [...] on filedocumented in this encounter Care Teams Testing Consultant Relationship Specialty Start Date End Date Jose Yip MD [address] [place] [address] PCP - General INTERNAL MEDICINE 9/23/20 5/26/21 documented as of this encounter
--- OUTSIDE RECORDS SUMMARY | 2024-04-09 06:19 | XMS_ITS | Encounter Summary ---
Author Organization [facility] Address [address] [place] [address]. [place], [place] [address] [place] [address] Care Team Providers Care French Folding Machine Operator Name Role Phone Jose Yip MD Primary Care Provider +1- [phone] Encounter Details Date Type Department Care Team [...] on file Legal Sex Male 10:43 PM CREDENTIALING ASSISTANT Gender Identity Not on file Sexual Orientation Not on file COVID-19 Exposure Response Date Recorded In the last month, have you been in contact with someone who was confirmed or suspected to have Coronavirus / COVID-19? No / Unsure 03/06/2020 12:54 PM CREDENTIALING ASSISTANT documented as of this encounter Plan of Treatment Not on file documented as of this encounter Visit Diagnoses Not on filedocumented in this encounter Care Teams French Folding Machine Operator Relationship Specialty Start Date End Date Jose Yip MD [facility] [place] [address] PCP - General INTERNAL MEDICINE 12/27/19 08/28/20 documented as of this encounter
--- OUTSIDE RECORDS SUMMARY | 2024-04-09 06:19 | XMS_ITS | Encounter Summary ---
Author Organization [facility] Address [address] [place] [address]. [place], [place] [address] [place] [address] Care Team Providers Care Dressage Judge Name Role Phone Jose Yip MD Primary Care Provider +1- [phone] Encounter Details Date Type Department Care Team [...] on file Legal Sex Male 10:43 PM CASE AIDE Gender Identity Not on file Sexual Orientation Not on file COVID-19 Exposure Response Date Recorded In the last month, have you been in contact with someone who was confirmed or suspected to have Coronavirus / COVID-19? No / Unsure 02/12/2020 1:56 PM CASE AIDE documented as of this encounter Plan of Treatment Not on file documented as of this encounter Visit Diagnoses Not on filedocumented in this encounter Care Teams Dressage Judge Relationship Specialty Start Date End Date Jose Yip MD [facility] [place] [address] PCP - General INTERNAL MEDICINE 12/27/19 08/28/20 documented as of this encounter
--- OUTSIDE RECORDS SUMMARY | 2024-04-09 06:19 | XMS_ITS | Encounter Summary ---
Author Organization [facility] Address [address] [place] [address]. [place], [place] [address] [place] [address] Care Team Providers Care Collection Supervisor Name Role Phone Rose Balderas MD Primary Care Provider +1- [phone] Reason for Visit * Reason Onset Date Comments Appointment Request 10/20/2018 Encounter Details Date Type Department Care Team (Late st Contact Info) Description 10/20/2018 Telephone [facility] Internal Medicine - [address] [address] Jose Yip MD [address] [place] [address] Appointment Request Social History Tobacco Use Types Packs/Day Years Used Date Smoking Tobacco: Never Assessed Sex and Gender Information Value Date Recorded Sex Assigned at Not on file Legal Sex Male 10:43 PM 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 Yip in December 2019. Because patients need in sooner, I went ahead and also scheduled with Dr. Balderas out of [facility] for November 2018. * Nora Scott [...] on filedocumented in this encounter Care Teams Collection Supervisor Relationship Specialty Start Date End Date Rose Balderas MD PCP - General FAMILY PRACTICE 10/21/18 04/25/19 documented as of this encounter
--- OUTSIDE RECORDS SUMMARY | 2024-04-09 06:19 | XMS_ITS | Encounter Summary ---
Author Organization [facility] Address [facility]. [place], [place] [address] [place] [address] Care Team Providers Care Financial Report Service Sales Agent Name Role Phone Rose Balderas MD Primary Care Provider +1- [phone] None, Provider Primary Care Provider UnavailIgor Aguero DO Primary Care Provider Un available Jose Yip MD Primary Care Provider +1- [phone] Reason for Visit * Reason Comments Image [...] on file Legal Sex Male 10:43 PM STAFFING DIRECTOR Gender Identity Not on file Sexual Orientation Not on file COVID-19 Exposure Response Date Recorded In the last month, have you been in contact with someone who was confirmed or suspected to have Coronavirus / COVID-19? No / Unsure 03/06/2020 12:54 PM STAFFING DIRECTOR documented as of this encounter Plan [...] on filedocumented in this encounter Care Teams Financial Report Service Sales Agent Relationship Specialty Start Date End Date Rose Balderas MD PCP - General FAMILY PRACTICE 10/21/18 04/25/19 None, MD Sarah PCP - General 04/26/19 04/27/19 Igro Castano DO PCP - General INTERNAL MEDICINE 04/28/19 12/26/19 Jose Yip MD [address] [place] [address] PCP - General INTERNAL MEDICINE 12/27/19 08/28/20 documented as of this encounter
--- OUTSIDE RECORDS SUMMARY | 2024-04-09 06:19 | XMS_ITS | Encounter Summary ---
Author Organization [facility] Address [address] [place] [address]. [place], [place] [address] [place] [address] Care Team Providers Care Gear Shaper Set Up Operator Name Role Phone Olivier Yip MD Primary Care Provider +1- [phone] Reason for Visit * Reason Comments New Patient here to establish , mother in room Encounter Details Date Type Department Care Team (Late st Contact Info) Description 12/27/2019 2:20 PM CDT Office Visit [facility] Internal Medicine - [address] [address] Olivier Yip MD [address] [place] [address] New Patient (here to establish , mother [...] on file Legal Sex Male 10:43 PM PANMAN Gender Identity Not on file Sexual Orientation [...] 12/27/2019 2:2 7 PM CDT Growth Chart: [facility] (Boys, 2-2 0 Years) documented [...] few things on finding here [facility] Mother states [...] all orders for this visit: Mood disorder ([facility]) - divalproex EC 250 MG tablet; Take [...] this encounter Visit Diagnoses Diagnosis Mood disorder ([facility])- Primary Unspecified episodic mood disorder Marijuana smoker Cannabis abuse, unspecified Depression with anxiety Dysthymic disorder documented in this encounter Care Teams Gear Shaper Set Up Operator Relationship Specialty Start Date End Date Olivier Yip MD [address] [place] [address] PCP - General INTERNAL MEDICINE 12/27/19 08/28/20 documented as of this encounter
--- OUTSIDE RECORDS SUMMARY | 2024-04-09 06:20 | XMS_ITS | Encounter Summary ---
Author Organization [facility] Address [facility]. [place], [place] [address] [place] [address] Care Team Providers Care Spot Man Name Role Phone Rose Balderas MD Primary Care Provider +1- [phone] None, Provider Primary Care Provider UnavailIgor Aguero DO Primary Care Provider Un available Jose Yip MD Primary Care Provider +1- [phone] Reason for Visit * Reason Comments Image [...] file Legal Sex Male 10:43 PM CLINICAL ACCOUNT EXECUTIVE Gender Identity Not on file Sexual Orientation Not on file COVID-19 Exposure Response Date Recorded In the last month, have you been in contact with someone who was confirmed or suspected to have Coronavirus / COVID-19? No / Unsure 03/06/2020 12:54 PM CLINICAL ACCOUNT EXECUTIVE documented as of this encounter Plan of [...] on filedocumented in this encounter Care Teams Spot Man Relationship Specialty Start Date End Date Rose Balderas MD PCP - General FAMILY PRACTICE 10/21/18 04/25/19 None, MD Sarah PCP - General 04/26/19 04/27/19 Igor Castano DO PCP - General INTERNAL MEDICINE 04/28/19 12/26/19 Jose Yip MD [address] [place] [address] PCP - General INTERNAL MEDICINE 12/27/19 08/28/20 documented as of this encounter
--- OUTSIDE RECORDS SUMMARY | 2024-04-09 06:20 | XMS_ITS | Encounter Summary ---
Author Organization [facility] Address [address] [place] [address]. [place], [place] [address] [place] [address] Care Team Providers Care Explosives Engineer Name Role Phone Unavailable Primary Care Provider Unavailabl e Encounter Details Date Type Department Care Team (Late st Contact Info) Description 2001 [facility] [address] [place] [address] , Omari Singh MD Social History Tobacco Use Types Packs/Day Years Used Date Smoking Tobacco: Never Assessed Sex and Gender Information Value Date Recorded Sex Assigned at Not on file Legal Sex Male 10:43 PM LABORER PIPELINE Gender Identity Not on file Sexual Orientation Not on file documented as of this encounter Plan of Treatment Not on file documented as of this encounter Visit Diagnoses Not on filedocumented in this encounter
--- OUTSIDE RECORDS SUMMARY | 2024-04-09 06:20 | XMS_ITS | Encounter Summary ---
Author Organization [facility] Address [address] [place] [address]. [place], [place] [address] [place] [address] Care Team Providers Care Chore Worker Name Role Phone Rose Balderas MD Primary Care Provider +1- [phone] None, Provider Primary Care Provider Igor Wong [...] on file Legal Sex Male 10:43 PM PRESSFITTER Gender Identity Not on file Sexual Orientation [...]
--- OUTSIDE RECORDS SUMMARY | 2024-04-09 06:22 | XMS_ITS | Continuity of Care Document ---
Author Organization [facility] Address [address] [place] [address] Phone Care Team Providers Care Plant Quality Manager Name Role Phone Sunil Avalos MD Unavailable Unavailable Allergies, Adverse Reactions, Alerts Substance Reaction Status Criticality Sulfa (Sulfonamide Antibiotics) (unknown) Active No Information Advance Directives Directive Yes / No Effective Date File Name No Information Encounters Encounter Description Practice Location Reason(s) For Visit Diagnoses Date Provider Providers Copied on Encounter [facility] [address], [place], [place], [id number], [place] tel:[phone] [facility] No Information Robbie Barber. [facility], [address] [place] [address] [place], [address], [place]. tel:[phone] Family History Family Member Type Diagnosis Age At Onset Maternal Aunt Problem (finding) Maternal history of di abetes mellitus Problem (finding) Cardiovascular Disease Mother Problem (finding) malignant neoplasm of c ervix uteri Mother Problem (finding) No History Of Macular D egeneration Payers Payer name Insurance type Covered libertarian ID Authoriza tion(s) No Information Social History [...]
--- OUTSIDE RECORDS SUMMARY | 2024-04-09 06:22 | XMS_ITS | Continuity of Care Document ---
Author Organization [email or web address] Address [address] [place] [address] Phone Care Team Providers Care Document Control Supervisor Name Role Phone Unavailable Unavailable Unavailable Allergies, [...] on Encounter Mirna Lee, [address], [place], [id number] , tel: [phone] [facility] No Information 0 No Information LIMITED VISIT- NEW PATIENT Mirna Lee, [address], [id number] , tel: [phone] [facility] Fever (chief complaint) Fever, unspecified fever causeContact with and (suspected) exposure to other viral communicable diseases 0 No Information INTERMEDIATE VISIT EST PATIENT Mirna Lee, [address] [place], [place], [id number] , tel: [phone] [facility] Cough (PEDS) (chief complaint) Bronchitis 6 Linda Sarah. [address] [place], [address], [place]. tel:[phone] INTERMEDIATE VISIT EST PATIENT Mirna Lee, [address], [place], [id number] , tel: [phone] [facility] Sore throat (chief complaint) SorethroatAcu te sinusitis, recurrence not specified, unspecified location 5 No Information Mirna Lee, [address] [place], [place], [address] , tel: [phone] [facility] Sore throat 5 No Information INTERMEDIATE VISIT EST PATIENT Mirna Lee, [address], [place], [id number] , tel: [phone] [facility] Sore throat (chief complaint) Sore throatAcute bronchitis, unspecified organismEncou nter for immunization 5 No Information WELL EXAM/03-21 EST. PATIENT Mirna [facility], [address] [place], [place], [id number] , [place] tel: [phone] [facility] (chief complaint) ROUTINE CHILD HEALTH EXAMScreening for hyperlipidemi aNeed for prophylactic vaccination and inoculation against viralhepatiti s 5 No Information [facility], [address], [place], [id number] , [place] tel: [phone] [facility] No Information 3 No Information Referring Provider: Jing Jacobson, [address] [place], [address]. tel: [phone] Provider: Express Nurse. INTERMEDIATE VISIT EST PATIENT Mirna [facility], [address], [place], [id number] , [place] tel: [phone] [facility] sore throat (chief complaint) PharyngitisNE ED FOR PROPHYLACTIC VACCINATION AND INOCULATION, OTHER VIRAL DISEASESNeed for prophylactic vaccination and inoculation against other specified single bacterial diseaseNEED FOR PROPHYLACTIC VACCINATION WITH COMBINED DIPHTHERIA-TE TANUS-PERTUSS IS (DTP) (DTAP) VACCINE 3 Rey Zyaas. [address] [place], [address], [place]. tel:[phone] Referring Provider: Chana Le, [address] [place], [address]. tel:[phone] [facility], [address], [place], [id number] , [place] tel: [phone] Historic Immunization Location No Information 2 No Information [facility], [address], [place], [id number] , [place] tel: [phone] [facility] INJURY HAND 2 No Information [facility], [address], [place], [id number] , [place] tel: [phone] [facility] INJURY KNEE LEG FOOT ANKLE 2 Kavon Ch. [address] [place], [address], [place]. tel:[phone] Mirna Lee, [address] [place], [place], [address] , [place] tel: [phone] [facility] RHINITIS ALLERGIC UNSPECIFIED 7 No Information Mirna Lee, [address] [place], [id number] , [place] tel: [phone] [facility] No Information 6 No Information Family History Family Member Type Diagnosis Age At Onset No Information Immunizations Vaccine Date Status Comments Influenza, live, intranasal, quadrivalent administered Source: New Immuniza tion Record Hep A (ped/adol, 2 dose) administered Giselle rce: New Immunization Record Influenza, live, intranasal, quadrivalent Flumist Quad administered Note: vis8/19/14 ; S ource: New Immunization Record Hep A (ped/adol, 2 dose) administered Not e: vis10// ; Source: New Immunization Record HPV administered Note: vis5/17/1 3 ; Source: New Immunization Record HPV (quadrivalent) administered Source: [...] type Covered democrat ID Authoriza tion(s) Medicaid [id number] Medicaid [place] [id number] Social History Type Description Quantity Date Captured Comments Alcohol Use Details Unknown Caffeine Use Details Unknown Tobacco Use Status No Information Smoking Status No Information Sex Male Chief Complaint And Reason For Visit No Information Reason For Referral Reason For Referral No Information Plan Of Treatment Date Type Action Status Goal HPV (1st) due Goal Lipid panel 18-21yrs. Due on due Goal Depression screening. Due on due Goal HIV screen. Due on due Goal Height Measurement. Due on O due Goal HPV (3rd) due Goal HPV (2nd) due Goal HIV screen. Due on due Goal Depression screening. Due on due Goal HPV (2nd) due Goal HPV (1st) due Goal Lipid panel 18-21yrs. Due on due Goal Height Measurement. Due on due Goal HPV (3rd) due Future Order: Lab Order LIPID PA CARMEL ([id number]), Sent on: Sent History Of Present Illness [...] rhinitis. Pertinent negatives include fever and otalgia. [facility] Feels well. Hilton iván in school forms for school physical, plans [...] School forms complet ed. F/U 1 year [employer] [employer]. Related to ROUTINE CHILD HEALTH EXAM Oral Health Discussed (-14 yea rs) Related to ROUTINE CHILD HEALTH EXAM Age appropriate safe ty discussed (11-14 years) Related to ROUTINE CHILD HEALTH EXAM Age appropriate diet discussed (11-14 years) Related to ROUTINE CHILD HEALTH EXAM Age appropriate anti cipatory guidance discussed (11-14 years) Related to ROUTINE CHILD HEALTH EXAM Assessments Type Assessment Date No Information Patient Care Teams Name Effective Dates (start - stop) Status Members No Information
--- OUTSIDE RECORDS SUMMARY | 2024-04-09 07:50 | XMS_ITS | Clinical Summary ---
Author Organization [facility] Address [facility]. [place], [place] [address] [place] [address] Care Team Providers Care Athletic Equipment Manager Name Role Phone None, Provider MD [...] on file Legal Sex Male 10:43 PM HELIARC WELDER Gender Identity Not on file Sexual Orientation Not on file Last Filed Vital Signs Vital Sign Reading Time Taken Comments Blood Pressure 121/71 03/06/2020 1:02 PM HELIARC WELDER Pulse 80 03/06/2020 1:02 PM HELIARC WELDER Temperature 37.1 ??C (98.7 ??F) 03/06/2020 1:02 PM CS T Respiratory Rate 18 03/06/2020 1:02 PM HELIARC WELDER Oxygen Saturation 97% 03/06/2020 1:02 PM HELIARC WELDER Inhaled Oxygen Concentration - - Weight 55.1 kg (121 lb 6.4 oz) 03/06/2020 1:02 P M HELIARC WELDER Height 175.3 cm (5' 9 ) 03/06/2020 1:02 PM HELIARC WELDER Body Mass Index 17.93 03/06/2020 1:02 PM HELIARC WELDER Plan of Treatment Health Maintenance Due Date [...] age to complete this topic Care Teams Athletic Equipment Manager Relationship Specialty Start Date End Date None, Provider, PCP - General 08/29/20
--- OUTSIDE RECORDS SUMMARY | 2024-04-09 07:50 | XMS_ITS | Encounter Summary ---
Author Organization [facility] Address [address] [place] [address]. [place] [address] [place] [address] Care Team Providers Care Fulfillment Coordinator Name Role Phone Jose Yip MD Primary Care Provider +1- [phone] Reason for Visit * Reason Comments Prostate Problem not feeling well Encounter Details Date Type Department Care Team (Late st Contact Info) Description 03/06/2020 1:00 PM SPORTS ANALYST Office Visit [facility] Internal Medicine - [address] [address] Christina Pedro NP [address] [place] [address] Prostate Problem (not feeling well) Social History [...] on file Legal Sex Male 10:43 PM SPORTS ANALYST Gender Identity Not on file Sexual Orientation Not on file COVID-19 Exposure Response Date Recorded In the last month, have you been in contact with someone who was confirmed or suspected to have Coronavirus / COVID-19? No / Unsure 03/06/2020 12:54 PM SPORTS ANALYST documented as of this encounter Last Filed Vital Signs Vital Sign Reading Time Taken Comments Blood Pressure 121/71 03/06/2020 1:02 PM SPORTS ANALYST Pulse 80 03/06/2020 1:02 PM SPORTS ANALYST Temperature 37.1 ??C (98.7 ??F) 03/06/2020 1:02 PM CS T Respiratory Rate 18 03/06/2020 1:02 PM SPORTS ANALYST Oxygen Saturation 97% 03/06/2020 1:02 PM SPORTS ANALYST Inhaled Oxygen Concentration - - Weight 55.1 kg (121 lb 6.4 oz) 03/06/2020 1:02 P M SPORTS ANALYST Height 175.3 cm (5' 9 ) 03/06/2020 1:02 PM SPORTS ANALYST Body Mass Index 17.93 03/06/2020 1:02 PM SPORTS ANALYST documented in this encounter Progress Notes [...] file Gets together: Not on file Attends yarsani service: Not on file Active member of [...] Exam Vitals signs and nursing note reviewed. Bottom Presser present: he declined a nurse director of diversity and inclusion for genital exam. Constitutional: General: He is [...] 6.4 oz) Height: 5' 9 (1.753 m) [facility]@ Diagnoses/Impression: Encounter Diagnose(s) ICD-10-CM ICD-9-CM 1. [...] Jose Yip MD at 03/06/2020 7:17 PM SPORTS ANALYST TS ANALYST TS ANALYST documented in this encounter Plan of Treatment Not on file documented as of this encounter Visit Diagnoses Diagnosis Dysuria- Primary Epididymitis, left Orchitis and epididymitis, unspecified documented in this encounter Care Teams Fulfillment Coordinator Relationship Specialty Start Date End Date Jose Yip MD [address] [place] [address] PCP - General INTERNAL MEDICINE 12/27/19 08/28/20 documented as of this encounter
--- OUTSIDE RECORDS SUMMARY | 2024-04-09 07:50 | XMS_ITS | Encounter Summary ---
Author Organization [facility] Address [address] [place] [address]. [place], [place] [address] [place] [address] Care Team Providers Care Supervisor Hot Dip Tinning Name Role Phone Jose Yip MD Primary Care Provider +1- [phone] Encounter Details Date Type Department Care Team [...] on file Legal Sex Male 10:43 PM PAINT STRIPPER Gender Identity Not on file Sexual Orientation Not on file COVID-19 Exposure Response Date Recorded In the last month, have you been in contact with someone who was confirmed or suspected to have Coronavirus / COVID-19? No / Unsure 03/06/2020 12:54 PM PAINT STRIPPER documented as of this encounter Plan of Treatment Not on file documented as of this encounter Visit Diagnoses Not on filedocumented in this encounter Care Teams Supervisor Hot Dip Tinning Relationship Specialty Start Date End Date Jose Yip MD [facility] [place] [address] PCP - General INTERNAL MEDICINE 12/27/19 08/28/20 documented as of this encounter
--- OUTSIDE RECORDS SUMMARY | 2024-04-09 07:50 | XMS_ITS | Encounter Summary ---
Author Organization [facility] Address [address] [place] [address]. [place], [place] [address] [place] [address] Care Team Providers Care Mental Health Program Specialist Name Role Phone None, Provider MD Primary Care Provider Unavaila ble Reason for Visit * Reason Onset Date Comments Documents 10/22/2021 Encounter Details Date Type Department Care Team (Late st Contact Info) Description 10/22/2021 Telephone [facility] Internal Medicine - [place] [address] [place] [address] [place] [address] [place] [id number] Documents Social History Tobacco Use Types Packs/Day [...] on file Legal Sex Male 10:43 PM HYDROBLASTER Gender Identity Not on file Sexual Orientation [...] to the [facility] in [place] Patient will like a call from the nurse He states he needs a tetanus shot and was wondering when his last shot was Callback # [phone] Thanks documented in this encounter Plan of Treatment Not on file documented as of this encounter Visit Diagnoses Not on filedocumented in this encounter Care Teams Mental Health Program Specialist Relationship Specialty Start Date End Date None, Provider, PCP - General 08/29/20 documented as of this encounter
--- OUTSIDE RECORDS SUMMARY | 2024-04-09 07:50 | XMS_ITS | Encounter Summary ---
Author Organization [facility] Address [address] [place] [address]. 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
--- OUTSIDE RECORDS SUMMARY | 2024-04-09 07:50 | XMS_ITS | Encounter Summary ---
Author Organization [facility] Address [address] [place] [address]. [place], [place] [address] [place] [address] Care Team Providers Care Physicist Acoustics Name Role Phone Jose Yip MD Primary Care Provider +1- [phone] Reason for Visit * Reason Onset Date Comments UTI 03/05/2020 Urinary frequenc y, urgency, pain, burning when voids, pain when seated. Thinks he is having a prostate problem. 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 No / Unsure 03/06/2020 12:54 PM GRADUATE RESEARCH ASSISTANT documented as of this encounter Progress Notes * Jacquelyn Rock MA - 03/05/2020 11:22 AM CST noted UATE RESEARCH ASSISTANT * Carl Brooks RN - 03/05/2020 11:15 AM CST Urinary frequency, urgency, pain, burning when voids, pain when seated. Thinks he is having a prostate problem. Denies urine cloudiness or odor. Did go to a [employer] gathering, states wears a mask. Appt 03/06/20 Evonne Anglin 1:00 Instructed to arrive 10 minutes early and wear a mask to clinic and sanitize hands. UATE RESEARCH ASSISTANT documented in this encounter Plan of Treatment Not on file documented as of this encounter Visit Diagnoses Not on filedocumented in this encounter Care Teams Physicist Acoustics Relationship Specialty Start Date End Date Jose Yip MD [address] [place] [address] PCP - General INTERNAL MEDICINE 12/27/19 08/28/20 documented as of this encounter
--- OUTSIDE RECORDS SUMMARY | 2024-04-09 07:51 | XMS_ITS | Encounter Summary ---
Author Organization [facility] Address [address] [place] [address]. 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 No / Unsure 03/06/2020 12:54 PM CASINO SURVEILLANCE OFFICER documented as of this encounter Plan of Treatment Not on file documented as of this encounter Visit Diagnoses Not on filedocumented in this encounter Care Teams Pocket Flap Creasing Machine Operator Relationship Specialty Start Date End Date Jose Yip MD [address] [place] [address] PCP - General INTERNAL MEDICINE 12/27/19 08/28/20 documented as of this encounter
--- OUTSIDE RECORDS SUMMARY | 2024-04-09 07:51 | XMS_ITS | Encounter Summary ---
Author Organization [facility] Address [address] [place] [address]. 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 No / Unsure 03/06/2020 12:54 PM CAREER RESOURCE SPECIALIST documented as of this encounter Plan of Treatment Not on file documented as of this encounter Visit Diagnoses Not on filedocumented in this encounter Care Teams Glass Tube Bender Relationship Specialty Start Date End Date Igor Castano DO PCP - General INTERNAL MEDICINE 04/28/19 12/26/19 Jose Yip MD [address] [id number] PCP - General INTERNAL MEDICINE 12/27/19 08/28/20 documented as of this encounter
--- OUTSIDE RECORDS SUMMARY | 2024-04-09 07:51 | XMS_ITS | Encounter Summary ---
Author Organization [facility] Address [address] [place] [address]. 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
--- OUTSIDE RECORDS SUMMARY | 2024-04-09 07:51 | XMS_ITS | Encounter Summary ---
Author Organization [facility] Address [address] [place] [address]. 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 No / Unsure 02/12/2020 1:56 PM GAS STATION CASHIER documented as of this encounter Plan of Treatment Not on file documented as of this encounter Visit Diagnoses Not on filedocumented in this encounter Care Teams Ambulance Driver Paramedic Relationship Specialty Start Date End Date Jose Yip MD [facility] [place] [address] PCP - General INTERNAL MEDICINE 12/27/19 08/28/20 documented as of this encounter
--- OUTSIDE RECORDS SUMMARY | 2024-04-09 07:51 | XMS_ITS | Encounter Summary ---
Author Organization [facility] Address [address] [place] [address]. 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
--- OUTSIDE RECORDS SUMMARY | 2024-04-09 07:51 | XMS_ITS | Encounter Summary ---
Author Organization [facility] Address [address] [place] [address]. [place], [place] [address] [place] [address] Care Team Providers Care Podiatry Teacher Name Role Phone Jose Yip MD Primary Care Provider +1- [phone] Encounter Details Date Type Department Care Team [...] on file Legal Sex Male 10:43 PM CUSTOMER SUPPLY CHAIN ANALYST Gender Identity Not on file Sexual Orientation Not on file COVID-19 Exposure Response Date Recorded In the last month, have you been in contact with someone who was confirmed or suspected to have Coronavirus / COVID-19? No / Unsure 03/06/2020 12:54 PM CUSTOMER SUPPLY CHAIN ANALYST documented as of this encounter Plan of Treatment Not on file documented as of this encounter Visit Diagnoses Not on filedocumented in this encounter Care Teams Podiatry Teacher Relationship Specialty Start Date End Date Jose Yip MD [address] [place] [address] PCP - General INTERNAL MEDICINE 12/27/19 08/28/20 documented as of this encounter
--- OUTSIDE RECORDS SUMMARY | 2024-04-09 07:51 | XMS_ITS | Encounter Summary ---
Author Organization [facility] Address [address] [place] [address]. 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 No / Unsure 02/12/2020 1:56 PM CHIEF OPERATING OFFICER documented as of this encounter Progress Notes * Charmaine Parry RN - 02/13/2020 12:26 PM CSTAddended by: CHARMAINE PARRY on: 02/13/2020 12:26 PM Modules accepted: Orders F OPERATING OFFICER * Charmaine Parry RN - 02/13/2020 12:25 PM CST Message to pt agrees to pear picker F OPERATING OFFICER * Jose Yip MD - 02/12/2020 8:12 PM CST I forgot to have yandel take a stool fit home. We discussed it. Due to intermittent abd pain, diarrhea F OPERATING OFFICER documented in this encounter Plan of Treatment Not on file documented as of this encounter Visit Diagnoses Diagnosis Right upper quadrant abdominal pain- Primary Abdominal pain, right upper quadrant documented in this encounter Care Teams Color Adviser Relationship Specialty Start Date End Date Jose Yip MD [address] [place] [address] PCP - General INTERNAL MEDICINE 12/27/19 08/28/20 documented as of this encounter
--- OUTSIDE RECORDS SUMMARY | 2024-04-09 07:51 | XMS_ITS | Encounter Summary ---
Author Organization [facility] Address [address] [place] [address]. 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 No / Unsure 03/06/2020 12:54 PM AIRPORT BAGGAGE SCREENER documented as of this encounter Plan of Treatment Not on file documented as of this encounter Visit Diagnoses Not on filedocumented in this encounter Care Teams Medical Records Coordinator Relationship Specialty Start Date End Date Igor Castano DO PCP - General INTERNAL MEDICINE 04/28/19 12/26/19 Jose Yip MD [address] [id number] PCP - General INTERNAL MEDICINE 12/27/19 08/28/20 documented as of this encounter
--- OUTSIDE RECORDS SUMMARY | 2024-04-09 07:51 | XMS_ITS | Encounter Summary ---
Author Organization [facility] Address [address] [place] [address]. 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 No / Unsure 03/06/2020 12:54 PM WALL COVERING CONTRACTOR documented as of this encounter Plan of Treatment Not on file documented as of this encounter Visit Diagnoses Not on filedocumented in this encounter Care Teams Glass Furnace Operator Relationship Specialty Start Date End Date Jose Yip MD [address] [place] [address] PCP - General INTERNAL MEDICINE 12/27/19 08/28/20 documented as of this encounter
--- OUTSIDE RECORDS SUMMARY | 2024-04-09 07:51 | XMS_ITS | Encounter Summary ---
Author Organization [facility] Address [address] [place] [address]. [place], [place] [address] [place] [address] Care Team Providers Care Crack Off Person Name Role Phone Olivier Yip MD Primary Care Provider +1- [phone] Reason for Visit * Reason Comments Follow Up puncture wound left foot has healed Encounter Details Date Type Department Care Team (Late st Contact Info) Description 02/12/2020 2:00 PM HARD HAT DIVER Office Visit [facility] Medical Group Internal Medicine - [place] [address] [place] [address] Olivier Yip MD [address] [place] [address] Follow Up (puncture wound left [...] on file Legal Sex Male 10:43 PM HARD HAT DIVER Gender Identity Not on file Sexual Orientation Not on file COVID-19 Exposure Response Date Recorded In the last month, have you been in contact with someone who was confirmed or suspected to have Coronavirus / COVID-19? No / Unsure 02/12/2020 1:56 PM HARD HAT DIVER documented as of this encounter Last Filed Vital Signs Vital Sign Reading Time Taken Comments Blood Pressure 116/60 02/12/2020 2:02 PM HARD HAT DIVER Pulse 72 02/12/2020 2:02 PM HARD HAT DIVER Temperature 36.6 ??C (97.8 ??F) 02/12/2020 2:02 PM CS T Respiratory Rate - - Oxygen Saturation 98% 02/12/2020 2:02 PM HARD HAT DIVER Inhaled Oxygen Concentration - - Weight 52.6 kg (116 lb) 02/12/2020 2:02 PM HARD HAT DIVER Height 175.3 cm (5' 9 ) 02/12/2020 2:02 PM HARD HAT DIVER Body Mass Index 17.13 02/12/2020 2:02 PM HARD HAT DIVER documented in this encounter Progress Notes * [...] and he is supposed to be on jkzb-mmw-htdggdh vitamin D now but it sounds like [...] smoker Need for immunization against influenza - [11952] FLU VACC QUAD 6 MONTHS+ 0.5 ML [...] curtail the marijuana use OLIVIER YIP MD HAT DIVER documented in this encounter Plan of Treatment [...] syndrome documented in this encounter Care Teams Crack Off Person Relationship Specialty Start Date End Date Olivier Yip MD [facility] [place] [address] PCP - General INTERNAL MEDICINE 12/27/19 08/28/20 documented as of this encounter
--- OUTSIDE RECORDS SUMMARY | 2024-04-09 07:51 | XMS_ITS | Encounter Summary ---
Author Organization [facility] Address [address] [place] [address]. [place], [place] [address] [place] [address] Care Team Providers Care Food Service Counter Clerk Name Role Phone Igor Castano DO Primary Care Provider Un available Jose Yip MD Primary Care Provider +1- [phone] Reason for Visit * Reason Comments Image [...] file Legal Sex Male 10:43 PM LAB ASSOCIATE Gender Identity Not on file Sexual Orientation Not on file COVID-19 Exposure Response Date Recorded In the last month, have you been in contact with someone who was confirmed or suspected to have Coronavirus / COVID-19? No / Unsure 03/06/2020 12:54 PM LAB ASSOCIATE documented as of this encounter Plan [...] on filedocumented in this encounter Care Teams Food Service Counter Clerk Relationship Specialty Start Date End Date Igor Castano DO PCP - General INTERNAL MEDICINE 04/28/19 12/26/19 Jose Yip MD [address] [place] [address] PCP - General INTERNAL MEDICINE 12/27/19 08/28/20 documented as of this encounter
--- OUTSIDE RECORDS SUMMARY | 2024-04-09 07:51 | XMS_ITS | Encounter Summary ---
Author Organization [facility] Address [address] [place] [address]. 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 Gender Identity Not on file Sexual [...] 12/27/2019 2:2 7 PM CDT Growth Chart: [facility] (Boys, 2-2 0 Years) documented in [...] few things on finding here in [facility] Mother [...] all orders for this visit: Mood disorder ([facility]) - divalproex EC 250 MG tablet; Take [...] this encounter Visit Diagnoses Diagnosis Mood disorder ([facility])- Primary Unspecified episodic mood disorder Marijuana smoker Cannabis abuse, unspecified Depression with anxiety Dysthymic disorder documented in this encounter Care Teams Eviction Specialist Relationship Specialty Start Date End Date Olivier Yip MD [address] [place] [address] PCP - General INTERNAL MEDICINE 12/27/19 08/28/20 documented as of this encounter
--- OUTSIDE RECORDS SUMMARY | 2024-04-09 07:51 | XMS_ITS | Encounter Summary ---
Author Organization [facility] Address [address] [place] [address]. 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 No / Unsure 03/06/2020 12:54 PM CULINARY WORKER documented as of this encounter Plan of Treatment Not on file documented as of this encounter Visit Diagnoses Not on filedocumented in this encounter Care Teams Die Sizer Relationship Specialty Start Date End Date Jose Yip MD [address] [place] [address] PCP - General INTERNAL MEDICINE 12/27/19 08/28/20 documented as of this encounter
--- OUTSIDE RECORDS SUMMARY | 2024-04-09 07:51 | XMS_ITS | Encounter Summary ---
Author Organization [facility] Address [address] [place] [address]. [place], [place] [address] [place] [address] Care Team Providers Care Legal Technician Name Role Phone Jose Yip MD Primary Care Provider +1- [phone] Reason for Visit * Reason Onset Date Comments Follow Up Call 02/05/2020 Encounter Details Date Type Department Care Team (Late st Contact Info) Description 02/05/2020 Telephone [facility] Medical Group Internal Medicine - [address] [address] Jose Yip MD [address] [place] [address] Follow Up Call Social History [...] on file Legal Sex Male 10:43 PM 3RD PRESSMAN Gender Identity Not on file Sexual Orientation [...] CST Message to pt Pt voiced understanding. 3RD PRESSMAN * Harrison Castellanos - 02/06/2020 9:51 AM CST Patient returning call tried nurse line but no answer please call back when available 3RD PRESSMAN * Charmaine Parry RN - 02/06/2020 9:49 AM CST No answer or voicemail 3RD PRESSMAN * Jose Yip MD - 02/06/2020 9:43 AM CST Should be ok, but sometimes diarrhea might develop, so let us know if it does. 3RD PRESSMAN * Charmaine Parry RN - 02/06/2020 9:26 AM CST Pt reports started abx amoxicillin 875 01-25-20 pt had tooth pulled 02-01-20 pt another tooth extraction scheduled for 02-15-20 pt on amoxicillin 500mg now. Pt wants to make sure it is ok to be on abx this long 3RD PRESSMAN * Carolyne Arambula - 02/05/2020 2:02 PM CST Patient has a question as his dentist is wanting him to be on antibiotic for about a month to get aTooth pulled Has a question for the nurse 3RD PRESSMAN documented in this encounter Plan of Treatment Not on file documented as of this encounter Visit Diagnoses Not on filedocumented in this encounter Care Teams Legal Technician Relationship Specialty Start Date End Date Jose Yip MD [address] [id number] PCP - General INTERNAL MEDICINE 12/27/19 08/28/20 documented as of this encounter
--- OUTSIDE RECORDS SUMMARY | 2024-04-09 07:51 | XMS_ITS | Encounter Summary ---
Author Organization [facility] Address [address] [place] [address]. 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
--- OUTSIDE RECORDS SUMMARY | 2024-04-09 07:51 | XMS_ITS | Encounter Summary ---
Author Organization [facility] Address [address] [place] [address]. [place], [place] [address] [place] [address] Care Team Providers Care Boom Worker Name Role Phone Igor Castano DO Primary Care Provider Un available Jose Yip MD Primary Care Provider +1- [phone] Encounter Details Date Type Department Care Team [...] on file Legal Sex Male 10:43 PM RESERVATIONS MANAGER Gender Identity Not on file Sexual Orientation Not on file COVID-19 Exposure Response Date Recorded In the last month, have you been in contact with someone who was confirmed or suspected to have Coronavirus / COVID-19? No / Unsure 03/06/2020 12:54 PM RESERVATIONS MANAGER documented as of this encounter Plan of Treatment Not on file documented as of this encounter Visit Diagnoses Not on filedocumented in this encounter Care Teams Boom Worker Relationship Specialty Start Date End Date Igor Castano DO PCP - General INTERNAL MEDICINE 04/28/19 12/26/19 Jose Yip MD [address] [id number] PCP - General INTERNAL MEDICINE 12/27/19 08/28/20 documented as of this encounter
--- OUTSIDE RECORDS SUMMARY | 2024-04-09 07:51 | XMS_ITS | Encounter Summary ---
Author Organization [facility] Address [address] [place] [address]. 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 Cheek's ROD FILLER Cherie. documented in this encounter Plan of Treatment Not on file documented as of this encounter Visit Diagnoses Not on filedocumented in this encounter Care Teams Regional Liaison Relationship Specialty Start Date End Date Igor Castano DO PCP - General INTERNAL MEDICINE 04/28/19 12/26/19 documented as of this encounter
--- OUTSIDE RECORDS SUMMARY | 2024-04-09 07:51 | XMS_ITS | Encounter Summary ---
Author Organization [facility] Address [address] [place] [address]. [place], [place] [address] [place] [address] Care Team Providers Care Bridge Painter Name Role Phone Jose Yip MD Primary Care Provider +1- [phone] Reason for Visit * Reason Onset Date Comments Wound 01/23/2020 Pt reports that around 1am this morning he was latching a wooden gate and one of the screws were loose and cut him on the back of his foot. 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 Please call the pt back at [phone]. documented in this encounter Plan of Treatment Not on file documented as of this encounter Visit Diagnoses Not on filedocumented in this encounter Care Teams Bridge Painter Relationship Specialty Start Date End Date Jose Yip MD [address] [place] [address] PCP - General INTERNAL MEDICINE 12/27/19 08/28/20 documented as of this encounter"
--- OUTSIDE RECORDS SUMMARY | 2024-04-09 07:51 | XMS_ITS | Encounter Summary ---
Author Organization [facility] Address [address] [place] [address]. [place], [place] [address] [place] [address] Care Team Providers Care Title Searcher Name Role Phone Jose Yip MD Primary Care Provider +1- [phone] Reason for Visit * Reason Onset Date Comments Medication Request 01/23/2020 Encounter Details Date Type Department Care Team (Late st Contact Info) Description 01/23/[address] 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
--- OUTSIDE RECORDS SUMMARY | 2024-04-09 07:51 | XMS_ITS | Encounter Summary ---
Author Organization [facility] Address [address] [place] [address]. 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
--- OUTSIDE RECORDS SUMMARY | 2024-04-09 07:52 | XMS_ITS | Encounter Summary ---
Author Organization [facility] Address [facility] [place], [place] [address] [place] [address] Care Team Providers Care Hydrogen Plant Operator Name Role Phone Stan Castano DO Primary Care Provider Un available Reason for Referral * Consultation/Treatment (Routine) - Closed Specialty Diagnoses / Procedures Referred By Magda flood Referred To Contact Psychiatry Diagnoses Depression with anxiety Stan Castano DO [address] [address] Phone: tel: Referral ID Status Reason Start Date Expiration Date V isits Requested Visits Authorized [id number] Closed Specialty Services 04/28/2019 05/29/2020 99 99 R AND SANDER Reason for Visit * Reason Comments Meet and Greet Provider Patient in offic e with mother to establish care. Abdominal Pain Abdominal pain on ri ght side. Encounter Details Date Type Department Care Team (Late st Contact Info) Description 04/28/2019 11:00 AM FILER AND SANDER Office Visit [facility] Family & Internal Medicine - [place] [address] [place] [address] Stan Castano DO Meet and Greet Provider [...] on file Legal Sex Male 10:43 PM FILER AND SANDER Gender Identity Not on file Sexual Orientation Not on file documented as of this encounter Last Filed Vital Signs Vital Sign Reading Time Taken Comments Blood Pressure 118/82 04/28/2019 11:02 AM FILER AND SANDER Pulse 126 04/28/2019 11:02 AM FILER AND SANDER Temperature 36.7 ??C (98 ??F) 04/28/2019 11:02 AM FILER AND SANDER Respiratory Rate 20 04/28/2019 11:02 AM FILER AND SANDER Oxygen Saturation 98% 04/28/2019 11:02 AM FILER AND SANDER Inhaled Oxygen Concentration - - Weight 49 kg (108 lb) 04/28/2019 11:02 AM FILER AND SANDER Height - - Body Mass Index - - documented in this encounter Patient Instructions * Patient Instructions* Stan Castano DO - 04/28/2019 11:00 AM FILER AND SANDER Patient Education Patient Education Marijuana Use and [...] in your town. Join social activities. Try adventist activities or do things with others. Be [...] Where can I learn more? National [place] on Drug Abuse http://www.drugabuse.gov/publications/drugfacts/marijuana National [place] on Drug Abuse https://www.drugabuse.gov/drugs-abuse/catnypqa-orirsx-ozmbw-charts#marijuana-can nabis- Last Reviewed Date 2017-11-24 Consumer Information [...] right for you. Copyright Copyright ?? 2019 [employer]. and its affiliates and/or licensors. All rights reserved. R AND SANDER documented in this encounter Progress Notes * Victorino Gastelum MA - 04/28/2019 11:00 AM CSTAddended by: VICTORINO GASTELUM on: 05/02/2019 07:52 AM Modules accepted: Orders R AND SANDER * Stan Castano DO - 04/28/2019 11:00 [...] file Gets together: Not on file Attends latter day service: Not on file Active member of [...] 1 month for reevaluation. STAN CASTANO DO R AND SANDER * Stan Castano DO - 04/28/2019 11:00 AM CST TSH,mg,cbc,lipase with no significant abnormalities. Calcium slightly low. Increase dietary calcium intake.(please order check of vitamin D- diagnosis -hypocalcemia) Total bilirubin slightly elevated. We will continue to monitor. ( Order recheck on hepatic functionpanel in 3 months) R AND SANDER * Victorino Gastelum MA - 04/28/2019 11:00 AM CST Mailed letter. R AND SANDER * Stan Castano DO - 04/28/2019 11:00 AM CST Positive to marijuana which we are aware and already discussed during visit. R AND SANDER documented in this encounter Plan of Treatment Pending Results Name Type Priority Associated Diagnoses Date /Time EKG INTERPRET & REPORT PREVE EKG-NonRad Routine Sinus tachycardia 04/28/2019 12:08 PM FILER AND SANDER Scheduled Referrals Name Type Priority Associated Diagnoses Orde r Schedule Ambulatory Referral to Psychiatry Referral Routine Depression with anxiety Ordered: 04/28/2019 documented as of this encounter Procedures Procedure Name Priority Date/Time Associated Diagnosis Comments DRUG MONITORING, PANEL 5, SCREEN (U) Routine 04/28/2019 12:10 PM FILER AND SANDER Marijuana smoker Tobacco use TSH W/REFLEX Routine 04/28/2019 12:10 PM FILER AND SANDER Sinus tachycardia COMPREHENSIVE METABOLIC PANEL Routine 04/28/2019 12:10 PM FILER AND SANDER Right upper quadrant abdominal pain CBC, AUTO, NO DIFF Routine 04/28/2019 12 :10 PM FILER AND SANDER Right upper quadrant abdominal pain MAGNESIUM Routine 04/28/2019 12:10 PM FILER AND SANDER Sinus tachycardia LIPASE Routine 04/28/2019 12:10 PM FILER AND SANDER Epigastric abdominal pain COLLECTION VENOUS BLOOD VENIPUNCTURE Routine 04/28/2019 12:09 PM FILER AND SANDER Epigastric abdominal pain Sinus tachycardia Gastroesophageal reflux disease, esophagitis presence not specified Primary insomnia Depression with anxiety Marijuana smoker EKG INTERPRET & REPORT PREVE Routine 04/28/2019 12:08 PM FILER AND SANDER Sinus tachycardia documented in this encounter Results * (ABNORMAL) PAIN MANAGEMENT 5 PROFILE WITHOUT CONFIRMATION, URINE (04/28/2019 12:10 PM FILER AND SANDER) CREATININE RANDOM URINE 218.4 > or = [...] <100 ng/mL [facility]YE Comment: [facility] ENGL[facility] Comment: See Note 1 Note [...] interpreting these drug results, please contact a [email or web address] Toxicology Specialist: [phone] [phone] ( ), M-F, 8am-6pm EST. 04/28/2019 12:1 0 PM FILER AND SANDER 05/02/2019 6:08 AM FILER AND SANDER Narrative Resulting Agency Comment Performing Organization Information: ?Site ID: [email or web address] ?Name: [email or web address] ?Address: [address] [place] [id number] ?Director: Keaton Connor M.D. us Stan Castano DO LABORATORY Final Res ult [facility] [address] [place] [address] * TSH W/REFLEX (04/28/2019 12:10 PM FILER AND SANDER) TSH 1.854 0.516 - 4.130 uIU/ML 04/28/2019 7:57 PM FILER AND SANDER [facility] 04/28/2019 12:1 0 PM FILER AND SANDER Stan Castano DO LABORATORY Final Res ult [facility] [address] [place] [address], * (ABNORMAL) COMPREHENSIVE METABOLIC PANEL (04/28/2019 12:10 PM FILER AND SANDER) SODIUM S/P/B 141 136 - 145 MMOL/L 04/28/2019 7:57 PM FILER AND SANDER [facility] POTASSIUM S/P/B 4.6 3.5 - 5.1 MMOL/L 04/28/2019 7:57 PM FILER AND SANDER [facility] CHLORIDE S/P/B 103 98 - 107 MMOL/L 04/28/2019 7:57 PM FILER AND SANDER [facility] CO2 21.9 21 - 32 MMOL/L 04/28/2019 7:57 PM FILER AND SANDER [facility] GLUCOSE 84 70 - 99 MG/DL 04/28/2019 7:57 PM FILER AND SANDER [facility] BUN 21 6 - 24 MG/DL 04/28/2019 7:57 PM FILER AND SANDER [facility] CREATININE S/P/B 0.94 0.70 - 1.30 MG/DL 04/28/2019 7:57 PM FILER AND SANDER [facility] CALCIUM S/P/B 9.3(L) 9.5 - 10.4 MG/DL 04/28/2019 7:57 PM FILER AND SANDER [facility] BILIRUBIN TOTAL S/P/B 1.2(H) 0.2 - 1.0 MG/DL 04/28/2019 7:57 PM [facility] ALKALINE PHOSPHATASE S/P/B 105 52 - 222 U/L 04/28/2019 7:57 PM [facility] AST 10(L) 15 - 37 U/L 04/28/2019 7:57 PM [facility] ALT 12(L) 16 - 63 U/L 04/28/2019 7:57 PM [facility] TOTAL PROTEIN S/P/B 7.7 6.4 - 8.2 G/DL 04/28/2019 7:57 PM [facility] ALBUMIN S/P/B 4.9 3.4 - 5.0 G/DL 04/28/2019 7:57 PM [facility] ANION GAP 16.1(H) 5 - 15 MMOL/L 04/28/2019 7:57 PM [facility] Comment:REFERENCE RANGE NOT ESTABLISHED OSMOLALITY (CALC) 294 MOSM/KG 04/28/2019 7:57 PM [facility] Comment:REFERENCE RANGE NOT ESTABLISHED EGFR NON-AFR. AMER. >90 >90 ML/MIN/1 .73 M2 04/28/2019 7:57 PM [facility] EGFR AFR. AMER. >90 >90 ML/MIN/1 .73 M2 04/28/2019 7:57 PM [facility] GFR NOTES THE ESTIMATED GFR IS CALCULATED USING THE 2009 CKD-EPI EQUATION. THE FOLLOWING CATEGORIES FOR GRADING RENAL FUNCTION ARE RECOMMENDED BY THE INTERNATIONAL SOCIETY OF NEPHROLOGY (KDIGO 2012 CLINICAL PRACTICE GUIDELINE). 04/28/2019 7:57 PM [facility] Comment: G1,NORMAL OR HIGH: >89 ml/min/1.73 m2 G2,MILDLY DECREASED: 60-89 ml/min/1.73 m2 G3A,MILDLY TO MODERATELY DECREASED: 45-59 ml/min/1.73 m2 G3B,MODERATELY TO SEVERELY DECREASED: 30-44 ml/min/1.73 m2 G4,SEVERELY DECREASED: 15-29 ml/min/1.73 m2 G5,KIDNEY FAILURE: <15 ml/min/1.73 m2 04/28/2019 12:1 [address] [facility] LABORATORY Final Res ult Performing Organization Address City/[facility]/ZIP Co de Phone Number [facility] [address] [place] [address], [place] [phone] * MAGNESIUM (04/28/2019 12:10 PM FILER AND SANDER) MAGNESIUM 1.9 1.8 - 2.4 MG/DL 04/28/2019 7:57 PM FILER AND SANDER [facility] 04/28/2019 12:[address] [facility] LABORATORY Final Res ult Performing Organization Address City/[facility]/ZIP Co de Phone Number [place] [address] [place] [address], [place] [phone] * (ABNORMAL) CBC, AUTO, NO DIFF (04/28/2019 12:10 PM FILER AND SANDER) WBC 6.8 4.50 - 10.80 x10'3/uL 04/28/2019 7:03 PM [facility] RBC 4.63 4.50 - 6.10 x10'6/uL 04/28/2019 7:03 PM FILER AND SANDER [facility] HGB 15.0 13.0 - 18.0 G/DL 04/28/2019 7:03 PM FILER AND SANDER [facility] HCT 43.3 37.0 - 52.0 % 04/28/2019 7:03 PM FILER AND SANDER [facility] MCV 93.5 78.0 - 100.0 FL 04/28/2019 7:03 PM [facility] MCH 32.4 25.0 - 35.0 PG 04/28/2019 7:03 PM FILER AND SANDER [facility] MCHC 34.6 31.0 - 36.0 G/DL 04/28/2019 7:03 PM FILER AND SANDER [facility] RDW 11.5 11.5 - 14.5 % 04/28/2019 7:03 PM FILER AND SANDER [facility] PLT 342 150 - 350 x10'3/uL 04/28/2019 7:03 PM FILER AND SANDER [facility] MPV 11.0(H) 7.4 - 10.4 FL 04/28/2019 7:03 PM FILER AND SANDER [facility] 04/28/2019 12:1 0 PM FILER AND SANDER [facility] Final Res ult Performing Organization Address City/[facility]/ZIP Co de Phone Number [facility] [place] [address] [place] [address], [place] [phone] * LIPASE (04/28/2019 12:10 PM FILER AND SANDER) LIPASE 78 73 - 393 UNITS/L 04/28/2019 7:57 PM FILER AND SANDER [facility] Comment:NEW INSTRUMENTATION. PLEASE NOTE NEW NORMAL RANGE. 04/28/2019 12:1 0 PM FILER AND SANDER [facility] Final Res ult [facility] [place] [address] [place] [address], [place] [phone] documented in this encounter Visit Diagnoses Diagnosis [...] deficiency documented in this encounter Care Teams Hydrogen Plant Operator Relationship Specialty Start Date End Date Stan Castano DO PCP - General INTERNAL MEDICINE 04/28/19 12/26/19 documented as of this encounter
--- OUTSIDE RECORDS SUMMARY | 2024-04-09 07:52 | XMS_ITS | Encounter Summary ---
Author Organization [facility] Address [facility] 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 No / Unsure 03/06/2020 12:54 PM BILINGUAL PATIENT SUPPORT CASEWORKER documented as of this encounter Plan of Treatment Not on file documented as of this encounter Visit Diagnoses Not on filedocumented in this encounter Care Teams Aba Therapist Relationship Specialty Start Date End Date Rose Balderas MD PCP - General FAMILY PRACTICE 10/21/18 04/25/19 None, Sarah, PCP - General 04/26/19 04/27/19 Igor Castano DO PCP - General INTERNAL MEDICINE 04/28/19 12/26/19 Jose Yip MD [address] [place], [place] [id number] PCP - General INTERNAL MEDICINE 12/27/19 08/28/20 documented as of this encounter
--- OUTSIDE RECORDS SUMMARY | 2024-04-09 07:52 | XMS_ITS | Encounter Summary ---
Author Organization [facility] Address [address] [place] [address]. 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 No / Unsure 03/06/2020 12:54 PM CONDENSER TESTER documented as of this encounter Plan [...] on filedocumented in this encounter Care Teams Cable Way Operator Relationship Specialty Start Date End Date Igor Castano DO PCP - General INTERNAL MEDICINE 04/28/19 12/26/19 Jose Yip MD [address] [place] [address] PCP - General INTERNAL MEDICINE 12/27/19 08/28/20 documented as of this encounter
--- OUTSIDE RECORDS SUMMARY | 2024-04-09 07:52 | XMS_ITS | Encounter Summary ---
Author Organization [facility] Address [facility] 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 No / Unsure 03/06/2020 12:54 PM REVENUE ANALYST documented as of this encounter Plan of Treatment Not on file documented as of this encounter Visit Diagnoses Not on filedocumented in this encounter Care Teams Construction Coordinator Relationship Specialty Start Date End Date Rose Balderas MD PCP - General FAMILY PRACTICE 10/21/18 04/25/19 None, Sarah, PCP - General 04/26/19 04/27/19 Igor Castano DO PCP - General INTERNAL MEDICINE 04/28/19 12/26/19 Jose Yip MD [address] [place], [place] [id number] PCP - General INTERNAL MEDICINE 12/27/19 08/28/20 documented as of this encounter
--- OUTSIDE RECORDS SUMMARY | 2024-04-09 07:52 | XMS_ITS | Encounter Summary ---
Author Organization [facility] Address [address] [place] [address]. 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 No / Unsure 03/06/2020 12:54 PM CHILDREN'S MINISTRY DIRECTOR documented as of this encounter Plan [...] on filedocumented in this encounter Care Teams Treasury Agent Relationship Specialty Start Date End Date Igor Castano DO PCP - General INTERNAL MEDICINE 04/28/19 12/26/19 Jose Yip MD [address] [place] [address] PCP - General INTERNAL MEDICINE 12/27/19 08/28/20 documented as of this encounter
--- OUTSIDE RECORDS SUMMARY | 2024-04-09 07:52 | XMS_ITS | Encounter Summary ---
Author Organization [facility] Address [address] [place] [address]. 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 No / Unsure 03/06/2020 12:54 PM HAND BASEBALL SEWER documented as of this encounter Plan of [...] on filedocumented in this encounter Care Teams Logistics Supply Officer Relationship Specialty Start Date End Date Igor Castano DO PCP - General INTERNAL MEDICINE 04/28/19 12/26/19 Jose Yip MD [address] [place] [address] PCP - General INTERNAL MEDICINE 12/27/19 08/28/20 documented as of this encounter
--- OUTSIDE RECORDS SUMMARY | 2024-04-09 07:52 | XMS_ITS | Encounter Summary ---
Author Organization [facility] Address [address] [place] [address]. [place], [place] [address] [place] [address] Care Team Providers Care Race Car Driver Name Role Phone Igor Castano DO Primary Care Provider Un available Reason for Visit * Reason Onset Date Comments Advice 05/05/2019 symptom Encounter Details Date Type Department Care Team (Late st Contact Info) Description 05/05/2019 Telephone [facility] Family & Internal Medicine - [address] [address] Igor Castano DO Advice (symptom) Social History Tobacco Use Types Packs/Day Years Used Date Smoking Tobacco: Every Day Smokeless Tobacco: Never Alcohol Use Standard Drinks/Week Comments Yes 0 (1 standard drink = 0.6 oz pur e alcohol) PHQ-2 Answer Date Recorded PHQ-2 Score 4 04/28/2019 Sex and Gender Information Value Date Recorded Sex Assigned at Not on file Legal Sex Male 10:43 PM FIREBRICK LAYER Gender Identity Not on file Sexual Orientation [...] worsen he is to go to ER BRICK LAYER * Victorino Gastelum MA - 05/05/2019 1:22 PM CST Please advise BRICK LAYER * Terra Tello - 05/05/2019 1:09 PM CST Patient called and said he has severe pain in right side abdomen. Said he did not want same day appt. N/A at nurse # Please call back to advise [phone] BRICK LAYER documented in this encounter Plan of Treatment Not on file documented as of this encounter Visit Diagnoses Not on filedocumented in this encounter Care Teams Race Car Driver Relationship Specialty Start Date End Date Igor Castano DO PCP - General INTERNAL MEDICINE 04/28/19 12/26/19 documented as of this encounter
--- OUTSIDE RECORDS SUMMARY | 2024-04-09 07:52 | XMS_ITS | Encounter Summary ---
Author Organization [facility] Address [facility]. [place], [place] [address] [place] [address] Care Team Providers Care Rolfer Name Role Phone Rose Balderas MD Primary Care Provider +1- [phone] None, Provider Primary Care Provider Igor Wong DO Primary Care Provider Un available Jose Yip MD Primary Care Provider +1- [phone] Reason for Visit * Reason Comments Lab [...] file Legal Sex Male 10:43 PM DIRECTOR DATA ANALYTICS Gender Identity Not on file Sexual Orientation Not on file COVID-19 Exposure Response Date Recorded In the last month, have you been in contact with someone who was confirmed or suspected to have Coronavirus / COVID-19? No / Unsure 03/06/2020 12:54 PM DIRECTOR DATA ANALYTICS documented as of this encounter Plan of [...] on filedocumented in this encounter Care Teams Rolfer Relationship Specialty Start Date End Date Rose Balderas MD PCP - General FAMILY PRACTICE 10/21/18 04/25/19 None, MD Sarah PCP - General 04/26/19 04/27/19 Igor Castano DO PCP - General INTERNAL MEDICINE 04/28/19 12/26/19 Jose Yip MD [address] [place] [address] PCP - General INTERNAL MEDICINE 12/27/19 08/28/20 documented as of this encounter
--- OUTSIDE RECORDS SUMMARY | 2024-04-09 07:52 | XMS_ITS | Encounter Summary ---
Author Organization [facility] Address [address] [place] [address]. 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 No / Unsure 03/06/2020 12:54 PM AIR TRAFFIC CONTROLLER CENTER documented as of this encounter Plan of Treatment Not on file documented as of this encounter Visit Diagnoses Not on filedocumented in this encounter Care Teams General Engineering Teacher Relationship Specialty Start Date End Date Igor Castano DO PCP - General INTERNAL MEDICINE 04/28/19 12/26/19 Jose Yip MD [address] [id number] PCP - General INTERNAL MEDICINE 12/27/19 08/28/20 documented as of this encounter
--- OUTSIDE RECORDS SUMMARY | 2024-04-09 07:52 | XMS_ITS | Encounter Summary ---
Author Organization [facility] Address [address] [place] [address]. 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
--- OUTSIDE RECORDS SUMMARY | 2024-04-09 07:52 | XMS_ITS | Encounter Summary ---
Author Organization [facility] Address [address] [place] [address]. [place], [place] [id number] [place] [address] Care Team Providers Care Online Marketing Coordinator Name Role Phone Rose Balderas MD Primary Care Provider +1- [phone] Reason for Visit * Reason Onset Date Comments Appointment Request 10/20/2018 Encounter Details Date Type Department Care Team (Late st Contact Info) Description 10/20/2018 Telephone [facility] Internal Medicine - [address] [address] Jose Yip MD [address] [place] [address] Appointment Request Social History Tobacco Use Types Packs/Day Years Used Date Smoking Tobacco: Never Assessed Sex and Gender Information Value Date Recorded Sex Assigned at Not on file 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 Yip in December 2019. Because patients need in sooner, I went ahead and also scheduled with Dr. Balderas out of [facility] for November 2018. * Nora Scott [...] on filedocumented in this encounter Care Teams Online Marketing Coordinator Relationship Specialty Start Date End Date Rose Balderas MD PCP - General FAMILY PRACTICE 10/21/18 04/25/19 documented as of this encounter
--- OUTSIDE RECORDS SUMMARY | 2024-04-09 07:52 | XMS_ITS | Encounter Summary ---
Author Organization [facility] Address [facility]. 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 No / Unsure 03/06/2020 12:54 PM BACTERIOLOGIST PHARMACEUTICAL documented as of this encounter Plan of Treatment Not on file documented as of this encounter Visit Diagnoses Not on filedocumented in this encounter Care Teams Buildings And Grounds Director Relationship Specialty Start Date End Date Rose Balderas MD PCP - General FAMILY PRACTICE 10/21/18 04/25/19 None, Sarah, PCP - General 04/26/19 04/27/19 Igor Castano DO PCP - General INTERNAL MEDICINE 04/28/19 12/26/19 Jose Yip MD [address] [place], [place] [id number] PCP - General INTERNAL MEDICINE 12/27/19 08/28/20 documented as of this encounter
--- OUTSIDE RECORDS SUMMARY | 2024-04-09 07:52 | XMS_ITS | Encounter Summary ---
Author Organization [facility] Address Critical access hospital6 [facility]. 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 No / Unsure 03/06/2020 12:54 PM COMMERCIAL ACCOUNT EXECUTIVE documented as of this encounter [...] on filedocumented in this encounter Care Teams Cutting Tool Sharpener Relationship Specialty Start Date End Date Rose Balderas MD PCP - General FAMILY PRACTICE 10/21/18 04/25/19 None, MD Sarah PCP - General 04/26/19 04/27/19 Igor Castano DO PCP - General INTERNAL MEDICINE 04/28/19 12/26/19 Jose Yip MD [address] [place] [address] PCP - General INTERNAL MEDICINE 12/27/19 08/28/20 documented as of this encounter
--- OUTSIDE RECORDS SUMMARY | 2024-04-09 07:52 | XMS_ITS | Encounter Summary ---
Author Organization [facility] Address [address] [place] [address]. 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 No / Unsure 03/06/2020 12:54 PM LABORER CHICKEN FARM documented as of this encounter Plan of Treatment Not on file documented as of this encounter Visit Diagnoses Not on filedocumented in this encounter Care Teams Gandy Dancer Relationship Specialty Start Date End Date Igor Castano DO PCP - General INTERNAL MEDICINE 04/28/19 12/26/19 Jose Yip MD [address] [id number] PCP - General INTERNAL MEDICINE 12/27/19 08/28/20 documented as of this encounter
--- OUTSIDE RECORDS SUMMARY | 2024-04-09 07:52 | XMS_ITS | Encounter Summary ---
Author Organization [facility] Address [address] [place] [address]. 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 No / Unsure 03/06/2020 12:54 PM COMPUTER DESIGNER documented as of this encounter Plan of Treatment Not on file documented as of this encounter Procedures Procedure Name Priority Date/Time Associated Diagnosis Comments OUTSIDE LAB (SCAN ORDER) Routine 05/23/2019 documented in this encounter Results * OUTSIDE LAB (05/23/2019) 05/23/2019 us Documents Scanned SCANNING Final Result [facility] ON[facility] documented in this encounter Visit Diagnoses Not on filedocumented in this encounter Care Teams Medical Practice Manager Relationship Specialty Start Date End Date Igor Castano DO PCP - General INTERNAL MEDICINE 04/28/19 12/26/19 Jose Yip MD [address] [place], [place] [phone] PCP - General INTERNAL MEDICINE 12/27/19 08/28/20 documented as of this encounter
--- OUTSIDE RECORDS SUMMARY | 2024-04-09 07:52 | XMS_ITS | Encounter Summary ---
Author Organization [facility] Address [facility]6 [facility]. 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 No / Unsure 03/06/2020 12:54 PM LD TEACHER documented as of this encounter Plan of Treatment Not on file documented as of this encounter Visit Diagnoses Not on filedocumented in this encounter Care Teams Vp Ad Sales West Relationship Specialty Start Date End Date Rose Balderas MD PCP - General FAMILY PRACTICE 10/21/18 04/25/19 None, Sarah, PCP - General 04/26/19 04/27/19 Igor Castano DO PCP - General INTERNAL MEDICINE 04/28/19 12/26/19 Jose Yip MD [address] [place], [place] [id number] PCP - General INTERNAL MEDICINE 12/27/19 08/28/20 documented as of this encounter
--- OUTSIDE RECORDS SUMMARY | 2024-04-09 07:52 | XMS_ITS | Encounter Summary ---
Author Organization [facility] Address [address] [place] [address]. [place], [place] [address] [place] [address] Care Team Providers Care Database Architect Name Role Phone Igor Castano DO Primary Care Provider Un available Reason for Referral * Imaging (Emergency) - Closed Specialty Diagnoses / Procedures Referred By Magda flood Referred To Contact RADIOLOGY Procedures US ABD LIMITED Erica Wright NP Phone: tel: fax: Referral ID Status Reason Start Date Expiration Date Visits Re quested Visits Authorized [id number] Closed 05/01/2019 06/01/2020 1 1 RTISING SPACE CLERK Reason for Visit * Reason Comments Abdominal Pain Nausea Encounter Details Date Type Department Care Team (Late st Contact Info) Description 05/01/2019 12:43 PM ADVERTISING SPACE CLERK - 05/01/2019 2:50 PM ADVERTISING SPACE CLERK Emergency [facility] Emergency [address] [place] [address] Erica Wright NP [address] [place], [place] [phone] Abdominal Pain; Nausea Discharge Disposition: Home or [...] on file Legal Sex Male 10:43 PM ADVERTISING SPACE CLERK Gender Identity Not on file Sexual Orientation Not on file documented as of this encounter Last Filed Vital Signs Vital Sign Reading Time Taken Comments Blood Pressure 132/68 05/01/2019 11:36 AM ADVERTISING SPACE CLERK Pulse 91 05/01/2019 11:36 AM ADVERTISING SPACE CLERK Temperature 36.2 ??C (97.2 ??F) 05/01/2019 1 1:36 AM ADVERTISING SPACE CLERK Respiratory Rate 16 05/01/2019 11:3 6 AM ADVERTISING SPACE CLERK Oxygen Saturation 99% 05/01/2019 11: 36 AM ADVERTISING SPACE CLERK Inhaled Oxygen Concentration - - Weight 47.3 kg (104 lb 4.4 oz) 05/01/19 20 11:36 AM ADVERTISING SPACE CLERK Height 175.3 cm (5' 9 ) 05/01/2019 11:3 6 AM ADVERTISING SPACE CLERK Body Mass Index 15.4 05/01/2019 11:36 AM ADVERTISING SPACE CLERK Body Mass Index Percentile 0.01% 05/01 11:36 AM ADVERTISING SPACE CLERK Growth Chart: [facility] (Boys, 2-2 0 Years) documented in this encounter Discharge Instructions * Discharge Instructions* Erica Willett NP - 05/01/2019 2:43 PM ADVERTISING SPACE CLERK 1. Avoid foods such as chocolate, tomatoes, [...] read and follow additional written instructions provided. RTISING SPACE CLERK * Attachments The following attachments cannot be sent through Care Everywhere. * Nausea and Vomiting Discharge Instructions, Adult (Swiss) * Severe Abdominal Pain Discharge Instructions, Adult (Swiss) documented in this encounter Medications at Time [...] micro regarding flu swab sent, no answer. RTISING SPACE CLERK * Erica Willett NP - 05/01/2019 12:46 [...] Range COLOR LIGHT YELLOW TRANSPARENCY CLEAR Specific [place] (U) 1.010 1.002 - 1.035 U PH [...] US ABD LIMITED Final Result by User, [id number] (05/01 1423) Examination: Abdominal ultrasound, limited. Clinical [...] 05/01/19, 13:21. Follow-up: Igor Castano DO [address] [facility] [id number] Go on 05/02/2019 As needed, If symptoms [...] Theresa Murillo MD at 05/01/2019 4:16 PM ADVERTISING SPACE CLERK RTISING SPACE CLERK RTISING SPACE CLERK * Angela Le RN - 05/01/2019 11:33 AM CST Pt presents to ED per pov. Pt complains of upper mid abd pain x2 weeks. States he gets 'attacks' and the pain increases. Reports feeling nauseated w/o vomiting. RTISING SPACE CLERK documented in this encounter Plan of Treatment Not on file documented as of this encounter Procedures Procedure Name Priority Date/Time Associated Diagnosis Comments US ABD LIMITED STAT 05/01/2019 2:07 PM ADVERTISING SPACE CLERK HC URINALYSIS AUTO W/MICRO Nurse Collected Priority 05/01/2019 1:27 PM ADVERTISING SPACE CLERK URINE BACTERIA CULTURE Nurse Collected Priority 05/01/2019 1:19 PM ADVERTISING SPACE CLERK INFLUENZA A & B Nurse Collected Priority 05/01/2019 1:08 PM ADVERTISING SPACE CLERK BASIC METABOLIC PANEL STAT 05/01/2019 1:06 PM ADVERTISING SPACE CLERK HETEROPHILE ANTIBODIES,SCREEN STAT 05/01/2019 1:06 PM ADVERTISING SPACE CLERK HEPATIC FUNCTION PANEL STAT 05/01/2019 1:06 PM ADVERTISING SPACE CLERK CBC W/DIFF AUTOMATED STAT 05/01/2019 1:06 PM ADVERTISING SPACE CLERK LIPASE STAT 05/01/2019 1:06 PM ADVERTISING SPACE CLERK documented in this encounter Results * US ABD LIMITED (05/01/2019 2:07 PM ADVERTISING SPACE CLERK) Anatomical Region Laterality Modality Abdomen Ultrasound 05/01/2019 2:21 PM ADVERTISING SPACE CLERK Impressions 05/01/2019 2:23 PM ADVERTISING SPACE CLERK Impression: Normal examination. Interpreted By: Thad Ramon MD, 05/01/2019 2:21 PM Narrative 05/01/2019 2:23 PM ADVERTISING SPACE CLERK Examination: Abdominal ultrasound, limited. Clinical Information: Right [...] esult * (ABNORMAL) URINALYSIS (05/01/2019 1:27 PM ADVERTISING SPACE CLERK) COLOR (U) LIGHT YELLOW 05/01/2019 1:34 PM ADVERTISING SPACE CLERK [facility] TRANSPARENCY CLEAR 05/01/2019 1:34 PM ADVERTISING SPACE CLERK [facility] SPECIFIC GRAVITY (U) 1.010 1.002 - 1.035 05/01/2019 1:34 PM ADVERTISING SPACE CLERK [facility] U PH 7.0 5 - 8 05/01/2019 1:34 PM ADVERTISING SPACE CLERK [facility] PROTEIN (U) NEGATIVE NEGATIVE 05/01/2019 1:34 PM ADVERTISING SPACE CLERK [facility] URINE GLUCOSE NEGATIVE NEGATIVE MG/DL 05/01/2019 1:34 PM ADVERTISING SPACE CLERK [facility] KETONES MG/DL (U) 20(A) NEGATIVE 05/01/2019 1:34 PM ADVERTISING SPACE CLERK [facility] BILIRUBIN (U) NEGATIVE NEGATIVE 05/01/2019 1:34 PM ADVERTISING SPACE CLERK [facility] BLOOD (U) NEGATIVE NEGATIVE 05/01/2019 1:34 PM ADVERTISING SPACE CLERK [facility] NITRITES NEGATIVE NEGATIVE 05/01/2019 1:34 PM [facility] UROBILINOGEN NORMAL 0 - 1 EU/DL 05/01/2019 1:34 PM ADVERTISING SPACE CLERK [facility] LEUKOCYTES (U) NEGATIVE NEGATIVE 05/01/2019 1:34 PM ADVERTISING SPACE CLERK [facility] RBC/HPF NONE 0 - 3 /HPF 05/01/2019 1:34 PM [facility] WBC/HPF NONE 0 - 6 /HPF 05/01/2019 1:34 PM [facility] BACTERIA (U) NONE /HPF 05/01/2019 1:34 PM [facility] URINE SPECIMEN OBTAINED BY CLEAN CATCH PROCEDURE / Unknown 05/01/2019 1:27 PM ADVERTISING SPACE CLERK Erica Malhotra NP URINE ORDERABLES Final Result [facility] [address] [place] [address], [phone] * CULTURE URINE (05/01/2019 1:19 PM ADVERTISING SPACE CLERK) SPEC DESCRIPTION URINE CLEAN CATCH 05/01/2019 1:19 PM ADVERTISING SPACE CLERK [facility] SPECIAL REQUESTS NO SPECIAL REQUEST 05/01/2019 1:19 PM ADVERTISING SPACE CLERK [facility] CULTURE RESULT NO GROWTH (< OR = 1,000 CFU/ML) 05/02/2019 3:51 AM ADVERTISING SPACE CLERK [facility] URINE SPECIMEN OBTAINED BY CLEAN CATCH PROCEDURE / Unknown 05/01/2019 1:19 PM ADVERTISING SPACE CLERK 05/01/2019 1:43 PM ADVERTISING SPACE CLERK us Erica Malhotra NP MICROBIOLOGY - GENERAL ORDERABLES Final Result Performing Organization Address [facility] de Phone Number [facility] [address] [place] [address], [place] [phone] * INFLUENZA A & B (05/01/2019 1:08 PM ADVERTISING SPACE CLERK) SPEC DESCRIPTION NASAL 05/01/2019 1:08 PM ADVERTISING SPACE CLERK [facility] SPECIAL REQUESTS NO SPECIAL REQUEST 05/01/2019 1:08 PM ADVERTISING SPACE CLERK [facility] RESULT NEGATIVE FOR INFLUENZA A & B VIRUS ANTIGEN 05/01/2019 2:07 PM ADVERTISING SPACE CLERK [facility] SPECIMEN FROM INTERNAL NOSE / Unknown 05/01/2019 1:08 PM ADVERTISING SPACE CLERK 05/01/2019 1:45 PM ADVERTISING SPACE CLERK us Erica Malhotra NP MICROBIOLOGY - GENERAL ORDERABLES Final Result Performing Organization Address [facility] de Phone Number [facility] [address] [place] [address], [place] [phone] * HETEROPHILE ANTIBODIES,SCREEN (05/01/2019 1:06 PM ADVERTISING SPACE CLERK) MONO TEST NEGATIVE NEGATIVE 05/01/2019 1:49 PM ADVERTISING SPACE CLERK [facility] 05/01/2019 1:06 PM ADVERTISING SPACE CLERK us Erica Malhotra NP LABORATORY Final R esult Performing Organization Address [facility] Co de Phone Number [facility] [address] [place] [address], [place] [phone] * LIPASE (05/01/2019 1:06 PM ADVERTISING SPACE CLERK) [facility] LIPASE 80 73 - 393 UNITS/L 05/01/2019 1:47 PM ADVERTISING SPACE CLERK [facility] 05/01/2019 1:06 PM ADVERTISING SPACE CLERK Erica Malhotra NP LABORATORY Final R esult [facility] [address] [place] [address], [phone] * (ABNORMAL) HEPATIC FUNCTION PANEL (05/01/2019 1:06 PM ADVERTISING SPACE CLERK) [facility] BILIRUBIN TOTAL S/P/B 1.0 0.2 - 1.0 MG/DL 05/01/2019 1:47 PM [facility] BILIRUBIN DIRECT S/P/B 0.3(H) 0.0 - 0.2 MG/DL 05/01/2019 1:47 PM ADVERTISING SPACE CLERK [facility] ALKALINE PHOSPHATASE S/P/B 111 52 - 222 U/L 05/01/2019 1:47 PM ADVERTISING SPACE CLERK [facility] AST 10(L) 15 - 37 U/L 05/01/2019 1:47 PM [facility] ALT 14(L) 16 - 61 U/L 05/01/2019 1:47 PM ADVERTISING SPACE CLERK [facility] TOTAL PROTEIN S/P/B 7.8 6.4 - 8.2 G/DL 05/01/2019 1:47 PM ADVERTISING SPACE CLERK [facility] ALBUMIN S/P/B 4.7 3.4 - 5.0 G/DL 05/01/2019 1:47 PM ADVERTISING SPACE CLERK [facility] 05/01/2019 1:06 PM ADVERTISING SPACE CLERK Erica Travis Voigts WATCH CASER LABORATORY Final R esult [facility] [address] [place] [address], [phone] * (ABNORMAL) BASIC METABOLIC PANEL (05/01/2019 1:06 PM ADVERTISING SPACE CLERK) SODIUM S/P/B 135(L) 136 - 145 MMOL/L 05/01/2019 1:47 PM [facility] POTASSIUM S/P/B 3.8 3.5 - 5.1 MMOL/L 05/01/2019 1:47 PM [facility] CHLORIDE S/P/B 104 98 - 107 MMOL/L 05/01/2019 1:47 PM [facility] CO2 23.1 21.0 - 32.0 MMOL/L 05/01/2019 1:47 PM [facility] GLUCOSE 88 74 - 106 MG/DL 05/01/2019 1:47 PM [facility] BUN 17 7 - 18 MG/DL 05/01/2019 1:47 PM [facility] CREATININE S/P/B 0.95 0.70 - 1.30 MG/DL 05/01/2019 1:47 PM [facility] CALCIUM S/P/B 9.2 8.5 - 10.1 MG/DL 05/01/2019 1:47 PM [facility] ANION GAP 7.9 5.0 - 15.0 MMOL/L 05/01/2019 1:47 PM [facility] Comment:REFERENCE RANGE NOT ESTABLISHED OSMOLALITY (CALC) 281 MOSM/KG 020 1:47 PM [facility] Comment:REFERENCE RANGE NOT ESTABLISHED EGFR NON-AFR. AMER. >90 >90 ML/MIN/1. 73 M2 05/01/2019 1:47 PM [facility] EGFR AFR. AMER. >90 >90 ML/MIN/1. 73 M2 05/01/2019 1:47 PM [facility] GFR NOTES GFR REFERENCE S: 05/01/2019 1:47 PM ADVERTISING SPACE CLERK [facility] Comment: THE ESTIMATED GFR IS CALCULATED [...] FAILURE: <15 ml/min/1.73 m2 05/01/2019 1:06 PM ADVERTISING SPACE CLERK Erica Malhotra NP LABORATORY Final R esult [facility] [address] [place] [address], [phone] * (ABNORMAL) CBC W/DIFF AUTOMATED (05/01/2019 1:06 PM ADVERTISING SPACE CLERK) WBC 5.7 4.0 - 10.8 x10'3/uL 05/01/2019 1:17 PM ADVERTISING SPACE CLERK [facility] RBC 4.61 4.50 - 6.10 x10'6/uL 05/01/2019 1:17 PM ADVERTISING SPACE CLERK [facility] HGB 14.9 13.0 - 18.0 G/DL 05/01/2019 1:17 PM ADVERTISING SPACE CLERK [facility] HCT 43.0 37.0 - 52.0 % 05/01/2019 1:17 PM ADVERTISING SPACE CLERK [facility] MCV 93.3 78.0 - 100.0 FL 05/01/2019 1:17 PM ADVERTISING SPACE CLERK [facility] MCH 32.3(H) 27.0 - 31.0 PG 05/01/2019 1:17 PM ADVERTISING SPACE CLERK [facility] MCHC 34.7 33.0 - 36.0 G/DL 05/01/2019 1:17 PM [facility] RDW 11.6 11.5 - 14.5 % 05/01/2019 1:17 PM [facility] PLT 288 150 - 350 x10'3/uL 05/01/2019 1:17 PM [facility] MPV 10.5(H) 7.4 - 10.4 FL 05/01/2019 1:17 PM ADVERTISING SPACE CLERK [facility] ABS. NEUTROPHILS TOTAL 2.66 1.60 - 8.30 x10'3/uL 05/01/2019 1:17 PM ADVERTISING SPACE CLERK [facility] ABS. LYMPHOCYTES 2.29 0.80 - 4.70 x10'3/uL 05/01/2019 1:17 PM [facility] ABS. MONOCYTES 0.40 0.00 - 1.50 x10'3/uL 05/01/2019 1:17 PM ADVERTISING SPACE CLERK [facility] ABS. EOSINOPHILS 0.29 0.00 - 0.40 x10'3/uL 05/01/2019 1:17 PM ADVERTISING SPACE CLERK [facility] ABS. BASOPHILS 0.01 0.00 - 0.20 x10'3/uL 05/01/2019 1:17 PM [facility] ABS. IMMATURE GRANULOCYTES 0.01 0.00 - 0.03 x10'3/uL 05/01/2019 1:17 PM ADVERTISING SPACE CLERK [facility] ABS. NUCLEATED RBC'S 0.00 0.0 x10'3/uL 05/01/2019 1:17 PM [facility] 05/01/2019 1:06 PM ADVERTISING SPACE CLERK Erica Malhotra NP LABORATORY Final R esult [facility] [address] [place] [address], [phone] documented in this encounter Visit Diagnoses Diagnosis [...] over 15 seconds. Given 05/01/2019 1:09 PM ADVERTISING SPACE CLERK 15 mg sodium chloride 0.9% bolus infusion SOLN 1,000 mL 1,000 mL, Intravenous, Administer over 60 Minutes, Once, 1 dose, On Wed05/01/19 at 1300 New Bag 05/01/2019 1:09 PM ADVERTISING SPACE CLERK 1,000 mLs documented in this encounter Active and Recently Administered Medications Times are shown in ADVERTISING SPACE CLERK. Scheduled Medication Order 04/29/2019 04/30/2019 05/01/2019 ketorolac [...] RN) documented in this encounter Care Teams Database Architect Relationship Specialty Start Date End Date Igor Castano DO PCP - General INTERNAL MEDICINE 04/28/19 12/26/19 documented as of this encounter
--- OUTSIDE RECORDS SUMMARY | 2024-04-09 07:52 | XMS_ITS | Encounter Summary ---
Author Organization [facility] Address [address] [place] [address]. 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 No / Unsure 03/06/2020 12:54 PM CARTON FORMING MACHINE HELPER documented as of this encounter Plan of [...] on filedocumented in this encounter Care Teams Natural Gas Inspector Relationship Specialty Start Date End Date Igor Castano DO PCP - General INTERNAL MEDICINE 04/28/19 12/26/19 Jose Yip MD [address] [place] [address] PCP - General INTERNAL MEDICINE 12/27/19 08/28/20 documented as of this encounter
--- OUTSIDE RECORDS SUMMARY | 2024-04-09 07:53 | XMS_ITS | Encounter Summary ---
Author Organization [facility] Address [facility]. 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 No / Unsure 03/06/2020 12:54 PM PHOTOGRAPHER documented as of this encounter Plan of [...] filedocumented in this encounter Care Teams Medical Billing And Coding Instructor Relationship Specialty Start Date End Date Rose Balderas MD PCP - General FAMILY PRACTICE 10/21/18 04/25/19 None, MD Sarah PCP - General 04/26/19 04/27/19 Igor Castano DO PCP - General INTERNAL MEDICINE 04/28/19 12/26/19 Jose Yip MD [address] [place] [address] PCP - General INTERNAL MEDICINE 12/27/19 08/28/20 documented as of this encounter
--- OUTSIDE RECORDS SUMMARY | 2024-04-09 07:53 | XMS_ITS | Encounter Summary ---
Author Organization [facility] Address [address] [place] [address]. 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
--- OUTSIDE RECORDS SUMMARY | 2024-04-09 07:53 | XMS_ITS | Encounter Summary ---
Author Organization [facility] Address [facility]. [place], [place] [address] [place] [address] Care Team Providers Care Fish Pitcher Name Role Phone Rose Balderas MD Primary Care Provider +1- [phone] None, Provider Primary Care Provider Igor Wong DO Primary Care Provider Un available Jose Yip MD Primary Care Provider +1- [phone] Encounter Details Date Type Department Care Team [...] on file Legal Sex Male 10:43 PM PR INTERN Gender Identity Not on file Sexual Orientation Not on file COVID-19 Exposure Response Date Recorded In the last month, have you been in contact with someone who was confirmed or suspected to have Coronavirus / COVID-19? No / Unsure 03/06/2020 12:54 PM PR INTERN documented as of this encounter Plan of Treatment Not on file documented as of this encounter Visit Diagnoses Not on filedocumented in this encounter Care Teams Fish Pitcher Relationship Specialty Start Date End Date Rose Balderas MD PCP - General FAMILY PRACTICE 10/21/18 04/25/19 None, Sarah, PCP - General 04/26/19 04/27/19 Igor Castano DO PCP - General INTERNAL MEDICINE 04/28/19 12/26/19 Jose Yip MD [address] [place], [place] [id number] PCP - General INTERNAL MEDICINE 12/27/19 08/28/20 documented as of this encounter
--- OUTSIDE RECORDS SUMMARY | 2024-04-09 07:53 | XMS_ITS | Encounter Summary ---
Author Organization [facility] Address [address] [place] [address]. 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 No / Unsure 03/06/2020 12:54 PM MATERIAL FLOW ANALYST documented as of this encounter Plan [...] on filedocumented in this encounter Care Teams Harvest Crew Supervisor Relationship Specialty Start Date End Date Rose Balderas MD PCP - General FAMILY PRACTICE 10/21/18 04/25/19 None, Sarah, PCP - General 04/26/19 04/27/19 Igor Castano DO PCP - General INTERNAL MEDICINE 04/28/19 12/26/19 Jose Yip MD [address] [place] [address] PCP - General INTERNAL MEDICINE 12/27/19 08/28/20 documented as of this encounter
--- OUTSIDE RECORDS SUMMARY | 2024-04-09 07:53 | XMS_ITS | Encounter Summary ---
Author Organization [facility] Address [facility]6 [facility]. 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 No / Unsure 03/06/2020 12:54 PM WRITER TECHNICAL PUBLICATIONS documented as of this encounter Plan of Treatment Not on file documented as of this encounter Visit Diagnoses Not on filedocumented in this encounter Care Teams Cytotechnologist/Histotechnologist Relationship Specialty Start Date End Date Rose Balderas MD PCP - General FAMILY PRACTICE 10/21/18 04/25/19 None, Sarah, PCP - General 04/26/19 04/27/19 Igor Castano DO PCP - General INTERNAL MEDICINE 04/28/19 12/26/19 Jose Yip MD [address] [place], [place] [address] PCP - General INTERNAL MEDICINE 12/27/19 08/28/20 documented as of this encounter
--- OUTSIDE RECORDS SUMMARY | 2024-04-09 07:53 | XMS_ITS | Encounter Summary ---
Author Organization [facility] Address [facility]6 [facility]. 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 No / Unsure 03/06/2020 12:54 PM BARBERING INSTRUCTOR documented as of this encounter Plan of Treatment Not on file documented as of this encounter Visit Diagnoses Not on filedocumented in this encounter Care Teams Retail Aide Relationship Specialty Start Date End Date Rose Balderas MD PCP - General FAMILY PRACTICE 10/21/18 04/25/19 None, Sarah, PCP - General 04/26/19 04/27/19 Igor Castano DO PCP - General INTERNAL MEDICINE 04/28/19 12/26/19 Jose Yip MD [address] [place], [place] [id number] PCP - General INTERNAL MEDICINE 12/27/19 08/28/20 documented as of this encounter
--- OUTSIDE RECORDS SUMMARY | 2024-04-09 07:53 | XMS_ITS | Encounter Summary ---
Author Organization [facility] Address Critical access hospital6 [facility]. [place], [place] [address] [place] [address] Care Team Providers Care Customer Quality Specialist Name Role Phone Rose Balderas MD Primary Care Provider +1- [phone] None, Provider Primary Care Provider UnavailIgor Aguero DO Primary Care Provider Un available Jose Yip MD Primary Care Provider +1- [phone] Reason for Visit * Reason Comments Image [...] on file Legal Sex Male 10:43 PM NAVAL ARCHITECT Gender Identity Not on file Sexual Orientation Not on file COVID-19 Exposure Response Date Recorded In the last month, have you been in contact with someone who was confirmed or suspected to have Coronavirus / COVID-19? No / Unsure 03/06/2020 12:54 PM NAVAL ARCHITECT documented as of this encounter Plan of [...] on filedocumented in this encounter Care Teams Customer Quality Specialist Relationship Specialty Start Date End Date Rose Balderas MD PCP - General FAMILY PRACTICE 10/21/18 04/25/19 None, MD Sarah PCP - General 04/26/19 04/27/19 Igor Castano DO PCP - General INTERNAL MEDICINE 04/28/19 12/26/19 Jose Yip MD [address] [place] [address] PCP - General INTERNAL MEDICINE 12/27/19 08/28/20 documented as of this encounter
--- OUTSIDE RECORDS SUMMARY | 2024-04-09 07:53 | XMS_ITS | Encounter Summary ---
Author Organization [facility] Address [facility]6 [facility]. 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 No / Unsure 03/06/2020 12:54 PM TRIMMING PRESS OPERATOR documented as of this encounter Plan of Treatment Not on file documented as of this encounter Visit Diagnoses Not on filedocumented in this encounter Care Teams Tea Bag Packer Relationship Specialty Start Date End Date Rose Balderas MD PCP - General FAMILY PRACTICE 10/21/18 04/25/19 None, Sarah, PCP - General 04/26/19 04/27/19 Igor Castano DO PCP - General INTERNAL MEDICINE 04/28/19 12/26/19 Jose Yip MD [address] [place], [place] [id number] PCP - General INTERNAL MEDICINE 12/27/19 08/28/20 documented as of this encounter
--- OUTSIDE RECORDS SUMMARY | 2024-04-09 07:53 | XMS_ITS | Encounter Summary ---
Author Organization [facility] Address [facility]6 [facility] [place]. 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 No / Unsure 03/06/2020 12:54 PM SUPERVISOR MICROFILM DUPLICATING UNIT documented as of this encounter Plan of [...] on filedocumented in this encounter Care Teams Belt Builder Helper Relationship Specialty Start Date End Date Rose Balderas MD PCP - General FAMILY PRACTICE 10/21/18 04/25/19 None, MD Sarah PCP - General 04/26/19 04/27/19 Igor Castano DO PCP - General INTERNAL MEDICINE 04/28/19 12/26/19 Jose Yip MD [address] [place] [address] PCP - General INTERNAL MEDICINE 12/27/19 08/28/20 documented as of this encounter
--- OUTSIDE RECORDS SUMMARY | 2024-04-09 07:53 | XMS_ITS | Encounter Summary ---
Author Organization [facility] Address [address] [place] [address]. 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
--- OUTSIDE RECORDS SUMMARY | 2024-04-09 07:53 | XMS_ITS | Encounter Summary ---
Author Organization [facility] Address [facility]6 [facility]. 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 No / Unsure 03/06/2020 12:54 PM ELECTROTHERAPIST documented as of this encounter Plan of Treatment Not on file documented as of this encounter Visit Diagnoses Not on filedocumented in this encounter Care Teams Network Operations Lead Relationship Specialty Start Date End Date Rose Balderas MD PCP - General FAMILY PRACTICE 10/21/18 04/25/19 None, Sarah, PCP - General 04/26/19 04/27/19 Igor Castano DO PCP - General INTERNAL MEDICINE 04/28/19 12/26/19 Jose Yip MD [address] [place], [place] [id number] PCP - General INTERNAL MEDICINE 12/27/19 08/28/20 documented as of this encounter
--- OUTSIDE RECORDS SUMMARY | 2024-04-09 07:53 | XMS_ITS | Encounter Summary ---
Author Organization [facility] Address [facility]. [place], [place] [address] [place] [address] Care Team Providers Care Senior Telecommunications Engineer Name Role Phone Rose Balderas MD Primary Care Provider +1- [phone] None, Provider Primary Care Provider Igor Wong DO Primary Care Provider Un available Jose Yip MD Primary Care Provider +1- [phone] Encounter Details Date Type Department Care Team [...] on file Legal Sex Male 10:43 PM FEATHER RENOVATOR Gender Identity Not on file Sexual Orientation Not on file COVID-19 Exposure Response Date Recorded In the last month, have you been in contact with someone who was confirmed or suspected to have Coronavirus / COVID-19? No / Unsure 03/06/2020 12:54 PM FEATHER RENOVATOR documented as of this encounter Plan of Treatment Not on file documented as of this encounter Visit Diagnoses Not on filedocumented in this encounter Care Teams Senior Telecommunications Engineer Relationship Specialty Start Date End Date Rose Balderas MD PCP - General FAMILY PRACTICE 10/21/18 04/25/19 None, Sarah, PCP - General 04/26/19 04/27/19 Igor Castano DO PCP - General INTERNAL MEDICINE 04/28/19 12/26/19 Jose Yip MD [address] [place], [place] [id number] PCP - General INTERNAL MEDICINE 12/27/19 08/28/20 documented as of this encounter
--- OUTSIDE RECORDS SUMMARY | 2024-04-09 07:53 | XMS_ITS | Encounter Summary ---
Author Organization [facility] Address [facility] [facility]. 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 No / Unsure 03/06/2020 12:54 PM TUBE REBUILDER documented as of this encounter Plan of Treatment Not on file documented as of this encounter Visit Diagnoses Not on filedocumented in this encounter Care Teams Pressure Tank Operator Relationship Specialty Start Date End Date Rose Balderas MD PCP - General FAMILY PRACTICE 10/21/18 04/25/19 None, Sarah, PCP - General 04/26/19 04/27/19 Igor Castano DO PCP - General INTERNAL MEDICINE 04/28/19 12/26/19 Jose Yip MD [address] [place], [place] [id number] PCP - General INTERNAL MEDICINE 12/27/19 08/28/20 documented as of this encounter
--- OUTSIDE RECORDS SUMMARY | 2024-04-09 07:57 | XMS_ITS | Continuity of Care Document ---
Author Organization [facility] Address [address] [place] [address] Phone Care Team Providers Care Shift Production Supervisor Name Role Phone Sunil Avalos MD Unavailable Unavailable Allergies, Adverse Reactions, Alerts Substance Reaction Status Criticality Sulfa (Sulfonamide Antibiotics) (unknown) Active No Information Advance Directives Directive Yes / No Effective Date File Name No Information Encounters Encounter Description Practice Location Reason(s) For Visit Diagnoses Date Provider Providers Copied on Encounter [facility] [address], [place], [place], [id number], [place] tel:[phone] [facility] No Information Robbie Barber. [facility], [address] [place], [address], [place]. tel:[phone] Family History Family Member Type Diagnosis Age [...]
--- OUTSIDE RECORDS SUMMARY | 2024-04-09 07:57 | XMS_ITS | Continuity of Care Document ---
Author Organization [facility] Address [address] [place] [address] Phone Care Team Providers Care Accounting Machine Mechanic Name Role Phone Unavailable Unavailable Unavailable Allergies, [...] on Encounter Mirna Lee, [address], [place], [address] , tel: [phone] [facility] No Information 0 No Information LIMITED VISIT- NEW PATIENT Mirna Lee, [address], [place], [address] , tel: [phone] [facility] Fever (chief complaint) Fever, unspecified fever causeContact with and (suspected) exposure to other viral communicable diseases 0 No Information INTERMEDIATE VISIT EST PATIENT Mrina Lee, [address] [place], [place], [id number] , tel: [phone] [facility] Cough (PEDS) (chief complaint) Bronchitis 6 Linda Sarah. [address] [place], [address], [place]. tel:[phone] INTERMEDIATE VISIT EST PATIENT Mirna Lee, [address], [place], [address] , tel: [phone] [facility] Sore throat (chief complaint) SorethroatAcu te sinusitis, recurrence not specified, unspecified location 5 No Information Mirna Lee, [address] [place], [place], [address] , tel: [phone] [facility] Sore throat 5 No Information INTERMEDIATE VISIT EST PATIENT Mirna Lee, [address], [address] , tel: [phone] [facility] Sore throat (chief complaint) Sore throatAcute bronchitis, unspecified organismEncou nter for immunization 5 No Information WELL EXAM/03-21 EST. PATIENT Mirna [facility], [address] [place], [place], [address] , [place] tel: [phone] [facility] (chief complaint) ROUTINE CHILD HEALTH EXAMScreening for hyperlipidemi aNeed for prophylactic vaccination and inoculation against viralhepatiti s 5 No Information [facility], [address], [place], [address] , [place] tel: [phone] [facility] No Information 3 No Information Referring Provider: Jing Jacobson, [address] [place], [address]. tel: [phone] Provider: Express Nurse. INTERMEDIATE VISIT EST PATIENT Mirna [facility], [address], [place], [address] , [place] tel: [phone] [facility] sore throat (chief complaint) PharyngitisNE ED FOR PROPHYLACTIC VACCINATION AND INOCULATION, OTHER VIRAL DISEASESNeed for prophylactic vaccination and inoculation against other specified single bacterial diseaseNEED FOR PROPHYLACTIC VACCINATION WITH COMBINED DIPHTHERIA-TE TANUS-PERTUSS IS (DTP) (DTAP) VACCINE 3 Rey Zayas. [address] [place], [address], [place]. tel:[phone] Referring Provider: Chana Le, [address] [place], [address]. tel:[phone] [facility], [address], [place], [address] , [place] tel: [phone] [facility] Immun[facility] Location No Information 2 No Information [facility], [address], [place], [address] , [place] tel: [phone] [facility] INJURY HAND 2 No Information [facility], [address], [place], [address] , [place] tel: [phone] [facility] INJURY KNEE LEG FOOT ANKLE 2 Kavon Ch. [address] [place], [address], [place]. tel:[phone] Mirna Lee, [address] [place], [place], [address] , [place] tel: [phone] [facility] RHINITIS ALLERGIC UNSPECIFIED 7 No Information Mirna Lee, [address] [place], [id number] , [place] tel: [phone] [facility] No Information 6 No Information Family [...] type Covered libertarian ID Authoriza tion(s) Medicaid [id number] Medicaid [place] [id number] Social History Type Description Quantity Date Captured [...] Future Order: Lab Order LIPID PA CARMEL ([id number]), Sent on: Sent History Of Present Illness [...] rhinitis. Pertinent negatives include fever and otalgia. [facility] Feels well. [employer] minor in school [...] School forms complet ed. F/U 1 year [employer]. Related to ROUTINE CHILD HEALTH EXAM Age [...]
== END 2024-04-02 10:41 | disposition home or self-care (01) ==
PROVIDERS: Emergency Provider Emergency Medicine; PCP Family Medicine
DX: K29.70 Gastritis, unspecified, without bleeding (principal); F41.9 Anxiety disorder, unspecified
CPT/HCPCS: 99283; A9270

== ENCOUNTER 2024-04-06 16:05 | Outpatient (CLI) | payer MEDICAID, SELFPAY ==
--- NOTE | 2024-04-06 16:10 | ECG_ITS ---
Test Date: 2024-04-06 16:25:59 Measurements Intervals [place] Rate: 96 P: 81 ND: 137 QRS: 89 QRSD: 117 T: 78 QT: 354 QTc: 448 Interpretive Statements SINUS RHYTHM RIGHT ATRIAL ENLARGEMENT [0.3mV P-WAVE] INCOMPLETE RIGHT BUNDLE BRANCH BLOCK [90+ ms QRS DURATION, TERMINAL R IN V1/V2, 40+ ms S IN I/aVL/V4/V5/V6] No previous ECG available for comparison Electronically Signed On 04-07-2024 12:28:31 [employer] by Lawrence Vasquez M.D.
== END 2024-04-06 16:06 | disposition home or self-care (01) ==
LOC: CHSCARD 16:07
PROVIDERS: PCP Family Medicine; Visit Provider Family Medicine
DX: R00.2 Palpitations (principal); R00.0 Tachycardia, unspecified
CPT/HCPCS: 93005; 93225; 93226

== ENCOUNTER 2024-04-06 17:31 | Emergency (ER) | payer MEDICAID, SELFPAY ==
[2024-04-06] VITALS (14 sets, daily range): BP systolic 117–157; BP diastolic 79–103; PULSE 89–133; RESP 11–21; TEMP 36.6–36.9; O2SAT 98–100
--- NOTE | ~2024-04-06 | XR_ITS ---
XR chest 1V portable Ordering provider: Oh Le DO History: 24 years Male with . dyspnea . Comparison: None. FINDINGS: MEDIASTINUM: The cardiac silhouette is not enlarged. LUNGS: No infiltrates, effusions or pneumothorax. OTHER: No free air under the diaphragm. IMPRESSION: No acute cardiopulmonary pathology. Reviewed, dictated and finalized at location A. TOLOGIST
--- NOTE | 2024-04-06 17:36 | ED_ITS ---
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 The outside EKG appeart to show tachycardia and incomplete RBBB. He reports that his chest has been tight all day and he has had some dyspnea as well as nausea and some diarrhea as well. No syncope noted. Lastly he is having tingling in his hands and arms as well as around his mouth. Related Data Allergies Allergy/AdvReac Type Severity Reaction Status Date / Time amoxicillin (From Augmentin) Allergy Severe Anaphylaxis Verified 04/06/24 18:39 clavulanic acid (From Allergy Redness of Verified 04/02/24 10:11 Augmentin) Skin Review of Systems 2 Review of Systems: All systems reviewed & are unremarkable except as noted in HPI and below Exam 2 Const: General: cooperative, comfortable, no acute distress, well developed, alert, awake and Physically active Orientation/consciousness: oriented to person, oriented to place and oriented to time Other: appears underweight HENMT: Head: normal to inspection, normocephalic and atraumatic Ears: h earing grossly normal bilaterally and external ears normal Face/Nose/Sinus: N ormal external nose present Eyes: General: appearance normal, both eyes and all related structures P eriorbital: periorbital findings normal Sclera: sclerae normal Pupils: E qual, round and reactive pupils present Neck: Neck: normal visual inspection Chest: Chest palpation & inspection: normal inspection of the chest Resp: Effort & Inspection: normal respiratory effort, able to speak in complete sentences and no respiratory distress Auscultation: clear to auscultation bilaterally Cardio: Jugular venous distension: no JVD Rhythm: regular rhythm Other: tachycardia GI: Inspection: normal to inspection GI Palp: Yes Soft to palpation A uscultation: normal bowel sounds Skin: General skin exam: normal color and no rashes or lesions noted Neuro: General: oriented to person, oriented to place and oriented to time Cranial nerves: Yes Equal, round and reactive pupils present Extrem: General: normal to inspection Psych: Other: Very anxious appearing Course Course Emergency Course: Ordered labs, fluids, Ativan and an EKG as well as CXR EKG shows sinus tachycardia with a rate of 111, incomplete RBBB, but no ST elevation/depression Minimal improvement with ativan, but labs were largely unremarkable and he remained in sinus tachycardia. He was instructed to f/u with his PCP and potentially get a referral to cardiology Vital Signs Vital signs: Vital Signs Temperature 98.5 F 04/06/24 17:32 Pulse Rate 128 H 04/06/24 17:32 Respiratory Rate 18 04/06/24 17:32 Blood Pressure 157/90 H 04/06/24 17:32 Pulse Oximetry 100 04/06/24 17:32 Oxygen Delivery Room Air 04/06/24 17:32 Temperature 98 F 04/06/24 19:23 Pulse Rate 92 04/06/24 19:23 Respiratory Rate 20 04/06/24 19:23 Blood Pressure 136/85 04/06/24 19:23 Pulse Oximetry 98 04/06/24 19:23 Oxygen Delivery Room Air 04/06/24 19:23 Medical Decision Making Vital Signs Vital Signs: Vital Signs Temperature 98.5 F 04/06/24 17:32 Pulse Rate 128 H 04/06/24 17:32 Respiratory Rate 18 04/06/24 17:32 Blood Pressure 157/90 H 04/06/24 17:32 Pulse Oximetry 100 04/06/24 17:32 Oxygen Delivery Room Air 04/06/24 17:32 Temperature 98 F 04/06/24 19:23 Pulse Rate 92 04/06/24 19:23 Respiratory Rate 20 04/06/24 19:23 Blood Pressure 136/85 04/06/24 19:23 Pulse Oximetry 98 04/06/24 19:23 Oxygen Delivery Room Air 04/06/24 19:23 Lab Data 04/06/24 18:07 04/06/24 18:07 Labs: Lab Results 04/06/24 04/06/24 Range/Units 18:07 18:40 WBC 7.9 (4.8-10.8) K/mm3 RBC 4.94 (4.70-6.10) M/mm3 Hgb 15.8 (14.0-18.0) g/dL Hct 45.4 (40.0-54.0) % MCV 91.9 (78.0-102.0) fL MCH 32.0 H (27.0-31.0) pg MCHC 34.8 (32-36) g/dL RDW 11.8 (11.6-14.4) % Plt Count 226 (150-420) K/mm3 MPV 10.3 (8.7-11.0) fl Immature Gran % (Auto) 0.1 H (0.0-0.0) % Neut % (Auto) 63.3 (50.0-70.0) % Lymph % (Auto) 27.4 (18.0-42.0) % [place] % (Auto) 6.9 (2.0-11.0) % Eos % (Auto) 1.9 (1.0-6.0) % Baso % (Auto) 0.4 (0.0-1.0) % Lymph # (Auto) 2.16 (1.10-4.50) K/mm3 [place] # (Auto) 0.54 (0.10-0.90) K/mm3 Eos # (Auto) 0.15 (0.02-0.50) K/mm3 Baso # (Auto) 0.03 (0.00-0.10) K/mm3 Abs Immat Gran (auto) 0.01 H (0.00-0.00) K/mm3 Absolute Neuts (auto) 4.98 (1.70-7.20) K/mm3 Absolute Nucleated RBC 0.00 (0.00-0.00) K/mm3 Nucleated RBC % 0.0 (0-0.0) % Sodium 139 (136-145) mmol/L Potassium 3.5 (3.5-5.1) mmol/L Chloride 104 (98-108) mmol/L Carbon Dioxide 22 (21-32) mmol/L Anion Gap 13 H (4-12) mmol/L BUN 12 (7-18) mg/dL Creatinine 0.90 (0.70-1.30) mg/dL Estim Creat Clear Calc 83 ml/min Estimated GFR > 60 (59 - ) Glucose 104 H (70-99) mg/dL Calculated Osmolality 287 (285-295) mOsm/kg Calcium 9.2 (8.5-10.1) mg/dL Magnesium 1.9 (1.8-2.4) mg/dL Total Bilirubin 0.8 (0.00-1.00) mg/dL AST 10 L (15-37) U/L ALT 15 L (16-63) U/L Alkaline Phosphatase 63 (46-116) U/L Troponin I < 4.0 (0.00-60.4) ng/L NT-Pro-B Natriuret Pep 13 (0-125) pg/mL Total Protein 7.2 (6.4-8.2) g/dL Albumin 4.5 (3.4-5.0) g/dL TSH 0.74 (0.36-3.74) uIU/mL Urine Opiates Screen Negative (Negative) Urine Methadone Screen Negative (Negative) Ur Barbiturates Screen Negative (Negative) Ur Phencyclidine Scrn Negative (Negative) Ur Amphetamine Screen Negative (Negative) U Benzodiazepines Scrn Negative (Negative) Urine Cocaine Screen Negative (Negative) U Cannabinoids Screen Positive A (Negative) Influenza A (RT-PCR) Negative (Negative) Influenza B (RT-PCR) Negative (Negative) RSV (RT-PCR) Negative (Negative) SARS-CoV-2 RNA (RT-PCR) Negative (Negative) Discharge Plan Discharge Clinical Impression: Sinus tachycardia Patient Disposition: Home, Self-Care Condition: Stable Instructions: Antibiotic Form Patient Language: Swedish Prescriptions: No Action epinephrine [EpiPen 2-Krunal] 0.3 mg/0.3 mL auto-injector 0.3 mg IM ONCE PRN (Reason: hypersensitivity reaction) Qty: 2 0RF Rx Instructions: injected in the lateral anterior thigh at the site of an allergic reaction as a single dose; may repeat once ondansetron 4 mg tablet,disintegrating 4 mg PO Q4H 0 Days Qty: 10 0RF Rx Instructions: give 1st dose 30min before emetogenic chemo famotidine [Pepcid AC] 20 mg tablet 40 mg PO DAILY Qty: 30 0RF Follow-up/Referrals: UNKNOWN,DOCTOR [Non-Staff] -
--- NOTE | 2024-04-06 17:40 | ECG_ITS ---
Test Date: 2024-04-06 17:44:13 Measurements Intervals Bent Rate: 111 P: 80 ME: 100 QRS: 78 QRSD: 108 T: 65 QT: 329 QTc: 449 Interpretive Statements SINUS TACHYCARDIA POSSIBLE LEFT ATRIAL ENLARGEMENT [-0.1mV P-WAVE IN V1/V2] INCOMPLETE RIGHT BUNDLE BRANCH BLOCK [90+ ms QRS DURATION, TERMINAL R IN V1/V2, 40+ ms S IN I/aVL/V4/V5/V6] ABNORMAL RHYTHM ECG Compared to ECG 04/06/2024 16:25:59 NO SIGNIFICANT CHANGES Electronically Signed On 04-07-2024 12:28:59 GLASS PROCESSING WORKER by Lawrence Vasquez M.D.
[2024-04-06 18:11] LABS: Basophils Absolute Auto 0.03 K/mm3 (0.00-0.10); Basophils Percent Auto 0.4 % (0.0-1.0); Eosinophils Absolute Auto 0.15 K/mm3 (0.02-0.50); Eosinophils Percent Auto 1.9 % (1.0-6.0); Hematocrit 45.4 % (40.0-54.0); Hemoglobin 15.8 g/dL (14.0-18.0); Immature Granulocyte Absolute 0.01 K/mm3 (0.00-0.00); Immature Granulocyte Percent A 0.1 % (0.0-0.0); Lymphocytes Absolute Auto 2.16 K/mm3 (1.10-4.50); Lymphocytes Percent Auto 27.4 % (18.0-42.0); Mean Corpuscular HGB Conc 34.8 g/dL (32-36); Mean Corpuscular Volume 91.9 fL (78.0-102.0); Mean Platelet Volume 10.3 fl (8.7-11.0); Monocytes Absolute Auto 0.54 K/mm3 (0.10-0.90); Monocytes Percent Auto 6.9 % (2.0-11.0); Neutrophils Absolute Auto 4.98 K/mm3 (1.70-7.20); Neutrophils Percent Auto 63.3 % (50.0-70.0); Platelet Count Result 226 K/mm3 (150-420); Red Blood Count 4.94 M/mm3 (4.70-6.10); Red Cell Distribution Width 11.8 % (11.6-14.4); White Blood Count 7.9 K/mm3 (4.8-10.8)
[2024-04-06] MEDS: LORazepam INJ (*CRX) 2 MG/ML VIAL 1 MG IV PUSH (18:15)
[2024-04-06] MEDS: SODIUM CHLORIDE 0.9% IV 1,000 ML 999 ML IV CONT (18:16)
[2024-04-06 18:40] LABS: Alanine Aminotransferase 15 U/L (16-63); Albumin Level 4.5 g/dL (3.4-5.0); Alkaline Phosphatase 63 U/L (46-116); Anion Gap 13 mmol/L (4-12); Aspartate Amino Transferase 10 U/L (15-37); Bilirubin,Total 0.8 mg/dL (0.00-1.00); Blood Urea Nitrogen 12 mg/dL (7-18); Calcium 9.2 mg/dL (8.5-10.1); Carbon Dioxide 22 mmol/L (21-32); Chloride 104 mmol/L (98-108); Estimated CRCL calculation 83 ml/min; Estimated Glomerular Filt Rate > 60; Glucose 104 mg/dL (70-99); Magnesium 1.9 mg/dL (1.8-2.4); NT Pro B Type Natriuretic Pept 13 pg/mL (0-125); Osmolality Calculated 287 mOsm/kg (285-295); Potassium 3.5 mmol/L (3.5-5.1); Sodium 139 mmol/L (136-145); Thyroid Stimulating Hormone 0.74 uIU/mL (0.36-3.74); Total Protein 7.2 g/dL (6.4-8.2); Troponin I < 4.0 ng/L (0.00-60.4)
[2024-04-06 18:47] LABS: SARS-CoV-2 RNA PCR Negative (Negative)
[2024-04-06 18:48] LABS: Influenza A QL RT-PCR Negative (Negative); Influenza B QL RT-PCR Negative (Negative); RSV RNA, RT-PCR Negative (Negative)
[2024-04-06 18:51] LABS: Amphetamine Screen Urine Negative (Negative); Barbiturate Screen Urine Negative (Negative); Benzodiazepines Screen Urine Negative (Negative); Cannabinoid Screen Urine Positive (Negative); Cocaine Screen Urine Negative (Negative); Methadone Screen Urine Negative (Negative); Opiate Screen Urine Negative (Negative); Phencyclidine Screen Urine Negative (Negative)
== END 2024-04-06 19:23 | disposition home or self-care (01) ==
PROVIDERS: Emergency Provider Family Medicine; PCP Family Medicine
DX: R00.0 Tachycardia, unspecified (principal); Z20.822 Contact with and (suspected) exposure to COVID-19
CPT/HCPCS: 36415; 71045; 80053; 80307; 83735; 83880; 84443; 84484; 85025; 87637; 93005; 96361; 96374; 99284; J2060; J7030

== ENCOUNTER 2024-04-07 04:41 | Emergency (ER) | payer MEDICAID, SELFPAY ==
--- NOTE | 2024-04-07 04:51 | PC.NURSE ---
PATIENT AMBULATED TO ROOM 3. VERY ANXIOUS, TALKING AT A RAPID PACE. 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 STATES THAT THE MEDICINE (ATIVAN) THAT DR MARTINEZ GAVE HIM CALLED HIM DOWN. INFORMED PATIENT THAT IS A CONTROLLED SUBSTANCE AND HE WOULD HAVE TO HAVE A PRESCRIPTION FROM HIS PROVIDER. ASKED PATIENT IF HE TRIED SOME CALMING/RELAXING TECHNIQUES TO HELP HIM FOCUS OR SLOW HIS BREATHING. PATIENT REPORTS THAT HE HAS NOT. EDUCATION WAS DONE ON RELAXATION/ CALMING INTERVENTIONS. PATIENT SAID HE WOULD GO BACK HOME AND TRY TO CALL HIS PCP AGAIN IN THE AM. INFORMED PATIENT THAT [facility] WOULD SEE HIM A PATIENT. PATIENT AGAIN DECIDED THAT HE WOULD GO HOME. LWBS
== END 2024-04-07 04:51 | disposition left against medical advice (07) ==
LOC: CHSED 10:41
PROVIDERS: Emergency Provider Family Medicine; PCP Family Medicine
DX: Z53.21 Procedure and treatment not carried out due to patient leaving prior to being seen by health care provider (principal)
CPT/HCPCS: 99199

== ENCOUNTER 2024-04-09 03:27 | Emergency (ER) | payer MEDICAID, SELFPAY ==
[2024-04-09 03:34] VITALS: BP 132/91; PULSE 112; RESP 18; TEMP 37.1; O2SAT 97
[2024-04-09 04:16] LABS: Influenza B QL RT-PCR Negative (Negative); SARS-CoV-2 RNA PCR Negative (Negative)
[2024-04-09 04:17] LABS: Influenza A QL RT-PCR Negative (Negative); RSV RNA, RT-PCR Negative (Negative)
--- NOTE | 2024-04-09 04:20 | ED.ABDPAIN ---
HPI - Abdominal Pain General Chief Complaint: Abdominal Pain Stated Complaint: upper respiratory Time Seen by Provider: 04/09/24 04:10 Source: patient Mode of arrival: ambulatory Limitations: no limitations History of Present Illness HPI narrative: 24-year-old male with a history of anxiety presented to the ED on for a cyst behind his right ear. His cyst was drained following which he was started on Augmentin. He developed an anaphylactic reaction to Augmentin. Subsequently he has been having -- weakness- unable to lift his groceries. -- dizziness -- Fever over the past 2 days. No upper respiratory tract symptoms. Currently is noted to be 37.1. -- shortness of breath-- patient is saturating 97% on room air with a respiratory rate of 18. He complained of abdominal pain to the nurse but never mentioned it to me. MD elicited complaint: abdominal pain Onset (ago): week(s) ( One week) Associated symptoms: other ( weakness, ) Related Data Allergies Allergy/AdvReac Type Severity Reaction Status Date / Time amoxicillin (From Augmentin) Allergy Severe Anaphylaxis Verified 04/06/24 18:39 clavulanic acid (From Allergy Redness of Verified 04/02/24 10:11 Augmentin) Skin Review of Systems Review of Systems: All systems reviewed & are unremarkable except as noted in HPI and below Constitutional: Constitutional: Reports as per HPI and Reports no additional constitutional complaints Eyes: Eyes: Reports as per HPI and Reports no additional eye complaints ENT: Reports system reviewed and no additional complaints, except as documented and Reports as per HPI Comments: no abscess was noted behind his right ear Cardiovascular: Cardiovascular: Reports as per HPI, Reports no additional cardiovascular complaints and Reports rapid heart rate Respiratory: Respiratory: Reports as per HPI, Reports no additional respiratory complaints and Reports dyspnea Gastrointestinal: Gastrointestinal: Reports as per HPI and Reports no additional gastrointestinal complaints Genitourinary: Genitourinary: Reports no additional male genitourinary complaints and Reports as per HPI Musculoskeletal: Musculoskeletal: Reports no additional musculoskeletal complaints and Reports as per HPI Integumentary/Breasts: Skin/Breast: Reports system reviewed and no additional complaints, except as docu and Reports as per HPI Neurologic: Reports system reviewed and no additional complaints, except as documented and Reports as per HPI Psychiatric: Psychiatric: Reports no additional psychiatric complaints, Reports as per HPI and Reports anxiety Endocrine: Endocrine: Reports no additional endocrine complaints and Reports as per HPI Hematologic/Lymphatic: Hematologic/Lymphatic: Reports no additional hematologic/lymphatic complaints and Reports as per HPI Allergic/Immunologic: Allergic/Immunologic: Reports no additional allergic/immunologic complaints and Reports as per HPI [facility] Past Medical History Medical History (Updated 04/09/24 @ 04:43 by Olaf Todd MD) Anxiety Exam Narrative: blood pressure 132/91 with a heart rate of 112 Const: General: no acute distress Nutritional Appearance: thin Orientation/consciousness: patient oriented x3 Limitations: no limitations HENMT: Head: normal to inspection Ears: external ears normal Face/Nose/Sinus: Normal external nose present Face and sinus: normal facial exam Mouth: Yes Normal oral and palatal mucosa present Throat: posterior oropharynx normal Eyes: Conjunctivae: conjunctivae normal Pupils: Equal, round and reactive pupils present EOM: EOMs intact bilaterally Direct Ophthalmoscopy: no photophobia Neck: Neck: normal visual inspection, no lymphadenopathy and no meningeal signs Chest: Chest palpation & inspection: normal inspection of the chest Resp: Effort & Inspection: normal respiratory effort Auscultation: clear to auscultation bilaterally Cardio: Rate: regular rate Rhythm: regular rhythm GI: GI Palp: Yes Soft to palpation Auscultation: normal bowel sounds Other: no tenderness/ rigidity /rebound. : General: Yes no CVA tenderness Back/Spine/Pelvis: Back: no CVA tenderness Skin: General skin exam: normal color Rashes: no rashes Wounds: no wounds Neuro: General: patient oriented x3, moves all extremities, no meningeal signs, no focal motor deficits and CN's II-XI intact bilaterally Cranial nerves: Yes Nystagmus not present Speech: normal speech Extrem: General: normal to inspection and no clubbing, cyanosis or edema Psych: Mental Status: mental status grossly normal Affect: normal affect Attitude: cooperative Course Course Emergency Course: Fever/ upper respiratory tract infection- patient tested negative for influenza/RSV/COVID anxiety with dizziness, weakness and shortness of breath Vital Signs Vital signs: Vital Signs Temperature 37.1 C 04/09/24 03:34 Pulse Rate 112 H 04/09/24 03:34 Respiratory Rate 18 04/09/24 03:34 Blood Pressure 132/91 H 04/09/24 03:34 Pulse Oximetry 97 04/09/24 03:34 Oxygen Delivery Room Air 04/09/24 03:34 Temperature 37.1 C 04/09/24 03:34 Pulse Rate 112 H 04/09/24 03:34 Respiratory Rate 18 04/09/24 03:34 Blood Pressure 132/91 H 04/09/24 03:34 Pulse Oximetry 97 04/09/24 03:34 Oxygen Delivery Room Air 04/09/24 03:34 MDM - Abdominal Pain MDM Narrative Medical decision making narrative: febrile illness anxiety Differential Diagnosis Differential diagnosis: Likely abdominal pain and gastroenteritis Medical Records Attestation: I reviewed the patient's medical records. Lab Data Labs: Lab Results 04/09/24 Range/Units 04:10 Influenza A (RT-PCR) Negative (Negative) Influenza B (RT-PCR) Negative (Negative) RSV (RT-PCR) Negative (Negative) SARS-CoV-2 RNA (RT-PCR) Negative (Negative) Discharge Plan Discharge Clinical Impression: Febrile illness, Anxiety Patient Disposition: Home, Self-Care Condition: Stable Instructions: Antibiotic Form, Anxiety (ED) Patient Language: Czech Prescriptions: No Action epinephrine [EpiPen 2-Krunal] 0.3 mg/0.3 mL auto-injector 0.3 mg IM ONCE PRN (Reason: hypersensitivity reaction) Qty: 2 0RF Rx Instructions: injected in the lateral anterior thigh at the site of an allergic reaction as a single dose; may repeat once ondansetron 4 mg tablet,disintegrating 4 mg PO Q4H 0 Days Qty: 10 0RF Rx Instructions: give 1st dose 30min before emetogenic chemo famotidine [Pepcid AC] 20 mg tablet 40 mg PO DAILY Qty: 30 0RF Follow-up/Referrals: Judd,MD Jak [Primary Care Provider] - Time of Disposition: 04:43
--- OUTSIDE RECORDS SUMMARY | 2024-04-16 02:55 | XMS_ITS | Encounter Summary ---
Author Organization [facility] Address [address] [place] [address]. 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
--- OUTSIDE RECORDS SUMMARY | 2024-04-16 02:55 | XMS_ITS | Encounter Summary ---
Author Organization [facility] Address [address] [place] [address]. 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 No / Unsure 03/06/2020 12:54 PM SALES AGENT FIRE INSURANCE documented as of this encounter Plan of Treatment Not on file documented as of this encounter Visit Diagnoses Not on filedocumented in this encounter Care Teams Fitness Plan Coordinator Relationship Specialty Start Date End Date Igor Castano DO PCP - General INTERNAL MEDICINE 04/28/19 12/26/19 Jose Yip MD [address] [id number] PCP - General INTERNAL MEDICINE 12/27/19 08/28/20 documented as of this encounter
--- OUTSIDE RECORDS SUMMARY | 2024-04-16 02:55 | XMS_ITS | Encounter Summary ---
Author Organization [facility] Address [facility]. [place], [place] [address] [place] [address] Care Team Providers Care Lumber Straightener Name Role Phone Rose Balderas MD Primary Care Provider +1- [phone] None, Provider Primary Care Provider Igor Wong DO Primary Care Provider Un available Jose Yip MD Primary Care Provider +1- [phone] Encounter Details Date Type Department Care Team [...] file Legal Sex Male 10:43 PM MEDICAL TYPIST Gender Identity Not on file Sexual Orientation Not on file COVID-19 Exposure Response Date Recorded In the last month, have you been in contact with someone who was confirmed or suspected to have Coronavirus / COVID-19? No / Unsure 03/06/2020 12:54 PM MEDICAL TYPIST documented as of this encounter Plan of Treatment Not on file documented as of this encounter Visit Diagnoses Not on filedocumented in this encounter Care Teams Lumber Straightener Relationship Specialty Start Date End Date Rose Balderas MD PCP - General FAMILY PRACTICE 10/21/18 04/25/19 None, Sarah, PCP - General 04/26/19 04/27/19 Igor Castano DO PCP - General INTERNAL MEDICINE 04/28/19 12/26/19 Jose Yip MD [address] [place], [place] [id number] PCP - General INTERNAL MEDICINE 12/27/19 08/28/20 documented as of this encounter
--- OUTSIDE RECORDS SUMMARY | 2024-04-16 02:55 | XMS_ITS | Encounter Summary ---
Author Organization [facility] Address [address] [place] [address]. [place], [place] [address] [place] [address] Care Team Providers Care Data Programmer Name Role Phone Igor Castano DO Primary Care Provider Un available Jose Yip MD Primary Care Provider +1- [phone] Reason for Visit * Reason Comments Lab [...] on file Legal Sex Male 10:[address]IGN INSTALLER Gender Identity Not on file Sexual Orientation Not on file COVID-19 Exposure Response Date Recorded In the last month, have you been in contact with someone who was confirmed or suspected to have Coronavirus / COVID-19? No / Unsure 03/06/2020 12:[address] SIGN INSTALLER documented as of this encounter Plan of [...] on filedocumented in this encounter Care Teams Data Programmer Relationship Specialty Start Date End Date Igor Castano DO PCP - General INTERNAL MEDICINE 04/28/19 12/26/19 Jose Yip MD [address] [place] [address] PCP - General INTERNAL MEDICINE 12/27/19 08/28/20 documented as of this encounter
--- OUTSIDE RECORDS SUMMARY | 2024-04-16 02:55 | XMS_ITS | Encounter Summary ---
Author Organization [facility] Address [address] [place] [address]. 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 No / Unsure 03/06/2020 12:54 PM WATERSHED MANAGER documented as of this encounter Plan [...] on filedocumented in this encounter Care Teams Cattle Sprayer Relationship Specialty Start Date End Date Rose Balderas MD PCP - General FAMILY PRACTICE 10/21/18 04/25/19 None, Sarah, PCP - General 04/26/19 04/27/19 Igor Castano DO PCP - General INTERNAL MEDICINE 04/28/19 12/26/19 Jose Yip MD [address] [place] [address] PCP - General INTERNAL MEDICINE 12/27/19 08/28/20 documented as of this encounter
--- OUTSIDE RECORDS SUMMARY | 2024-04-16 02:55 | XMS_ITS | Encounter Summary ---
Author Organization [facility] Address [facility]6 [facility]. 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 No / Unsure 03/06/2020 12:54 PM LEAN MANUFACTURING SPECIALIST documented as of this encounter Plan [...] on filedocumented in this encounter Care Teams Bus Girl Relationship Specialty Start Date End Date Rose Balderas MD PCP - General FAMILY PRACTICE 10/21/18 04/25/19 None, MD Sarah PCP - General 04/26/19 04/27/19 Igor Castano DO PCP - General INTERNAL MEDICINE 04/28/19 12/26/19 Jose Yip MD [address] [place] [address] PCP - General INTERNAL MEDICINE 12/27/19 08/28/20 documented as of this encounter
--- OUTSIDE RECORDS SUMMARY | 2024-04-16 02:55 | XMS_ITS | Encounter Summary ---
Author Organization [facility] Address [facility]. 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 No / Unsure 03/06/2020 12:54 PM LOGGING WORKER documented as of this encounter Plan of Treatment Not on file documented as of this encounter Visit Diagnoses Not on filedocumented in this encounter Care Teams Platform Inspector Relationship Specialty Start Date End Date Rose Balderas MD PCP - General FAMILY PRACTICE 10/21/18 04/25/19 None, Sarah, PCP - General 04/26/19 04/27/19 Igor Castano DO PCP - General INTERNAL MEDICINE 04/28/19 12/26/19 Jose Yip MD [address] [place], [place] [id number] PCP - General INTERNAL MEDICINE 12/27/19 08/28/20 documented as of this encounter
--- OUTSIDE RECORDS SUMMARY | 2024-04-16 02:55 | XMS_ITS | Clinical Summary ---
Author Organization [facility] Address [facility]6 [facility]. 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 Gender Identity Not on file Sexual Orientation Not on file Last Filed Vital Signs Vital Sign Reading Time Taken Comments Blood Pressure 121/71 03/06/2020 1:02 PM CHISEL WORKER Pulse 80 03/06/2020 1:02 PM CHISEL WORKER Temperature 37.1 ??C (98.7 ??F) 03/06/2020 1:02 PM CS T Respiratory Rate 18 03/06/2020 1:02 PM CHISEL WORKER Oxygen Saturation 97% 03/06/2020 1:02 PM CHISEL WORKER Inhaled Oxygen Concentration - - Weight 55.1 kg (121 lb 6.4 oz) 03/06/2020 1:02 P M CHISEL WORKER Height 175.3 cm (5' 9 ) 03/06/2020 1:02 PM CHISEL WORKER Body Mass Index 17.93 03/06/2020 1:02 PM CHISEL WORKER Plan of Treatment Health Maintenance Due Date [...] age to complete this topic Care Teams Swimming Pool Installer And Servicer Relationship Specialty Start Date End Date None, Provider, PCP - General 08/29/20
--- OUTSIDE RECORDS SUMMARY | 2024-04-16 02:55 | XMS_ITS | Encounter Summary ---
Author Organization [facility] Address [facility]6 [facility]. [place], [place] [address] [place] [address] Care Team Providers Care Opinion Polls Survey Worker Name Role Phone Rose Balderas MD Primary Care Provider +1- [phone] None, Provider Primary Care Provider Igor Wong DO Primary Care Provider Un available Jose Yip MD Primary Care Provider +1- [phone] Encounter Details Date Type Department Care Team [...] on file Legal Sex Male 10:43 PM C.O.D. BILLER Gender Identity Not on file Sexual Orientation Not on file COVID-19 Exposure Response Date Recorded In the last month, have you been in contact with someone who was confirmed or suspected to have Coronavirus / COVID-19? No / Unsure 03/06/2020 12:54 PM C.O.D. BILLER documented as of this encounter Plan of Treatment Not on file documented as of this encounter Visit Diagnoses Not on filedocumented in this encounter Care Teams Opinion Polls Survey Worker Relationship Specialty Start Date End Date Rose Balderas MD PCP - General FAMILY PRACTICE 10/21/18 04/25/19 None, Sarah, PCP - General 04/26/19 04/27/19 Igor Castano DO PCP - General INTERNAL MEDICINE 04/28/19 12/26/19 Jose Yip MD [address] [place], [place] [id number] PCP - General INTERNAL MEDICINE 12/27/19 08/28/20 documented as of this encounter
--- OUTSIDE RECORDS SUMMARY | 2024-04-16 02:55 | XMS_ITS | Encounter Summary ---
Author Organization [facility] Address [address] [place] [address]. [place], [place] [address] [place] [address] Care Team Providers Care C Python Developer Name Role Phone Rose Balderas MD Primary Care Provider +1- [phone] Reason for Visit * Reason Onset Date Comments Appointment Request 10/20/2018 Encounter Details Date Type Department Care Team (Late st Contact Info) Description 10/20/2018 Telephone [facility] Internal Medicine - [address] [address] Jose Yip MD [address] [place] [address] Appointment Request Social History Tobacco Use Types Packs/Day Years Used Date Smoking Tobacco: Never Assessed Sex and Gender Information Value Date Recorded Sex Assigned at Not on file 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 Yip in December 2019. Because patients need in sooner, I went ahead and also scheduled with Dr. Balderas out of [facility] for November 2018. * Nora Scott [...] on filedocumented in this encounter Care Teams C Python Developer Relationship Specialty Start Date End Date Rose Balderas MD PCP - General FAMILY PRACTICE 10/21/18 04/25/19 documented as of this encounter
--- OUTSIDE RECORDS SUMMARY | 2024-04-16 02:55 | XMS_ITS | Encounter Summary ---
Author Organization [facility] Address [address] [place] [address]. 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 No / Unsure 03/06/2020 12:54 PM TELECOMMUNICATIONS NETWORK PLANNER documented as of this encounter Plan of Treatment Not on file documented as of this encounter Visit Diagnoses Not on filedocumented in this encounter Care Teams Corner Former Relationship Specialty Start Date End Date Igor Castano DO PCP - General INTERNAL MEDICINE 04/28/19 12/26/19 Jose Yip MD [address] [id number] PCP - General INTERNAL MEDICINE 12/27/19 08/28/20 documented as of this encounter
--- OUTSIDE RECORDS SUMMARY | 2024-04-16 02:55 | XMS_ITS | Encounter Summary ---
Author Organization [facility] Address [facility]6 [facility]. [place], [place] [address] [place] [address] Care Team Providers Care Rehab Nursing Tech Name Role Phone Rose Balderas MD Primary Care Provider +1- [phone] None, Provider Primary Care Provider Igor Wong DO Primary Care Provider Un available Jose Yip MD Primary Care Provider +1- [phone] Encounter Details Date Type Department Care Team [...] on file Legal Sex Male 10:43 PM POTATO CHIP FRYER Gender Identity Not on file Sexual Orientation Not on file COVID-19 Exposure Response Date Recorded In the last month, have you been in contact with someone who was confirmed or suspected to have Coronavirus / COVID-19? No / Unsure 03/06/2020 12:54 PM POTATO CHIP FRYER documented as of this encounter Plan of Treatment Not on file documented as of this encounter Visit Diagnoses Not on filedocumented in this encounter Care Teams Rehab Nursing Tech Relationship Specialty Start Date End Date Rose Balderas MD PCP - General FAMILY PRACTICE 10/21/18 04/25/19 None, Sarah, PCP - General 04/26/19 04/27/19 Igor Castano DO PCP - General INTERNAL MEDICINE 04/28/19 12/26/19 Jose Yip MD [address] [place], [place] [id number] PCP - General INTERNAL MEDICINE 12/27/19 08/28/20 documented as of this encounter
--- OUTSIDE RECORDS SUMMARY | 2024-04-16 02:55 | XMS_ITS | Encounter Summary ---
Author Organization [facility] Address [address] [place] [address]. [place] [address] [place] [address] Care Team Providers Care Splunk Dashboard Developer Name Role Phone Jose Yip MD Primary Care Provider +1- [phone] Reason for Visit * Reason Comments Prostate Problem not feeling well Encounter Details Date Type Department Care Team (Late st Contact Info) Description 03/06/2020 1:00 PM CONTRACT DESIGNER Office Visit [facility] Internal Medicine - [address] [address] Christina Pedro NP [address] [place] [address] Prostate Problem (not feeling well) Social History [...] on file Legal Sex Male 10:43 PM CONTRACT DESIGNER Gender Identity Not on file Sexual Orientation Not on file COVID-19 Exposure Response Date Recorded In the last month, have you been in contact with someone who was confirmed or suspected to have Coronavirus / COVID-19? No / Unsure 03/06/2020 12:54 PM CONTRACT DESIGNER documented as of this encounter Last Filed Vital Signs Vital Sign Reading Time Taken Comments Blood Pressure 121/71 03/06/2020 1:02 PM CONTRACT DESIGNER Pulse 80 03/06/2020 1:02 PM CONTRACT DESIGNER Temperature 37.1 ??C (98.7 ??F) 03/06/2020 1:02 PM CS T Respiratory Rate 18 03/06/2020 1:02 PM CONTRACT DESIGNER Oxygen Saturation 97% 03/06/2020 1:02 PM CONTRACT DESIGNER Inhaled Oxygen Concentration - - Weight 55.1 kg (121 lb 6.4 oz) 03/06/2020 1:02 P M CONTRACT DESIGNER Height 175.3 cm (5' 9 ) 03/06/2020 1:02 PM CONTRACT DESIGNER Body Mass Index 17.93 03/06/2020 1:02 PM CONTRACT DESIGNER documented in this encounter Progress Notes * [...] file Gets together: Not on file Attends pentecostal service: Not on file Active member of [...] Exam Vitals signs and nursing note reviewed. Bedspread Folder present: he declined a nurse parking manager for genital exam. Constitutional: General: He is [...] oz) Height: 5' 9 (1.753 m) @[facility]@ Diagnoses/Impression: Encounter Diagnose(s) ICD-10-CM ICD-9-CM 1. Dysuria [...] Jose Yip MD at 03/06/2020 7:17 PM CONTRACT DESIGNER RACT DESIGNER RACT DESIGNER documented in this encounter Plan of Treatment Not on file documented as of this encounter Visit Diagnoses Diagnosis Dysuria- Primary Epididymitis, left Orchitis and epididymitis, unspecified documented in this encounter Care Teams Splunk Dashboard Developer Relationship Specialty Start Date End Date Jose Yip MD [address] [place] [address] PCP - General INTERNAL MEDICINE 12/27/19 08/28/20 documented as of this encounter
--- OUTSIDE RECORDS SUMMARY | 2024-04-16 02:55 | XMS_ITS | Encounter Summary ---
Author Organization [facility] Address [address] [place] [address]. [place] [address] [place] [address] Care Team Providers Care Log Roper Name Role Phone Igor Castano DO Primary Care Provider Un available Reason for Visit * Reason Onset Date Comments Appointment Request 11/01/2019 Encounter Details Date Type Department Care Team (Late st Contact Info) Description 11/01/2019 Telephone [facility] Family & Internal Medicine - [address] [address] Igor Castano DO Appointment Request Social History Tobacco Use Types Packs/Day Years Used Date Smoking Tobacco: Every Day Smokeless Tobacco: Never Alcohol Use Standard Drinks/Week Comments Yes 0 (1 standard drink = 0.6 oz pur e alcohol) PHQ-2 Answer Date Recorded PHQ-2 Score 4 04/28/2019 Sex and Gender Information Value Date Recorded Sex Assigned at Not on file Legal Sex Male 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 Cheek's KILN FURNITURE SAW TENDER Cherie. documented in this encounter Plan of Treatment Not on file documented as of this encounter Visit Diagnoses Not on filedocumented in this encounter Care Teams Log Roper Relationship Specialty Start Date End Date Igor Castano DO PCP - General INTERNAL MEDICINE 04/28/19 12/26/19 documented as of this encounter
--- OUTSIDE RECORDS SUMMARY | 2024-04-16 02:55 | XMS_ITS | Encounter Summary ---
Author Organization [facility] Address Count includes the [facility]6 [facility]. 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 No / Unsure 03/06/2020 12:54 PM LIGHT ARMORED VEHICLE OFFICER documented as of this encounter Plan of Treatment Not on file documented as of this encounter Visit Diagnoses Not on filedocumented in this encounter Care Teams Kapok And Cotton Machine Operator Relationship Specialty Start Date End Date Rose Balderas MD PCP - General FAMILY PRACTICE 10/21/18 04/25/19 None, Sarah, PCP - General 04/26/19 04/27/19 Igor Castano DO PCP - General INTERNAL MEDICINE 04/28/19 12/26/19 Jose Yip MD [address] [place], [place] [id number] PCP - General INTERNAL MEDICINE 12/27/19 08/28/20 documented as of this encounter
--- OUTSIDE RECORDS SUMMARY | 2024-04-16 02:55 | XMS_ITS | Encounter Summary ---
Author Organization [facility] Address [address] [place] [address]. 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
--- OUTSIDE RECORDS SUMMARY | 2024-04-16 02:55 | XMS_ITS | Encounter Summary ---
Author Organization [facility] Address [facility]6 [facility]. [place], [place] [address] [place] [address] Care Team Providers Care Supersonic Engineer Name Role Phone Rose Balderas MD Primary Care Provider +1- [phone] None, Provider Primary Care Provider Igor Wong DO Primary Care Provider Un available Jose Yip MD Primary Care Provider +1- [phone] Encounter Details Date Type Department Care Team [...] on file Legal Sex Male 10:43 PM FLAP CURER Gender Identity Not on file Sexual Orientation Not on file COVID-19 Exposure Response Date Recorded In the last month, have you been in contact with someone who was confirmed or suspected to have Coronavirus / COVID-19? No / Unsure 03/06/2020 12:54 PM FLAP CURER documented as of this encounter Plan of Treatment Not on file documented as of this encounter Visit Diagnoses Not on filedocumented in this encounter Care Teams Supersonic Engineer Relationship Specialty Start Date End Date Rose Balderas MD PCP - General FAMILY PRACTICE 10/21/18 04/25/19 None, Sarah, PCP - General 04/26/19 04/27/19 Igor Castano DO PCP - General INTERNAL MEDICINE 04/28/19 12/26/19 Jose Yip MD [address] [place], [place] [address] PCP - General INTERNAL MEDICINE 12/27/19 08/28/20 documented as of this encounter
--- OUTSIDE RECORDS SUMMARY | 2024-04-16 02:55 | XMS_ITS | Encounter Summary ---
Author Organization [facility] Address [address] [place] [address]. 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
--- OUTSIDE RECORDS SUMMARY | 2024-04-16 02:55 | XMS_ITS | Encounter Summary ---
Author Organization [facility] Address [address] [place] [address]. 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
--- OUTSIDE RECORDS SUMMARY | 2024-04-16 02:55 | XMS_ITS | Encounter Summary ---
Author Organization [facility] Address [address] [place] [address]. 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 No / Unsure 03/06/2020 12:54 PM SWITCHBOX ASSEMBLER documented as of this encounter Plan of Treatment Not on file documented as of this encounter Visit Diagnoses Not on filedocumented in this encounter Care Teams Structures Engineer Relationship Specialty Start Date End Date Igor Castano DO PCP - General INTERNAL MEDICINE 04/28/19 12/26/19 Jose Yip MD [address] [id number] PCP - General INTERNAL MEDICINE 12/27/19 08/28/20 documented as of this encounter
--- OUTSIDE RECORDS SUMMARY | 2024-04-16 02:55 | XMS_ITS | Encounter Summary ---
Author Organization [facility] Address [address] [place] [address]. 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 No / Unsure 03/06/2020 12:54 PM SANDWICH MACHINE OPERATOR documented as of this encounter Plan of Treatment Not on file documented as of this encounter Visit Diagnoses Not on filedocumented in this encounter Care Teams Pipe Organ Tuner And Repairer Relationship Specialty Start Date End Date Jose Yip MD [address] [place] [address] PCP - General INTERNAL MEDICINE 12/27/19 08/28/20 documented as of this encounter
--- OUTSIDE RECORDS SUMMARY | 2024-04-16 02:55 | XMS_ITS | Encounter Summary ---
Author Organization [facility] Address [facility]. [place], [place] [address] [place] [address] Care Team Providers Care In Flight Crew Member Name Role Phone Rose Balderas MD Primary Care Provider +1- [phone] None, Provider Primary Care Provider Igor Wong DO Primary Care Provider Un available Jose Yip MD Primary Care Provider +1- [phone] Encounter Details Date Type Department Care Team [...] on file Legal Sex Male 10:43 PM RIVETER Gender Identity Not on file Sexual Orientation Not on file COVID-19 Exposure Response Date Recorded In the last month, have you been in contact with someone who was confirmed or suspected to have Coronavirus / COVID-19? No / Unsure 03/06/2020 12:54 PM RIVETER documented as of this encounter Plan of Treatment Not on file documented as of this encounter Visit Diagnoses Not on filedocumented in this encounter Care Teams In Flight Crew Member Relationship Specialty Start Date End Date Rose Balderas MD PCP - General FAMILY PRACTICE 10/21/18 04/25/19 None, Sarah, PCP - General 04/26/19 04/27/19 Igor Castano DO PCP - General INTERNAL MEDICINE 04/28/19 12/26/19 Jose Yip MD [address] [place], [place] [id number] PCP - General INTERNAL MEDICINE 12/27/19 08/28/20 documented as of this encounter
--- OUTSIDE RECORDS SUMMARY | 2024-04-16 02:55 | XMS_ITS | Encounter Summary ---
Author Organization [facility] Address [facility]. [place], [place] [address] [place] [address] Care Team Providers Care Moccasin Sewer Name Role Phone Rose Balderas MD Primary Care Provider +1- [phone] None, Provider Primary Care Provider UnavailIgor Aguero DO Primary Care Provider Un available Jose Yip MD Primary Care Provider +1- [phone] Reason for Visit * Reason Comments Image [...] on file Legal Sex Male 10:43 PM CLIENT APPLICATION SUPPORT ENGINEER Gender Identity Not on file Sexual Orientation Not on file COVID-19 Exposure Response Date Recorded In the last month, have you been in contact with someone who was confirmed or suspected to have Coronavirus / COVID-19? No / Unsure 03/06/2020 12:54 PM CLIENT APPLICATION SUPPORT ENGINEER documented as of this encounter Plan of [...] on filedocumented in this encounter Care Teams Moccasin Sewer Relationship Specialty Start Date End Date Rose Balderas MD PCP - General FAMILY PRACTICE 10/21/18 04/25/19 None, MD Sarah PCP - General 04/26/19 04/27/19 Igor Castano DO PCP - General INTERNAL MEDICINE 04/28/19 12/26/19 Jose Yip MD [address] [place] [address] PCP - General INTERNAL MEDICINE 12/27/19 08/28/20 documented as of this encounter
--- OUTSIDE RECORDS SUMMARY | 2024-04-16 02:55 | XMS_ITS | Encounter Summary ---
Author Organization [facility] Address [address] [place] [address]. [place], [place] [address] [place] [address] Care Team Providers Care Day Haul Youth Supervisor Name Role Phone Olivier Yip MD Primary Care Provider +1- [phone] Reason for Visit * Reason Comments New Patient here to establish , mother in room Encounter Details Date Type Department Care Team (Late st Contact Info) Description 12/27/2019 2:20 PM CDT Office Visit [facility] Internal Medicine - [address] [address] Olivier Yip MD [address] [place] [address] New Patient (here to establish , mother [...] on file 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 Gender Identity Not on file Sexual [...] 12/27/2019 2:2 7 PM CDT Growth Chart: [facility] (Boys, 2-2 0 Years) documented in [...] few things on finding [facility] earlier in the year Mother states [...] all orders for this visit: Mood disorder ([facility]) - divalproex EC 250 MG [...] this encounter Visit Diagnoses Diagnosis Mood disorder ([facility])- Primary Unspecified episodic mood disorder Marijuana smoker Cannabis abuse, unspecified Depression with anxiety Dysthymic disorder documented in this encounter Care Teams Day Haul Youth Supervisor Relationship Specialty Start Date End Date Olivier Yip MD [address] [place] [address] PCP - General INTERNAL MEDICINE 12/27/19 08/28/20 documented as of this encounter
--- OUTSIDE RECORDS SUMMARY | 2024-04-16 02:55 | XMS_ITS | Encounter Summary ---
Author Organization [facility] Address [address] [place] [address]. [place], [place] [address] [place] [address] Care Team Providers Care Tools Administrator Name Role Phone Igor Castano DO Primary Care Provider Un available Jose Yip MD Primary Care Provider +1- [phone] Encounter Details Date Type Department Care Team [...] on file Legal Sex Male 10:43 PM DOCUMENT CONTROL CLERK Gender Identity Not on file Sexual Orientation Not on file COVID-19 Exposure Response Date Recorded In the last month, have you been in contact with someone who was confirmed or suspected to have Coronavirus / COVID-19? No / Unsure 03/06/2020 12:54 PM DOCUMENT CONTROL CLERK documented as of this encounter Plan of Treatment Not on file documented as of this encounter Visit Diagnoses Not on filedocumented in this encounter Care Teams Tools Administrator Relationship Specialty Start Date End Date Igor Castano DO PCP - General INTERNAL MEDICINE 04/28/19 12/26/19 Jose Yip MD [address] [id number] PCP - General INTERNAL MEDICINE 12/27/19 08/28/20 documented as of this encounter
--- OUTSIDE RECORDS SUMMARY | 2024-04-16 02:55 | XMS_ITS | Encounter Summary ---
Author Organization [facility] Address [address] [place] [address]. [place], [place] [address] [place] [address] Care Team Providers Care Direct Service Worker Name Role Phone Igor Castano DO Primary Care Provider Un available Reason for Visit * Reason Onset Date Comments Advice 05/05/2019 symptom Encounter Details Date Type Department Care Team (Late st Contact Info) Description 05/05/2019 Telephone [facility] Family & Internal Medicine - [address] [address] Igor Castano DO Advice (symptom) Social History Tobacco Use Types Packs/Day Years Used Date Smoking Tobacco: Every Day Smokeless Tobacco: Never Alcohol Use Standard Drinks/Week Comments Yes 0 (1 standard drink = 0.6 oz pur e alcohol) PHQ-2 Answer Date Recorded PHQ-2 Score 4 04/28/2019 Sex and Gender Information Value Date Recorded Sex Assigned at Not on file Legal Sex Male 10:43 PM SOLAR PANEL INSTALLATION SUPERVISOR Gender Identity Not on file Sexual [...] worsen he is to go to ER R PANEL INSTALLATION SUPERVISOR * Victorino Gastelum MA - 05/05/2019 1:22 PM CST Please advise R PANEL INSTALLATION SUPERVISOR * Terra Tello - 05/05/2019 1:09 PM CST Patient called and said he has severe pain in right side abdomen. Said he did not want same day appt. N/A at nurse # Please call back to advise [phone] R PANEL INSTALLATION SUPERVISOR documented in this encounter Plan of Treatment Not on file documented as of this encounter Visit Diagnoses Not on filedocumented in this encounter Care Teams Direct Service Worker Relationship Specialty Start Date End Date Igor Castano DO PCP - General INTERNAL MEDICINE 04/28/19 12/26/19 documented as of this encounter
--- OUTSIDE RECORDS SUMMARY | 2024-04-16 02:55 | XMS_ITS | Encounter Summary ---
Author Organization [facility] Address [facility]. 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 No / Unsure 03/06/2020 12:54 PM STRAIGHT CUTTER MACHINE documented as of this encounter Plan of Treatment Not on file documented as of this encounter Visit Diagnoses Not on filedocumented in this encounter Care Teams Public Health Epidemiologist Relationship Specialty Start Date End Date Rose Balderas MD PCP - General FAMILY PRACTICE 10/21/18 04/25/19 None, Sarah, PCP - General 04/26/19 04/27/19 Igor Castano DO PCP - General INTERNAL MEDICINE 04/28/19 12/26/19 Jose Yip MD [address] [place], [place] [id number] PCP - General INTERNAL MEDICINE 12/27/19 08/28/20 documented as of this encounter
--- OUTSIDE RECORDS SUMMARY | 2024-04-16 02:55 | XMS_ITS | Encounter Summary ---
Author Organization [facility] Address [address] [place] [address]. 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 No / Unsure 03/06/2020 12:54 PM TRAFFIC MAINTENANCE OFFICER documented as of this encounter Plan [...] on filedocumented in this encounter Care Teams Hot Shot Relationship Specialty Start Date End Date Igor Castano DO PCP - General INTERNAL MEDICINE 04/28/19 12/26/19 Jose Yip MD [address] [place] [address] PCP - General INTERNAL MEDICINE 12/27/19 08/28/20 documented as of this encounter
--- OUTSIDE RECORDS SUMMARY | 2024-04-16 02:55 | XMS_ITS | Encounter Summary ---
Author Organization [facility] Address [facility]. 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 No / Unsure 03/06/2020 12:54 PM BUSINESS SYSTEMS TECHNICIAN documented as of this encounter Plan [...] filedocumented in this encounter Care Teams Natural Resource Economist Relationship Specialty Start Date End Date Rose Balderas MD PCP - General FAMILY PRACTICE 10/21/18 04/25/19 None, MD Sarah PCP - General 04/26/19 04/27/19 Igor Castano DO PCP - General INTERNAL MEDICINE 04/28/19 12/26/19 Jose Yip MD [address] [place] [address] PCP - General INTERNAL MEDICINE 12/27/19 08/28/20 documented as of this encounter
--- OUTSIDE RECORDS SUMMARY | 2024-04-16 02:55 | XMS_ITS | Encounter Summary ---
Author Organization [facility] Address [address] [place] [address]. [place], [place] [address] [place] [address] Care Team Providers Care Facing Cutting Machine Operator Name Role Phone Jose Yip MD Primary Care Provider +1- [phone] Reason for Visit * Reason Onset Date Comments Follow Up Call 02/12/2020 Encounter Details Date Type Department Care Team (Late st Contact Info) Description 02/12/2020 Telephone [facility] Internal Medicine - [address] [address] Jose Yip MD [address] [place] [address] Follow Up Call Social History [...] on file Legal Sex Male 10:43 PM SINGE WINDER Gender Identity Not on file Sexual Orientation Not on file COVID-19 Exposure Response Date Recorded In the last month, have you been in contact with someone who was confirmed or suspected to have Coronavirus / COVID-19? No / Unsure 02/12/2020 1:56 PM SINGE WINDER documented as of this encounter Progress Notes * Charmaine Parry RN - 02/13/2020 12:26 PM CSTAddended by: CHARMAINE PARRY on: 02/13/2020 12:26 PM Modules accepted: Orders E WINDER * Charmaine Parry RN - 02/13/2020 12:25 PM CST Message to pt agrees to bean picker machine operator E WINDER * Jose Yip MD - 02/12/2020 8:12 PM CST I forgot to have yandel take a stool fit home. We discussed it. Due to intermittent abd pain, diarrhea E WINDER documented in this encounter Plan of Treatment Not on file documented as of this encounter Visit Diagnoses Diagnosis Right upper quadrant abdominal pain- Primary Abdominal pain, right upper quadrant documented in this encounter Care Teams Facing Cutting Machine Operator Relationship Specialty Start Date End Date Jose Yip MD [address] [place] [address] PCP - General INTERNAL MEDICINE 12/27/19 08/28/20 documented as of this encounter
--- OUTSIDE RECORDS SUMMARY | 2024-04-16 02:55 | XMS_ITS | Encounter Summary ---
Author Organization [facility] Address [address] [place] [address]. [place], [place] [address] [place] [address] Care Team Providers Care Smudger Name Role Phone Igor Castano DO Primary Care Provider Un available Reason for Referral * Imaging (Emergency) - Closed Specialty Diagnoses / Procedures Referred By Magda flood Referred To Contact RADIOLOGY Procedures US ABD LIMITED Erica Wright NP Phone: tel: fax: Referral ID Status Reason Start Date Expiration Date Visits Re quested Visits Authorized [id number] Closed 05/01/2019 06/01/2020 1 1 E ENGINEER Reason for Visit * Reason Comments Abdominal Pain Nausea Encounter Details Date Type Department Care Team (Late st Contact Info) Description 05/01/2019 12:43 PM SPACE ENGINEER - 05/01/2019 2:50 PM SPACE ENGINEER Emergency [facility] Emergency [address] [place] [address] Erica Wright NP [address] [place], [place] [id number] Abdominal Pain; Nausea Discharge Disposition: Home or [...] on file Legal Sex Male 10:43 PM SPACE ENGINEER Gender Identity Not on file Sexual Orientation Not on file documented as of this encounter Last Filed Vital Signs Vital Sign Reading Time Taken Comments Blood Pressure 132/68 05/01/2019 11:36 AM SPACE ENGINEER Pulse 91 05/01/2019 11:36 AM SPACE ENGINEER Temperature 36.2 ??C (97.2 ??F) 05/01/2019 1 1:36 AM SPACE ENGINEER Respiratory Rate 16 05/01/2019 11:3 6 AM SPACE ENGINEER Oxygen Saturation 99% 05/01/2019 11: 36 AM SPACE ENGINEER Inhaled Oxygen Concentration - - Weight 47.3 kg (104 lb 4.4 oz) 05/01/19 20 11:36 AM SPACE ENGINEER Height 175.3 cm (5' 9 ) 05/01/2019 11:3 6 AM SPACE ENGINEER Body Mass Index 15.4 05/01/2019 11:36 AM SPACE ENGINEER Body Mass Index Percentile 0.01% 05/01 11:36 AM SPACE ENGINEER Growth Chart: [facility] (Boys, 2-2 0 Years) documented in this encounter Discharge Instructions * Discharge Instructions* Erica Willett NP - 05/01/2019 2:43 PM SPACE ENGINEER 1. Avoid foods such as chocolate, tomatoes, [...] read and follow additional written instructions provided. E ENGINEER * Attachments The following attachments cannot be sent through Care Everywhere. * Nausea and Vomiting Discharge Instructions, Adult ([place]) * Severe Abdominal Pain Discharge Instructions, Adult ([place]) documented in this encounter Medications at Time [...] micro regarding flu swab sent, no answer. E ENGINEER * Erica Willett NP - 05/01/2019 12:46 [...] Range COLOR LIGHT YELLOW TRANSPARENCY CLEAR Specific Tea (U) 1.010 1.002 - 1.035 U PH [...] US ABD LIMITED Final Result by User, [id number] (05/01 1423) Examination: Abdominal ultrasound, limited. Clinical [...] 05/01/19, 13:21. Follow-up: Igor Castano DO [address] [facility] [id number] Go on 05/02/2019 As needed, If symptoms [...] Theresa Murillo MD at 05/01/2019 4:16 PM SPACE ENGINEER E ENGINEER E ENGINEER * Angela Le RN - 05/01/2019 11:33 AM CST Pt presents to ED per pov. Pt complains of upper mid abd pain x2 weeks. States he gets 'attacks' and the pain increases. Reports feeling nauseated w/o vomiting. E ENGINEER documented in this encounter Plan of Treatment Not on file documented as of this encounter Procedures Procedure Name Priority Date/Time Associated Diagnosis Comments US ABD LIMITED STAT 05/01/2019 2:07 PM SPACE ENGINEER HC URINALYSIS AUTO W/MICRO Nurse Collected Priority 05/01/2019 1:27 PM SPACE ENGINEER URINE BACTERIA CULTURE Nurse Collected Priority 05/01/2019 1:19 PM SPACE ENGINEER INFLUENZA A & B Nurse Collected Priority 05/01/2019 1:08 PM SPACE ENGINEER BASIC METABOLIC PANEL STAT 05/01/2019 1:06 PM SPACE ENGINEER HETEROPHILE ANTIBODIES,SCREEN STAT 05/01/2019 1:06 PM SPACE ENGINEER HEPATIC FUNCTION PANEL STAT 05/01/2019 1:06 PM SPACE ENGINEER CBC W/DIFF AUTOMATED STAT 05/01/2019 1:06 PM SPACE ENGINEER LIPASE STAT 05/01/2019 1:06 PM SPACE ENGINEER documented in this encounter Results * US ABD LIMITED (05/01/2019 2:07 PM SPACE ENGINEER) Anatomical Region Laterality Modality Abdomen Ultrasound 05/01/2019 2:21 PM SPACE ENGINEER Impressions 05/01/2019 2:23 PM SPACE ENGINEER Impression: Normal examination. Interpreted By: Thad Ramon MD, 05/01/2019 2:21 PM Narrative 05/01/2019 2:23 PM SPACE ENGINEER Examination: Abdominal ultrasound, limited. Clinical Information: Right [...] esult * (ABNORMAL) URINALYSIS (05/01/2019 1:27 PM SPACE ENGINEER) COLOR (U) LIGHT YELLOW 05/01/2019 1:34 PM SPACE ENGINEER [facility] TRANSPARENCY CLEAR 05/01/2019 1:34 PM SPACE ENGINEER [facility] SPECIFIC GRAVITY (U) 1.010 1.002 - 1.035 05/01/2019 1:34 PM SPACE ENGINEER [facility] U PH 7.0 5 - 8 05/01/2019 1:34 PM SPACE ENGINEER [facility] PROTEIN (U) NEGATIVE NEGATIVE 05/01/2019 1:34 PM SPACE ENGINEER [facility] URINE GLUCOSE NEGATIVE NEGATIVE MG/DL 05/01/2019 1:34 PM SPACE ENGINEER [facility] KETONES MG/DL (U) 20(A) NEGATIVE 05/01/2019 1:34 PM SPACE ENGINEER [facility] BILIRUBIN (U) NEGATIVE NEGATIVE 05/01/2019 1:34 PM SPACE ENGINEER [facility] BLOOD (U) NEGATIVE NEGATIVE 05/01/2019 1:34 PM SPACE ENGINEER [facility] NITRITES NEGATIVE NEGATIVE 05/01/2019 1:34 PM [facility] UROBILINOGEN NORMAL 0 - 1 EU/DL 05/01/2019 1:34 PM SPACE ENGINEER [facility] LEUKOCYTES (U) NEGATIVE NEGATIVE 05/01/2019 1:34 PM SPACE ENGINEER [facility] RBC/HPF NONE 0 - 3 /HPF 05/01/2019 1:34 PM [facility] WBC/HPF NONE 0 - 6 /HPF 05/01/2019 1:34 PM [facility] BACTERIA (U) NONE /HPF 05/01/2019 1:34 PM [facility] URINE SPECIMEN OBTAINED BY CLEAN CATCH PROCEDURE / Unknown 05/01/2019 1:27 PM SPACE ENGINEER Erica Malhotra NP URINE ORDERABLES Final Result [facility] [address] [place] [address], [id number] * CULTURE URINE (05/01/2019 1:19 PM SPACE ENGINEER) SPEC DESCRIPTION URINE CLEAN CATCH 05/01/2019 1:19 PM SPACE ENGINEER [facility] SPECIAL REQUESTS NO SPECIAL REQUEST 05/01/2019 1:19 PM SPACE ENGINEER [facility] CULTURE RESULT NO GROWTH (< OR = 1,000 CFU/ML) 05/02/2019 3:51 AM SPACE ENGINEER [facility] URINE SPECIMEN OBTAINED BY CLEAN CATCH PROCEDURE / Unknown 05/01/2019 1:19 PM SPACE ENGINEER 05/01/2019 1:43 PM SPACE ENGINEER us Erica Malhotra NP MICROBIOLOGY - GENERAL ORDERABLES Final Result Performing Organization Address [facility] de Phone Number [facility] [address] [place] [address], [place] [phone] * INFLUENZA A & B (05/01/2019 1:08 PM SPACE ENGINEER) SPEC DESCRIPTION NASAL 05/01/2019 1:08 PM SPACE ENGINEER [facility] SPECIAL REQUESTS NO SPECIAL REQUEST 05/01/2019 1:08 PM SPACE ENGINEER [facility] RESULT NEGATIVE FOR INFLUENZA A & B VIRUS ANTIGEN 05/01/2019 2:07 PM SPACE ENGINEER [facility] SPECIMEN FROM INTERNAL NOSE / Unknown 05/01/2019 1:08 PM SPACE ENGINEER 05/01/2019 1:45 PM SPACE ENGINEER us Erica Malhotra NP MICROBIOLOGY - GENERAL ORDERABLES Final Result Performing Organization Address [facility] de Phone Number [facility] [address] [place] [address], [place] [phone] * HETEROPHILE ANTIBODIES,SCREEN (05/01/2019 1:06 PM SPACE ENGINEER) MONO TEST NEGATIVE NEGATIVE 05/01/2019 1:49 PM SPACE ENGINEER [facility] 05/01/2019 1:06 PM SPACE ENGINEER us Erica Malhotra NP LABORATORY Final R esult Performing Organization Address [facility] Co de Phone Number [facility] [address] [place] [address], [place] [phone] * LIPASE (05/01/2019 1:06 PM SPACE ENGINEER) [facility] LIPASE 80 73 - 393 UNITS/L 05/01/2019 1:47 PM SPACE ENGINEER [facility] 05/01/2019 1:06 PM SPACE ENGINEER Erica Malhotra NP LABORATORY Final R esult [facility] [address] [place] [address], [id number] * (ABNORMAL) HEPATIC FUNCTION PANEL (05/01/2019 1:06 PM SPACE ENGINEER) [facility] BILIRUBIN TOTAL S/P/B 1.0 0.2 - 1.0 MG/DL 05/01/2019 1:47 PM [facility] BILIRUBIN DIRECT S/P/B 0.3(H) 0.0 - 0.2 MG/DL 05/01/2019 1:47 PM SPACE ENGINEER [facility] ALKALINE PHOSPHATASE S/P/B 111 52 - 222 U/L 05/01/2019 1:47 PM SPACE ENGINEER [facility] AST 10(L) 15 - 37 U/L 05/01/2019 1:47 PM [facility] ALT 14(L) 16 - 61 U/L 05/01/2019 1:47 PM SPACE ENGINEER [facility] TOTAL PROTEIN S/P/B 7.8 6.4 - 8.2 G/DL 05/01/2019 1:47 PM SPACE ENGINEER [facility] ALBUMIN S/P/B 4.7 3.4 - 5.0 G/DL 05/01/2019 1:47 PM SPACE ENGINEER [facility] 05/01/2019 1:06 PM SPACE ENGINEER Erica Climax Voigts WATER PURIFIER OPERATOR LABORATORY Final R esult [facility] [address] [place] [address], [id number] * (ABNORMAL) BASIC METABOLIC PANEL (05/01/2019 1:06 PM SPACE ENGINEER) SODIUM S/P/B 135(L) 136 - 145 MMOL/L 05/01/2019 1:47 PM [facility] POTASSIUM S/P/B 3.8 3.5 - 5.1 MMOL/L 05/01/2019 1:47 PM [facility] CHLORIDE S/P/B 104 98 - 107 MMOL/L 05/01/2019 1:47 PM [facility] CO2 23.1 21.0 - 32.0 MMOL/L 05/01/2019 1:47 PM [facility] GLUCOSE 88 74 - 106 MG/DL 05/01/2019 1:47 PM [facility] BUN 17 7 - 18 MG/DL 05/01/2019 1:47 PM [facility] CREATININE S/P/B 0.95 0.70 - 1.30 MG/DL 05/01/2019 1:47 PM [facility] CALCIUM S/P/B 9.2 8.5 - 10.1 MG/DL 05/01/2019 1:47 PM [facility] ANION GAP 7.9 5.0 - 15.0 MMOL/L 05/01/2019 1:47 PM [facility] Comment:REFERENCE RANGE NOT ESTABLISHED OSMOLALITY (CALC) 281 MOSM/KG 020 1:47 PM [facility] Comment:REFERENCE RANGE NOT ESTABLISHED EGFR NON-AFR. AMER. >90 >90 ML/MIN/1. 73 M2 05/01/2019 1:47 PM [facility] EGFR AFR. AMER. >90 >90 ML/MIN/1. 73 M2 05/01/2019 1:47 PM [facility] GFR NOTES GFR REFERENCE S: 05/01/2019 1:47 PM SPACE ENGINEER [facility] Comment: THE ESTIMATED GFR IS [...] FAILURE: <15 ml/min/1.73 m2 05/01/2019 1:06 PM SPACE ENGINEER Erica Malhotra NP LABORATORY Final R esult [facility] [address] [place] [address], [id number] * (ABNORMAL) CBC W/DIFF AUTOMATED (05/01/2019 1:06 PM SPACE ENGINEER) WBC 5.7 4.0 - 10.8 x10'3/uL 05/01/2019 1:17 PM SPACE ENGINEER [facility] RBC 4.61 4.50 - 6.10 x10'6/uL 05/01/2019 1:17 PM SPACE ENGINEER [facility] HGB 14.9 13.0 - 18.0 G/DL 05/01/2019 1:17 PM SPACE ENGINEER [facility] HCT 43.0 37.0 - 52.0 % 05/01/2019 1:17 PM SPACE ENGINEER [facility] MCV 93.3 78.0 - 100.0 FL 05/01/2019 1:17 PM SPACE ENGINEER [facility] MCH 32.3(H) 27.0 - 31.0 PG 05/01/2019 1:17 PM SPACE ENGINEER [facility] MCHC 34.7 33.0 - 36.0 G/DL 05/01/2019 1:17 PM [facility] RDW 11.6 11.5 - 14.5 % 05/01/2019 1:17 PM [facility] PLT 288 150 - 350 x10'3/uL 05/01/2019 1:17 PM [facility] MPV 10.5(H) 7.4 - 10.4 FL 05/01/2019 1:17 PM SPACE ENGINEER [facility] ABS. NEUTROPHILS TOTAL 2.66 1.60 - 8.30 x10'3/uL 05/01/2019 1:17 PM SPACE ENGINEER [facility] ABS. LYMPHOCYTES 2.29 0.80 - 4.70 x10'3/uL 05/01/2019 1:17 PM [facility] ABS. MONOCYTES 0.40 0.00 - 1.50 x10'3/uL 05/01/2019 1:17 PM SPACE ENGINEER [facility] ABS. EOSINOPHILS 0.29 0.00 - 0.40 x10'3/uL 05/01/2019 1:17 PM SPACE ENGINEER [facility] ABS. BASOPHILS 0.01 0.00 - 0.20 x10'3/uL 05/01/2019 1:17 PM [facility] ABS. IMMATURE GRANULOCYTES 0.01 0.00 - 0.03 x10'3/uL 05/01/2019 1:17 PM SPACE ENGINEER [facility] ABS. NUCLEATED RBC'S 0.00 0.0 x10'3/uL 05/01/2019 1:17 PM [facility] 05/01/2019 1:06 PM SPACE ENGINEER Erica Malhotra NP LABORATORY Final R esult [facility] [address] [place] [address], [phone] documented in this encounter Visit Diagnoses Diagnosis [...] over 15 seconds. Given 05/01/2019 1:09 PM SPACE ENGINEER 15 mg sodium chloride 0.9% bolus infusion SOLN 1,000 mL 1,000 mL, Intravenous, Administer over 60 Minutes, Once, 1 dose, On Wed05/01/19 at 1300 New Bag 05/01/2019 1:09 PM SPACE ENGINEER 1,000 mLs documented in this encounter Active and Recently Administered Medications Times are shown in SPACE ENGINEER. Scheduled Medication Order 04/29/2019 04/30/2019 05/01/2019 ketorolac [...] RN) documented in this encounter Care Teams Smudger Relationship Specialty Start Date End Date Igor Castano DO PCP - General INTERNAL MEDICINE 04/28/19 12/26/19 documented as of this encounter
--- OUTSIDE RECORDS SUMMARY | 2024-04-16 02:55 | XMS_ITS | Encounter Summary ---
Author Organization [facility] Address [facility]. [place], [place] [address] [place] [address] Care Team Providers Care [employer] Finisher Name Role Phone Rose Balderas MD Primary Care Provider [phone] None, Provider Primary Care Provider Igor Wong DO Primary Care Provider Un available Jose Yip MD Primary Care Provider [phone]- [phone] Reason for Visit * Reason Comments Image [...] on file Legal Sex Male 10:43 PM LUTE PACKER OR APPLIER Gender Identity Not on file Sexual Orientation Not on file COVID-19 Exposure Response Date Recorded In the last month, have you been in contact with someone who was confirmed or suspected to have Coronavirus / COVID-19? No / Unsure 03/06/2020 12:54 PM LUTE PACKER OR APPLIER documented as of this encounter Plan of [...] on filedocumented in this encounter Care Teams [employer] Finisher Relationship Specialty Start Date End Date Rose Balderas MD PCP - General FAMILY PRACTICE 10/21/18 04/25/19 None, MD Sarah PCP - General 04/26/19 04/27/19 Igor Casatno DO PCP - General INTERNAL MEDICINE 04/28/19 12/26/19 Jose Yip MD [address] [place] [address] PCP - General INTERNAL MEDICINE 12/27/19 08/28/20 documented as of this encounter
--- OUTSIDE RECORDS SUMMARY | 2024-04-16 02:55 | XMS_ITS | Encounter Summary ---
Author Organization [facility] Address Formerly [facility]. [place], [place] [address] [place] [address] Care Team Providers Care Furnace Repair Mechanic Name Role Phone Stan Castano DO Primary Care Provider Un available Reason for Referral * Consultation/Treatment (Routine) - Closed Specialty Diagnoses / Procedures Referred By Magda flood Referred To Contact Psychiatry Diagnoses Depression with anxiety Stan Castano DO [address] [address] Phone: tel: Referral ID Status Reason Start Date Expiration Date V isits Requested Visits Authorized [id number] Closed Specialty Services 04/28/2019 05/29/2020 99 99 OL AGE LEAD TEACHER Reason for Visit * Reason Comments Meet and Greet Provider Patient in offic e with mother to establish care. Abdominal Pain Abdominal pain on ri ght side. Encounter Details Date Type Department Care Team (Late st Contact Info) Description 04/28/2019 11:00 AM SCHOOL AGE LEAD TEACHER Office Visit [facility] Family & [facility] Medicine - [place] [address] [place] [address] Stan Castano DO Meet and Greet Provider [...] file Legal Sex Male 10:43 PM SCHOOL AGE LEAD TEACHER Gender Identity Not on file Sexual Orientation Not on file documented as of this encounter Last Filed Vital Signs Vital Sign Reading Time Taken Comments Blood Pressure 118/82 04/28/2019 11:02 AM SCHOOL AGE LEAD TEACHER Pulse 126 04/28/2019 11:02 AM SCHOOL AGE LEAD TEACHER Temperature 36.7 ??C (98 ??F) 04/28/2019 11:02 AM SCHOOL AGE LEAD TEACHER Respiratory Rate 20 04/28/2019 11:02 AM SCHOOL AGE LEAD TEACHER Oxygen Saturation 98% 04/28/2019 11:02 AM SCHOOL AGE LEAD TEACHER Inhaled Oxygen Concentration - - Weight 49 kg (108 lb) 04/28/2019 11:02 AM SCHOOL AGE LEAD TEACHER Height - - Body Mass Index - - documented in this encounter Patient Instructions * Patient Instructions* Stan Castano DO - 04/28/2019 11:00 AM SCHOOL AGE LEAD TEACHER Patient Education Patient Education Marijuana Use and [...] in your town. Join social activities. Try restorationist activities or do things with others. Be [...] again. Where can I learn more? National [place] on Drug Abuse http://www.drugabuse.gov/publications/drugfacts/marijuana [place] on Drug Abuse https://www.drugabuse.gov/drugs-abuse/rdhfidgv-viibpv-ssmpe-charts#marijuana-can nabis- Last Reviewed Date 2017-11-24 Consumer Information [...] right for you. Copyright Copyright ?? 2019 [employer]. and its affiliates and/or licensors. All rights reserved. OL AGE LEAD TEACHER documented in this encounter Progress Notes * Victorino Gastelum MA - 04/28/2019 11:00 AM CSTAddended by: VICTORINO GASTELUM on: 05/02/2019 07:52 AM Modules accepted: Orders OL AGE LEAD TEACHER * Stan Castano DO - 04/28/2019 11:00 [...] file Gets together: Not on file Attends muslim service: Not on file Active member of [...] 1 month for reevaluation. STAN CASTANO DO OL AGE LEAD TEACHER * Stan Castano DO - 04/28/2019 11:00 AM CST TSH,mg,cbc,lipase with no significant abnormalities. Calcium slightly low. Increase dietary calcium intake.(please order check of vitamin D- diagnosis -hypocalcemia) Total bilirubin slightly elevated. We will continue to monitor. ( Order recheck on hepatic functionpanel in 3 months) OL AGE LEAD TEACHER * Victorino Gastelum MA - 04/28/2019 11:00 AM CST Mailed letter. OL AGE LEAD TEACHER * Stan Castano DO - 04/28/2019 11:00 AM CST Positive to marijuana which we are aware and already discussed during visit. OL AGE LEAD TEACHER documented in this encounter Plan of Treatment Pending Results Name Type Priority Associated Diagnoses Date /Time EKG INTERPRET & REPORT PREVE EKG-NonRad Routine Sinus tachycardia 04/28/2019 12:08 PM SCHOOL AGE LEAD TEACHER Scheduled Referrals Name Type Priority Associated Diagnoses Orde r Schedule Ambulatory Referral to Psychiatry Referral Routine Depression with anxiety Ordered: 04/28/2019 documented as of this encounter Procedures Procedure Name Priority Date/Time Associated Diagnosis Comments DRUG MONITORING, PANEL 5, SCREEN (U) Routine 04/28/2019 12:10 PM SCHOOL AGE LEAD TEACHER Marijuana smoker Tobacco use TSH W/REFLEX Routine 04/28/2019 12:10 PM SCHOOL AGE LEAD TEACHER Sinus tachycardia COMPREHENSIVE METABOLIC PANEL Routine 04/28/2019 12:10 PM SCHOOL AGE LEAD TEACHER Right upper quadrant abdominal pain CBC, AUTO, NO DIFF Routine 04/28/2019 12 :10 PM SCHOOL AGE LEAD TEACHER Right upper quadrant abdominal pain MAGNESIUM Routine 04/28/2019 12:10 PM SCHOOL AGE LEAD TEACHER Sinus tachycardia LIPASE Routine 04/28/2019 12:10 PM SCHOOL AGE LEAD TEACHER Epigastric abdominal pain COLLECTION VENOUS BLOOD VENIPUNCTURE Routine 04/28/2019 12:09 PM SCHOOL AGE LEAD TEACHER Epigastric abdominal pain Sinus tachycardia Gastroesophageal reflux disease, esophagitis presence not specified Primary insomnia Depression with anxiety Marijuana smoker EKG INTERPRET & REPORT PREVE Routine 04/28/2019 12:08 PM SCHOOL AGE LEAD TEACHER Sinus tachycardia documented in this encounter Results * (ABNORMAL) PAIN MANAGEMENT 5 PROFILE WITHOUT CONFIRMATION, URINE (04/28/2019 12:10 PM SCHOOL AGE LEAD TEACHER) CREATININE RANDOM URINE 218.4 > or = [...] <100 ng/mL [facility] Comment: [facility] Comment: See Note 1 Note [...] interpreting these drug results, please contact a [facility] Toxicology Specialist: [phone] ( ), M-F, 8am-6pm EST. 04/28/2019 12:1 0 PM SCHOOL AGE LEAD TEACHER 05/02/2019 6:08 AM SCHOOL AGE LEAD TEACHER Narrative Resulting Agency Comment Performing Organization Information: ?Site ID: [id number] ?Name: [facility] ?Address: [address] [place] [id number] ?Director: Keaton Connor M.D. us Stan Castano DO LABORATORY Final Res ult [facility] [address] [place] [address] * TSH W/REFLEX (04/28/2019 12:10 PM SCHOOL AGE LEAD TEACHER) TSH 1.854 0.516 - 4.130 uIU/ML 04/28/2019 7:57 PM SCHOOL AGE LEAD TEACHER [facility] 04/28/2019 12:1 0 PM SCHOOL AGE LEAD TEACHER Stan Castano DO LABORATORY Final Res ult [facility] [address] [place] [address], * (ABNORMAL) COMPREHENSIVE METABOLIC PANEL (04/28/2019 12:10 PM SCHOOL AGE LEAD TEACHER) SODIUM S/P/B 141 136 - 145 MMOL/L 04/28/2019 7:57 PM SCHOOL AGE LEAD TEACHER [facility] POTASSIUM S/P/B 4.6 3.5 - 5.1 MMOL/L 04/28/2019 7:57 PM SCHOOL AGE LEAD TEACHER [facility] CHLORIDE S/P/B 103 98 - 107 MMOL/L 04/28/2019 7:57 PM SCHOOL AGE LEAD TEACHER [facility] CO2 21.9 21 - 32 MMOL/L 04/28/2019 7:57 PM SCHOOL AGE LEAD TEACHER [facility] GLUCOSE 84 70 - 99 MG/DL 04/28/2019 7:57 PM SCHOOL AGE LEAD TEACHER [facility] BUN 21 6 - 24 MG/DL 04/28/2019 7:57 PM SCHOOL AGE LEAD TEACHER [facility] CREATININE S/P/B 0.94 0.70 - 1.30 MG/DL 04/28/2019 7:57 PM SCHOOL AGE LEAD TEACHER [facility] CALCIUM S/P/B 9.3(L) 9.5 - 10.4 MG/DL 04/28/2019 7:57 PM SCHOOL AGE LEAD TEACHER [facility] BILIRUBIN TOTAL S/P/B 1.2(H) 0.2 - 1.0 MG/DL 04/28/2019 7:57 PM [facility] ALKALINE PHOSPHATASE S/P/B 105 52 - 222 U/L 04/28/2019 7:57 PM [facility] AST 10(L) 15 - 37 U/L 04/28/2019 7:57 PM [facility] ALT 12(L) 16 - 63 U/L 04/28/2019 7:57 PM [facility] TOTAL PROTEIN S/P/B 7.7 6.4 - 8.2 G/DL 04/28/2019 7:57 PM [facility] ALBUMIN S/P/B 4.9 3.4 - 5.0 G/DL 04/28/2019 7:57 PM [facility] ANION GAP 16.1(H) 5 - 15 MMOL/L 04/28/2019 7:57 PM [facility] Comment:REFERENCE RANGE NOT ESTABLISHED OSMOLALITY (CALC) 294 MOSM/KG 04/28/2019 7:57 PM [facility] Comment:REFERENCE RANGE NOT ESTABLISHED EGFR NON-AFR. AMER. >90 >90 ML/MIN/1 .73 M2 04/28/2019 7:57 PM [facility] EGFR AFR. AMER. >90 >90 ML/MIN/1 .73 M2 04/28/2019 7:57 PM [facility] GFR NOTES THE ESTIMATED GFR IS CALCULATED USING THE 2009 CKD-EPI EQUATION. THE FOLLOWING CATEGORIES FOR GRADING RENAL FUNCTION ARE RECOMMENDED BY THE INTERNATIONAL SOCIETY OF NEPHROLOGY (KDIGO 2012 CLINICAL PRACTICE GUIDELINE). 04/28/2019 7:57 PM [facility] Comment: G1,NORMAL OR HIGH: >89 ml/min/1.73 m2 G2,MILDLY DECREASED: 60-89 ml/min/1.73 m2 G3A,MILDLY TO MODERATELY DECREASED: 45-59 ml/min/1.73 m2 G3B,MODERATELY TO SEVERELY DECREASED: 30-44 ml/min/1.73 m2 G4,SEVERELY DECREASED: 15-29 ml/min/1.73 m2 G5,KIDNEY FAILURE: <15 ml/min/1.73 m2 04/28/2019 12:1 0 PM SCHOOL AGE LEAD TEACHER [facility] LABORATORY Final Res ult Performing Organization Address City/[facility]/ZIP Co de Phone Number [facility] [address] [place] [address], [place] [phone] * MAGNESIUM (04/28/2019 12:10 PM SCHOOL AGE LEAD TEACHER) MAGNESIUM 1.9 1.8 - 2.4 MG/DL 04/28/2019 7:57 PM SCHOOL AGE LEAD TEACHER [facility] 04/28/2019 12:1 0 PM SCHOOL AGE LEAD TEACHER [facility] LABORATORY Final Res ult Performing Organization Address City/[facility]/ZIP Co de Phone Number [place] [address] [place] [address], [place] [phone] * (ABNORMAL) CBC, AUTO, NO DIFF (04/28/2019 12:10 PM SCHOOL AGE LEAD TEACHER) WBC 6.8 4.50 - 10.80 x10'3/uL 04/28/2019 7:03 PM [facility] RBC 4.63 4.50 - 6.10 x10'6/uL 04/28/2019 7:03 PM SCHOOL AGE LEAD TEACHER [facility] HGB 15.0 13.0 - 18.0 G/DL 04/28/2019 7:03 PM SCHOOL AGE LEAD TEACHER [facility] HCT 43.3 37.0 - 52.0 % 04/28/2019 7:03 PM SCHOOL AGE LEAD TEACHER [facility] MCV 93.5 78.0 - 100.0 FL 04/28/2019 7:03 PM [facility] MCH 32.4 25.0 - 35.0 PG 04/28/2019 7:03 PM SCHOOL AGE LEAD TEACHER [facility] MCHC 34.6 31.0 - 36.0 G/DL 04/28/2019 7:03 PM SCHOOL AGE LEAD TEACHER [facility] RDW 11.5 11.5 - 14.5 % 04/28/2019 7:03 PM SCHOOL AGE LEAD TEACHER [facility] PLT 342 150 - 350 x10'3/uL 04/28/2019 7:03 PM SCHOOL AGE LEAD TEACHER [facility] MPV 11.0(H) 7.4 - 10.4 FL 04/28/2019 7:03 PM SCHOOL AGE LEAD TEACHER [facility] 04/28/2019 12:1 0 PM SCHOOL AGE LEAD TEACHER [facility] LABORATORY Final Res ult Performing Organization Address City/[facility]/ZIP Co de Phone Number [facility], [facility] [address] [place] [address], [place] [phone] * LIPASE (04/28/2019 12:10 PM SCHOOL AGE LEAD TEACHER) LIPASE 78 73 - 393 UNITS/L 04/28/2019 7:57 PM SCHOOL AGE LEAD TEACHER [facility] Comment:NEW INSTRUMENTATION. PLEASE NOTE NEW NORMAL RANGE. 04/28/2019 12:1 0 PM SCHOOL AGE LEAD TEACHER [facility] LABORATORY Final Res ult [facility] [address] [place] [address], [place] [phone] documented in this encounter Visit Diagnoses Diagnosis [...] deficiency documented in this encounter Care Teams Furnace Repair Mechanic Relationship Specialty Start Date End Date Stan Castano DO PCP - General INTERNAL MEDICINE 04/28/19 12/26/19 documented as of this encounter
--- OUTSIDE RECORDS SUMMARY | 2024-04-16 02:55 | XMS_ITS | Encounter Summary ---
Author Organization [facility] Address [address] [place] [address]. [place], [place] [address] [place] [address] Care Team Providers Care Residential Field Manager Name Role Phone Igor Castano DO [...] on file Legal Sex Male 10:43 PM MARKETING EDITOR Gender Identity Not on file Sexual Orientation Not on file documented as of this encounter Plan of Treatment Not on file documented as of this encounter Visit Diagnoses Not on filedocumented in this encounter Care Teams Residential Field Manager Relationship Specialty Start Date End Date Igor Castano DO PCP - General INTERNAL MEDICINE 04/28/19 12/26/19 documented as of this encounter
--- OUTSIDE RECORDS SUMMARY | 2024-04-16 02:55 | XMS_ITS | Encounter Summary ---
Author Organization [facility] Address [facility] [place] [place] [address] [place] [address] Care Team Providers Care Telecom Analyst Name Role Phone Rose Balderas MD Primary Care Provider +1- [phone] None, Provider Primary Care Provider UnavailIgor Aguero DO Primary Care Provider Un available Jose Yip MD Primary Care Provider +1- [phone] Reason for Visit * Reason Comments Image [...] file Legal Sex Male 10:43 PM DIRECTOR INDUSTRIAL Gender Identity Not on file Sexual Orientation Not on file COVID-19 Exposure Response Date Recorded In the last month, have you been in contact with someone who was confirmed or suspected to have Coronavirus / COVID-19? No / Unsure 03/06/2020 12:54 PM DIRECTOR INDUSTRIAL documented as of this encounter Plan of [...] on filedocumented in this encounter Care Teams Telecom Analyst Relationship Specialty Start Date End Date Rose Balderas MD PCP - General FAMILY PRACTICE 10/21/18 04/25/19 None, MD Sarah PCP - General 04/26/19 04/27/19 Igor Castano DO PCP - General INTERNAL MEDICINE 04/28/19 12/26/19 Jose Yip MD [address] [place] [address] PCP - General INTERNAL MEDICINE 12/27/19 08/28/20 documented as of this encounter
--- OUTSIDE RECORDS SUMMARY | 2024-04-16 02:55 | XMS_ITS | Encounter Summary ---
Author Organization [facility] Address [address] [place] [address]. [place], [place] [address] [place] [address] Care Team Providers Care Marine Firefighter Name Role Phone Jose Yip MD Primary Care Provider +1- [phone] Encounter Details Date Type Department Care Team [...] on file Legal Sex Male 10:43 PM DISPLAY DESIGNER Gender Identity Not on file Sexual Orientation Not on file COVID-19 Exposure Response Date Recorded In the last month, have you been in contact with someone who was confirmed or suspected to have Coronavirus / COVID-19? No / Unsure 03/06/2020 12:54 PM DISPLAY DESIGNER documented as of this encounter Plan of Treatment Not on file documented as of this encounter Visit Diagnoses Not on filedocumented in this encounter Care Teams Marine Firefighter Relationship Specialty Start Date End Date Jose Yip MD [address] [place] [address] PCP - General INTERNAL MEDICINE 12/27/19 08/28/20 documented as of this encounter
--- OUTSIDE RECORDS SUMMARY | 2024-04-16 02:55 | XMS_ITS | Encounter Summary ---
Author Organization [facility] Address [address] [place] [address]. [place], [place] [address] [place] [address] Care Team Providers Care Mortgage Clerk Name Role Phone Jose Yip MD Primary Care Provider +1- [phone] Encounter Details Date Type Department Care Team [...] on file Legal Sex Male 10:43 PM LENS MOLDER Gender Identity Not on file Sexual Orientation Not on file COVID-19 Exposure Response Date Recorded In the last month, have you been in contact with someone who was confirmed or suspected to have Coronavirus / COVID-19? No / Unsure 03/06/2020 12:54 PM LENS MOLDER documented as of this encounter Plan of Treatment Not on file documented as of this encounter Visit Diagnoses Not on filedocumented in this encounter Care Teams Mortgage Clerk Relationship Specialty Start Date End Date Jose Yip MD [facility] [place] [address] PCP - General INTERNAL MEDICINE 12/27/19 08/28/20 documented as of this encounter
--- OUTSIDE RECORDS SUMMARY | 2024-04-16 02:55 | XMS_ITS | Encounter Summary ---
Author Organization [facility] Address [facility]. [place], [place] [address] [place] [address] Care Team Providers Care Thermodynamics Engineer Name Role Phone Rose Balderas MD Primary Care Provider +1- [phone] None, Provider Primary Care Provider Igor Wong DO Primary Care Provider Un available Jose Yip MD Primary Care Provider +1- [phone] Encounter Details Date Type Department Care Team [...] on file Legal Sex Male 10:43 PM FOREIGN POLICY OFFICER Gender Identity Not on file Sexual Orientation Not on file COVID-19 Exposure Response Date Recorded In the last month, have you been in contact with someone who was confirmed or suspected to have Coronavirus / COVID-19? No / Unsure 03/06/2020 12:54 PM FOREIGN POLICY OFFICER documented as of this encounter Plan of Treatment Not on file documented as of this encounter Visit Diagnoses Not on filedocumented in this encounter Care Teams Thermodynamics Engineer Relationship Specialty Start Date End Date Rose Balderas MD PCP - General FAMILY PRACTICE 10/21/18 04/25/19 None, Sarah, PCP - General 04/26/19 04/27/19 Igor Castano DO PCP - General INTERNAL MEDICINE 04/28/19 12/26/19 Jose Yip MD [address] [place], [place] [id number] PCP - General INTERNAL MEDICINE 12/27/19 08/28/20 documented as of this encounter
--- OUTSIDE RECORDS SUMMARY | 2024-04-16 02:55 | XMS_ITS | Encounter Summary ---
Author Organization [facility] Address [address] [place] [address]. [place], [place] [address] [place] [address] Care Team Providers Care Mechanical Maintenance Technician Name Role Phone Jose Yip MD Primary Care Provider +1- [phone] Encounter Details Date Type Department Care Team [...] on file Legal Sex Male 10:43 PM EXTRA HAND Gender Identity Not on file Sexual Orientation [...] on filedocumented in this encounter Care Teams Mechanical Maintenance Technician Relationship Specialty Start Date End Date Jose Yip MD [facility] [place] [address] PCP - General INTERNAL MEDICINE 12/27/19 08/28/20 documented as of this encounter
--- OUTSIDE RECORDS SUMMARY | 2024-04-16 02:55 | XMS_ITS | Encounter Summary ---
Author Organization [facility] Address [address] [place] [address]. [place], [place] [address] [place] [address] Care Team Providers Care Talent Assistant Name Role Phone Jose Yip MD Primary Care Provider +1- [phone] Reason for Visit * Reason Onset Date Comments UTI 03/05/2020 Urinary frequenc y, urgency, pain, burning when voids, pain when seated. Thinks he is having a prostate problem. Encounter Details Date Type Department Care Team (Late st Contact Info) Description 03/05/2020 Telephone [facility] Internal Medicine - [address] [address] Jose Yip MD [address] [place] [address] UTI (Urinary frequency, urgency, pain, burning [...] on file Legal Sex Male 10:43 PM ORTHOTIC PRACTITIONER Gender Identity Not on file Sexual Orientation Not on file COVID-19 Exposure Response Date Recorded In the last month, have you been in contact with someone who was confirmed or suspected to have Coronavirus / COVID-19? No / Unsure 03/06/2020 12:54 PM ORTHOTIC PRACTITIONER documented as of this encounter Progress Notes * Jacquelyn Rock MA - 03/05/2020 11:22 AM CST noted OTIC PRACTITIONER * Carl Brooks RN - 03/05/2020 11:15 AM CST Urinary frequency, urgency, pain, burning when voids, pain when seated. Thinks he is having a prostate problem. Denies urine cloudiness or odor. Did go to a [employer] gathering, states wears a mask. Appt 03/06/20 Evonne Anglin 1:00 Instructed to arrive 10 minutes early and wear a mask to clinic and sanitize hands. OTIC PRACTITIONER documented in this encounter Plan of Treatment Not on file documented as of this encounter Visit Diagnoses Not on filedocumented in this encounter Care Teams Talent Assistant Relationship Specialty Start Date End Date Jose Yip MD [address] [place] [address] PCP - General INTERNAL MEDICINE 12/27/19 08/28/20 documented as of this encounter
--- OUTSIDE RECORDS SUMMARY | 2024-04-16 02:55 | XMS_ITS | Encounter Summary ---
Author Organization [facility] Address [address] [place] [address]. [place], [place] [address] [place] [address] Care Team Providers Care Ribbon Cleaner Name Role Phone Rose Balderas MD Primary Care Provider +1- [phone] None, Provider Primary Care Provider Igor Wong [...] on file Legal Sex Male 10:43 PM SAP BUSINESS ANALYST Gender Identity Not on file Sexual Orientation Not on file documented as of this encounter Plan of Treatment Not on file documented as of this encounter Visit Diagnoses Not on filedocumented in this encounter Care Teams Ribbon Cleaner Relationship Specialty Start Date End Date Rose Balderas MD PCP - General FAMILY PRACTICE 10/21/18 04/25/19 None, ProviderMD PCP - General 04/26/19 04/27/19 Igor Castano DO PCP - General INTERNAL MEDICINE 04/28/19 12/26/19 documented as of this encounter
--- OUTSIDE RECORDS SUMMARY | 2024-04-16 02:55 | XMS_ITS | Encounter Summary ---
Author Organization [facility] Address [address] [place] [address]. [place], [place] [address] [place] [address] Care Team Providers Care Supervisor Last Model Department Name Role Phone Jose Yip MD Primary Care Provider +1- [phone] Encounter Details Date Type Department Care Team [...] on file Legal Sex Male 10:43 PM LOWERATOR OPERATOR Gender Identity Not on file Sexual [...] filedocumented in this encounter Care Teams Supervisor Last Model Department Relationship Specialty Start Date End Date Jose Yip MD [address] [place] [address] PCP - General INTERNAL MEDICINE 9/23/20 5/26/21 documented as of this encounter
--- OUTSIDE RECORDS SUMMARY | 2024-04-16 02:55 | XMS_ITS | Encounter Summary ---
Author Organization [facility] Address [address] [place] [address]. [place], [place] [address] [place] [address] Care Team Providers Care Computing Consultant Name Role Phone Igor Castano DO Primary Care Provider Un available Jose Yip MD Primary Care Provider +1- [phone] Reason for Visit * Reason Comments Pathology (SCAN) Endoscopy (SCAN) Encounter Details Date Type Department Care Team ([facility] Contact Info) Description 05/09/2019 Scan HEALTH INFO [...] on file Legal Sex Male 10:43 PM HAT MAKER Gender Identity Not on file Sexual Orientation Not on file COVID-19 Exposure Response Date Recorded In the last month, have you been in contact with someone who was confirmed or suspected to have Coronavirus / COVID-19? No / Unsure 03/06/2020 12:54 PM HAT MAKER documented as of this encounter Plan [...] on filedocumented in this encounter Care Teams Computing Consultant Relationship Specialty Start Date End Date Igor Castano DO PCP - General INTERNAL MEDICINE 04/28/19 12/26/19 Jose Yip MD [address] [place] [address] PCP - General INTERNAL MEDICINE 12/27/19 08/28/20 documented as of this encounter
--- OUTSIDE RECORDS SUMMARY | 2024-04-16 02:55 | XMS_ITS | Encounter Summary ---
Author Organization [facility] Address [address] [place] [address]. [place], [place] [address] [place] [address] Care Team Providers Care Galley Boy Name Role Phone Igor Castano DO Primary Care Provider Un available Jose Yip MD Primary Care Provider +1- [phone] Reason for Visit * Reason Comments Lab [...] on file Legal Sex Male 10:43 PM ROUSTABOUT CREW PUSHER Gender Identity Not on file Sexual Orientation Not on file COVID-19 Exposure Response Date Recorded In the last month, have you been in contact with someone who was confirmed or suspected to have Coronavirus / COVID-19? No / Unsure 03/06/2020 12:54 PM ROUSTABOUT CREW PUSHER documented as of this encounter Plan of [...] on filedocumented in this encounter Care Teams Galley Boy Relationship Specialty Start Date End Date Igor Castano DO PCP - General INTERNAL MEDICINE 04/28/19 12/26/19 Jose Yip MD [address] [place] [address] PCP - General INTERNAL MEDICINE 12/27/19 08/28/20 documented as of this encounter
--- OUTSIDE RECORDS SUMMARY | 2024-04-16 02:55 | XMS_ITS | Encounter Summary ---
Author Organization [facility] Address [address] [place] [address]. [place], [place] [address] [place] [address] Care Team Providers Care Ranch Helper Name Role Phone Igor Castano DO Primary Care Provider Un available Jose Yip MD Primary Care Provider +1- [phone] Reason for Visit * Reason Comments Lab [...] on file Legal Sex Male 10:43 PM CARD STRIPPER Gender Identity Not on file Sexual Orientation Not on file COVID-19 Exposure Response Date Recorded In the last month, have you been in contact with someone who was confirmed or suspected to have Coronavirus / COVID-19? No / Unsure 03/06/2020 12:54 PM CARD STRIPPER documented as of this encounter Plan of Treatment Not on file documented as of this encounter Procedures Procedure Name Priority Date/Time Associated Diagnosis Comments OUTSIDE LAB (SCAN ORDER) Routine 05/23/2019 documented in this encounter Results * OUTSIDE LAB (05/23/2019) 05/23/2019 us Documents Scanned SCANNING Final Result [facility] documented in this encounter Visit Diagnoses Not on filedocumented in this encounter Care Teams Ranch Helper Relationship Specialty Start Date End Date Igor Castano DO PCP - General INTERNAL MEDICINE 04/28/19 12/26/19 Jose Yip MD [address] [place], [place] [id number] PCP - General INTERNAL MEDICINE 12/27/19 08/28/20 documented as of this encounter
--- OUTSIDE RECORDS SUMMARY | 2024-04-16 02:55 | XMS_ITS | Encounter Summary ---
Author Organization [facility] Address [address] [place] [address]. 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 No / Unsure 03/06/2020 12:54 PM CERTIFIED SURGICAL ASSISTANT documented as of this encounter Plan of Treatment Not on file documented as of this encounter Visit Diagnoses Not on filedocumented in this encounter Care Teams Teacher Ballet Relationship Specialty Start Date End Date Jose Yip MD [address] [place] [address] PCP - General INTERNAL MEDICINE 12/27/19 08/28/20 documented as of this encounter
--- OUTSIDE RECORDS SUMMARY | 2024-04-16 02:55 | XMS_ITS | Encounter Summary ---
Author Organization [facility] Address [facility]. 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 No / Unsure 03/06/2020 12:54 PM LIQUOR GALLERY OPERATOR documented as of this encounter Plan of Treatment Not on file documented as of this encounter Visit Diagnoses Not on filedocumented in this encounter Care Teams Architecture Instructor Relationship Specialty Start Date End Date Rose Balderas MD PCP - General FAMILY PRACTICE 10/21/18 04/25/19 None, Sarah, PCP - General 04/26/19 04/27/19 Igor Castano DO PCP - General INTERNAL MEDICINE 04/28/19 12/26/19 Jose Yip MD [address] [place], [place] [id number] PCP - General INTERNAL MEDICINE 12/27/19 08/28/20 documented as of this encounter
--- OUTSIDE RECORDS SUMMARY | 2024-04-16 02:55 | XMS_ITS | Encounter Summary ---
Author Organization [facility] Address [address] [place] [address]. 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 No / Unsure 03/06/2020 12:54 PM ENVELOPE FOLDING MACHINE ADJUSTER documented as of this encounter Plan of Treatment Not on file documented as of this encounter Visit Diagnoses Not on filedocumented in this encounter Care Teams Brain Wave Technician Relationship Specialty Start Date End Date Jose Yip MD [address] [place] [address] PCP - General INTERNAL MEDICINE 12/27/19 08/28/20 documented as of this encounter
--- OUTSIDE RECORDS SUMMARY | 2024-04-16 02:55 | XMS_ITS | Encounter Summary ---
Author Organization [facility] Address [address] [place] [address]. [place], [place] [address] [place] [address] Care Team Providers Care Art Museum Docent Name Role Phone Olivier Yip MD Primary Care Provider +1- [phone] Reason for Visit * Reason Comments Follow Up puncture wound left foot has healed Encounter Details Date Type Department Care Team (Late st Contact Info) Description 02/12/2020 2:00 PM SENIOR DRUPAL DEVELOPER Office Visit [facility] Internal Medicine - [place] [address] [place] [address] Olivier Yip MD [address] [place] [address] Follow Up (puncture wound left [...] file Legal Sex Male 10:43 PM SENIOR DRUPAL DEVELOPER Gender Identity Not on file Sexual Orientation Not on file COVID-19 Exposure Response Date Recorded In the last month, have you been in contact with someone who was confirmed or suspected to have Coronavirus / COVID-19? No / Unsure 02/12/2020 1:56 PM SENIOR DRUPAL DEVELOPER documented as of this encounter Last Filed Vital Signs Vital Sign Reading Time Taken Comments Blood Pressure 116/60 02/12/2020 2:02 PM SENIOR DRUPAL DEVELOPER Pulse 72 02/12/2020 2:02 PM SENIOR DRUPAL DEVELOPER Temperature 36.6 ??C (97.8 ??F) 02/12/2020 2:02 PM CS T Respiratory Rate - - Oxygen Saturation 98% 02/12/2020 2:02 PM SENIOR DRUPAL DEVELOPER Inhaled Oxygen Concentration - - Weight 52.6 kg (116 lb) 02/12/2020 2:02 PM SENIOR DRUPAL DEVELOPER Height 175.3 cm (5' 9 ) 02/12/2020 2:02 PM SENIOR DRUPAL DEVELOPER Body Mass Index 17.13 02/12/2020 2:02 PM SENIOR DRUPAL DEVELOPER documented in this encounter Progress Notes [...] and he is supposed to be on [id number] vitamin D now but it sounds like [...] smoker Need for immunization against influenza - [09018] FLU VACC QUAD 6 MONTHS+ 0.5 ML [...] curtail the marijuana use OLIVIER YIP MD OR DRUPAL DEVELOPER documented in this encounter Plan of [...] syndrome documented in this encounter Care Teams Art Museum Docent Relationship Specialty Start Date End Date Olivier Yip MD [facility] [place] [address] PCP - General INTERNAL MEDICINE 12/27/19 08/28/20 documented as of this encounter
--- OUTSIDE RECORDS SUMMARY | 2024-04-16 02:55 | XMS_ITS | Encounter Summary ---
Author Organization [facility] Address [address] [place] [address]. 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 No / Unsure 03/06/2020 12:54 PM ORACLE FINANCIAL APPLICATION DEVELOPER documented as of this encounter Plan [...] on filedocumented in this encounter Care Teams Fisher Line Relationship Specialty Start Date End Date Igor Castano DO PCP - General INTERNAL MEDICINE 04/28/19 12/26/19 Jose Yip MD [address] [place] [address] PCP - General INTERNAL MEDICINE 12/27/19 08/28/20 documented as of this encounter
--- OUTSIDE RECORDS SUMMARY | 2024-04-16 02:55 | XMS_ITS | Encounter Summary ---
Author Organization [facility] Address [address] [place] [address]. 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 S CLEANER * Harrison Castellanos - 02/06/2020 9:51 AM CST Patient returning call tried nurse line but no answer please call back when available S CLEANER * Charmaine Parry RN - 02/06/2020 9:49 AM CST No answer or voicemail S CLEANER * Jose Yip MD - 02/06/2020 9:43 AM CST Should be ok, but sometimes diarrhea might develop, so let us know if it does. S CLEANER * Charmaine Parry RN - 02/06/2020 9:26 AM CST Pt reports started abx amoxicillin 875 01-25-20 pt had tooth pulled 02-01-20 pt another tooth extraction scheduled for 02-15-20 pt on amoxicillin 500mg now. Pt wants to make sure it is ok to be on abx this long S CLEANER * Carolyne Arambula - 02/05/2020 2:02 PM CST Patient has a question as his dentist is wanting him to be on antibiotic for about a month to get aTooth pulled Has a question for the nurse S CLEANER documented in this encounter Plan of Treatment Not on file documented as of this encounter Visit Diagnoses Not on filedocumented in this encounter Care Teams Inspector Final Assembly Electrical Relationship Specialty Start Date End Date Jose Yip MD [address] [id number] PCP - General INTERNAL MEDICINE 12/27/19 08/28/20 documented as of this encounter
--- OUTSIDE RECORDS SUMMARY | 2024-04-16 02:55 | XMS_ITS | Encounter Summary ---
Author Organization [facility] Address [address] [place] [address]. 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 * Jakci Rodas RN - 01/23/2020 4:35 PM CDT [...] sinus documented in this encounter Care Teams Infection Control Coordinator Relationship Specialty Start Date End Date Jose Yip MD [address] [place] [address] PCP - General INTERNAL MEDICINE 12/27/19 08/28/20 documented as of this encounter
--- OUTSIDE RECORDS SUMMARY | 2024-04-16 02:55 | XMS_ITS | Encounter Summary ---
Author Organization [facility] Address [address] [place] [address]. 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
--- OUTSIDE RECORDS SUMMARY | 2024-04-16 02:55 | XMS_ITS | Encounter Summary ---
Author Organization [facility] Address [address] [place] [address]. 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 No / Unsure 03/06/2020 12:54 PM LUMBER CUTTER documented as of this encounter Plan of Treatment Not on file documented as of this encounter Visit Diagnoses Not on filedocumented in this encounter Care Teams Director Of Digital Platforms Relationship Specialty Start Date End Date Igor Castano DO PCP - General INTERNAL MEDICINE 04/28/19 12/26/19 Jose Yip MD [address] [id number] PCP - General INTERNAL MEDICINE 12/27/19 08/28/20 documented as of this encounter
--- OUTSIDE RECORDS SUMMARY | 2024-04-16 02:55 | XMS_ITS | Encounter Summary ---
Author Organization [facility] Address [facility]. 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 No / Unsure 03/06/2020 12:54 PM MEDICAL REVIEWER documented as of this encounter Plan of Treatment Not on file documented as of this encounter Visit Diagnoses Not on filedocumented in this encounter Care Teams Die Cast Operator Relationship Specialty Start Date End Date Rose Balderas MD PCP - General FAMILY PRACTICE 10/21/18 04/25/19 None, Sarah, PCP - General 04/26/19 04/27/19 Igor Castano DO PCP - General INTERNAL MEDICINE 04/28/19 12/26/19 Jose Yip MD [address] [place], [place] [id number] PCP - General INTERNAL MEDICINE 12/27/19 08/28/20 documented as of this encounter
--- OUTSIDE RECORDS SUMMARY | 2024-04-16 02:55 | XMS_ITS | Encounter Summary ---
Author Organization [facility] Address [address] [place] [address]. 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 No / Unsure 02/12/2020 1:56 PM PAMPHLET DISTRIBUTOR documented as of this encounter Plan of Treatment Not on file documented as of this encounter Visit Diagnoses Not on filedocumented in this encounter Care Teams Game Tester Relationship Specialty Start Date End Date Jose Yip MD [facility] [place] [address] PCP - General INTERNAL MEDICINE 12/27/19 08/28/20 documented as of this encounter
--- OUTSIDE RECORDS SUMMARY | 2024-04-16 02:55 | XMS_ITS | Encounter Summary ---
Author Organization [facility] Address [address] [place] [address]. [place], [place] [address] [place] [address] Care Team Providers Care Trap Setter Name Role Phone Jose Yip MD Primary Care Provider +1- [phone] Reason for Visit * Reason Onset Date Comments Wound 01/23/2020 Pt reports that around 1am this morning he was latching a wooden gate and one of the screws were loose and cut him on the back of his foot. 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 Please call the pt back at [phone]. documented in this encounter Plan of Treatment Not on file documented as of this encounter Visit Diagnoses Not on filedocumented in this encounter Care Teams Trap Setter Relationship Specialty Start Date End Date Jose Yip MD [address] [place] [address] PCP - General INTERNAL MEDICINE 12/27/19 08/28/20 documented as of this encounter
--- OUTSIDE RECORDS SUMMARY | 2024-04-16 02:55 | XMS_ITS | Continuity of Care Document ---
Author Organization [facility] [place] [address] [place] [address] Care Team Providers Care Wood Repatcher Name Role Phone UNKNOWN, DOCTOR Primary Care Provider Unavail Jose Abreu MD Emergency Provider Olaf Todd MD Emergency Provider Unavail Bandar Adhikari MD Emergency Provider Unavaila moe Whaley, Jak SAUER Primary Care Provider Judd, Jak SAUER Attending Provider Thad Corral MD Emergency Provider [phone] Ramiro Casas MD Emergency Provider Care Teams Patient Care Team Team Status: Active Member Role Status Dates Jak Whaley MD Primary Care Provider Active Visit Care Team Team Status: Inactive Member Role Status Dates DOCTOR UNKNOWN Primary Care Provider Active S tart: February 28, 2024 End: February 28, 2024 Jose Duque MD Emergency Provider Active Start: February 28, 2024 End: February 28, 2024 Visit Care Team Team Status: Inactive Member Role Status Dates DOCTOR UNKNOWN Primary Care Provider Active S tart: March 02, 2024 End: March 02, 2024 Olaf Todd MD Emergency Provider Active Start: March 02, 2024 End: March 02, 2024 Visit Care Team Team Status: Inactive Member Role Status Dates DOCTOR UNKNOWN Primary Care Provider Active S tart: March 04, 2024 End: March 04, 2024 Bandar Pyle MD Emergency Provider Active Start: March 04, 2024 End: March 04, 2024 Visit Care Team Team Status: Inactive Member Role Status Dates DOCTOR UNKNOWN Primary Care Provider Active S tart: March 06, 2024 End: March 06, 2024 Bandar Pyle MD Attending Provider Active Start: March 06, 2024 End: March 06, 2024 Visit Care Team Team Status: Inactive Member Role Status Dates DOCTOR UNKNOWN Primary Care Provider Active S tart: March 24, 2024 End: March 24, 2024 Olaf Todd MD Emergency Provider Active Start: March 24, 2024 End: March 24, 2024 Visit Care Team Team Status: Inactive Member Role Status Dates Jak Whaley , Primary Care Provide r, Attending Provider Active Start: March 27, 2024 End: March 27, 2024 Visit Care Team Team Status: Inactive Member Role Status Dates Jak Whaley MD Primary Care Provide r, Attending Provider Active Start: March 28, 2024 End: March 28, 2024 Visit Care Team Team Status: Inactive Member Role Status Dates aJk Whaley , Primary Care Provider Active Start: March 31, 2024 End: March 31, 2024 Thad Corral MD Emergency Provider Active Start: March 31, 2024 End: March 31, 2024 Patient Care Team Team Status: Inactive Member Role Status Dates Jak Whaley MD Primary Care Provider Active Start: April 01, 2024 End: April 01, 2024 Thad Corral MD Emergency Provider Active Start: April 01, 2024 End: April 01, 2024 Patient Care Team Team Status: Inactive Member Role Status Dates Ramiro Casas MD Emergency Provider Active Sta rt: April 02, 2024 End: April 02, 2024 Jak Whaley MD Primary Care Provider Active Start: April 02, 2024 End: April 02, 2024 Chief Complaint and Reason for Visit Chief Complaint Admit Date WELL CHECK February 28, 2024 3:11pm unspecified March 02, 2024 1:56am LEFT ARM PROBLEM March 04, 2024 1:31am phlebitis and thrombophlebitic March 06, 2024 1:21pm LEG PAIN March 24, 2024 10:44pm right leg pain M79.604 March 27 10:52am Right Leg Pain M79.604 March 28 12:28pm allergic reaction March 31, 2024 2:50pm possible allergic reaction March 12:46am vomiting April 02, 2024 9:56am Allergies, Adverse Reactions, Alerts Allergen Type Severity Reaction Last Updated Verified Status Comments amoxicillin Allergy Unknown Redness of Skin April 02, 2024 10:11am Yes Active itching clavulanic acid Allergy Unknown Redness of Skin April 02, 2024 10:11am Yes Active itching Social History Smoking Status Unknown if ever smoked Observation Status Observation Response Date of Response Patient Sex Male April 02 024 10:44am Assigned Sex Male 2000 Problems Active Problems Medical Problem Onset Date Status Anxiety Unknown Active Gastritis Unknown Active Inactive/Resolved Problems Medical Problem Onset Date Status Myalgia Unknown Resolved Bruise Unknown Resolved Anxiety Unknown Resolved Anxiety Unknown Resolved OCD (obsessive compulsive disorder) Unknown Resolved Phlebitis Unknown Resolved Allergic reaction Unknown Resolved Scalp cyst Unknown Resolved Medications Medication Status Dose Units Route Directions Qty Days St art Date Stop Date End Date Instructions Adherence Epinephrine (Epipen 2-Krunal) 0.3 mg/0.3 mL auto-inject or Active 0.3 MG IM ONCE as needed for hypersensit ivity reaction 2 Decemb er 2023 1:39am injected in the lateral anterior thigh at the site of an allergic reaction as a single dose; may repeat once Ondansetron 4 mg tablet,disi ntegrating Active 4 MG PO Q4H 10 0 Decemb er 2023 12:00a m give 1st dose 30min before emetogenic chemo Famotidine (Pepcid Ac) 20 mg tablet Active 40 MG PO DAILY 30 Decemb er 2023 12:00a m Procedures Procedure Date Performed Status Anaerobic Culture March 31, 2024 active Aerobic Culture March 31, 2024 active Relevant Diagnostic Tests and/or Laboratory Data No known relevant diagnostic tests, laboratory data Vital Signs Vital Reading Result Reference Range Collection Date/Time Height 70 [in_i] February 28, 2024 3:18pm Weight 52.00 kg February 28, 2024 3:18pm Respiratory rate 20 /min -February 272023 3:30pm Oxygen saturation by Pulse oximetry 100 % 90-100 February 28, 2024 3:30pm Height 70 [in_i] March 02, 2024 2:00am Weight 52.70 kg March 02, 2024 2:00am Body Temperature 97.5 [degF] 97.6-99.6 March 022023 2:00am Heart Rate 85 /min 60-100 March 02, 2024 2:00am Respiratory rate 16 /min -March 022023 2:00am Oxygen saturation by Pulse oximetry 100 % 90-100 March 02, 2024 2:00am BP Systolic 136 mm[Hg] 100-140 March 02, 2024 2:00am BP Diastolic 89 mm[Hg] 60-90 March 02, 2024 2:00am Height 70 [in_i] March 04, 2024 1:42am Weight 52.80 kg March 04, 2024 1:42am Body Temperature 98.5 [degF] 97.6-99.6 March 042023 1:42am Heart Rate 92 /min 60-100 March 04, 2024 1:42am Respiratory rate 18 /min -March 042023 1:42am Oxygen saturation by Pulse oximetry 100 % 90-100 March 04, 2024 1:42am BP Systolic 131 mm[Hg] 100-140 March 04, 2024 1:42am BP Diastolic 80 mm[Hg] 60-90 March 04, 2024 1:42am Height 70 [in_i] March 24, 2024 10:50pm Weight 54.50 kg March 24, 2024 10:50pm Body Temperature 99.6 [degF] 97.6-99.6 March 242023 10:50pm Heart Rate 99 /min 60-100 March 24, 2024 10:50pm Respiratory rate 16 /min -March 242023 10:50pm Oxygen saturation by Pulse oximetry 98 % 90-100 March 24, 2024 10:50pm BP Systolic 117 mm[Hg] 100-140 March 24, 2024 10:50pm BP Diastolic 85 mm[Hg] 60-90 March 24, 2024 10:50pm Height 70 [in_i] March 31, 2024 2:52pm Weight 53.80 kg March 31, 2024 2:52pm Body Temperature 98.3 [degF] 97.6-99.6 March 312023 3:37pm Heart Rate 88 /min 60-100 March 31, 2024 3:37pm Respiratory rate 18 /min -March 312023 3:37pm Oxygen saturation by Pulse oximetry 99 % 90-100 March 31, 2024 3:37pm BP Systolic 118 mm[Hg] 100-140 March 31, 2024 3:37pm BP Diastolic 59 mm[Hg] 60-90 March 31, 2024 3:37pm Height 70 [in_i] April 01, 2024 12:54am Weight 52.16 kg April 01, 2024 12:54am Body Temperature 98.5 [degF] 97.6-99.6 April 012023 2:22am Heart Rate 90 /min 60-100 April 01, 2024 2:22am Respiratory rate 18 /min 12-April 012023 2:22am Oxygen saturation by Pulse oximetry 97 % 90-100 April 01, 2024 2:22am BP Systolic 113 mm[Hg] 100-140 April 01, 2024 2:22am BP Diastolic 69 mm[Hg] 60-90 April 01, 2024 2:22am Height 70 [in_i] April 02, 2024 9:56am Weight 53.00 kg April 02, 2024 9:56am Body Temperature 98.9 [degF] 97.6-99.6 April 022023 9:56am Heart Rate 94 /min 60-100 April 02, 2024 9:56am Respiratory rate 18 /min -April 022023 9:56am Oxygen saturation by Pulse oximetry 99 % 90-100 April 02, 2024 9:56am BP Systolic 124 mm[Hg] 100-140 April 02, 2024 9:56am BP Diastolic 79 mm[Hg] 60-90 April 02, 2024 9:56am Insurance Providers Guarantor Yandel Medina Address [address] [place] [address] Contact Info. Home Phone: Payer Policy Id Coverage Id Subscriber's Name Subscriber Id Effective Date Expiration Date [place] [id number] Yandel Medina [id number] Encounters Encounter Location(s) Arrival/Admit Date [facility]) [facility], [facility] 3:11pm February 28, 2024 3:51pm [facility] Emergency Department March 02, 2024 1:56am March 02, 2024 2:15am [facility] Emergency Department March 04, 2024 1:31am March 04, 2024 2:50am [facility] March 06, 2024 1:21pm March 06, 2024 1:22pm Bandar Pyle MD [facility] Emergency Department March 24, 2024 10:44pm March 24, 2024 11:14pm [facility] March 27, 2024 10:52am March 27, 2024 10:53am Jak Whaley , [facility] March 28, 2024 12:28pm March 28, 2024 12:29pm Jak Whaley , [facility] Emergency Department March 31, 2024 2:50pm March 31, 2024 3:37pm [facility] Emergency Department April 01, 2024 12:46am April 01, 2024 2:24am [facility] Emergency Department April 02, 2024 9:56am April 02, 2024 10:41am Mental Status Observation Response Date Recorded patient oriented x3 Yes March 11:02pm patient oriented x3 Yes March 3:07pm patient oriented x3 Yes February 3:50pm patient oriented x3 Yes February 2:09am patient oriented x3 Yes February 2:19am Cognitive/Mental Status Assessments Plan of Treatment Future Tests Future scheduled test information is unavailable Pending Tests Pending diagnostic test information is unavailable Future Visits Future appointment information is unavailable Referrals to Other Providers Reason for Referral Referral Start Date Provider Provider Contact Information Provider Address DOCTOR UNKNOWN Jak Whaley MD Work Phone: [address] [place] [address] Jak Whaley , Work Phone: [facility] [id number] DOCTOR UNKNOWN DOCTOR UNKNOWN DOCTOR UNKNOWN DOCTOR UNKNOWN Future Procedures Procedure Name Ordered Date Scheduled Date Aerobic/Anaerobic Culture/Gram March 31 4:25pm March 31, 2024 3:23pm Future Medications Future medication information is unavailable Patient Instructions Instruction Admit Date Obsessive Compulsive Disorde r (DC) Anxiety (ED) February 28, 2024 3:11pm Antibiotic Form Contusion in Adults (ED) March 02, 2024 1:56am Antibiotic Form Phlebitis (ED) March 04, 2024 1:31am Antibiotic Form Musculoskeletal Pain (ED) March 24, 2024 10:44pm Allergies (ED) March 31, 2024 2:50pm Antibiotic Form Acute Rash (ED) Antibiotic Medication Allergy (ED) April 01, 2024 12:46am Gastritis (ED) Anxiety (ED) April 02, 2024 9:56am Hospital Discharge Instructions Additional Instructions Return if symptoms are worsening , call your family physician for appointment, take Tylenol as as needed for aches and pain, continue home medications. Stop taking prednisone
--- OUTSIDE RECORDS SUMMARY | 2024-04-16 02:58 | XMS_ITS | Continuity of Care Document ---
Author Organization [facility] Address [address] [place] [address] Phone Care Team Providers Care Service Desk Specialist Name Role Phone Sunil Avalos MD Unavailable Unavailable Allergies, Adverse Reactions, Alerts Substance Reaction Status Criticality Sulfa (Sulfonamide Antibiotics) (unknown) Active No Information Advance Directives Directive Yes / No Effective Date File Name No Information Encounters Encounter Description Practice Location Reason(s) For Visit Diagnoses Date Provider Providers Copied on Encounter [facility], [address], [place], [place], [id number], [place] tel:[phone] [facility] No Information Robbie Barber. [facility], [address] [place], [address], [place]. tel:[phone] Family History Family Member Type Diagnosis Age At Onset Maternal Aunt Problem (finding) Maternal history of di abetes mellitus Problem (finding) Cardiovascular Disease Mother Problem (finding) malignant neoplasm of c ervix uteri Mother Problem (finding) No History Of Macular D egeneration Payers Payer name Insurance type Covered republican ID Authoriza tion(s) No Information Social History [...]
--- OUTSIDE RECORDS SUMMARY | 2024-04-16 02:59 | XMS_ITS | Continuity of Care Document ---
Author Organization [facility] Address [address] [place] [address] Phone Care Team Providers Care Veneer Layer Name Role Phone Unavailable Unavailable Unavailable Allergies, [...] on Encounter [facility] Lee, [address], [place], [id number] , tel: [phone] [facility] No Information 0 No Information LIMITED VISIT- NEW PATIENT [facility], [address], [place], [id number] , tel: [phone] [facility] Fever (chief complaint) Fever, unspecified fever causeContact with and (suspected) exposure to other viral communicable diseases 0 No Information INTERMEDIATE VISIT EST PATIENT [facility], [address] [place], [place], [id number] , tel: [phone] [facility] Cough (PEDS) (chief complaint) Bronchitis 6 Linda Sarah. [address] [place], [address], [place]. tel:[phone] INTERMEDIATE VISIT EST PATIENT [facility], [address], [place], [id number] , tel: [phone] [facility] Sore throat (chief complaint) SorethroatAcu te sinusitis, recurrence not specified, unspecified location 5 No Information [facility] Lee, [address] [place], [place], [id number] , tel: [phone] [facility] Sore throat 5 No Information INTERMEDIATE VISIT EST PATIENT [facility] Lee, [address], [place], [id number] , tel: [phone] [facility] Sore throat (chief complaint) Sore throatAcute bronchitis, unspecified organismEncou nter for immunization 5 No Information WELL EXAM/03-21 EST. PATIENT [facility], [address], [place], [id number] , [place] tel: [phone] [facility] (chief complaint) ROUTINE CHILD HEALTH EXAMScreening for hyperlipidemi aNeed for prophylactic vaccination and inoculation against viralhepatiti s 5 No Information [facility], [address], [place], [id number] , [place] tel: [phone] [facility] No Information 3 No Information Referring Provider: Jing Jacobson, [address] [place], [address]. tel: [phone] Provider: Express Nurse. INTERMEDIATE VISIT EST PATIENT [facility], [address], [place], [id number] , [place] tel: [phone] [facility] sore throat (chief complaint) PharyngitisNE ED FOR PROPHYLACTIC VACCINATION AND INOCULATION, OTHER VIRAL DISEASESNeed for prophylactic vaccination and inoculation against other specified single bacterial diseaseNEED FOR PROPHYLACTIC VACCINATION WITH COMBINED DIPHTHERIA-TE TANUS-PERTUSS IS (DTP) (DTAP) VACCINE 3 Rey Zayas. [address] [place], [address], [place]. tel:[phone] Referring Provider: Chana Le, [address] [place], [address]. tel:[phone] [facility], [address], [place], [id number] , [place] tel: [phone] Historic Immunization Location No Information 2 No Information [facility], [address], [place], [id number] , [place] tel: [phone] [facility] INJURY HAND 2 No Information [facility], [address], [place], [id number] , [place] tel: [phone] [facility] INJURY KNEE LEG FOOT ANKLE 2 Kavon Ch. [address] [place], [address], [place]. tel:[phone] [facility], [address] [place], [place], [address] , [place] tel: [phone] [facility] RHINITIS ALLERGIC UNSPECIFIED 7 No Information Mirna Lee, [address] [place], [id number] , [place] tel: [phone] [facility] No Information 6 No Information Family [...] type Covered libertarian ID Authoriza tion(s) Medicaid [id number] Medicaid [place] [id number] Social History Type Description Quantity Date Captured [...] Future Order: Lab Order LIPID PA CARMEL ([id number]), Sent on: Sent History Of Present Illness [...] rhinitis. Pertinent negatives include fever and otalgia. [facility] Feels well. [employer] minor in school forms [...] School forms complet ed. F/U 1 year [facility] [employer]. Related to ROUTINE CHILD HEALTH EXAM Age [...]
--- OUTSIDE RECORDS SUMMARY | 2024-04-16 03:03 | XMS_ITS | Continuity of Care Document ---
Author Organization [facility] Address [address] [place] [address] Phone Care Team Providers Care Safety Grooving Machine Operator Name Role Phone Sunil Avalos MD Unavailable Unavailable Allergies, Adverse Reactions, Alerts Substance Reaction Status Criticality Sulfa (Sulfonamide Antibiotics) (unknown) Active No Information Advance Directives Directive Yes / No Effective Date File Name No Information Encounters Encounter Description Practice Location Reason(s) For Visit Diagnoses Date Provider Providers Copied on Encounter [facility], [address], [place], [place], [id number], [place] tel:[phone] [facility] No Information Robbie Barber. [facility], [address] [place], [address], [place]. tel:[phone] Family History Family Member Type Diagnosis Age [...]
--- OUTSIDE RECORDS SUMMARY | 2024-04-16 03:03 | XMS_ITS | Continuity of Care Document ---
Author Organization [employer] Address [address] [place] [address] Phone Care Team Providers Care Electrician Helper Automotive Name Role Phone Unavailable Unavailable Unavailable Allergies, [...] on Encounter Mirna Lee, [address], [place], [id number] , tel: [phone] [facility] No Information 0 No Information LIMITED VISIT- NEW PATIENT Mirna Lee, [address], [id number] , tel: [phone] [facility] Fever (chief complaint) Fever, unspecified fever causeContact with and (suspected) exposure to other viral communicable diseases 0 No Information INTERMEDIATE VISIT EST PATIENT [facility] Lee, [address] [place], [place], [id number] , tel: [phone] [facility] Cough (PEDS) (chief complaint) Bronchitis 6 Linda Sarah. [address] [place], [address], [place]. tel:[phone] INTERMEDIATE VISIT EST PATIENT [facility] Lee, [address], [id number] , tel: [phone] [facility] Sore throat (chief complaint) SorethroatAcu te sinusitis, recurrence not specified, unspecified location 5 No Information Mirna Lee, [address] [place], [place], [address] , tel: [phone] [facility] Sore throat 5 No Information INTERMEDIATE VISIT EST PATIENT [facility] Lee, [address], [place], [address] , tel: [phone] [facility] Sore throat (chief complaint) Sore throatAcute bronchitis, unspecified organismEncou nter for immunization 5 No Information WELL EXAM/03-21 EST. PATIENT [facility], [address] [place], [address] , [place] tel: [phone] [facility] (chief complaint) ROUTINE CHILD HEALTH EXAMScreening for hyperlipidemi aNeed for prophylactic vaccination and inoculation against viralhepatiti s 5 No Information [facility], [address] [place], [place], [id number] , [place] tel: [phone] [facility] No Information 3 No Information Referring Provider: Jing Jacobson, [address] [place], [address]. tel: [phone] Provider: Express Nurse. INTERMEDIATE VISIT EST PATIENT [facility], [address] [place], [place], [id number] , [place] tel: [phone] [facility] sore throat (chief complaint) PharyngitisNE ED FOR PROPHYLACTIC VACCINATION AND INOCULATION, OTHER VIRAL DISEASESNeed for prophylactic vaccination and inoculation against other specified single bacterial diseaseNEED FOR PROPHYLACTIC VACCINATION WITH COMBINED DIPHTHERIA-TE TANUS-PERTUSS IS (DTP) (DTAP) VACCINE 3 Rey Zayas. [address] [place], [address], [place]. tel:[phone] Referring Provider: Chana Le, [address] [place], [address]. tel:[phone] [facility], [address] [place], [place], [id number] , [place] tel: [phone] Historic Immunization Location No Information 2 No Information [facility], [address] [place], [place], [id number] , [place] tel: [phone] [facility] INJURY HAND 2 No Information [facility], [address] [place], [place], [address] , [place] tel: [phone] [facility] INJURY KNEE LEG FOOT ANKLE 2 Kavon Ch. [address] [place], [address], [place]. tel:[phone] [facility] Lee, [address] [place], [place], [address] , [place] tel: [phone] [facility] RHINITIS ALLERGIC UNSPECIFIED 7 No Information Mirna Lee, [address] [place], [id number] , [place] tel: [phone] [facility] No Information 6 No Information Family [...] type Covered libertarian ID Authoriza tion(s) Medicaid [id number] [place] [id number] Social History Type Description Quantity Date Captured [...] Future Order: Lab Order LIPID PA CARMEL ([id number]), Sent on: Sent History Of Present Illness [...] rhinitis. Pertinent negatives include fever and otalgia. [facility] Feels well. [employer] minor in school forms [...] School forms complet ed. F/U 1 year [employer]. Related to ROUTINE CHILD HEALTH EXAM Age [...]
== END 2024-04-09 05:25 | disposition home or self-care (01) ==
PROVIDERS: Emergency Provider Internal Medicine Critical Care Medicine; PCP Family Medicine
DX: R50.9 Fever, unspecified (principal); F41.9 Anxiety disorder, unspecified; Z20.822 Contact with and (suspected) exposure to COVID-19
CPT/HCPCS: 87637; 99283

== ENCOUNTER 2024-05-02 15:53 | Outpatient (CLI) | payer MEDICAID, SELFPAY ==
--- NOTE | 2024-05-02 15:59 | ECHO_ITS ---
Patient Info Name: Yandel Medina Age: 24 years : 2000 Gender: Male Ht: 70 in Wt: 116 lbs BSA: 1.59 m2 HR: 86 bpm BP: 112 / 73 mmHg Technical Quality: Good Exam Date: 05/02/2024 5:05 PM Exam Location: Echo Lab Patient Status: Outpatient Admit Date: 05/02/2024 Staff Ordering Physician: JuddJak MD Public Safety Officer: Nelida Mccrary RDCS Attending Provider: ScarJak MD Exam Type: CA echo doppler color flow Study Info Indications - tachycardia Complete two-dimensional, color flow and Doppler transthoracic echocardiogram is performed. Summary 1. Complete two-dimensional, color flow and Doppler transthoracic echocardiogram is performed. 2. Left ventricular chamber dimension is normal. 3. Left ventricular systolic function is normal, estimated at 60-65%. 4. The left ventricular diastolic function is normal. 5. E/e' 3 is not elevated. 6. There is trace tricuspid valve regurgitation. 7. No pulmonary hypertension, estimated pulmonary arterial systolic pressure is 33 mmHg. Left Ventricle E/e' 3 is not elevated. Left ventricular chamber dimension is normal. Left ventricular systolic function is normal, estimated at 60-65%. The left ventricular diastolic function is normal. Right Ventricle Right ventricular systolic function is normal and with normal TAPSE 1.9 cm. Right ventricular chamber dimension is normal. Left Atria Left atrial chamber dimension is normal. Right Atria Right atrial chamber dimension is normal. Aortic Valve The aortic valve is trileaflet. There is no aortic valve stenosis. There is no aortic valve regurgitation. Pulmonic Valve There is no pulmonic regurgitation. Mitral Valve There is no mitral valve stenosis. There is no mitral valve regurgitation. Tricuspid Valve There is trace tricuspid valve regurgitation. No pulmonary hypertension, estimated pulmonary arterial systolic pressure is 33 mmHg. Pericardium/Pleural There is no pericardial effusion. Inferior Vena Cava Normal inferior vena cava with >50% collapse upon inspiration consistent with normal right atrial pressure, 5 mmHg. Aorta The aortic root size at the sinus of Valsalva is normal. Left Ventricular Outflow Tract Name Value Normal LVOT 2D LVOT Diameter 2.1 cm LVOT Doppler LVOT Peak Velocity 102 cm/s LVOT Peak Gradient 4 mmHg LVOT Mean Gradient 2 mmHg LVOT VTI 21 cm LVOT VTI/AV VTI Ratio 1.0 LVOT Stroke Volume 71 ml Pulmonic Valve Name Value Normal PV Doppler PV Peak Velocity 87 cm/s PV Peak Gradient 3 mmHg Mitral Valve Name Value Normal MV Doppler MV Peak Gradient 3 mmHg MV Mean Gradient 1 mmHg MV Decel Burnet 264 cm/s2 MV PHT 63 ms MV Area (PHT) 3.5 cm2 4.0-5.0 MV Area (Cont Eq VTI) 2.9 cm2 MV Diastolic Function MV E Peak Velocity 57 cm/s MV A Peak Velocity 66 cm/s MV E/A 0.9 MV Decel Time 217 ms Tricuspid Valve Name Value Normal TV Regurgitation Doppler TR Peak Velocity 265 cm/s TR Peak Gradient 28 mmHg Estimated PAP/RSVP RA Pressure 5 mmHg <=5 PA Systolic Pressure 33 mmHg <36 RV Systolic Pressure 33 mmHg <36 Aortic Valve Name Value Normal AV Doppler AV Peak Velocity 124 cm/s AV Peak Gradient 6 mmHg AV Mean Gradient 3 mmHg AV VTI 21 cm AV Area (Cont Eq VTI) 3.3 cm2 >=3.0 AV Area (Cont Eq Vicente) 2.8 cm2 AV V1/V2 Ratio 0.82 AV Regurgitation 2D LVOT Area 3.4 cm2 Ventricles Name Value Normal LV Dimensions 2D/MM IVS Diastolic Thickness (2D) 0.7 cm 0.6-1.0 LVID Diastole (2D) 4.7 cm 4.2-5.8 LVIW Diastolic Thickness (2D) 0.7 cm 0.6-1.0 LVID Systole (2D) 3.4 cm 2.5-4.0 LVOT Diameter 2.1 cm LV Mass (2D Cubed) 105.25 g 88.00-224.00 LV Mass Index (2D Cubed) 66 g/m2 49-115 Relative Wall Thickness (2D) 0.29 LV Fractional Shortening/Ejection Fraction 2D/MM LV Fractional Shortening (2D) 27 % 25-43 LV EF (2D Teicholz) 53 % 52-72 LV Diastolic Volume (4C MOD) 103 ml LV EF (4C MOD) 59 % LV Diastolic Length (4C) 7.9 cm LV Systolic Length (4C) 6.7 cm LV Stroke Volume (4C MOD) 61 ml Atria Name Value Normal LA Dimensions LA Volume (4C A-L) 47 ml RA Dimensions RA Area (4C) 11.6 cm2 <=18.0 Report Signatures
--- OUTSIDE RECORDS SUMMARY | 2024-05-02 15:59 | XMS_ITS | Continuity of Care Document ---
Author Organization [facility] Address [address] [place] [address] Phone Care Team Providers Care Polymer Materials Consultant Name Role Phone Sunil Avalos MD Unavailable Unavailable Allergies, Adverse Reactions, Alerts Substance Reaction Status Criticality Sulfa (Sulfonamide Antibiotics) (unknown) Active No Information Advance Directives Directive Yes / No Effective Date File Name No Information Encounters Encounter Description Practice Location Reason(s) For Visit Diagnoses Date Provider Providers Copied on Encounter [facility], [address], [place], [place], [id number], [place] tel:[phone] [facility] No Information Robbie Barber. [facility], [address] [place], [address], [place]. tel:[phone] Family History Family Member Type Diagnosis Age [...]
--- OUTSIDE RECORDS SUMMARY | 2024-05-02 15:59 | XMS_ITS | Clinical Summary ---
Author Organization [facility] Address [facility] 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 Gender Identity Not on file Sexual Orientation Not on file Last Filed Vital Signs Vital Sign Reading Time Taken Comments Blood Pressure 121/71 03/06/2020 1:02 PM NAIL MAKING MACHINE SETTER Pulse 80 03/06/2020 1:02 PM NAIL MAKING MACHINE SETTER Temperature 37.1 ??C (98.7 ??F) 03/06/2020 1:02 PM CS T Respiratory Rate 18 03/06/2020 1:02 PM NAIL MAKING MACHINE SETTER Oxygen Saturation 97% 03/06/2020 1:02 PM NAIL MAKING MACHINE SETTER Inhaled Oxygen Concentration - - Weight 55.1 kg (121 lb 6.4 oz) 03/06/2020 1:02 P M NAIL MAKING MACHINE SETTER Height 175.3 cm (5' 9 ) 03/06/2020 1:02 PM NAIL MAKING MACHINE 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
--- OUTSIDE RECORDS SUMMARY | 2024-05-02 15:59 | XMS_ITS | Continuity of Care Document ---
Author Organization [facility] Address [address] [place] [address] Phone Care Team Providers Care Custodial Aide Name Role Phone Unavailable Unavailable Unavailable Allergies, [...] on Encounter Mirna Lee, [address] [place], [id number] , tel: [phone] [facility] No Information 0 No Information LIMITED VISIT- NEW PATIENT Mirna Lee, [address], [place], [address] , tel: [phone] [facility] Fever (chief complaint) Fever, unspecified fever causeContact with and (suspected) exposure to other viral communicable diseases 0 No Information INTERMEDIATE VISIT EST PATIENT Mirna Lee, [address] [place], [place], [id number] , tel: [phone] [facility] Cough (PEDS) (chief complaint) Bronchitis 6 Linda Sarah. [address] [place], [address], [place]. tel:[phone] INTERMEDIATE VISIT EST PATIENT Mirna Lee, [address] [place], [id number] , tel: [phone] [facility] Sore throat (chief complaint) SorethroatAcu te sinusitis, recurrence not specified, unspecified location 5 No Information Mirna Lee, [address] [place], [place], [id number] , tel: [phone] [facility] Sore throat 5 No Information INTERMEDIATE VISIT EST PATIENT Mirna Lee, [address], [id number] , tel: [phone] [facility] Sore throat (chief complaint) Sore throatAcute bronchitis, unspecified organismEncou nter for immunization 5 No Information WELL EXAM/03-21 EST. PATIENT Mirna [facility], [address], [id number] , [place] tel: [phone] [facility] (chief complaint) ROUTINE CHILD HEALTH EXAMScreening for hyperlipidemi aNeed for prophylactic vaccination and inoculation against viralhepatiti s 5 No Information [facility], [address], [place], [id number] , [place] tel: [phone] [facility] No Information 3 No Information Referring Provider: Jing Jacobson, [address] [place], [address]. [facility]: [phone] Provider: Express Nurse. INTERMEDIATE VISIT EST PATIENT Mirna [facility], [address], [place], [id number] , [place] tel: [phone] [facility] sore throat (chief complaint) PharyngitisNE ED FOR PROPHYLACTIC VACCINATION AND INOCULATION, OTHER VIRAL DISEASESNeed for prophylactic vaccination and inoculation against other specified single bacterial diseaseNEED FOR PROPHYLACTIC VACCINATION WITH COMBINED DIPHTHERIA-TE TANUS-PERTUSS IS (DTP) (DTAP) VACCINE 3 Rey Zayas. [address] [place], [address], [place]. [phone] Referring Provider: Chana Le, [address] [place], [address]. tel:[phone] [facility], [address], [place], [address] , [place] tel: [phone] Historic Immunization Location No Information 2 No Information [facility], [address], [place], [id number] , [place] tel: [phone] [facility] INJURY HAND 2 No Information [facility], [address], [place], [id number] , [place] tel: [phone] [facility] INJURY KNEE LEG FOOT ANKLE 2 Kavon Ch[address] [place], [address], [place]. tel:[phone] Mirna Lee, [address] [place], [place], [address] , [place] tel: [phone] [facility] RHINITIS ALLERGIC UNSPECIFIED 7 No Information Mirna Lee, [address] [place], [id number] , [place] tel: [phone] [facility] No Information 6 No Information Family [...] Record Payers Payer name Insurance type Covered republican ID Authoriza tion(s) Medicaid [id number] Medicaid MC [id number] Social History Type Description Quantity Date Captured [...] due Goal Height Measurement. Due on O ct due Goal HPV (3rd) due Goal HPV (2nd) due Goal HPV (3rd) due Goal Height Measurement. Due on O ct due Goal Lipid panel 18-21yrs. Due on due Goal HPV (1st) due Goal HPV (2nd) due Goal Depression screening. Due on due Goal HIV screen. Due on due Future Order: Lab Order LIPID PA CARMEL ([id number]), Sent on: Sent History Of Present Illness [...] rhinitis. Pertinent negatives include fever and otalgia. [facility] Feels well. [employer] minor in school [...] School forms complet ed. F/U 1 year [facility]. Related to ROUTINE CHILD HEALTH EXAM Age [...]
== END 2024-05-02 15:54 | disposition home or self-care (01) ==
LOC: CHSIMG 15:54
PROVIDERS: PCP Family Medicine; Visit Provider Family Medicine
DX: R00.0 Tachycardia, unspecified (principal)
CPT/HCPCS: 93306

== ENCOUNTER 2024-05-31 10:53 | Emergency (ER) | payer OTHER, SELFPAY ==
--- NOTE | ~2024-05-31 | XR_ITS ---
EXAMINATION: XR lumbar spine 2-3V DATE: 05/31/2024 11:23 INDICATION: Low back pain with sciatica TECHNIQUE: Anteroposterior and lateral views of the lumbar spine, and cone-down lateral view of the l umbosacral junction were obtained. COMPARISON: None. 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 L5 is also a transition al, partially sacralized on the left. 10 degrees lumbar dextrocurvature. Sagittal alignment is normal . Vertebral body and disc heights are normal. Mild osteoarthritis at the left L3-L4 facet joint. The remaining left-sided facet joints are not profiled sufficiently for assessment. Bilateral sacroiliac joints are normal. Lung bases are clear with no pleural effusion. IMPRESSION: 1. 10 degrees lumbar dextroscoliosis with mild facet osteoarthritis on the left at least at L3-L4. Reviewed, dictated and finalized at location B. [facility]
[2024-05-31 10:53] VITALS: BP 113/67; PULSE 92; RESP 16; TEMP 36.9; O2SAT 98
--- NOTE | 2024-05-31 10:57 | ED_ITS ---
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 Patient states that he has kyphoscoliosis and has chronic back pain.No calf swelling noted. No cough or swelling. No shortness of breath. Complaint: extremity pain Onset (ago): day(s) ( 3 days) Location: right and other ( calf) Severity scale (1-10): 8 Quality: aching Radiation: none Relieving factors: nothing Exacerbating factors: nothing Related Data Allergies Allergy/AdvReac Type Severity Reaction Status Date / Time amoxicillin (From Augmentin) Allergy Severe Anaphylaxis Verified 05/31/24 10:59 clavulanic acid (From Allergy Redness of Verified 05/31/24 10:59 Augmentin) Skin Review of Systems 2 Review of Systems: All systems reviewed & are unremarkable except as noted in HPI and below PMFSH Past Medical History Medical History Anxiety Social History Social History Smoking status: Current every day smoker Exam 2 Narrative: Vitals are stable Const: General: no acute distress Orientation/consciousness: patient oriented x3 Limitations: no limitations HENMT: Head: normal to inspection Ears: external ears normal F dao/Nose/Sinus: Normal external nose present Face and sinus: normal facial exam Mouth: Yes Normal oral and palatal mucosa present Throat: posterior oropharynx normal Eyes: Conjunctivae: conjunctivae normal Pupils: Equal, round and reactive pupils present EOM: EOMs intact bilaterally Direct Ophthalmoscopy: no photophobia Neck: Neck: normal visual inspection, no lymphadenopathy and no meningeal signs Chest: Chest palpation & inspection: normal inspection of the chest Resp: Effort & Inspection: normal respiratory effort Auscultation: clear to auscultation bilaterally Cardio: Rate: regular rate Rhythm: regular rhythm GI: GI Palp: Yes Soft to palpation Auscultation: normal bowel sounds : General: Yes bladder normal to palpation and Yes no CVA tenderness Back/Spine/Pelvis: Back: no CVA tenderness Other: No spinal tenderness noted. Straight leg raising test is negative. The patient complains of right calf pain without any back pain/ radiating pain along the sciatic nerve on straight leg raising. Patient complains of calf pain without any swelling. Patient is noted to have a negative D-dimer. Skin: General skin exam: normal color Rashes: no rashes Neuro: General: patient oriented x3, moves all extremities, no meningeal signs, no focal motor deficits and CN's II-XI intact bilaterally Cranial nerves: Yes Nystagmus not present Speech: normal speech Gait exam (Neuro): Normal gait present Extrem: General: normal to inspection Other: right calf tenderness. No obvious swelling noted. both calves measure 13 cm. Psych: Mental Status: mental status grossly normal Affect: normal affect Attitude: cooperative Course Course Emergency Course: Calf pain-- no calf swelling noted. D-dimer is noted to be negative. In view of his scoliosis did a lumbar x-ray which reveal a 10 degree dextroscoliosis. This is unlikely to be secondary to sciatica as the patient does not have any low back pain And the straight leg raising test is negative. Vital Signs Vital signs: Vital Signs Temperature 36.9 C 05/31/24 10:53 Pulse Rate 92 05/31/24 10:53 Respiratory Rate 16 05/31/24 10:53 Blood Pressure 113/67 05/31/24 10:53 Pulse Oximetry 98 05/31/24 10:53 Oxygen Delivery Room Air 05/31/24 10:53 Temperature 36.9 C 05/31/24 10:53 Pulse Rate 92 05/31/24 10:53 Respiratory Rate 16 05/31/24 10:53 Blood Pressure 113/67 05/31/24 10:53 Pulse Oximetry 98 05/31/24 10:53 Oxygen Delivery Room Air 05/31/24 10:53 MDM - Extremity (Nontraumatic) MDM Narrative Medical decision making narrative: Calf pain Differential Diagnosis Differential diagnosis: Likely other ( myalgia) Lab Data 05/31/24 11:18 05/31/24 11:18 Labs: Lab Results 05/31/24 Range/Units 11:18 WBC 6.5 (4.8-10.8) K/mm3 RBC 4.78 (4.70-6.10) M/mm3 Hgb 15.2 (14.0-18.0) g/dL Hct 46.9 (40.0-54.0) % MCV 98.1 (78.0-102.0) fL MCH 31.8 H (27.0-31.0) pg MCHC 32.4 (32-36) g/dL RDW 12.2 (11.6-14.4) % Plt Count 208 (150-420) K/mm3 MPV 10.5 (8.7-11.0) fl Immature Gran % (Auto) 0.3 H (0.0-0.0) % Neut % (Auto) 59.4 (50.0-70.0) % Lymph % (Auto) 27.6 (18.0-42.0) % [place] % (Auto) 6.4 (2.0-11.0) % Eos % (Auto) 6.0 (1.0-6.0) % Baso % (Auto) 0.3 (0.0-1.0) % Lymph # (Auto) 1.78 (1.10-4.50) K/mm3 [place] # (Auto) 0.41 (0.10-0.90) K/mm3 Eos # (Auto) 0.39 (0.02-0.50) K/mm3 Baso # (Auto) 0.02 (0.00-0.10) K/mm3 Abs Immat Gran (auto) 0.02 H (0.00-0.00) K/mm3 Absolute Neuts (auto) 3.83 (1.70-7.20) K/mm3 Absolute Nucleated RBC 0.00 (0.00-0.00) K/mm3 Nucleated RBC % 0.0 (0-0.0) % D-Dimer 0.19 (0.19-0.50) mg/L Sodium 142 (136-145) mmol/L Potassium 4.7 (3.5-5.1) mmol/L Chloride 104 (98-108) mmol/L Carbon Dioxide 28 (21-32) mmol/L Anion Gap 10 (4-12) mmol/L BUN 17 (7-18) mg/dL Creatinine 1.04 (0.70-1.30) mg/dL Estim Creat Clear Calc 81 ml/min Estimated GFR > 60 (59 - ) Glucose 100 H (70-99) mg/dL Calculated Osmolality 295 (285-295) mOsm/kg Calcium 9.0 (8.5-10.1) mg/dL Total Bilirubin 0.6 (0.00-1.00) mg/dL AST 16 (15-37) U/L ALT 45 (16-63) U/L Alkaline Phosphatase 63 (46-116) U/L Total Protein 7.2 (6.4-8.2) g/dL Albumin 4.2 (3.4-5.0) g/dL Discharge Plan Discharge Clinical Impression: Pain of right calf Patient Disposition: Home, Self-Care Condition: Stable Instructions: Antibiotic Form, Musculoskeletal Pain (ED) Patient Language: Palauan Prescriptions: No Action epinephrine [EpiPen 2-Krunal] 0.3 mg/0.3 mL auto-injector 0.3 mg IM ONCE PRN (Reason: hypersensitivity reaction) Qty: 2 0RF Rx Instructions: injected in the lateral anterior thigh at the site of an allergic reaction as a single dose; may repeat once ondansetron 4 mg tablet,disintegrating 4 mg PO Q4H 0 Days Qty: 10 0RF Rx Instructions: give 1st dose 30min before emetogenic chemo famotidine [Pepcid AC] 20 mg tablet 40 mg PO DAILY Qty: 30 0RF Follow-up/Referrals: UNKNOWN,DOCTOR [Primary Care Provider] - Time of Disposition: 12:02
[2024-05-31 11:24] LABS: Basophils Absolute Auto 0.02 K/mm3 (0.00-0.10); Basophils Percent Auto 0.3 % (0.0-1.0); Eosinophils Absolute Auto 0.39 K/mm3 (0.02-0.50); Hematocrit 46.9 % (40.0-54.0); Hemoglobin 15.2 g/dL (14.0-18.0); Immature Granulocyte Absolute 0.02 K/mm3 (0.00-0.00); Immature Granulocyte Percent A 0.3 % (0.0-0.0); Lymphocytes Absolute Auto 1.78 K/mm3 (1.10-4.50); Lymphocytes Percent Auto 27.6 % (18.0-42.0); Mean Corpuscular HGB Conc 32.4 g/dL (32-36); Mean Corpuscular Hemoglobin 31.8 pg (27.0-31.0); Mean Corpuscular Volume 98.1 fL (78.0-102.0); Mean Platelet Volume 10.5 fl (8.7-11.0); Monocytes Absolute Auto 0.41 K/mm3 (0.10-0.90); Monocytes Percent Auto 6.4 % (2.0-11.0); Neutrophils Absolute Auto 3.83 K/mm3 (1.70-7.20); Neutrophils Percent Auto 59.4 % (50.0-70.0); Platelet Count Result 208 K/mm3 (150-420); Red Blood Count 4.78 M/mm3 (4.70-6.10); Red Cell Distribution Width 12.2 % (11.6-14.4); White Blood Count 6.5 K/mm3 (4.8-10.8)
[2024-05-31 11:37] LABS: D Dimer 0.19 mg/L (0.19-0.50)
[2024-05-31 11:39] LABS: Alanine Aminotransferase 45 U/L (16-63); Albumin Level 4.2 g/dL (3.4-5.0); Alkaline Phosphatase 63 U/L (46-116); Anion Gap 10 mmol/L (4-12); Aspartate Amino Transferase 16 U/L (15-37); Bilirubin,Total 0.6 mg/dL (0.00-1.00); Blood Urea Nitrogen 17 mg/dL (7-18); Carbon Dioxide 28 mmol/L (21-32); Chloride 104 mmol/L (98-108); Estimated CRCL calculation 81 ml/min; Estimated Glomerular Filt Rate > 60; Glucose 100 mg/dL (70-99); Osmolality Calculated 295 mOsm/kg (285-295); Potassium 4.7 mmol/L (3.5-5.1); Sodium 142 mmol/L (136-145); Total Protein 7.2 g/dL (6.4-8.2)
[2024-05-31 12:15] VITALS: BP 120/78; PULSE 80; RESP 18; O2SAT 99
--- OUTSIDE RECORDS SUMMARY | 2024-05-31 12:31 | XMS_ITS | Clinical Summary ---
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 Gender Identity Not on file Sexual Orientation Not on file Last Filed Vital Signs Vital Sign Reading Time Taken Comments Blood Pressure 121/71 03/06/2020 1:02 PM FILING OR REGISTRY CLERK Pulse 80 03/06/2020 1:02 PM FILING OR REGISTRY CLERK Temperature 37.1 C (98.7 F) 03/06/2020 1:02 PM FILING OR REGISTRY CLERK Respiratory Rate 18 03/06/2020 1:02 PM FILING OR REGISTRY CLERK Oxygen Saturation 97% 03/06/2020 1:02 PM FILING OR REGISTRY CLERK Inhaled Oxygen Concentration - - Weight 55.1 kg (121 lb 6.4 oz) 03/06/2020 1:02 P M FILING OR REGISTRY CLERK Height 175.3 cm (5' 9 ) 03/06/2020 1:02 PM FILING OR REGISTRY CLERK Body Mass Index 17.93 03/06/2020 1:02 PM FILING OR REGISTRY CLERK Plan of Treatment Health Maintenance Due Date Last Done Comments Annual Physical 01/14/2004 Pneumococcal Vaccine: Pediatrics (0 to 5 Years) and At-Risk Patients (6 to 64 Years) (1 of 2 - PCV) 2007 11/27/2002, 2001 Meningococcal B Vaccine (1 of 2 - Standard) 2017 Hepatitis C 2019 COVID-19 Vaccine (1 - season) 2023 Influenza Adult (#1) 2024 [...] age to complete this topic Care Teams Coke Still Cleaner Relationship Specialty Start Date End Date None, Provider, PCP - General 08/29/20
--- OUTSIDE RECORDS SUMMARY | 2024-05-31 12:31 | XMS_ITS | Continuity of Care Document ---
Author Organization [facility] Address [address] [place] [address] Phone Care Team Providers Care Tray Server Name Role Phone Unavailable Unavailable Unavailable Allergies, [...] on Encounter Mirna Lee, [address], [place], [address] , tel: [phone] [facility] No Information 0 No Information LIMITED VISIT- NEW PATIENT Mirna Lee, [address], [place], [address] , tel: [phone] [facility] Fever (chief complaint) Fever, unspecified fever causeContact with and (suspected) exposure to other viral communicable diseases 0 No Information INTERMEDIATE VISIT EST PATIENT Mirna Lee, [address] [place], [place], [address] , tel: [phone] [facility] Cough (PEDS) (chief complaint) Bronchitis 6 Linda Sarah. [address] [place], [address], [place]. tel:[phone] INTERMEDIATE VISIT EST PATIENT Mirna Lee, [address], [place], [address] , tel: [phone] [facility] Sore throat (chief complaint) SorethroatAcu te sinusitis, recurrence not specified, unspecified location 5 No Information Mirna Lee, [address] [place], [place], [address] , tel: [phone] [facility] Sore throat 5 No Information INTERMEDIATE VISIT EST PATIENT Mirna Lee, [address], [address] , tel: [phone] [facility] Sore throat (chief complaint) Sore throatAcute bronchitis, unspecified organismEncou nter for immunization 5 No Information WELL EXAM/03-21 EST. PATIENT Mirna [facility], [address] [place], [place], [address] , [place] tel: [phone] [facility] (chief complaint) ROUTINE CHILD HEALTH EXAMScreening for hyperlipidemi aNeed for prophylactic vaccination and inoculation against viralhepatiti s 5 No Information [facility], [address], [place], [address] , [place] tel: [phone] [facility] No Information 3 No Information Referring Provider: Jing Jacobson, [address] [place], [address]. [facility]: [phone] Provider: Express Nurse. INTERMEDIATE VISIT EST PATIENT Mirna [facility], [address], [place], [address] , [place] tel: [phone] [facility] sore throat (chief complaint) PharyngitisNE ED FOR PROPHYLACTIC VACCINATION AND INOCULATION, OTHER VIRAL DISEASESNeed for prophylactic vaccination and inoculation against other specified single bacterial diseaseNEED FOR PROPHYLACTIC VACCINATION WITH COMBINED DIPHTHERIA-TE TANUS-PERTUSS IS (DTP) (DTAP) VACCINE 3 Rey Zayas. [address] [place], [address], [place]. tel:[phone] Referring Provider: Chana Le, [address] [place], [address]. tel:[phone] [facility], [address], [place], [address] , [place] tel: [phone] [facility] Immunization Location No Information 2 No Information [facility], [address], [place], [id number] , [place] tel: [phone] [facility] INJURY HAND 2 No Information [facility], [address], [place], [address] , [place] tel: [phone] [facility] INJURY KNEE LEG FOOT ANKLE 2 Kavon Ch[address] [place], [address], [place]. tel:[phone] Mirna Lee, [address] [place], [place], [address] , [place] tel: [phone] [facility] RHINITIS ALLERGIC UNSPECIFIED 7 No Information Mirna Lee, [address] [place], [address] , [place] tel: [phone] [facility] No Information 6 No Information Family History Family Member Type Diagnosis Age At Onset No Information Immunizations Vaccine Date Status Comments Hep A (ped/adol, 2 dose) administered Giselel rce: New Immunization Record Influenza, live, intranasal, [...] Record Payers Payer name Insurance type Covered green party ID Authoriza tion(s) Medicaid [id number] Medicaid [place] [id number] Social History Type Description Quantity Date Captured [...] Future Order: Lab Order LIPID PA CARMEL ([id number]), Sent on: Sent History Of Present Illness [...] rhinitis. Pertinent negatives include fever and otalgia. [facility] Feels well. [employer] minor in school [...] School forms complet ed. F/U 1 year [facility]. Related to ROUTINE CHILD HEALTH EXAM [...]
--- OUTSIDE RECORDS SUMMARY | 2024-05-31 13:26 | XMS_ITS | Continuity of Care Document ---
Author Organization [facility] Address [address] [place] [address] Phone Care Team Providers Care Crayon Grader Name Role Phone Unavailable Unavailable Unavailable Allergies, [...] on Encounter Mirna Lee, [address], [id number] , tel: [phone] [facility] No Information 0 No Information LIMITED VISIT- NEW PATIENT Mirna Lee, [address], [id number] , tel: [phone] [facility] Fever (chief complaint) Fever, unspecified fever causeContact with and (suspected) exposure to other viral communicable diseases 0 No Information INTERMEDIATE VISIT EST PATIENT Mirna Lee, [address] [place], [place], [id number] , tel: [phone] [facility] Cough (PEDS) (chief complaint) Bronchitis 6 Linda Sarah. [address] [place], [address], [place]. tel:[phone] INTERMEDIATE VISIT EST PATIENT Mirna Lee, [address] [place], [id number] , tel: [phone] [facility] Sore throat (chief complaint) SorethroatAcu te sinusitis, recurrence not specified, unspecified location 5 No Information Mirna Lee, [address] [place], [place], [id number] , tel: [phone] [facility] Sore throat 5 No Information INTERMEDIATE VISIT EST PATIENT Mirna Lee, [address], [id number] , tel: [phone] [facility] Sore throat (chief complaint) Sore throatAcute bronchitis, unspecified organismEncou nter for immunization 5 No Information WELL EXAM/03-21 EST. PATIENT Mirna [facility], [address], [id number] , [place] tel: [phone] [facility] (chief complaint) ROUTINE CHILD HEALTH EXAMScreening for hyperlipidemi aNeed for prophylactic vaccination and inoculation against viralhepatiti s 5 No Information [facility], [address], [place], [id number] , [place] tel: [phone] [facility] No Information 3 No Information Referring Provider: Jing Jacobson, [address] [place], [address]. tel: [phone] Provider: Express Nurse. INTERMEDIATE VISIT EST PATIENT Mirna [facility], [address], [place], [id number] , [place] tel: [phone] [facility] sore throat (chief complaint) PharyngitisNE ED FOR PROPHYLACTIC VACCINATION AND INOCULATION, OTHER VIRAL DISEASESNeed for prophylactic vaccination and inoculation against other specified single bacterial diseaseNEED FOR PROPHYLACTIC VACCINATION WITH COMBINED DIPHTHERIA-TE TANUS-PERTUSS IS (DTP) (DTAP) VACCINE 3 Rey Zayas. [address] [place], [address], [place]. tel:[phone] Referring Provider: Chana Le, [address] [place], [address]. tel:[phone] [facility], [address], [place], [id number] , [place] tel: [phone] Historic Immunization Location No Information 2 No Information [facility], [address], [place], [id number] , [place] tel: [phone] [facility] INJURY HAND 2 No Information [facility], [address], [place], [id number] , [place] tel: [phone] [facility] INJURY KNEE LEG FOOT ANKLE 2 Kavon Ch[address] [place], [address], [place]. tel:[phone] Mirna Lee, [address] [place], [place], [id number] , [place] tel: [phone] [facility] RHINITIS ALLERGIC UNSPECIFIED 7 No Information Mirna Lee, [address] [place], [id number] , [place] tel: [phone] [facility] No Information 6 No Information Family [...] Covered green party ID Authoriza tion(s) Medicaid [id number] Medicaid [id number] Social History Type Description Quantity Date Captured [...] Future Order: Lab Order LIPID PA CARMEL ([id number]), Sent on: Sent History Of Present Illness [...] rhinitis. Pertinent negatives include fever and otalgia. [facility] Feels well. [employer] minor in [...] School forms complet ed. F/U [address] [facility]. Related to ROUTINE CHILD HEALTH [...]
--- OUTSIDE RECORDS SUMMARY | 2024-05-31 13:26 | XMS_ITS | Clinical Summary ---
Author Organization [facility] Address [address] [place] [address] Care Team Providers Care Vmware Administrator Name Role Phone None, Provider MD [...] on file Legal Sex Male 10:43 PM [employer] Gender Identity Not on file Sexual Orientation Not on file Last Filed Vital Signs Vital Sign Reading Time Taken Comments Blood Pressure 121/71 03/06/2020 1:02 PM [employer] Pulse 80 03/06/2020 1:02 PM [employer] Temperature 37.1 C (98.7 F) 03/06/2020 1:02 PM [employer] Respiratory Rate 18 03/06/2020 1:02 PM [employer] Oxygen Saturation 97% 03/06/2020 1:02 PM [employer] Inhaled Oxygen Concentration - - Weight 55.1 kg (121 lb 6.4 oz) 03/06/2020 1:02 P M [employer] Height 175.3 cm (5' 9 ) 03/06/2020 1:02 PM [employer] Body Mass Index 17.93 03/06/2020 1:02 PM [employer] Plan of Treatment Health Maintenance Due Date [...] age to complete this topic Care Teams Vmware Administrator Relationship Specialty Start Date End Date None, Provider, PCP - General 08/29/20
== END 2024-05-31 12:15 | disposition home or self-care (01) ==
PROVIDERS: Emergency Provider Internal Medicine Critical Care Medicine
DX: M79.661 Pain in right lower leg (principal); F17.200 Nicotine dependence, unspecified, uncomplicated
CPT/HCPCS: 36415; 72100; 80053; 85025; 85380; 99283